=== PATIENT | female | born 1950 | race Caucasian/White ===

== ENCOUNTER 2021-08-17 14:21 | Outpatient (REF) | payer MEDICARE, MEDICAID, SELFPAY ==
--- NOTE | ~2021-08-17 | MM_ITS ---
EXAMINATION: MM DIAGNOSTIC DIGITAL BREAST TOMOSYNTHESIS, BILATERAL US DIAGNOSTIC ULTRASOUND BREAST, RIGHT CLINICAL INFORMATION: Due for yearly. Remote bilateral breast reduction surgery decades ago. Patient palpates mass lower outer right breast in area of reduction scar. Finding noted for only a few months. Patient has had intentional weight loss approximately 40 pounds since prior mammography. The lifetime risk of breast cancer based on the Tyrer-Cuzick Model is 7%. COMPARISON: Outside mammography: 04/17/2017 ([facility]). TECHNIQUE: Digital breast tomosynthesis is performed in both the craniocaudal and mediolateral oblique views along with computer-aided detection (CAD). Synthesized 2D images are generated from the tomosynthesis. Additional exaggerated right CC, standard right CC, and spot right MLO views are obtained. Ultrasound right breast is targeted to the area of clinical concern. Patient is able to point to the area of concern at time of imaging and the finding is palpable by myself and the alumni relations manager. Patient has imaged while sitting in wheelchair. Grayscale imaging and color Doppler are performed without and with harmonics. FINDINGS: There are scattered areas of fibroglandular density (ACR BI-RADS breast composition Category b). The breasts are symmetrically smaller and have increased stromal density consistent with the weight loss since prior outside imaging 2017. There is minor scarring and scattered round and dermal calcifications consistent with the remote reduction mammoplasty. Vascular calcifications are also present. There is no mass or architectural abnormality. No focal skin thickening. Ultrasound right breast performed with patient sitting in wheelchair is targeted to the clearly palpable area of concern which corresponds to the area of scar anterior mid lower outer right breast. There is no cystic or solid mass on ultrasound to correspond to the file palpable finding. No focal suspicious shadowing. There are some specular echoes corresponding to the vascular calcifications. Results are discussed with the patient and her aide at time of visit. Surgical consult is recommended for further assessment of the palpable finding. There is no mammographic or ultrasound target for tissue sampling although palpation directed sampling may be decided at surgical consultation. Patient is in agreement[facility] to assist patient with the surgical consultation. MM/MM tomosynthesis diagnostic BI IMPRESSION: 1. Bilateral decreased breast size and increased stromal density consistent with the intentional weight loss. 2. Postsurgical changes with minor scarring and benign calcifications consistent with the reduction mammoplasty. 3. No mammographic or ultrasound correlate for clearly palpable mass anterior lower outer right breast in area of reduction mammoplasty scar. Unremarkable left breast. ASSESSMENT: BI-RADS 3: Probably Benign RECOMMENDATION: Surgical consult. This patient's information was entered into a reminder system with a target due date for their next mammogram.
== END 2021-08-17 14:22 | disposition home or self-care (01) ==
LOC: HO.MAMMO 14:21
PROVIDERS: PCP Nurse Practitioner Family; Visit Provider Nurse Practitioner Family
DX: N63.15 Unspecified lump in the right breast, overlapping quadrants (principal)
CPT/HCPCS: 76642; 77062; 77066

== ENCOUNTER → 2021-09-28 13:51 | Outpatient (BNVA) | payer OTHER, SELFPAY | PROVIDERS: PCP Nurse Practitioner Family; Referring Provider Nurse Practitioner Family; Visit Provider Surgery | DX: N63.10 Unspecified lump in the right breast, unspecified quadrant (principal) | CPT/HCPCS: 99202 ==

== ENCOUNTER 2022-03-08 12:13 | Outpatient (REF) | payer OTHER, SELFPAY ==
--- NOTE | ~2022-03-08 | XR_ITS ---
EXAMINATION: XR PELVIS CLINICAL INFORMATION: Hip pain COMPARISON: CT pelvis 06/05/2018 TECHNIQUE: AP view of the pelvis. FINDINGS: There is prominent bilateral hip osteoarthritis. Right hip shows predominantly axial narrowing with subchondral sclerosis and circumferential spurring acetabular rim and base of the femoral head. Left hip shows marked narrowing superior and superior-medial with subchondral sclerosis and geodes and some mild flattening of the superior femoral head. There are osteophytes at the superior lateral acetabular rim and base lateral femoral head. There are degenerative changes lumbosacral junction. The SI joints and pubis are unremarkable. XR/XR pelvis 1-2V IMPRESSION: Severe bilateral hip osteoarthritis, greater on left.
== END 2022-03-08 12:14 | disposition home or self-care (01) ==
LOC: HO.HOSX 12:13
PROVIDERS: Visit Provider Orthopaedic Surgery
DX: M16.0 Bilateral primary osteoarthritis of hip (principal)
CPT/HCPCS: 72170; 99202

== ENCOUNTER → 2022-06-14 11:45 | Outpatient (BNVA) | payer OTHER, SELFPAY | PROVIDERS: PCP Nurse Practitioner Family; Visit Provider Orthopaedic Surgery | DX: M17.0 Bilateral primary osteoarthritis of knee (principal); M16.0 Bilateral primary osteoarthritis of hip | CPT/HCPCS: 20610; 99212; J1100 ==

== ENCOUNTER 2022-10-23 23:47 | Inpatient (IN) | payer OTHER, SELFPAY ==
--- NOTE | ~2022-10-23 | CT_ITS ---
EXAMINATION: CT ABDOMEN AND PELVIS WITH CONTRAST CLINICAL INFORMATION: Abdominal pain. Question mass. COMPARISON: None available. TECHNIQUE: Multidetector volumetric images were obtained from the superior aspect of the liver through the pubic symphysis following administration 100 mL of Omnipaque 350 intravenous contrast. Sagittal and coronal reformatted images were obtained on the technologist's workstation. Oral contrast: No This CT examination was performed using dose optimization techniques as appropriate, variously including the following: *Automated exposure control *Adjustment of mA and/or kV according to patient size (this includes techniques or standardized protocols for targeted exams where dose is matched to indication/reason for exam; i.e. extremities or head) *Use of iterative reconstruction technique DLP: 999 mGy-cm FINDINGS: LUNG BASES: The visualized lung bases are unremarkable. LIVER, GALLBLADDER, AND BILIARY TREE: The liver is normal in size, shape, and attenuation. No focal hepatic lesion. Distended gallbladder with stones. Dilated intrahepatic and extrahepatic ducts. Choledocholithiasis. Stone measures 1 cm in the duct. PANCREAS: Unremarkable. SPLEEN: Unremarkable. ADRENAL GLANDS: Unremarkable. KIDNEYS AND URETERS: The kidneys are normal in size, shape, and attenuation. No hydronephrosis, hydroureter, or calculi seen. No perinephric stranding. BLADDER: Unremarkable. GASTROINTESTINAL TRACT: The stomach is unremarkable. Normal caliber small bowel. No obstruction. Normal appendix. No colonic wall thickening or inflammation. Diverticulosis without diverticulitis, greatest at the sigmoid colon. No free air or free fluid. ABDOMINAL WALL: No significant hernia is appreciated. LYMPH NODES: Normal. VASCULAR: Unremarkable. PELVIC VISCERA: Uterus not seen. No adnexal mass. OSSEOUS STRUCTURES: No acute or suspicious osseous abnormality. Moderate degenerative changes of the spine. Severe degenerative changes of both hips with flattening of the femoral heads and joint space narrowing. CT/CT abdomen pelvis w IV con IMPRESSION: 1. Cholelithiasis with choledocholithiasis. Dilated intrahepatic and extrahepatic ducts. 2. Colonic diverticulosis without diverticulitis. 3. Severe degenerative changes of both hips. Fleischner guidelines were followed.
--- NOTE | ~2022-10-23 | FL_ITS ---
EXAMINATION: XR FLUOROSCOPY WITH IMAGES CLINICAL INFORMATION: ERCP COMPARISON: Previous CT of the abdomen and pelvis 10/24/2022 TECHNIQUE: Fluoroscopy Supervised By: Dr. Angelica Luis. Fluoroscopy Time: 246 seconds. Cumulative Dose: 134 mGy. Images: 18. FINDINGS: Initial images demonstrate dilated common bile duct and multiple filling defects in the common bile duct suggestive of stones. Later images demonstrate a wire in the common bile duct. Final image demonstrates decrease in size in the common bile duct and no visible stone. FL/FL guidance in OR IMPRESSION: Fluoroscopy guidance for ERCP. Common bile duct stones.
--- NOTE | ~2022-10-23 | XR_ITS ---
EXAMINATION: XR CHEST CLINICAL INFORMATION: Short of breath COMPARISON: 06/12/2015 TECHNIQUE: Frontal view of the chest was obtained. FINDINGS: Cardiac leads overlie the chest. The lungs are well expanded. There is no focal consolidation, edema, or effusion. No pneumothorax. The cardiomediastinal silhouette is enlarged. No acute osseous abnormality. Degenerative changes at both shoulders. XR/XR chest 1V IMPRESSION: No acute pulmonary disease. Enlarged cardiac silhouette.
[2022-10-23 23:58] VITALS: BP 102/60; BP 118/64; PULSE 58; PULSE 66; RESP 20; TEMP 36.7; O2SAT 96; BMI 44.5
[2022-10-24] VITALS (7 sets, daily range): BP systolic 94–167; BP diastolic 37–91; PULSE 50–65; RESP 13–20; TEMP 36.1–36.9; O2SAT 96–99; BMI 44.3
--- NOTE | 2022-10-24 00:10 | PC.NURSE ---
pt placed on monitoring specialist. iv placed by this rn. 20gin R arm. pt tolerated well
--- NOTE | 2022-10-24 00:12 | ECG_ITS ---
Test Reason : VOMITING Blood Pressure : / mmHG Vent. Rate : 059 BPM Atrial Rate : 000 BPM P-R Int : 000 ms QRS Dur : 110 ms QT Int : 430 ms P-R-T Axes : 000 004 079 degrees QTc Int : 425 ms Atrial fibrillation with slow ventricular response Incomplete left bundle branch block Nonspecific ST and T wave abnormality Abnormal ECG When compared with ECG of 12-JUN-2015 21:10, Atrial fibrillation has replaced Sinus rhythm Vent. rate has decreased BY 31 BPM Incomplete left bundle branch block is now Present Referred By: Samina Chowdary Electronically Signed By:Suraj Colin
--- NOTE | 2022-10-24 00:29 | ED.NAVMDI ---
HPI - Nausea/Vomiting/Diarrhea General Chief complaint: Nausea/Vomiting/Diarrhea Stated complaint: nausea and vomiting Time Seen by Provider: 10/24/22 00:05 History of Present Illness HPI Narrative: Patient is a 72-year-old history of hypertension, arthritis no history of abdominal surgery presented today with having nausea vomiting. The nausea vomiting is mostly of bile in food. Patient has black stool. She also had Pepto-Bismol 2 days ago. Positive generalized malaise weakness. No history of abdominal surgery in the past. Patient is from home. No coughing or congestion or respiratory symptoms. No diaphoresis. Related Data Home Medications Medication Instructions Recorded Confirmed apixaban 5 mg tablet (Eliquis) 5 mg PO BID 09/28/21 carvedilol 12.5 mg tablet 12.5 mg PO BID 09/28/21 cholecalciferol (vitamin D3) 1,250 1,250 mcg PO QWEEK 09/28/21 mcg (50,000 unit) capsule ferrous sulfate 325 mg (65 mg 325 mg PO BID 09/28/21 iron) tablet fluconazole 150 mg tablet 150 mg PO 09/28/21 methimazole 10 mg tablet 20 mg PO BID 09/28/21 methimazole 5 mg tablet 5 mg PO 6XW 09/28/21 nystatin 100,000 unit/gram topical topical BID 09/28/21 powder spironolactone 25 mg tablet 25 mg PO DAILY 09/28/21 torsemide 20 mg tablet 20 mg PO BID 09/28/21 tramadol 50 mg tablet 50 mg PO Q6H PRN 09/28/21 valsartan 80 mg tablet 80 mg PO DAILY 09/28/21 Allergies Allergy/AdvReac Type Severity Reaction Status Date / Time Penicillins [PENICILLINS] Allergy Unknown UNKNOWN Verified 03/08/22 12:56 Review of Systems Review of Systems: Positive abdominal pain. Positive dizziness Yes all other systems are reviewed and are negative PMFSH Past Medical History Attestation statement: The following information was validated with the patient. Medical History Arthritis Breast mass, right Hypertension Lymphedema Surgical History History of bilateral breast reduction surgery History of hysterectomy Family History Family History Mother Vaginal cancer Brother Eye cancer Social History Social History Alcohol intake: never Patient Tobacco Use Status: Never used Tobacco Smoked in Last 30 Days: No Use of substances other than those prescribed or required for medical reasons: No Advance Directives: No Advance Directives Information Provided: Yes Physical Exam Vital Signs: Vital Signs: Last Vital Signs Temp 98.0 F 10/24/22 01:50 Pulse 62 10/24/22 01:50 Resp 18 10/24/22 01:50 BP 119/58 L 10/24/22 01:50 Pulse Ox 99 10/24/22 01:50 O2 Del Method Room Air 10/24/22 01:50 BMI result Body Mass Index 44.5 Appearance: Alert. Oriented X3. No acute distress. Eyes: Pupils equal, round and reactive to light. ENT: Pharynx normal. Neck: Normal inspection. Neck supple. No lymph nodes noted. No crepitus CVS: Normal heart rate and rhythm. Pulses normal. Normal S1 and S2 Respiratory: No respiratory distress. Breath sounds normal. No Wheezing. No rales Abdomen: Soft and nontender. No rigidity. No distention. good BS x4 Skin: Skin warm and dry. Normal skin color. Normal skin turgor. Extremities: No lower extremity edema. Neurovascular intact to all extremities. No Lacerations. No Rash Neuro: Oriented X 3. No motor deficit. No sensory deficit. Moving all extermities. No slurred speech Medications Administered Discontinued Medications Generic Name Dose Route Start Last Admin Trade Name Freq PRN Reason Stop Dose Admin Sodium Chloride 1,000 mls @ 999 mls/hr 10/24/22 00:15 10/24/22 02:06 Ns IV 10/24/22 01:15 Infused .Q1H1M MARIALUISA Infusion Iohexol 100 ml 10/24/22 02:49 10/24/22 02:50 Iohexol 350 Mg/Ml 100 Ml Infus..Btl IV 10/24/22 02:50 100 ml ONCE ONE Administration Ondansetron HCl 4 mg 10/24/22 02:04 10/24/22 02:09 Ondansetron Hcl 4 Mg/2 Ml Vial IVPUSH 10/24/22 02:05 4 mg ONCE ONE Administration Medical Decision Making Medical Decision Making [facility] Narrative: Patient complaining of abdominal pain generalized malaise weakness. Had black stool as well. Although patient had used Pepto-Bismol once. Patient's stool came back heme-positive. Nausea vomiting was extreme. It is associated with some abdominal pain in the epigastric area. Patient's LFTs are elevated consistent with some type of obstruction. CT scan of the abdomen pelvis was done. It showed evidence of a choledochal lithiasis. Will poly required ERCP. Likely causing patient's elevated and a in LFTs. Patient's lipase was normal no evidence of pancreatitis. Patient's hemoglobin is 13.3 which is baseline. Currently pain is control nausea is controlled. Case discussed with the hospitalist team. Will admit for further evaluation. Patient will most likely need an ERCP. Differential Diagnosis Differential Diagnoses: The differential diagnosis associated with the presentation includes Intra-abdominal mass, common duct stone, liver problem, pneumonia, diverticulitis, obstruction, abscess Admission/Observation Consideration of admission/observation: Escalation of care including admission/observation considered Consult Healthcare Provider Management of the patient was discussed with: Hospitalist Lab Data [facility] Lab Attestation statement: I reviewed the patient's lab results. 10/24/22 00:40 10/24/22 00:40 Labs: Lab Results 10/24/22 10/24/22 10/24/22 Range/Units 00:39 00:40 00:40 WBC 7.4 (4.8-10.8) X10*3/uL RBC 4.26 (4.20-5.50) X10*6/uL Hgb 13.3 (12.0-16.0) g/dl Hct 38.8 (37.0-47.0) % MCV 91.1 (80.0-98.0) fL MCH 31.2 (27.0-33.0) pg MCHC 34.3 (31.0-35.0) g/dl RDW 13.4 (11.0-16.0) % Plt Count 160 (160-400) X10*3/uL MPV 9.5 (9.4-12.3) fL Immature Gran % (Auto) 0.8 H (0.0-0.4) % Neut % (Auto) 69.6 (45-73) % Lymph % (Auto) 16.6 L (20-40) % [place] % (Auto) 10.0 (2-11) % Eos % (Auto) 2.2 (0-4) % Baso % (Auto) 0.8 (0-2) % Lymph # (Auto) 1.2 (1.2-4.9) X10*3/uL [place] # (Auto) 0.7 (0.1-1.2) X10*3/uL Eos # (Auto) 0.2 (0.0-0.4) X10*3/uL Baso # (Auto) 0.1 (0.0-0.2) X10*3/uL Abs Immat Gran (auto) 0.06 H (0.00-0.03) X10*3/uL Absolute Neuts (auto) 5.2 (2.0-8.3) x10*3/uL Absolute Nucleated RBC 0.000 (0.0-0.012) X10*3/uL Nucleated RBC % (auto) 0.0 (0.0-0.2) /100WBC PT 14.5 H (10.0-13.1) SEC INR 1.3 H (0.9-1.1) Sodium (135-145) mmol/L Potassium (3.3-5.1) mmol/L Chloride (96-108) mmol/L Carbon Dioxide (22-29) mmol/L Anion Gap (12-20) BUN (9-16) mg/dL Creatinine (0.5-1.4) mg/dL Estim Creat Clear Calc Estimated GFR Random Glucose (60-115) mg/dL Calcium (8.4-10.2) mg/dL Total Bilirubin (0.0-1.0) mg/dL Direct Bilirubin (0.0-0.5) mg/dL AST (5-31) U/L ALT (0-31) U/L Alkaline Phosphatase (39-117) U/L Troponin I High Sens 2.8 (<3.5-17.0) ng/L Total Protein (6.5-8.0) g/dL Albumin (3.5-5.0) g/dL Lipase (8-78) U/L Urine Color Urine Appearance Urine pH (5.0-9.0) Ur Specific [place] (1.005-1.025) Urine Protein (Neg-Trace) mg/dL Urine Glucose (UA) (Negative) mg/dL Urine Ketones (Negative) mg/dL Urine Blood (Negative) Urine Nitrite (Negative) Ur Leukocyte Esterase (Negative) Urine RBC (0-2) /HPF Urine WBC (0-5) /HPF Ur Squamous Epith Cells (0-2) /HPF Urine Bacteria (None Seen) Hyaline Casts (0-2) /LPF Stool Occult Blood (NEGATIVE) Blood Type Antibody Screen 10/24/22 10/24/22 10/24/22 Range/Units 00:40 00:40 00:57 WBC (4.8-10.8) X10*3/uL RBC (4.20-5.50) X10*6/uL Hgb (12.0-16.0) g/dl Hct (37.0-47.0) % MCV (80.0-98.0) fL MCH (27.0-33.0) pg MCHC (31.0-35.0) g/dl RDW (11.0-16.0) % Plt Count (160-400) X10*3/uL MPV (9.4-12.3) fL Immature Gran % (Auto) (0.0-0.4) % Neut % (Auto) (45-73) % Lymph % (Auto) (20-40) % [place] % (Auto) (2-11) % Eos % (Auto) (0-4) % Baso % (Auto) (0-2) % Lymph # (Auto) (1.2-4.9) X10*3/uL [place] # (Auto) (0.1-1.2) X10*3/uL Eos # (Auto) (0.0-0.4) X10*3/uL Baso # (Auto) (0.0-0.2) X10*3/uL Abs Immat Gran (auto) (0.00-0.03) X10*3/uL Absolute Neuts (auto) (2.0-8.3) x10*3/uL Absolute Nucleated RBC (0.0-0.012) X10*3/uL Nucleated RBC % (auto) (0.0-0.2) /100WBC PT (10.0-13.1) SEC INR (0.9-1.1) Sodium 129 L (135-145) mmol/L Potassium 4.0 (3.3-5.1) mmol/L Chloride 98 (96-108) mmol/L Carbon Dioxide 23 (22-29) mmol/L Anion Gap 12 (12-20) BUN 19 H (9-16) mg/dL Creatinine 1.03 (0.5-1.4) mg/dL Estim Creat Clear Calc 52.7 Estimated GFR 53 Random Glucose 109 (60-115) mg/dL Calcium 9.0 (8.4-10.2) mg/dL Total Bilirubin 5.1 H (0.0-1.0) mg/dL Direct Bilirubin 3.5 H (0.0-0.5) mg/dL AST 75 H (5-31) U/L ALT 149 H (0-31) U/L Alkaline Phosphatase 156 H (39-117) U/L Troponin I High Sens (<3.5-17.0) ng/L Total Protein 6.4 L (6.5-8.0) g/dL Albumin 3.9 (3.5-5.0) g/dL Lipase 37 (8-78) U/L Urine Color Urine Appearance Urine pH (5.0-9.0) Ur Specific [place] (1.005-1.025) Urine Protein (Neg-Trace) mg/dL Urine Glucose (UA) (Negative) mg/dL Urine Ketones (Negative) mg/dL Urine Blood (Negative) Urine Nitrite (Negative) Ur Leukocyte Esterase (Negative) Urine RBC (0-2) /HPF Urine WBC (0-5) /HPF Ur Squamous Epith Cells (0-2) /HPF Urine Bacteria (None Seen) Hyaline Casts (0-2) /LPF Stool Occult Blood POSITIVE (NEGATIVE) Blood Type AB Positive Antibody Screen NEGATIVE 10/24/22 Range/Units 00:57 WBC (4.8-10.8) X10*3/uL RBC (4.20-5.50) X10*6/uL Hgb (12.0-16.0) g/dl Hct (37.0-47.0) % MCV (80.0-98.0) fL MCH (27.0-33.0) pg MCHC (31.0-35.0) g/dl RDW (11.0-16.0) % Plt Count (160-400) X10*3/uL MPV (9.4-12.3) fL Immature Gran % (Auto) (0.0-0.4) % Neut % (Auto) (45-73) % Lymph % (Auto) (20-40) % [place] % (Auto) (2-11) % Eos % (Auto) (0-4) % Baso % (Auto) (0-2) % Lymph # (Auto) (1.2-4.9) X10*3/uL [place] # (Auto) (0.1-1.2) X10*3/uL Eos # (Auto) (0.0-0.4) X10*3/uL Baso # (Auto) (0.0-0.2) X10*3/uL Abs Immat Gran (auto) (0.00-0.03) X10*3/uL Absolute Neuts (auto) (2.0-8.3) x10*3/uL Absolute Nucleated RBC (0.0-0.012) X10*3/uL Nucleated RBC % (auto) (0.0-0.2) /100WBC PT (10.0-13.1) SEC INR (0.9-1.1) Sodium (135-145) mmol/L Potassium (3.3-5.1) mmol/L Chloride (96-108) mmol/L Carbon Dioxide (22-29) mmol/L Anion Gap (12-20) BUN (9-16) mg/dL Creatinine (0.5-1.4) mg/dL Estim Creat Clear Calc Estimated GFR Random Glucose (60-115) mg/dL Calcium (8.4-10.2) mg/dL Total Bilirubin (0.0-1.0) mg/dL Direct Bilirubin (0.0-0.5) mg/dL AST (5-31) U/L ALT (0-31) U/L Alkaline Phosphatase (39-117) U/L Troponin I High Sens (<3.5-17.0) ng/L Total Protein (6.5-8.0) g/dL Albumin (3.5-5.0) g/dL Lipase (8-78) U/L Urine Color Dark Yellow Urine Appearance Clear Urine pH 6.0 (5.0-9.0) Ur Specific [place] 1.010 (1.005-1.025) Urine Protein Negative (Neg-Trace) mg/dL Urine Glucose (UA) Negative (Negative) mg/dL Urine Ketones Trace (Negative) mg/dL Urine Blood Negative (Negative) Urine Nitrite Negative (Negative) Ur Leukocyte Esterase Trace H (Negative) Urine RBC 0-2 (0-2) /HPF Urine WBC 0-5 (0-5) /HPF Ur Squamous Epith Cells 6-10 (0-2) /HPF Urine Bacteria None Seen (None Seen) Hyaline Casts 0-2 (0-2) /LPF Stool Occult Blood (NEGATIVE) Blood Type Antibody Screen Independent Interpretation I performed an independent interpretation of an: EKG Interpretation: My interpretation patient's EKG showed an atrial fibrillation pattern heart rate is approximately 60 is grossly unchanged from previous EKG. Radiology Impression Discussion of test interpretation with radiology: I have reviewed the radiologist's reading. Radiologist Impression: CT scan positive for choledocholithiasis External Record Review External record reviewed: Inpatient record Chronic Conditions Patient?s care impacted by: Diabetes and Hypertension Critical Care Time Critical Care Time Critical Care Time: Yes Total Critical Care Time: 40 Attestation: I have personally provided 40 minutes of critical care time exclusive of time spent on separately billable procedures. Time includes review of lab data, radiology results, discussion with consultants, and monitoring for potential decompensation. Interventions were performed as documented above Discharge Plan Discharge Clinical Impression: Choledocholithiasis Patient Disposition: Admitted As Inpatient Prescriptions: No Action Eliquis 5 mg tablet 5 mg PO BID tramadol 50 mg tablet 50 mg PO Q6H PRN valsartan 80 mg tablet 80 mg PO DAILY spironolactone 25 mg tablet 25 mg PO DAILY methimazole 10 mg tablet 20 mg PO BID methimazole 5 mg tablet 5 mg PO 6XW ferrous sulfate 325 mg (65 mg iron) tablet 325 mg PO BID nystatin 100,000 unit/gram powder topical BID cholecalciferol (vitamin D3) 1,250 mcg (50,000 unit) capsule 1,250 mcg PO QWEEK carvedilol 12.5 mg tablet 12.5 mg PO BID torsemide 20 mg tablet 20 mg PO BID fluconazole 150 mg tablet 150 mg PO
[2022-10-24] MEDS: 0.9 % Sodium Chloride 1,000 ML 999 ML IV (00:32)
[2022-10-24 00:46] LABS: MANUAL DIFF FLAG NO
[2022-10-24 00:47] LABS: OBS Int Ctl Valid YES; OBS1 POSITIVE (NEGATIVE)
[2022-10-24 00:48] LABS: Basophils Absolute Auto 0.1 X10*3/uL (0.0-0.2); Basophils Percent Auto 0.8 % (0-2); Eosinophils Absolute Auto 0.2 X10*3/uL (0.0-0.4); Eosinophils Percent Auto 2.2 % (0-4); Hematocrit 38.8 % (37.0-47.0); Hemoglobin 13.3 g/dl (12.0-16.0); Imm Gran Abs Auto 0.06 X10*3/uL (0.00-0.03); Imm Gran Pct Auto 0.8 % (0.0-0.4); Lymphocytes Absolute Auto 1.2 X10*3/uL (1.2-4.9); Lymphocytes Percent Auto 16.6 % (20-40); Mean Corpuscular HGB Conc 34.3 g/dl (31.0-35.0); Mean Corpuscular Hemoglobin 31.2 pg (27.0-33.0); Mean Corpuscular Volume 91.1 fL (80.0-98.0); Mean Platelet Volume 9.5 fL (9.4-12.3); Monocytes Absolute Auto 0.7 X10*3/uL (0.1-1.2); Neutrophils Absolute Auto 5.2 x10*3/uL (2.0-8.3); Neutrophils Percent Auto 69.6 % (45-73); Platelet Count 160 X10*3/uL (160-400); Red Blood Count 4.26 X10*6/uL (4.20-5.50); Red Cell Distribution Width 13.4 % (11.0-16.0); White Blood Count 7.4 X10*3/uL (4.8-10.8)
[2022-10-24 00:54] LABS: INTERNATIONAL NORM RATIO 1.3 (0.9-1.1); Prothrombin Time 14.5 SEC (10.0-13.1)
[2022-10-24 01:06] LABS: Appearance Urine Clear; Color Urine Dark Yellow; Glucose Urine UA Negative (Negative); Leukocyte Esterase Urine Trace (Negative); Nitrite Urine Negative (Negative); UMIC TRIGGER UACC YES; Urine Blood Negative (Negative); Urine Ketones Trace mg/dL (Negative); Urine Protein Negative (Neg-Trace)
[2022-10-24 01:07] LABS: Troponin-I High Sensitivity 2.8 ng/L (<3.5-17.0)
[2022-10-24 01:07] LABS: Alanine Aminotransferase 149 U/L (0-31); Albumin Level 3.9 g/dL (3.5-5.0); Alkaline Phosphatase 156 U/L (39-117); Anion Gap 12 (12-20); Aspartate Amino Transferase 75 U/L (5-31); Bilirubin Direct 3.5 mg/dL (0.0-0.5); Bilirubin Total 5.1 mg/dL (0.0-1.0); Blood Urea Nitrogen 19 mg/dL (9-16); Carbon Dioxide 23 mmol/L (22-29); Chloride 98 mmol/L (96-108); Creatinine Clr Calc Pharmacy 52.7; Estimated Glomerular Filt Rate 53; Glucose Random 109 mg/dL (60-115); Lipase 37 U/L (8-78); Sodium 129 mmol/L (135-145); Total Protein 6.4 g/dL (6.5-8.0)
[2022-10-24 01:11] LABS: Bacteria Urine None Seen (None Seen); Hyaline Casts Urine 0-2 /LPF (0-2); RBC Urine 0-2 /HPF (0-2); WBC Urine 0-5 /HPF (0-5)
[2022-10-24] MEDS: ondansetron HCL 4 MG/2 ML VIAL IVPUSH (02:09)
--- NOTE | 2022-10-24 02:10 | PC.NURSE ---
this rn and eddy current inspector changed soiled linens as pt was incontinent of urine. pt placed on periwick at this time. pt tolerated well. pt reports nausea. pt medicated according to steve with zofran. pt awaiting ct scan at this time
[2022-10-24] MEDS: iohexoL 350 MG/ML 100 ML INFUS..BTL IV (02:50)
--- NOTE | 2022-10-24 03:28 | P.HPHOSP_ITS ---
History of Present Illness Date of Service: 10/24/22 Chief Complaint: Nausea/vomiting This is a 72-year-old female with pertinent history of essential hypertension, AFib on Eliquis, hyperthyroidism who presents to the emergency department for evaluation of nausea and vomiting. Patient states her symptoms started 6 days ago. She has been having nausea and nonbloody emesis which is greenish in color. Patient denies abdominal discomfort, fever, chills. No similar history in the past. Patient states she also noticed that her stool has been blackish in color for the last 4-5 days. She began having Pepto-Bismol about 2 days ago. Patient denies chest discomfort, palpitations, shortness of breath, changes in urinary habits. Patient states she has only been eating toast due to nausea and vomiting. In the emergency department, stool occult blood test was noted to be positive and imaging was concerning for choledocholithiasis Review of Systems Constitutional: Constitutional: Reports fatigue and Reports malaise Cardiovascular: Cardiovascular: Reports no additional cardiovascular complaints Respiratory: Respiratory: Reports no additional respiratory complaints Gastrointestinal: Gastrointestinal: Reports nausea and Reports vomiting Genitourinary: Genitourinary: Reports no additional female genitourinary complaints Endocrine: Endocrine: Reports fatigue PMFSH Medical History Arthritis Breast mass, right Hypertension Lymphedema Family History Mother Vaginal cancer Brother Eye cancer Surgical History History of bilateral breast reduction surgery History of hysterectomy Social History Alcohol intake: never Patient Tobacco Use Status: Never used Tobacco Smoked in Last 30 Days: No Use of substances other than those prescribed or required for medical reasons: No Advance Directives: No Advance Directives Information Provided: Yes Meds Allergies Allergy/AdvReac Type Severity Reaction Status Date / Time Penicillins [PENICILLINS] Allergy Unknown UNKNOWN Verified 03/08/22 12:56 Home Medications Medication Instructions Recorded Confirmed Last Taken Type apixaban 5 mg tablet (Eliquis) 5 mg PO BID 09/28/21 Unknown History carvedilol 12.5 mg tablet 12.5 mg PO BID 09/28/21 Unknown History cholecalciferol (vitamin D3) 1,250 1,250 mcg PO QWEEK 09/28/21 Unknown History mcg (50,000 unit) capsule ferrous sulfate 325 mg (65 mg 325 mg PO BID 09/28/21 Unknown History iron) tablet fluconazole 150 mg tablet 150 mg PO 09/28/21 Unknown History methimazole 10 mg tablet 20 mg PO BID 09/28/21 Unknown History methimazole 5 mg tablet 5 mg PO 6XW 09/28/21 Unknown History nystatin 100,000 unit/gram topical topical BID 09/28/21 Unknown History powder spironolactone 25 mg tablet 25 mg PO DAILY 09/28/21 Unknown History torsemide 20 mg tablet 20 mg PO BID 09/28/21 Unknown History tramadol 50 mg tablet 50 mg PO Q6H PRN 09/28/21 Unknown History valsartan 80 mg tablet 80 mg PO DAILY 09/28/21 Unknown History Physical Exam Vital Signs and Narrative: Vital Signs: Last Vital Signs Temp 98.0 F 10/24/22 01:50 Pulse 62 10/24/22 01:50 Resp 18 10/24/22 01:50 BP 119/58 L 10/24/22 01:50 Pulse Ox 99 10/24/22 01:50 O2 Del Method Room Air 10/24/22 01:50 BMI result Body Mass Index 44.5 Middle-aged female lying in bed in no distress Neck supple, no JVD Regular rate and rhythm, S1-S2 heard Regular breath sounds bilaterally, no wheezing or crackles appreciated Abdomen soft nontender, no guarding, no rigidity Patient is awake, alert and oriented to self, place, time and person ; no focal motor deficit Psych: Normal mood No pedal edema Results Labs 10/24/22 00:40 10/24/22 00:40 Labs: Laboratory Results - last 24 hr 10/24/22 10/24/22 10/24/22 00:39 00:40 00:40 MCV 91.1 MCH 31.2 MCHC 34.3 RDW 13.4 Plt Count 160 MPV 9.5 Immature Gran % (Auto) 0.8 H Neut % (Auto) 69.6 Lymph % (Auto) 16.6 L Orange % (Auto) 10.0 Eos % (Auto) 2.2 Baso % (Auto) 0.8 Lymph # (Auto) 1.2 Orange # (Auto) 0.7 Eos # (Auto) 0.2 Baso # (Auto) 0.1 Abs Immat Gran (auto) 0.06 H Absolute Neuts (auto) 5.2 Absolute Nucleated RBC 0.000 Nucleated RBC % (auto) 0.0 PT 14.5 H INR 1.3 H Anion Gap Estim Creat Clear Calc Estimated GFR Random Glucose Calcium Total Bilirubin Direct Bilirubin AST ALT Alkaline Phosphatase Troponin I High Sens 2.8 Total Protein Albumin Lipase Urine Color Urine Appearance Urine pH Ur Specific [place] Urine Protein Urine Glucose (UA) Urine Ketones Urine Blood Urine Nitrite Ur Leukocyte Esterase Urine RBC Urine WBC Ur Squamous Epith Cells Urine Bacteria Hyaline Casts Stool Occult Blood Blood Type Antibody Screen 10/24/22 10/24/22 10/24/22 00:40 00:40 00:57 MCV MCH MCHC RDW Plt Count MPV Immature Gran % (Auto) Neut % (Auto) Lymph % (Auto) Orange % (Auto) Eos % (Auto) Baso % (Auto) Lymph # (Auto) Orange # (Auto) Eos # (Auto) Baso # (Auto) Abs Immat Gran (auto) Absolute Neuts (auto) Absolute Nucleated RBC Nucleated RBC % (auto) PT INR Anion Gap 12 Estim Creat Clear Calc 52.7 Estimated GFR 53 Random Glucose 109 Calcium 9.0 Total Bilirubin 5.1 H Direct Bilirubin 3.5 H AST 75 H ALT 149 H Alkaline Phosphatase 156 H Troponin I High Sens Total Protein 6.4 L Albumin 3.9 Lipase 37 Urine Color Urine Appearance Urine pH Ur Specific [place] Urine Protein Urine Glucose (UA) Urine Ketones Urine Blood Urine Nitrite Ur Leukocyte Esterase Urine RBC Urine WBC Ur Squamous Epith Cells Urine Bacteria Hyaline Casts Stool Occult Blood POSITIVE Blood Type AB Positive Antibody Screen NEGATIVE 10/24/22 00:57 MCV MCH MCHC RDW Plt Count MPV Immature Gran % (Auto) Neut % (Auto) Lymph % (Auto) Orange % (Auto) Eos % (Auto) Baso % (Auto) Lymph # (Auto) Orange # (Auto) Eos # (Auto) Baso # (Auto) Abs Immat Gran (auto) Absolute Neuts (auto) Absolute Nucleated RBC Nucleated RBC % (auto) PT INR Anion Gap Estim Creat Clear Calc Estimated GFR Random Glucose Calcium Total Bilirubin Direct Bilirubin AST ALT Alkaline Phosphatase Troponin I High Sens Total Protein Albumin Lipase Urine Color Dark Yellow Urine Appearance Clear Urine pH 6.0 Ur Specific [place] 1.010 Urine Protein Negative Urine Glucose (UA) Negative Urine Ketones Trace Urine Blood Negative Urine Nitrite Negative Ur Leukocyte Esterase Trace H Urine RBC 0-2 Urine WBC 0-5 Ur Squamous Epith Cells 6-10 Urine Bacteria None Seen Hyaline Casts 0-2 Stool Occult Blood Blood Type Antibody Screen Imaging Radiologist's Impressions: Impressions Chest X-Ray 10/24/22 01:07 IMPRESSION: No acute pulmonary disease. Enlarged cardiac silhouette. Abdomen/Pelvis CT 10/24/22 02:45 IMPRESSION: 1. Cholelithiasis with choledocholithiasis. Dilated intrahepatic and extrahepatic ducts. 2. Colonic diverticulosis without diverticulitis. 3. Severe degenerative changes of both hips. Fleischner guidelines were followed. Assessment and Plan (1) Choledocholithiasis: Status: Acute Plan This is a 72-year-old female with pertinent history of essential hypertension, AFib on Eliquis, hyperthyroidism who presents to the emergency department for evaluation of nausea and vomiting. #. Nausea/vomiting, likely due to Choledocholithiasis: Will admit patient and consult GI for possible ERCP. No fever or evidence of cholangitis. Will keep patient NPO. Will also need eventual cholecystectomy #. Conjugated jaundice and transaminitis in the setting of above #. ?GI bleed: Stool occult blood test positive in the ER. Initiating IV Protonix. Will keep patient NPO and consulting GI as above #. AFib: Rate controlled in the ER. Holding Eliquis due to possible GI bleed #. Essential hypertension: Hold antihypertensives due to possible GI bleed. Resume as appropriate #. Hyperthyroidism: On methimazole Med rec pending DVT prophylaxis: Mechanical Full code NPO Admit as inpatient and will require two night minimum hospital stay for possible procedure. Specialist consult pending Time Spent With Patient Time: Total time managing care of this patient today ____ minutes. Quality Stroke Does the patient have a stroke diagnosis?: No VTE Prior VTE?: No VTE Risk Level:: Medical - moderate - high VTE Device Contraindication: N/A - Device Ordered VTE Drug Contraindication: Treatment Not Indicated
[2022-10-24] MEDS: Pantoprazole Sodium 40 MG/10 ML VIAL 80 MG IVPUSH (04:09)
[2022-10-24 06:03] LABS: MANUAL DIFF FLAG NO
[2022-10-24 06:05] LABS: Basophils Absolute Auto 0.1 X10*3/uL (0.0-0.2); Basophils Percent Auto 0.7 % (0-2); Eosinophils Absolute Auto 0.1 X10*3/uL (0.0-0.4); Eosinophils Percent Auto 1.8 % (0-4); Hematocrit 39.9 % (37.0-47.0); Hemoglobin 13.4 g/dl (12.0-16.0); Imm Gran Abs Auto 0.06 X10*3/uL (0.00-0.03); Imm Gran Pct Auto 0.9 % (0.0-0.4); Lymphocytes Absolute Auto 1.4 X10*3/uL (1.2-4.9); Lymphocytes Percent Auto 20.5 % (20-40); Mean Corpuscular HGB Conc 33.6 g/dl (31.0-35.0); Mean Corpuscular Hemoglobin 30.7 pg (27.0-33.0); Mean Corpuscular Volume 91.3 fL (80.0-98.0); Mean Platelet Volume 9.5 fL (9.4-12.3); Monocytes Absolute Auto 0.7 X10*3/uL (0.1-1.2); Monocytes Percent Auto 9.7 % (2-11); Neutrophils Absolute Auto 4.4 x10*3/uL (2.0-8.3); Neutrophils Percent Auto 66.4 % (45-73); Platelet Count 164 X10*3/uL (160-400); Red Blood Count 4.37 X10*6/uL (4.20-5.50); Red Cell Distribution Width 13.3 % (11.0-16.0); White Blood Count 6.7 X10*3/uL (4.8-10.8)
[2022-10-24 06:20] LABS: Alanine Aminotransferase 137 U/L (0-31); Albumin Level 3.4 g/dL (3.5-5.0); Alkaline Phosphatase 138 U/L (39-117); Anion Gap 13 (12-20); Aspartate Amino Transferase 71 U/L (5-31); Bilirubin Total 4.8 mg/dL (0.0-1.0); Blood Urea Nitrogen 16 mg/dL (9-16); Calcium 8.7 mg/dL (8.4-10.2); Carbon Dioxide 20 mmol/L (22-29); Chloride 104 mmol/L (96-108); Estimated Glomerular Filt Rate > 60; Glucose Random 93 mg/dL (60-115); Sodium 133 mmol/L (135-145); Total Protein 5.8 g/dL (6.5-8.0)
[2022-10-24] MEDS: 0.9 % Sodium Chloride Flush 3 ML SYRINGE IVFLUSH ×3 (07:50→20:26)
--- NOTE | 2022-10-24 07:53 | PC.NURSE ---
Addendum entered by Alondra Hagen RN 10/24/22 07:57: lungs clear throughout. Original Note: ient a&ox3, pure wick intact/patient draining, pt denying pain/discomfort, property assessment monitor intact- afib on monitor, vitals stable. patient stated her bed is uncomfortable- [place] with techs to obtain a inpt hospital bed for patient comfort, call [facility]antes within reach, will continue to monitor.
--- NOTE | 2022-10-24 08:27 | PHA.MEDREC ---
Pharmacy Consult ? Medication Reconciliation Pharmacy has completed the medication reconciliation. Pt able to name most meds on her own, did note something about lisinopril but nothing in claim history. States she only uses [facility]. Pt does take Entresto so I believe she may be confused about the sacubitril. Confirmed she only takes 5mg methimazole despite claim history saying 7.5mg. Noted she has not been able to take a lot of her meds due to nausea/vomiting, but did note she took her night medications on 10/23/22.
--- NOTE | 2022-10-24 08:56 | PC.NURSE ---
pt placed in hospital bed for patient comfort
--- NOTE | 2022-10-24 09:15 | PC.NURSE ---
med administration this nurse contacted dr. isaac about PO medications as pt is NPO, per provider pt is able to take PO medications if not vomiting and requested the eliquist to be held.
--- NOTE | 2022-10-24 09:23 | MHC.CM.PN ---
Met with patient in regards to discharge planning. Patient lives alone, ambulates with a walker and has a home health aide through [facility]. PCP verified. Copy of HCP obtained from [facility]. Patient is vaxxed and boosted x3. IMM explained and signed. Patient feels she will be able to safely return home when medically stable. Patient will need transportation arranged when medically stable because she came in by ambulance. Continue to monitor for d/c needs.
--- NOTE | 2022-10-24 09:37 | PC.NURSE ---
called pharmacy for missing meds
[2022-10-24] MEDS: Spironolactone 25 MG TABLET PO (10:24)
[2022-10-24] MEDS: carvediloL 12.5 MG TABLET PO (10:24)
[2022-10-24] MEDS: Sacubitril/Valsartan 24/26 1 TAB TABLET PO ×2 (10:25→20:32)
[2022-10-24] MEDS: methIMAzole 5 MG TABLET PO (10:25)
--- NOTE | 2022-10-24 10:26 | PC.NURSE ---
patient a&ox3- complaining the room is cold, this nurse attempted to sympathize with the patient and gave multiple warm blankets. pt was okd by to give po medications with water- pt stating she takes them with toast and was upset that she will have a difficult time once taking them but she did take the po meds. pts call cervantes is within reach, will continue to monitor.
--- NOTE | 2022-10-24 11:34 | PC.NURSE ---
received report from LEILANI Jara. pt brought to [facility] by osteopathic medicine teacher. no complaints.
--- NOTE | 2022-10-24 12:20 | P.CNGI_ITS ---
History of Present Illness Data of Consult Service Date: 10/24/22 Requesting physician: Vickie Spain Primary Care Provider: Kaye Pinto NP HPI Reason for consult: choledocholithiasis 72-year-old female with history of HTN, AFib on Eliquis, and hyperthyroidism who I am seeing for assessment for choledocholithiasis. She has been having one week of nausea, and non bloody emesis every times she tries to eat. She also noted some mild epigastric discomfort. She has noted blackish stools but has been taking bismuth. Patient denies chest discomfort, palpitations, shortness of breath, changes in urinary habits. She denies fever, or sweats. No sick contacts. LABS: bili 4.8 AST 71 ALT 137 alk phos 138 WCC and HGb nml IMAGING: dilaited intra and extra hepatic ducts, stone seen in CBD Review of Systems Review of Systems: Constitutional : No Weight loss, No Fever, No Chills ENT/Mouth : No sore throat, No Rhinorrhea Eyes: No Swelling, No Redness Cardiovascular : No Chest Pain, No SOB, No Edema Respiratory : No Cough, No Sputum, No Wheezing Gastrointestinal : see HPI Genitourinary : NO Dysuria, No Urinary Frequency, No Hematuria, No Urgency Musculoskeletal : No joint pain, No Myalgias, No Joint Swelling Skin : No Skin Lesions, No rash Neuro : No Weakness, No Numbness, No Dizziness, No Headache Psych : No Anxiety/Panic, No Depression Heme/Lymph: No Bruising, No Lymphadenopathy Endocrine : No Polyuria, No Polydipsia All other systems reviewed and are negative. [facility] Past Medical History Medical History Arthritis Breast mass, right Hypertension Lymphedema Family History Family History Mother Vaginal cancer Brother Eye cancer Surgical History Surgical History History of bilateral breast reduction surgery History of hysterectomy Social History Social History Alcohol intake: never Patient Tobacco Use Status: Never used Tobacco Smoked in Last 30 Days: No Use of substances other than those prescribed or required for medical reasons: No Advance Directives: No Advance Directives Information Provided: Yes Nutrition Risks: No Nutritional Risk service: No Meds Allergies Allergy/AdvReac Type Severity Reaction Status Date / Time Penicillins [PENICILLINS] Allergy Unknown UNKNOWN Verified 03/08/22 12:56 Active Medications: Current Medications Acetaminophen (Acetaminophen 325 Mg Tablet) 650 mg PO Q6H PRN PRN Reason: Pain, Mild (Pain Scale 1-3) Acetaminophen (Acetaminophen Supp 650 Mg Supp.Rect) 650 mg [place] Q6H PRN PRN Reason: Pain, Mild (Pain Scale 1-3) Apixaban (Apixaban 5 Mg Tablet) 5 mg PO BID [facility] Last Admin: 10/24/22 09:36 Dose: Not Given Carvedilol (Carvedilol 12.5 Mg Tablet) 12.5 mg PO BID [facility]; Protocol Last Admin: 10/24/22 10:24 Dose: 12.5 mg Fluticasone Propionate (Fluticasone Propionate Nasal 16 Gm [place]) 1 spray NOSTRIL-B DAILY PRN PRN Reason: Allergy Symptoms Melatonin (Melatonin 3 Mg Tablet) 6 mg PO BEDTIME PRN PRN Reason: Insomnia Methimazole (Methimazole 5 Mg Tablet) 5 mg PO DAILY [facility] Last Admin: 10/24/22 10:25 Dose: 5 mg Ondansetron HCl (Ondansetron Hcl 4 Mg/2 Ml Vial) 4 mg IVPUSH Q8H PRN PRN Reason: Nausea and Vomiting Pantoprazole Sodium (Pantoprazole Sodium 40 Mg/10 Ml Vial) 40 mg IVPUSH BID@0630,1630 [facility] Pharmacy Consult (Consult Rx Perform Med Rec) 1 each MISCELLANE ONCE PRN PRN Reason: Consult order Sacubitril/Valsartan (Sacubitril/Valsartan 1 Tab Tablet) 1 tab PO BID [facility]; Protocol Last Admin: 10/24/22 10:25 Dose: 1 tab Sodium Chloride (0.9 % Sodium Chloride Flush 3 Ml Syringe) 3 ml IVFLUSH QSHIFT [facility] Last Admin: 10/24/22 07:50 Dose: 3 ml Spironolactone (Spironolactone 25 Mg Tablet) 25 mg PO DAILY [facility]; Protocol Last Admin: 10/24/22 10:24 Dose: 25 mg Home Medications Medication Instructions Recorded Confirmed Last Taken Type apixaban 5 mg tablet (Eliquis) 5 mg PO BID 09/28/21 10/24/22 10/23/22 History carvedilol 12.5 mg tablet 12.5 mg PO BID 09/28/21 10/24/22 10/23/22 History nystatin 100,000 unit/gram topical 1 appl topical DAILY PRN Itching 09/28/21 10/24/22 Unknown History powder spironolactone 25 mg tablet 25 mg PO DAILY 09/28/21 10/24/22 Unknown History fluticasone propionate 50 1 spray intranasal DAILY PRN 10/24/22 10/24/22 Unknown History mcg/actuation nasal Allergy Symptoms spray,suspension methimazole 5 mg tablet 5 mg PO DAILY 10/24/22 10/24/22 Unknown History sacubitril 24 mg-valsartan 26 mg 1 tab PO BID 10/24/22 10/24/22 10/23/22 History tablet (Entresto) Physical Exam Vital Signs: Vital Signs: Last Vital Signs Temp 97.0 F 10/24/22 11:39 Pulse 58 10/24/22 11:39 Resp 20 10/24/22 11:39 BP 100/37 L 10/24/22 11:39 Pulse Ox 98 10/24/22 11:39 O2 Del Method Room Air 10/24/22 11:39 BMI result Body Mass Index 44.5 EXAM: GENERAL: The patient is relaxed, obese, jaundiced VITAL SIGNS:see workflow HEENT: icteric sclerae, PERRLA, EOMI. Oropharynx clear. Moist mucous membranes. Conjunctivae appear well perfused. No thyroid mass. CHEST: Chest wall is nontender. HEART: Regular rate and rhythm without murmurs. LUNGS: Clear to auscultation bilaterally. ABDOMEN: Soft, positive bowel sounds, tender epigastrium, no organomegaly.no flank tenderness SKIN: No rash, no excessive bruising, petechiae, or purpura. NEUROLOGIC: Cranial nerves II-XII intact without motor/sensory deficit. Psych: nml affect Results Labs 10/24/22 05:31 10/24/22 05:31 Labs: Short CBC 10/24/22 10/24/22 Range/Units 00:40 05:31 WBC 7.4 6.7 (4.8-10.8) X10*3/uL Hgb 13.3 13.4 (12.0-16.0) g/dl Hct 38.8 39.9 (37.0-47.0) % Plt Count 160 164 (160-400) X10*3/uL BMP 10/24/22 10/24/22 00:40 05:31 Sodium 129 L 133 L Potassium 4.0 4.0 Chloride 98 104 Carbon Dioxide 23 20 L BUN 19 H 16 Creatinine 1.03 0.81 Calcium 9.0 8.7 Liver Function 10/24/22 10/24/22 Range/Units 00:40 05:31 Total Bilirubin 5.1 H 4.8 H (0.0-1.0) mg/dL Direct Bilirubin 3.5 H (0.0-0.5) mg/dL AST 75 H 71 H (5-31) U/L ALT 149 H 137 H (0-31) U/L Alkaline Phosphatase 156 H 138 H (39-117) U/L Albumin 3.9 3.4 L (3.5-5.0) g/dL Urine 10/24/22 Range/Units 00:57 Urine Color Dark Yellow Urine Appearance Clear Urine pH 6.0 (5.0-9.0) Ur Specific [place] 1.010 (1.005-1.025) Urine Protein Negative (Neg-Trace) mg/dL Urine Glucose (UA) Negative (Negative) mg/dL Imaging CT scan - abdomen: Attestation: I personally reviewed and interpreted this imaging study as follows: (dilated CBD, stone seen in duct and GB) Assessment and Plan (1) Choledocholithiasis: Status: Acute Plan 1/ Choledocholithiasis and gallstones, has obstruction but no evidence of cholangitis at this time. She is also on eliquis and last dose was yesterday night PLAN: 1./ Given patient is stable will plan for ERCP on Saturday morning, pls hold eliquis, can take PO diet as tolerated meantime and NPO from night 2/ would cont ABX for the meantime but if any signs of cholangitis, then would give Kcentra and do ERCP emergently --will also book with [facility] and [facility] in case needed Time Spent With Patient Time: Total time managing care of this patient today ____ minutes. Procedures Date of Service Date of Service: 10/24/22
--- NOTE | 2022-10-24 16:14 | PC.NURSE ---
Gave report to LEILANI Montoya on 3 at this time.
--- NOTE | 2022-10-24 16:40 | PC.NURSE ---
Patient transported up to unit at this time via bed and transporter driver.
[2022-10-24] MEDS: Pantoprazole Sodium 40 MG/10 ML VIAL IVPUSH (17:39)
[2022-10-25 03:47] VITALS: BP 122/69; PULSE 58; RESP 18; TEMP 36.6; O2SAT 97
[2022-10-25] MEDS: Pantoprazole Sodium 40 MG/10 ML VIAL IVPUSH ×2 (05:41→16:29)
[2022-10-25 07:16] VITALS: BP 132/63; PULSE 50; RESP 16; TEMP 35.5; O2SAT 99
[2022-10-25] MEDS: Spironolactone 25 MG TABLET PO (08:27)
[2022-10-25] MEDS: Sacubitril/Valsartan 24/26 1 TAB TABLET PO ×2 (08:27→21:06)
[2022-10-25] MEDS: methIMAzole 5 MG TABLET PO (08:27)
[2022-10-25] MEDS: 0.9 % Sodium Chloride Flush 3 ML SYRINGE IVFLUSH ×2 (08:28→16:29)
--- NOTE | 2022-10-25 10:42 | HO.PM.IMPN ---
Subjective Subjective Date of Service: 10/26/22 Interval History: f/u on choledocholithias, r/o cholecystitis interval history: no pain while NPO Physical Exam Vital Signs: Vital Signs: Last Vital Signs Temp 96 F L 10/25/22 07:16 Pulse 50 10/25/22 07:16 Resp 16 10/25/22 07:16 BP 132/63 10/25/22 07:16 Pulse Ox 99 10/25/22 07:16 O2 Del Method Room Air 10/25/22 07:16 BMI result Body Mass Index 44.3 Const: Other: General: AO X 3, no acute distress Resp: CTA bilateral CVS: S1,S2,RRR GI: +BS, NT, no distention Skin: No rash Neuro: motor grossly intact Psych: appropriate affect Objective Data Active Medications Acetaminophen (Acetaminophen 325 Mg Tablet) 650 mg PO Q6H PRN PRN Reason: Pain, Mild (Pain Scale 1-3) Acetaminophen (Acetaminophen Supp 650 Mg Supp.Rect) 650 mg [place] Q6H PRN PRN Reason: Pain, Mild (Pain Scale 1-3) Apixaban (Apixaban 5 Mg Tablet) 5 mg PO BID COUNT INCLUDES [facility] Last Admin: 10/24/22 15:24 Dose: Not Given Documented By: JIMENA Non-Admin Reason: Physician Held Med Carvedilol (Carvedilol 12.5 Mg Tablet) 12.5 mg PO BID COUNT INCLUDES THE [facility]; Protocol Last Admin: 10/25/22 08:28 Dose: Not Given Documented By: CHRIS Non-Admin Reason: Decreased Heart Rate Fluticasone Propionate (Fluticasone Propionate Nasal 16 Gm [place]) 1 spray NOSTRIL-B DAILY PRN PRN Reason: Allergy Symptoms Melatonin (Melatonin 3 Mg Tablet) 6 mg PO BEDTIME PRN PRN Reason: Insomnia Methimazole (Methimazole 5 Mg Tablet) 5 mg PO DAILY COUNT INCLUDES [facility] Last Admin: 10/25/22 08:27 Dose: 5 mg Documented By: CHRIS Ondansetron HCl (Ondansetron Hcl 4 Mg/2 Ml Vial) 4 mg IVPUSH Q8H PRN PRN Reason: Nausea and Vomiting Pantoprazole Sodium (Pantoprazole Sodium 40 Mg/10 Ml Vial) 40 mg IVPUSH BID@0630,1630 COUNT [facility]CLUDES THE [facility] Last Admin: 10/25/22 05:41 Dose: 40 mg Documented By: POPEYE Pharmacy Consult (Consult Rx Perform Med Rec) 1 each MISCELLANE ONCE PRN PRN Reason: Consult order Sacubitril/Valsartan (Sacubitril/Valsartan 1 Tab Tablet) 1 tab PO BID [facility]; Protocol Last Admin: 10/25/22 08:27 Dose: 1 tab Documented By: CHRIS Sodium Chloride (0.9 % Sodium Chloride Flush 3 Ml Syringe) 3 ml IVFLUSH QSHIFT [facility] Last Admin: 10/25/22 08:28 Dose: 3 ml Documented By: CHRIS Spironolactone (Spironolactone 25 Mg Tablet) 25 mg PO DAILY [facility]; Protocol Last Admin: 10/25/22 08:27 Dose: 25 mg Documented By: CHRIS Labs 10/24/22 05:31 10/24/22 05:31 Labs: Laboratory Results - last 24 hr 10/25/22 06:02 PT 12.0 INR 1.0 Assessment and Plan (1) Choledocholithiasis: Status: Acute Plan 72-year-old female with pertinent history of essential hypertension, AFib on Eliquis, hyperthyroidism who presents to the emergency department for evaluation of nausea and vomiting. #.? Nausea/vomiting, likely due to Choledocholithiasis, #.? Conjugated jaundice and transaminitis in the setting of above -Liquid diet -hold Eliquis for ERCP today -empiric ceftriaxone #.? ?GI bleed: Stool occult blood test positive in the ER, no evidence of active bleed #.? AFib:? Rate controlled, Hold eliquid as above #.? Essential hypertension: continue coreg, entresto #. Chronic systolic heart failure--Coreg, Entresto #.? h/o Hyperthyroidism: On methimazole Need for inpatient: Need ERCP for choledocholithiasis Time Spent With Patient Time: Total time managing care of this patient today ____ minutes. Quality Stroke Does the patient have a stroke diagnosis?: No VTE Prior VTE?: No VTE Risk Level:: Medical - moderate - high VTE Device Contraindication: N/A - Device Ordered VTE Drug Contraindication: Treatment Not Indicated
[2022-10-25] MEDS: cefTRIAXone sodium 1 GM in 0.9 % Sodium Chloride 50 ML IV (11:39)
--- NOTE | 2022-10-25 12:38 | P.CDIM_ITS ---
PROVIDER RESPONSE TEXT: To clarify, the appropriate diagnosis supported by the clinical indicators: Obesity Due to excess calories QUERY TEXT: PHYSICIAN'S DOCUMENTATION REQUEST Date of Query: 10/25/2022 12:05 PM EDT Patient Name: Socorro Powell Admit Date: 10/24/2022 Dear Michael Bañuelos, A review of the medical record indicates additional documentation may be needed. Please review below and update the documentation accordingly. Clinical Indicators: Nursing notes Height and Weight: BMI 44.3 5ft in height 103kg Extreme obesity Class III If possible, please provide an associated diagnosis related to the abnormal BMI, such as: Overweight Obesity Due to excess calories Severe or Morbid Obesity With alveolar hypoventilation Severe or Morbid Obesity Without alveolar hypoventilation Other Other (explain) Clinically unable to determine (explain) Thank you, Afua Diaz, CCS, CDIS Use of terms such as suspected, likely, concern for, or probable (associated with a specific diagnosi s that is being evaluated, monitored, or treated as if it exists) are acceptable and can be coded in the inpatient se tting, when documented at the time of discharge. Please use your independent medical judgment in providing your response. THIS QUERY IS PART OF THE PERMANENT MEDICAL RECORD
[2022-10-25 15:36] VITALS: BP 130/61; PULSE 63; RESP 20; TEMP 36.3; O2SAT 96
[2022-10-25 15:43] VITALS: BP 130/61; PULSE 46; RESP 20; TEMP 36.4; O2SAT 96
[2022-10-25 19:39] VITALS: BP 116/57; PULSE 55; RESP 17; TEMP 35.7; O2SAT 98
[2022-10-25 21:04] VITALS: PULSE 56
[2022-10-26] VITALS (11 sets, daily range): BP systolic 92–183; BP diastolic 57–92; PULSE 52–94; RESP 16–20; TEMP 36–36.5; O2SAT 96–99
[2022-10-26] MEDS: 0.9 % Sodium Chloride Flush 3 ML SYRINGE IVFLUSH ×3 (00:40→15:41)
[2022-10-26] MEDS: Pantoprazole Sodium 40 MG/10 ML VIAL IVPUSH ×2 (05:46→15:41)
--- NOTE | 2022-10-26 09:18 | HO.ANESPROP2 ---
[facility] Active Problems Active Problems: All Active Problems (Updated 10/24/22 @ 03:34 by Samina Chowdary MD) Choledocholithiasis (Acute) Bilateral primary osteoarthritis of knee (Acute) Bilateral hip joint arthritis (Acute) Breast mass, right (Acute) Hypertension (Acute) Arthritis (Acute) Lymphedema (Acute) Past Medical History Medical History Arthritis Breast mass, right Hypertension Lymphedema Family History Family History Mother Vaginal cancer Brother Eye cancer Family history of problems with anesthesia: No Surgical History Surgical History History of bilateral breast reduction surgery History of hysterectomy History of Problems with Anesthesia: No Social History Social History Household Members: None Housing: Apartment Do you presently have visiting nurse or other home services: Yes Alcohol intake: never Patient Tobacco Use Status: Never used Tobacco Second Hand Smoke Exposure: No service: No Meds Allergies Allergy/AdvReac Type Severity Reaction Status Date / Time Penicillins [PENICILLINS] Allergy Unknown UNKNOWN Verified 03/08/22 12:56 Active Medications: Current Medications Acetaminophen (Acetaminophen 325 Mg Tablet) 650 mg PO Q6H PRN PRN Reason: Pain, Mild (Pain Scale 1-3) Acetaminophen (Acetaminophen Supp 650 Mg Supp.Rect) 650 mg [place] Q6H PRN PRN Reason: Pain, Mild (Pain Scale 1-3) Apixaban (Apixaban 5 Mg Tablet) 5 mg PO BID [facility] Last Admin: 10/24/22 15:24 Dose: Not Given Carvedilol (Carvedilol 12.5 Mg Tablet) 12.5 mg PO BID [facility]; Protocol Last Admin: 10/25/22 21:05 Dose: Not Given Fluticasone Propionate (Fluticasone Propionate Nasal 16 Gm [place]) 1 spray NOSTRIL-B DAILY PRN PRN Reason: Allergy Symptoms Ceftriaxone Sodium 1 gm/ (Sodium Chloride) 50 mls @ 100 mls/hr IV Q24H [facility] Last Infusion: 10/25/22 12:31 Dose: Infused Melatonin (Melatonin 3 Mg Tablet) 6 mg PO BEDTIME PRN PRN Reason: Insomnia Methimazole (Methimazole 5 Mg Tablet) 5 mg PO DAILY [facility] Last Admin: 10/25/22 08:27 Dose: 5 mg Ondansetron HCl (Ondansetron Hcl 4 Mg/2 Ml Vial) 4 mg IVPUSH Q8H PRN PRN Reason: Nausea and Vomiting Pantoprazole Sodium (Pantoprazole Sodium 40 Mg/10 Ml Vial) 40 mg IVPUSH BID@0630,1630 [facility] Last Admin: 10/26/22 05:46 Dose: 40 mg Pharmacy Consult (Consult Rx Perform Med Rec) 1 each MISCELLANE ONCE PRN PRN Reason: Consult order Sacubitril/Valsartan (Sacubitril/Valsartan 1 Tab Tablet) 1 tab PO BID [facility]; Protocol Last Admin: 10/25/22 21:06 Dose: 1 tab Sodium Chloride (0.9 % Sodium Chloride Flush 3 Ml Syringe) 3 ml IVFLUSH QSHIFT [facility] Last Admin: 10/26/22 00:40 Dose: 3 ml Spironolactone (Spironolactone 25 Mg Tablet) 25 mg PO DAILY [facility]; Protocol Last Admin: 10/25/22 08:27 Dose: 25 mg Home Medications Medication Instructions Recorded Confirmed Last Taken Type apixaban 5 mg tablet (Eliquis) 5 mg PO BID 09/28/21 10/24/22 10/23/22 History carvedilol 12.5 mg tablet 12.5 mg PO BID 09/28/21 10/24/22 10/23/22 History nystatin 100,000 unit/gram topical 1 appl topical DAILY PRN Itching 09/28/21 10/24/22 Unknown History powder spironolactone 25 mg tablet 25 mg PO DAILY 09/28/21 10/24/22 Unknown History fluticasone propionate 50 1 spray intranasal DAILY PRN 10/24/22 10/24/22 Unknown History mcg/actuation nasal Allergy Symptoms spray,suspension methimazole 5 mg tablet 5 mg PO DAILY 10/24/22 10/24/22 Unknown History sacubitril 24 mg-valsartan 26 mg 1 tab PO BID 10/24/22 10/24/22 10/23/22 History tablet (Entresto) Exam Exam Date and Time: October 26, 2022917 Height,Weight and Vital Signs: Height 5 ft Weight 103 kg Last Vital Signs Temp 97.1 F 10/26/22 07:45 Pulse 65 10/26/22 07:45 Resp 16 10/26/22 07:45 BP 137/66 10/26/22 07:45 Pulse Ox 97 10/26/22 07:45 O2 Del Method Room Air 10/26/22 07:45 Pertinent Lab Results Pertinent Lab Results: Laboratory Tests 10/24/22 10/24/22 10/24/22 00:39 00:40 00:40 WBC 7.4 RBC 4.26 Hgb 13.3 Hct 38.8 MCV 91.1 MCH 31.2 MCHC 34.3 RDW 13.4 Plt Count 160 MPV 9.5 Immature Gran % (Auto) 0.8 H Neut % (Auto) 69.6 Lymph % (Auto) 16.6 L [place] % (Auto) 10.0 Eos % (Auto) 2.2 Baso % (Auto) 0.8 Lymph # (Auto) 1.2 [place] # (Auto) 0.7 Eos # (Auto) 0.2 Baso # (Auto) 0.1 Abs Immat Gran (auto) 0.06 H Absolute Neuts (auto) 5.2 Absolute Nucleated RBC 0.000 Nucleated RBC % (auto) 0.0 PT 14.5 H INR 1.3 H Sodium Potassium Chloride Carbon Dioxide Anion Gap BUN Creatinine Estim Creat Clear Calc Estimated GFR Random Glucose Calcium Total Bilirubin Direct Bilirubin AST ALT Alkaline Phosphatase Troponin I High Sens 2.8 Total Protein Albumin Lipase Urine Color Urine Appearance Urine pH Ur Specific [place] Urine Protein Urine Glucose (UA) Urine Ketones Urine Blood Urine Nitrite Ur Leukocyte Esterase Urine RBC Urine WBC Ur Squamous Epith Cells Urine Bacteria Hyaline Casts Stool Occult Blood Blood Type Antibody Screen 10/24/22 10/24/22 10/24/22 00:40 00:40 00:57 WBC RBC Hgb Hct MCV MCH MCHC RDW Plt Count MPV Immature Gran % (Auto) Neut % (Auto) Lymph % (Auto) [place] % (Auto) Eos % (Auto) Baso % (Auto) Lymph # (Auto) [place] # (Auto) Eos # (Auto) Baso # (Auto) Abs Immat Gran (auto) Absolute Neuts (auto) Absolute Nucleated RBC Nucleated RBC % (auto) PT INR Sodium 129 L Potassium 4.0 Chloride 98 Carbon Dioxide 23 Anion Gap 12 BUN 19 H Creatinine 1.03 Estim Creat Clear Calc 52.7 Estimated GFR 53 Random Glucose 109 Calcium 9.0 Total Bilirubin 5.1 H Direct Bilirubin 3.5 H AST 75 H ALT 149 H Alkaline Phosphatase 156 H Troponin I High Sens Total Protein 6.4 L Albumin 3.9 Lipase 37 Urine Color Urine Appearance Urine pH Ur Specific [place] Urine Protein Urine Glucose (UA) Urine Ketones Urine Blood Urine Nitrite Ur Leukocyte Esterase Urine RBC Urine WBC Ur Squamous Epith Cells Urine Bacteria Hyaline Casts Stool Occult Blood POSITIVE Blood Type AB Positive Antibody Screen NEGATIVE 10/24/22 10/24/22 10/24/22 00:57 05:31 05:31 WBC 6.7 RBC 4.37 Hgb 13.4 Hct 39.9 MCV 91.3 MCH 30.7 MCHC 33.6 RDW 13.3 Plt Count 164 MPV 9.5 Immature Gran % (Auto) 0.9 H Neut % (Auto) 66.4 Lymph % (Auto) 20.5 [place] % (Auto) 9.7 Eos % (Auto) 1.8 Baso % (Auto) 0.7 Lymph # (Auto) 1.4 [place] # (Auto) 0.7 Eos # (Auto) 0.1 Baso # (Auto) 0.1 Abs Immat Gran (auto) 0.06 H Absolute Neuts (auto) 4.4 Absolute Nucleated RBC 0.000 Nucleated RBC % (auto) 0.0 PT INR Sodium 133 L Potassium 4.0 Chloride 104 Carbon Dioxide 20 L Anion Gap 13 BUN 16 Creatinine 0.81 Estim Creat Clear Calc 67.0 Estimated GFR > 60 Random Glucose 93 Calcium 8.7 Total Bilirubin 4.8 H Direct Bilirubin AST 71 H ALT 137 H Alkaline Phosphatase 138 H Troponin I High Sens Total Protein 5.8 L Albumin 3.4 L Lipase Urine Color Dark Yellow Urine Appearance Clear Urine pH 6.0 Ur Specific [place] 1.010 Urine Protein Negative Urine Glucose (UA) Negative Urine Ketones Trace Urine Blood Negative Urine Nitrite Negative Ur Leukocyte Esterase Trace H Urine RBC 0-2 Urine WBC 0-5 Ur Squamous Epith Cells 6-10 Urine Bacteria None Seen Hyaline Casts 0-2 Stool Occult Blood Blood Type Antibody Screen 10/25/22 06:02 WBC RBC Hgb Hct MCV MCH MCHC RDW Plt Count MPV Immature Gran % (Auto) Neut % (Auto) Lymph % (Auto) [place] % (Auto) Eos % (Auto) Baso % (Auto) Lymph # (Auto) [place] # (Auto) Eos # (Auto) Baso # (Auto) Abs Immat Gran (auto) Absolute Neuts (auto) Absolute Nucleated RBC Nucleated RBC % (auto) PT 12.0 INR 1.0 Sodium Potassium Chloride Carbon Dioxide Anion Gap BUN Creatinine Estim Creat Clear Calc Estimated GFR Random Glucose Calcium Total Bilirubin Direct Bilirubin AST ALT Alkaline Phosphatase Troponin I High Sens Total Protein Albumin Lipase Urine Color Urine Appearance Urine pH Ur Specific [place] Urine Protein Urine Glucose (UA) Urine Ketones Urine Blood Urine Nitrite Ur Leukocyte Esterase Urine RBC Urine WBC Ur Squamous Epith Cells Urine Bacteria Hyaline Casts Stool Occult Blood Blood Type Antibody Screen Airway Mallampati Class: III TM Dist: >3cm Neck ROM: Full Heart: freg Lungs: CTA Assessment and Plan Assessment Anesthesia Assessment: Anesthesia Plan Discussed Final Anesthetic Review Family History of Problems with Anesthesia: No History of Problems with Anesthesia: No NPO: Yes ASA Class: III Final Preanesthetic Review: Meds/Allgs Chart Reviewed, Consent Obtained/Reviewed and Anes Risks/Benef Reviewed Patient Risk: Intermediate Procedure Risk: Intermediate Anesthetic Plan Anesthetic Plan: GA Disposition: Standard PACU
--- NOTE | 2022-10-26 09:31 | MHC.SHP ---
Pre-Procedural Eval Section A Date of Service: 10/26/22 The patient is an INPATIENT: Yes The History & Physical has been completed within 30 days and I have reviewed it.: Yes Section B Chief Complaint: nausea/ vomiting Allergies: Allergies Allergy/AdvReac Type Severity Reaction Status Date / Time Penicillins [PENICILLINS] Allergy Unknown UNKNOWN Verified 03/08/22 12:56 Plan Diagnosis/Plan: Unchanged I have reviewed the history and physical and performed a pertinent physical examination on my patient. No changes have occurred unless specified. ERCP-stone removal Time Spent With Patient Time: Total time managing care of this patient today ____ minutes.
--- NOTE | 2022-10-26 10:00 | HO.ANESPROP2 ---
[facility] Active Problems Active Problems: All Active Problems (Updated 10/24/22 @ 03:34 by Samina Chowdary MD) Choledocholithiasis (Acute) Bilateral primary osteoarthritis of knee (Acute) Bilateral hip joint arthritis (Acute) Breast mass, right (Acute) Hypertension (Acute) Arthritis (Acute) Lymphedema (Acute) Past Medical History Medical History Arthritis Breast mass, right Hypertension Lymphedema Family History Family History Mother Vaginal cancer Brother Eye cancer Family history of problems with anesthesia: No Surgical History Surgical History History of bilateral breast reduction surgery History of hysterectomy History of Problems with Anesthesia: No Social History Social History Household Members: None Housing: Apartment Do you presently have visiting nurse or other home services: Yes Alcohol intake: never Patient Tobacco Use Status: Never used Tobacco Second Hand Smoke Exposure: No service: No Meds Allergies Allergy/AdvReac Type Severity Reaction Status Date / Time Penicillins [PENICILLINS] Allergy Unknown UNKNOWN Verified 03/08/22 12:56 Active Medications: Current Medications Acetaminophen (Acetaminophen 325 Mg Tablet) 650 mg PO Q6H PRN PRN Reason: Pain, Mild (Pain Scale 1-3) Acetaminophen (Acetaminophen Supp 650 Mg Supp.Rect) 650 mg [place] Q6H PRN PRN Reason: Pain, Mild (Pain Scale 1-3) Apixaban (Apixaban 5 Mg Tablet) 5 mg PO BID [facility] Last Admin: 10/24/22 15:24 Dose: Not Given Carvedilol (Carvedilol 12.5 Mg Tablet) 12.5 mg PO BID [facility]; Protocol Last Admin: 10/25/22 21:05 Dose: Not Given Fluticasone Propionate (Fluticasone Propionate Nasal 16 Gm [place]) 1 spray NOSTRIL-B DAILY PRN PRN Reason: Allergy Symptoms Ceftriaxone Sodium 1 gm/ (Sodium Chloride) 50 mls @ 100 mls/hr IV Q24H [facility] Last Infusion: 10/25/22 12:31 Dose: Infused Melatonin (Melatonin 3 Mg Tablet) 6 mg PO BEDTIME PRN PRN Reason: Insomnia Methimazole (Methimazole 5 Mg Tablet) 5 mg PO DAILY [facility] Last Admin: 10/25/22 08:27 Dose: 5 mg Ondansetron HCl (Ondansetron Hcl 4 Mg/2 Ml Vial) 4 mg IVPUSH Q8H PRN PRN Reason: Nausea and Vomiting Pantoprazole Sodium (Pantoprazole Sodium 40 Mg/10 Ml Vial) 40 mg IVPUSH BID@0630,1630 [facility] Last Admin: 10/26/22 05:46 Dose: 40 mg Pharmacy Consult (Consult Rx Perform Med Rec) 1 each MISCELLANE ONCE PRN PRN Reason: Consult order Sacubitril/Valsartan (Sacubitril/Valsartan 1 Tab Tablet) 1 tab PO BID [facility]; Protocol Last Admin: 10/25/22 21:06 Dose: 1 tab Sodium Chloride (0.9 % Sodium Chloride Flush 3 Ml Syringe) 3 ml IVFLUSH QSHIFT [facility] Last Admin: 10/26/22 00:40 Dose: 3 ml Spironolactone (Spironolactone 25 Mg Tablet) 25 mg PO DAILY [facility]; Protocol Last Admin: 10/25/22 08:27 Dose: 25 mg Home Medications Medication Instructions Recorded Confirmed Last Taken Type apixaban 5 mg tablet (Eliquis) 5 mg PO BID 09/28/21 10/24/22 10/23/22 History carvedilol 12.5 mg tablet 12.5 mg PO BID 09/28/21 10/24/22 10/23/22 History nystatin 100,000 unit/gram topical 1 appl topical DAILY PRN Itching 09/28/21 10/24/22 Unknown History powder spironolactone 25 mg tablet 25 mg PO DAILY 09/28/21 10/24/22 Unknown History fluticasone propionate 50 1 spray intranasal DAILY PRN 10/24/22 10/24/22 Unknown History mcg/actuation nasal Allergy Symptoms spray,suspension methimazole 5 mg tablet 5 mg PO DAILY 10/24/22 10/24/22 Unknown History sacubitril 24 mg-valsartan 26 mg 1 tab PO BID 10/24/22 10/24/22 10/23/22 History tablet (Entresto) Exam Exam Date and Time: October 26, 2022 1000 Height,Weight and Vital Signs: Height 5 ft Weight 103 kg Last Vital Signs Temp 97.1 F 10/26/22 07:45 Pulse 65 10/26/22 07:45 Resp 16 10/26/22 07:45 BP 137/66 10/26/22 07:45 Pulse Ox 97 10/26/22 07:45 O2 Del Method Room Air 10/26/22 07:45 Pertinent Lab Results Pertinent Lab Results: Laboratory Tests 10/24/22 10/24/22 10/24/22 00:39 00:40 00:40 WBC 7.4 RBC 4.26 Hgb 13.3 Hct 38.8 MCV 91.1 MCH 31.2 MCHC 34.3 RDW 13.4 Plt Count 160 MPV 9.5 Immature Gran % (Auto) 0.8 H Neut % (Auto) 69.6 Lymph % (Auto) 16.6 L [place] % (Auto) 10.0 Eos % (Auto) 2.2 Baso % (Auto) 0.8 Lymph # (Auto) 1.2 [place] # (Auto) 0.7 Eos # (Auto) 0.2 Baso # (Auto) 0.1 Abs Immat Gran (auto) 0.06 H Absolute Neuts (auto) 5.2 Absolute Nucleated RBC 0.000 Nucleated RBC % (auto) 0.0 PT 14.5 H INR 1.3 H Sodium Potassium Chloride Carbon Dioxide Anion Gap BUN Creatinine Estim Creat Clear Calc Estimated GFR Random Glucose Calcium Total Bilirubin Direct Bilirubin AST ALT Alkaline Phosphatase Troponin I High Sens 2.8 Total Protein Albumin Lipase Urine Color Urine Appearance Urine pH Ur Specific [place] Urine Protein Urine Glucose (UA) Urine Ketones Urine Blood Urine Nitrite Ur Leukocyte Esterase Urine RBC Urine WBC Ur Squamous Epith Cells Urine Bacteria Hyaline Casts Stool Occult Blood Blood Type Antibody Screen 10/24/22 10/24/22 10/24/22 00:40 00:40 00:57 WBC RBC Hgb Hct MCV MCH MCHC RDW Plt Count MPV Immature Gran % (Auto) Neut % (Auto) Lymph % (Auto) [place] % (Auto) Eos % (Auto) Baso % (Auto) Lymph # (Auto) [place] # (Auto) Eos # (Auto) Baso # (Auto) Abs Immat Gran (auto) Absolute Neuts (auto) Absolute Nucleated RBC Nucleated RBC % (auto) PT INR Sodium 129 L Potassium 4.0 Chloride 98 Carbon Dioxide 23 Anion Gap 12 BUN 19 H Creatinine 1.03 Estim Creat Clear Calc 52.7 Estimated GFR 53 Random Glucose 109 Calcium 9.0 Total Bilirubin 5.1 H Direct Bilirubin 3.5 H AST 75 H ALT 149 H Alkaline Phosphatase 156 H Troponin I High Sens Total Protein 6.4 L Albumin 3.9 Lipase 37 Urine Color Urine Appearance Urine pH Ur Specific [place] Urine Protein Urine Glucose (UA) Urine Ketones Urine Blood Urine Nitrite Ur Leukocyte Esterase Urine RBC Urine WBC Ur Squamous Epith Cells Urine Bacteria Hyaline Casts Stool Occult Blood POSITIVE Blood Type AB Positive Antibody Screen NEGATIVE 10/24/22 10/24/22 10/24/22 00:57 05:31 05:31 WBC 6.7 RBC 4.37 Hgb 13.4 Hct 39.9 MCV 91.3 MCH 30.7 MCHC 33.6 RDW 13.3 Plt Count 164 MPV 9.5 Immature Gran % (Auto) 0.9 H Neut % (Auto) 66.4 Lymph % (Auto) 20.5 [place] % (Auto) 9.7 Eos % (Auto) 1.8 Baso % (Auto) 0.7 Lymph # (Auto) 1.4 [place] # (Auto) 0.7 Eos # (Auto) 0.1 Baso # (Auto) 0.1 Abs Immat Gran (auto) 0.06 H Absolute Neuts (auto) 4.4 Absolute Nucleated RBC 0.000 Nucleated RBC % (auto) 0.0 PT INR Sodium 133 L Potassium 4.0 Chloride 104 Carbon Dioxide 20 L Anion Gap 13 BUN 16 Creatinine 0.81 Estim Creat Clear Calc 67.0 Estimated GFR > 60 Random Glucose 93 Calcium 8.7 Total Bilirubin 4.8 H Direct Bilirubin AST 71 H ALT 137 H Alkaline Phosphatase 138 H Troponin I High Sens Total Protein 5.8 L Albumin 3.4 L Lipase Urine Color Dark Yellow Urine Appearance Clear Urine pH 6.0 Ur Specific [place] 1.010 Urine Protein Negative Urine Glucose (UA) Negative Urine Ketones Trace Urine Blood Negative Urine Nitrite Negative Ur Leukocyte Esterase Trace H Urine RBC 0-2 Urine WBC 0-5 Ur Squamous Epith Cells 6-10 Urine Bacteria None Seen Hyaline Casts 0-2 Stool Occult Blood Blood Type Antibody Screen 10/25/22 06:02 WBC RBC Hgb Hct MCV MCH MCHC RDW Plt Count MPV Immature Gran % (Auto) Neut % (Auto) Lymph % (Auto) [place] % (Auto) Eos % (Auto) Baso % (Auto) Lymph # (Auto) [place] # (Auto) Eos # (Auto) Baso # (Auto) Abs Immat Gran (auto) Absolute Neuts (auto) Absolute Nucleated RBC Nucleated RBC % (auto) PT 12.0 INR 1.0 Sodium Potassium Chloride Carbon Dioxide Anion Gap BUN Creatinine Estim Creat Clear Calc Estimated GFR Random Glucose Calcium Total Bilirubin Direct Bilirubin AST ALT Alkaline Phosphatase Troponin I High Sens Total Protein Albumin Lipase Urine Color Urine Appearance Urine pH Ur Specific [place] Urine Protein Urine Glucose (UA) Urine Ketones Urine Blood Urine Nitrite Ur Leukocyte Esterase Urine RBC Urine WBC Ur Squamous Epith Cells Urine Bacteria Hyaline Casts Stool Occult Blood Blood Type Antibody Screen Airway Mallampati Class: III TM Dist: >3cm Neck ROM: Full Heart: reg. Lungs: CTA Assessment and Plan Final Anesthetic Review Family History of Problems with Anesthesia: No History of Problems with Anesthesia: No ASA Class: III Final Preanesthetic Review: Meds/Allgs Chart Reviewed, Consent Obtained/Reviewed and Anes Risks/Benef Reviewed Patient Risk: Intermediate Procedure Risk: Intermediate Anesthetic Plan Anesthetic Plan: GA Disposition: Standard PACU
--- NOTE | 2022-10-26 12:19 | P.OP_ITS ---
Operative Note Operative Note Date of Service: 10/26/22 Narrative: Description: Endoscopic retrograde cholangiopancreatography (ERCP) PROCEDURE: Endoscopic retrograde cholangiopancreatography with sphincterotomy, balloon dilation, basket retrieval, balloon sweep, and interpretation of c holangiogram INDICATION FOR THE PROCEDURE: Patient with a history of abdominal pain and imaging revealing CBD stone MEDICATIONS: General anesthesia, rectal indomethacin 100 mg, The risks of the procedure were made aware to the patient and consisted of medication reaction, bleeding, perforation, aspiration, and post ERCP pancreatitis. DESCRIPTION OF PROCEDURE: After informed consent and appropriate sedation, the duodenoscope was inserted into the oropharynx, down the esophagus, and into the stomach. The scope was then advanced through the pylorus to the ampulla. The ampulla had a normal appearance. The tome was angled and entered immediately into the CBD. A cholangiogram revealed several filling defects without filling of the gallbladder.. A sphnicterotomy was done and then a 10 Fr balloon dilation was done of the ampulla. A 2.5 cm basket was then placed and sweeped with 4 dark green oblong stones measuring about 12-14 mm were removed. One of the stones required mechanical lithotripsy. The basket was then swapped for a retrieval balloon and an occlusion cholangiogram revealed 2 further filling defects. Further sweeping was done and 2 more stones came out. A cholangiogram did not reveal any further defects, and bile was flowing. I wished to confirm with direct visualization using spyglass but the equipment failed to capture any images. Anyhow I was satisfied with the fluorscopy images and repeated sweeps that were negative The PD was note entered. There was some minor oozing which had ceased by the end of the procedure. The stomach was then decompressed and the endoscope was withdrawn. FINDINGS: 1. choledocholithiasis RECOMMENDATIONS: 1. NPO except ice chips for next 4-6 hrs then clears as tolerated, can advance diet tomorrow if feels well 2. surgical consult 3. Restart apixiban depending on any plans for surgery, if need anticoagulation in the interim can use heparin or lovenox from tomorrow.
--- NOTE | 2022-10-26 13:09 | PM.HPGS ---
History of Present Illness History of Present Illness Date of Service: 10/26/22 Chief complaint: nausea/ vomiting Narrative: Socorro Powell is a 72 year old female Presented to the emergency department on 10/24/2022 with complaints of nausea and vomiting. His past medical history of essential hypertension, AFib on Eliquis, and hyperthyroidism. She reports the nausea and vomiting started approximately 1 week prior. She denies fever or chills. She presented to the emergency department underwent workup with CT abdomen and pelvis. This revealed distended gallbladder with gallstones and common bile duct stones . LFTs were markedly including a total bilirubin of 5.1 direct bilirubin of 3.5. She underwent ERCP earlier today with the findings of multiple gallstones within the common bile duct. The common bile duct was cleared after papillotomy. Surgical consultation is requested for management of the cholelithiasis. Review of Systems Review of Systems: Yes all other systems are reviewed and are negative PMFSH Past Medical History Medical History Arthritis Breast mass, right Hypertension Lymphedema Family History Family History Mother Vaginal cancer Brother Eye cancer Surgical History Surgical History History of bilateral breast reduction surgery History of hysterectomy Social History Social History Household Members: None Housing: Apartment Do you presently have visiting nurse or other home services: Yes Alcohol intake: never Patient Tobacco Use Status: Never used Tobacco Second Hand Smoke Exposure: No service: No Meds Allergies Allergy/AdvReac Type Severity Reaction Status Date / Time Penicillins [PENICILLINS] Allergy Unknown UNKNOWN Verified 03/08/22 12:56 Active Medications: Current Medications Acetaminophen (Acetaminophen 325 Mg Tablet) 650 mg PO Q6H PRN PRN Reason: Pain, Mild (Pain Scale 1-3) Acetaminophen (Acetaminophen Supp 650 Mg Supp.Rect) 650 mg [place] Q6H PRN PRN Reason: Pain, Mild (Pain Scale 1-3) Apixaban (Apixaban 5 Mg Tablet) 5 mg PO BID [facility] Last Admin: 10/24/22 15:24 Dose: Not Given Carvedilol (Carvedilol 12.5 Mg Tablet) 12.5 mg PO BID [facility]; Protocol Last Admin: 10/25/22 21:05 Dose: Not Given Fluticasone Propionate (Fluticasone Propionate Nasal 16 Gm [place]) 1 spray NOSTRIL-B DAILY PRN PRN Reason: Allergy Symptoms Ceftriaxone Sodium 1 gm/ (Sodium Chloride) 50 mls @ 100 mls/hr IV Q24H [facility] Last Infusion: 10/25/22 12:31 Dose: Infused Melatonin (Melatonin 3 Mg Tablet) 6 mg PO BEDTIME PRN PRN Reason: Insomnia Methimazole (Methimazole 5 Mg Tablet) 5 mg PO DAILY [facility] Last Admin: 10/25/22 08:27 Dose: 5 mg Ondansetron HCl (Ondansetron Hcl 4 Mg/2 Ml Vial) 4 mg IVPUSH Q8H PRN PRN Reason: Nausea and Vomiting Pantoprazole Sodium (Pantoprazole Sodium 40 Mg/10 Ml Vial) 40 mg IVPUSH BID@0630,1630 [facility] Last Admin: 10/26/22 05:46 Dose: 40 mg Pharmacy Consult (Consult Rx Perform Med Rec) 1 each MISCELLANE ONCE PRN PRN Reason: Consult order Sacubitril/Valsartan (Sacubitril/Valsartan 1 Tab Tablet) 1 tab PO BID [facility]; Protocol Last Admin: 10/25/22 21:06 Dose: 1 tab Sodium Chloride (0.9 % Sodium Chloride Flush 3 Ml Syringe) 3 ml IVFLUSH QSHIFT [facility] Last Admin: 10/26/22 00:40 Dose: 3 ml Spironolactone (Spironolactone 25 Mg Tablet) 25 mg PO DAILY [facility]; Protocol Last Admin: 10/25/22 08:27 Dose: 25 mg Home Medications Medication Instructions Recorded Confirmed Last Taken Type apixaban 5 mg tablet (Eliquis) 5 mg PO BID 09/28/21 10/24/22 10/23/22 History carvedilol 12.5 mg tablet 12.5 mg PO BID 09/28/21 10/24/22 10/23/22 History nystatin 100,000 unit/gram topical 1 appl topical DAILY PRN Itching 09/28/21 10/24/22 Unknown History powder spironolactone 25 mg tablet 25 mg PO DAILY 09/28/21 10/24/22 Unknown History fluticasone propionate 50 1 spray intranasal DAILY PRN 10/24/22 10/24/22 Unknown History mcg/actuation nasal Allergy Symptoms spray,suspension methimazole 5 mg tablet 5 mg PO DAILY 10/24/22 10/24/22 Unknown History sacubitril 24 mg-valsartan 26 mg 1 tab PO BID 10/24/22 10/24/22 10/23/22 History tablet (Entresto) Physical Exam Vital Signs: Vital Signs: Last Vital Signs Temp 97.0 F 10/26/22 12:55 Pulse 94 10/26/22 12:55 Resp 16 10/26/22 12:55 BP 161/83 H 10/26/22 12:55 Pulse Ox 96 10/26/22 12:55 O2 Del Method Room Air 10/26/22 12:55 BMI result Body Mass Index 44.3 Const: Other: Patient is in recovery room awakening from anesthesia Eyes: Other: scleral icterus Resp: Other: breathing comfortably, no respiratory distress GI: Palpation (GI): Soft to palpation, nontender, no guarding and not rigid Percussion: Yes normal to percussion Auscultation: normal bowel sounds Extrem: General: Yes no clubbing, cyanosis or edema Results Results Labs: Urine 10/24/22 Range/Units 00:57 Urine Color Dark Yellow Urine Appearance Clear Urine pH 6.0 (5.0-9.0) Ur Specific [place] 1.010 (1.005-1.025) Urine Protein Negative (Neg-Trace) mg/dL Urine Glucose (UA) Negative (Negative) mg/dL Assessment and Plan (1) Choledocholithiasis: Status: Acute Plan 72-year-old female patient presenting with nausea and vomiting found to have lithiasis, choledocholithiasis with elevated liver function tests. ERCP confirmed choledocholithiasis. Surgical consultation was requested for possible cholecystectomy. As I will be away next week I have discussed this is Powell's care with Dr. Red. She will be placed on the OR schedule for Saturday. Time Spent With Patient Time: Total time managing care of this patient today ____ minutes. Quality Stroke Does the patient have a stroke diagnosis?: No VTE Prior VTE?: No VTE Risk Level:: Medical - moderate - high VTE Device Contraindication: N/A - Device Ordered VTE Drug Contraindication: Treatment Not Indicated Procedures Date of Service Date of Service: 10/26/22
--- NOTE | 2022-10-26 13:21 | HO.PM.IMPN ---
Subjective Subjective Date of Service: 10/27/22 Interval History: f/u on choledocholithias, r/o cholecystitis interval history: pain is controlled Physical Exam Vital Signs: Vital Signs: Last Vital Signs Temp 97.0 F 10/26/22 12:55 Pulse 67 10/26/22 13:16 Resp 20 10/26/22 13:16 BP 136/83 10/26/22 13:16 Pulse Ox 97 10/26/22 13:16 O2 Del Method Room Air 10/26/22 13:16 BMI result Body Mass Index 44.3 Objective Data Active Medications Acetaminophen (Acetaminophen 325 Mg Tablet) 650 mg PO Q6H PRN PRN Reason: Pain, Mild (Pain Scale 1-3) Acetaminophen (Acetaminophen Supp 650 Mg Supp.Rect) 650 mg [place] Q6H PRN PRN Reason: Pain, Mild (Pain Scale 1-3) Apixaban (Apixaban 5 Mg Tablet) 5 mg PO BID [facility] Last Admin: 10/24/22 15:24 Dose: Not Given Documented By: JIMENA Non-Admin Reason: Physician Held Med Carvedilol (Carvedilol 12.5 Mg Tablet) 12.5 mg PO BID [facility]; Protocol Last Admin: 10/25/22 21:05 Dose: Not Given Documented By: ALEXUS Non-Admin Reason: Decreased Heart Rate Fluticasone Propionate (Fluticasone Propionate Nasal 16 Gm [place]) 1 spray NOSTRIL-B DAILY PRN PRN Reason: Allergy Symptoms Ceftriaxone Sodium 1 gm/ (Sodium Chloride) 50 mls @ 100 mls/hr IV Q24H [facility] Last Infusion: 10/25/22 12:31 Dose: 100 mls/hr Documented By: CHRIS Melatonin (Melatonin 3 Mg Tablet) 6 mg PO BEDTIME PRN PRN Reason: Insomnia Methimazole (Methimazole 5 Mg Tablet) 5 mg PO DAILY [facility] Last Admin: 10/25/22 08:27 Dose: 5 mg Documented By: CHRIS Ondansetron HCl (Ondansetron Hcl 4 Mg/2 Ml Vial) 4 mg IVPUSH Q8H PRN PRN Reason: Nausea and Vomiting Pantoprazole Sodium (Pantoprazole Sodium 40 Mg/10 Ml Vial) 40 mg IVPUSH BID@0630,1630 [facility] Last Admin: 10/26/22 05:46 Dose: 40 mg Documented By: SHRUTHI Pharmacy Consult (Consult Rx Perform Med Rec) 1 each MISCELLANE ONCE PRN PRN Reason: Consult order Sacubitril/Valsartan (Sacubitril/Valsartan 1 Tab Tablet) 1 tab PO BID [facility]; Protocol Last Admin: 10/25/22 21:06 Dose: 1 tab Documented By: ALEXUS Sodium Chloride (0.9 % Sodium Chloride Flush 3 Ml Syringe) 3 ml IVFLUSH QSHIFT [facility] Last Admin: 10/26/22 00:40 Dose: 3 ml Documented By: JOSEFA Spironolactone (Spironolactone 25 Mg Tablet) 25 mg PO DAILY [facility]; Protocol Last Admin: 10/25/22 08:27 Dose: 25 mg Documented By: KORINAB Labs 10/24/22 05:31 10/24/22 05:31 Assessment and Plan (1) Choledocholithiasis: Status: Acute Plan 72-year-old female with pertinent history of essential hypertension, AFib on Eliquis, hyperthyroidism who presents to the emergency department for evaluation of nausea and vomiting. #.? Nausea/vomiting, likely due to Choledocholithiasis, #.? Conjugated jaundice and transaminitis in the setting of above -Liquid diet -ERCP today 10/26 with 6 stones removal -empiric ceftriaxone -Surgery is planning CCY on saturday #.? ?GI bleed: Stool occult blood test positive in the ER, no evidence of active bleed #.? AFib:? Rate controlled, Hold eliquid for surgery Saturday #.? Essential hypertension: continue coreg, entresto #. Chronic systolic heart failure--Coreg, Entresto #.? h/o Hyperthyroidism: On methimazole Need for inpatient: Need ERCP for CCY d/t gallstones DVT Pophylaxis lovenox Time Spent With Patient Time: Total time managing care of this patient today ____ minutes. Quality Stroke Does the patient have a stroke diagnosis?: No VTE Prior VTE?: No VTE Risk Level:: Medical - moderate - high VTE Device Contraindication: N/A - Device Ordered VTE Drug Contraindication: Treatment Not Indicated
[2022-10-26] MEDS: Acetaminophen 325 MG TABLET 650 MG PO (13:30)
[2022-10-26] MEDS: Sacubitril/Valsartan 24/26 1 TAB TABLET PO (13:30)
[2022-10-26] MEDS: Spironolactone 25 MG TABLET PO (13:31)
[2022-10-26] MEDS: methIMAzole 5 MG TABLET PO (13:31)
[2022-10-26] MEDS: carvediloL 12.5 MG TABLET PO (13:31)
[2022-10-26] MEDS: cefTRIAXone sodium 1 GM in 0.9 % Sodium Chloride 50 ML IV (13:35)
--- NOTE | 2022-10-26 14:33 | P.CDIM_ITS ---
PROVIDER RESPONSE TEXT: To clarify, the appropriate diagnosis supported by the clinical indicators: Hyponatremia present on arrival, resolved etc or other etiology of labs QUERY TEXT: PHYSICIAN'S DOCUMENTATION REQUEST Date of Query: 10/26/2022 09:21 AM EDT Patient Name: Socorro Powell Admit Date: 10/24/2022 Dear Michael Bañuelos, A review of the medical record indicates additional documentation may be needed. Please review below and update the documentation accordingly. Clinical Indicators: LAB FINDINGS: sodium 129 L Nausea/vomiting/diarrhea/generalized weakness Based on the above, could you clarify the appropriate diagnosis, if significant, that supports the ab ove abnormalities and additional evaluation, monitoring, and/or treatment rendered: Hyponatremia present on arrival, resolved etc or other etiology of labs Unable to determine Other (explain) Clinically unable to determine (explain) Thank you, Afua Diaz, CCS, CDIS Use of terms such as suspected, likely, concern for, or probable (associated with a specific diagnosi s that is being evaluated, monitored, or treated as if it exists) are acceptable and can be coded in the inpatient se tting, when documented at the time of discharge. Please use your independent medical judgment in providing your response. THIS QUERY IS PART OF THE PERMANENT MEDICAL RECORD
--- NOTE | 2022-10-26 16:28 | MHC.CM.PN ---
Per MD rounds no dc today. Patient is scheduled for ERCP. DP Home resume Dave. DP resume [facility] services. [facility] will provide transport home.
[2022-10-26] MEDS: Throat Lozenge, Medicated LOZENGE 1 LOZENGE MUCOUS MEM (23:14)
[2022-10-27] MEDS: 0.9 % Sodium Chloride Flush 3 ML SYRINGE IVFLUSH ×4 (01:12→20:11)
[2022-10-27] MEDS: Acetaminophen 325 MG TABLET 650 MG PO ×2 (01:14→23:41)
[2022-10-27] MEDS: Throat Lozenge, Medicated LOZENGE 1 LOZENGE MUCOUS MEM (01:21)
[2022-10-27 03:26] VITALS: BP 98/48; PULSE 75; RESP 17; TEMP 36.4; O2SAT 97
[2022-10-27 04:18] LABS: Hematocrit 38.5 % (37.0-47.0); Hemoglobin 13.2 g/dl (12.0-16.0); Mean Corpuscular HGB Conc 34.3 g/dl (31.0-35.0); Mean Corpuscular Hemoglobin 31.4 pg (27.0-33.0); Mean Corpuscular Volume 91.7 fL (80.0-98.0); Platelet Count 140 X10*3/uL (160-400); Red Cell Distribution Width 13.4 % (11.0-16.0); White Blood Count 13.6 X10*3/uL (4.8-10.8)
[2022-10-27 04:33] LABS: Lipase 217 U/L (8-78)
[2022-10-27 04:35] LABS: Alanine Aminotransferase 148 U/L (0-31); Alkaline Phosphatase 107 U/L (39-117); Anion Gap 16 (12-20); Aspartate Amino Transferase 67 U/L (5-31); Bilirubin Total 3.3 mg/dL (0.0-1.0); Blood Urea Nitrogen 23 mg/dL (9-16); Carbon Dioxide 19 mmol/L (22-29); Chloride 104 mmol/L (96-108); Creatinine Clr Calc Pharmacy 36.6; Estimated Glomerular Filt Rate 35; Glucose Random 122 mg/dL (60-115); Potassium 4.3 mmol/L (3.3-5.1); Sodium 135 mmol/L (135-145)
[2022-10-27] MEDS: Pantoprazole Sodium 40 MG/10 ML VIAL IVPUSH ×2 (05:22→16:28)
--- NOTE | 2022-10-27 08:04 | PC.NURSE ---
Assumed care at 17:00. Patient alert and oriented. Her blood pressure has been running a little low but above the parameter: 92/60 manually. She had carvedilol 12.5 mg and sacubitril/valsartan 24/26 mg. Her pulse was 72. Discussed question of holding one or both despite technically over parameter, and held per MD. Patient reported some dry scratchy throat since her ERCP, discussed with MD, PRN cepacol lozenges with good effect. Patient refusing her sequential leg compression devices. She has eliquis for afib on hold in prep for her possible gallbladder removal Saturday, MD aware.
[2022-10-27] MEDS: methIMAzole 5 MG TABLET PO (08:24)
[2022-10-27 08:52] VITALS: BP 98/50; PULSE 75; RESP 20; TEMP 37.1; O2SAT 97
--- NOTE | 2022-10-27 09:43 | PC.NURSE ---
Manual BP on right upper arm with patient in supine position was 88/[address] Bañuelos notified and said to hold BP meds this am. Pt states that she feels fine and has no dizziness or light-headedness and that her BP normally runs in the mid 90's systolic.
--- NOTE | 2022-10-27 10:08 | P.PNIM_ITS ---
Subjective Subjective Date of Service: 10/27/22 Interval History: f/u on choledocholithias, r/o cholecystitis interval history: pain is controlled Physical Exam Vital Signs: Vital Signs: Last Vital Signs Temp 98.7 F 10/27/22 08:52 Pulse 75 10/27/22 08:52 Resp 20 10/27/22 08:52 BP 98/50 L 10/27/22 08:52 Pulse Ox 97 10/27/22 08:52 O2 Del Method Room Air 10/27/22 08:52 BMI result Body Mass Index 44.3 Const: Other: Patient is in recovery room awakening from anesthesia Objective Data Active Medications Acetaminophen (Acetaminophen 325 Mg Tablet) 650 mg PO Q6H PRN PRN Reason: Pain, Mild (Pain Scale 1-3) Last Admin: 10/27/22 01:14 Dose: 650 mg Documented By: RAMONA Acetaminophen (Acetaminophen Supp 650 Mg Supp.Rect) 650 mg [place] Q6H PRN PRN Reason: Pain, Mild (Pain Scale 1-3) Benzocaine (Throat Lozenge, Medicated Lozenge) 1 lozenge MUCOUS MEM Q2H PRN PRN Reason: Sore Throat Last Admin: 10/27/22 01:21 Dose: 1 lozenge Documented By: RAMONA Carvedilol (Carvedilol 12.5 Mg Tablet) 12.5 mg PO BID [facility]; Protocol Last Admin: 10/27/22 09:36 Dose: Not Given Documented By: ANITA Non-Admin Reason: Decreased Blood Pressure Fluticasone Propionate (Fluticasone Propionate Nasal 16 Gm [place]) 1 spray NOSTRIL-B DAILY PRN PRN Reason: Allergy Symptoms Ceftriaxone Sodium 1 gm/ (Sodium Chloride) 50 mls @ 100 mls/hr IV Q24H [facility] Last Infusion: 10/26/22 14:27 Dose: 100 mls/hr Documented By: CHRIS Melatonin (Melatonin 3 Mg Tablet) 6 mg PO BEDTIME PRN PRN Reason: Insomnia Methimazole (Methimazole 5 Mg Tablet) 5 mg PO DAILY [facility] Last Admin: 10/27/22 08:24 Dose: 5 mg Documented By: ANITA Ondansetron HCl (Ondansetron Hcl 4 Mg/2 Ml Vial) 4 mg IVPUSH Q8H PRN PRN Reason: Nausea and Vomiting Pantoprazole Sodium (Pantoprazole Sodium 40 Mg/10 Ml Vial) 40 mg IVPUSH BID@0630,0350 [facility] Last Admin: 10/27/22 05:22 Dose: 40 mg Documented By: RAMONA Pharmacy Consult (Consult Rx Perform Med Rec) 1 each MISCELLANE ONCE PRN PRN Reason: Consult order Sacubitril/Valsartan (Sacubitril/Valsartan 1 Tab Tablet) 1 tab PO BID [facility]; Protocol Last Admin: 10/27/22 09:36 Dose: Not Given Documented By: ANITA Non-Admin Reason: Decreased Blood Pressure Sodium Chloride (0.9 % Sodium Chloride Flush 3 Ml Syringe) 3 ml IVFLUSH QSHIFT [facility] Last Admin: 10/27/22 08:25 Dose: 3 ml Documented By: ANITA Spironolactone (Spironolactone 25 Mg Tablet) 25 mg PO DAILY [facility]; Protocol Last Admin: 10/27/22 09:40 Dose: Not Given Documented By: ANITA Non-Admin Reason: Decreased Blood Pressure Labs 10/27/22 04:12 10/27/22 04:12 Labs: Laboratory Results - last 24 hr 10/27/22 10/27/22 10/27/22 04:12 04:12 04:12 MCV 91.7 MCH 31.4 MCHC 34.3 RDW 13.4 Plt Count 140 L MPV 9.0 L Absolute Nucleated RBC 0.000 Nucleated RBC % (auto) 0.0 Anion Gap 16 Estim Creat Clear Calc 36.6 Estimated GFR 35 Random Glucose 122 H Calcium 8.0 L D Total Bilirubin 3.3 H AST 67 H ALT 148 H Alkaline Phosphatase 107 Total Protein 5.0 L Albumin 3.0 L Lipase 217 H Assessment and Plan (1) Choledocholithiasis: Status: Acute Plan 72-year-old female with pertinent history of essential hypertension, AFib on Eliquis, hyperthyroidism who presents to the emergency department for evaluation of nausea and vomiting. #.? Nausea/vomiting, likely due to Choledocholithiasis, #.? Conjugated jaundice and transaminitis in the setting of above -Liquid diet -ERCP today 10/26 with 6 stones removal -empiric ceftriaxone -Surgery is planning CCY on saturday but patient doesn't want it yet, would discuss with surgery #.? ?GI bleed: Stool occult blood test positive in the ER, no evidence of active bleed #.? AFib:? Rate controlled, Hold eliquid for surgery Saturday #.? Essential hypertension: continue coreg, entresto #. Chronic systolic heart failure--Coreg, Entresto #.? h/o Hyperthyroidism: On methimazole Need for inpatient: Need ERCP for CCY d/t gallstones DVT Pophylaxis lovenox starting today Time Spent With Patient Time: Total time managing care of this patient today ____ minutes. Quality Stroke Does the patient have a stroke diagnosis?: No VTE Prior VTE?: No VTE Risk Level:: Medical - moderate - high VTE Device Contraindication: N/A - Device Ordered VTE Drug Contraindication: Treatment Not Indicated
[2022-10-27] MEDS: cefTRIAXone sodium 1 GM in 0.9 % Sodium Chloride 50 ML IV (11:25)
--- NOTE | 2022-10-27 14:48 | HO.POSTANES ---
Post Anesthesia Evaluation Post Anesthesia Evaluation Vital Signs: Vital Signs Temp Pulse Resp BP Pulse Ox O2 Del Method 10/27/22 08:52 98.7 F 75 20 98/50 L 97 Room Air 10/27/22 03:26 97.5 F 75 17 98/48 L 97 Room Air Anesthesia: General Endotracheal-GETA Mental Status: Awake Pain Control: Satisfactory Nausea/Vomiting: None Hydration: Adequate Anesthesia-Related Issues: No Anes. Related Issues
[2022-10-27 15:51] VITALS: BP 97/53; PULSE 75; RESP 20; TEMP 36.6; O2SAT 97
[2022-10-27 19:53] VITALS: BP 122/56; PULSE 75; RESP 20; TEMP 36.6; O2SAT 96
[2022-10-27] MEDS: Sacubitril/Valsartan 24/26 1 TAB TABLET PO (20:10)
[2022-10-27] MEDS: Enoxaparin Sodium 40 MG/0.4 ML SYRINGE SUBCUT (20:10)
[2022-10-27 23:56] VITALS: BP 122/56; PULSE 81; RESP 18; TEMP 37.1; O2SAT 95
[2022-10-28 07:51] VITALS: BP 128/73; PULSE 68; RESP 20; TEMP 36.3; O2SAT 98
[2022-10-28] MEDS: Sacubitril/Valsartan 24/26 1 TAB TABLET PO (08:20)
[2022-10-28] MEDS: Spironolactone 25 MG TABLET PO (08:20)
[2022-10-28] MEDS: carvediloL 12.5 MG TABLET PO (08:20)
[2022-10-28] MEDS: methIMAzole 5 MG TABLET PO (08:20)
[2022-10-28] MEDS: 0.9 % Sodium Chloride Flush 3 ML SYRINGE IVFLUSH (08:25)
--- NOTE | 2022-10-28 09:52 | PM.DS ---
DS: Providers Provider Date of Service: 10/28/22 Date of admission: 10/24/22 03:27 Primary care physician: Kaye Pinto NP Consults: 10/24/22 06:25 Consult to Gastroenterology Routine Consulting Provider: Angelica Luis Reason for consultation: choledocholithiasis. stool occult positive DS: Diagnosis Discharge Diagnosis (1) Choledocholithiasis: Status: Acute DS: Summary Hospital Course Hospital Course: Chief complaint: nausea/ vomiting Narrative: Socorro Powell is a 72 year old female? Presented to the emergency department on 10/24/2022 with complaints of nausea and vomiting.? His past medical history of essential hypertension, AFib on Eliquis, and hyperthyroidism.? She reports the nausea and vomiting started approximately 1 week prior.? She denies fever or chills.? She presented to the emergency department underwent workup with CT abdomen and pelvis.? This revealed distended gallbladder with gallstones and common bile duct stones .? LFTs were markedly including a total bilirubin of 5.1 direct bilirubin of 3.5.? She underwent ERCP earlier today with the findings of multiple gallstones within the common bile duct.? The common bile duct was cleared after papillotomy.? Surgical consultation is requested for management of the cholelithiasis. hospital course: Patient presented with abdominal pain nausea vomiting and was noted to have choledocholithiasis by CT. Because she takes Eliquis ERCP was delayed for several days and ultimately underwent ERCP by . Has signed and will had been six stones removal. subsequently she was evaluated by surgery with recommendation to have cholecystectomy bed at this time the patient is saying that she is not having any symptom have no pain and will rather not have this surgery unless her symptoms recur in the future. This was discussed with her by surgeon and myself. Her diet has been advanced to low-fat diet which he is tolerating at this time she has been treated empirically with IV antibiotics although there was no clear evidence of cholecystitis she will complete an empiric antibiotics with Ceftin. her vitals as a stable no fever. Time Spent with Patient Time attestation: Total time managing care of this patient today ____ minutes. Discharge coordination time: Greater than 30 minutes Quality: Safe Use of Opioids Does Pt have an Active Cancer Diagnosis on the Problem List?: No Quality: Stroke Does the patient have a stroke diagnosis?: No Physical Exam Vital Signs: Vital Signs: Last Vital Signs Temp 97.3 F 10/28/22 07:51 Pulse 68 10/28/22 07:51 Resp 20 10/28/22 07:51 BP 128/73 10/28/22 07:51 Pulse Ox 98 10/28/22 07:51 O2 Del Method Room Air 10/28/22 07:51 BMI result Body Mass Index 44.3 Discharge Plan Discharge Anticipated Discharge Date/Time: 10/28/22 09:45 Patient Disposition: Home, Self-Care Discharge Diagnosis: choledocholithiasis. Referrals: Kaye Pinto NP [Primary Care Provider] - 1 Week Theo Rios MD [Physician] - 2 Weeks Discharge Medications: Continued methimazole 5 mg tablet 5 mg PO DAILY fluticasone propionate 50 mcg/actuation spray,suspension 1 spray intranasal DAILY PRN (Reason: Allergy Symptoms) Entresto 24-26 mg tablet 1 tab PO BID Eliquis 5 mg tablet 5 mg PO BID spironolactone 25 mg tablet 25 mg PO DAILY nystatin 100,000 unit/gram powder 1 appl topical DAILY PRN (Reason: Itching) carvedilol 12.5 mg tablet 12.5 mg PO BID Discharge Orders: Discharge Order (Routine); Ordered 10/28/22 Ordered By: Michael Bañuelos Diet: Advance to usual diet Activity on Discharge: As tolerated Stand Alone Forms: Patient Portal Discharge page Care Plan Goals: Full recovery from gallbladder disease, choledocholithiasis. Health Concerns: Choledocholithiasis. ( gallstone ) Plan of Treatment: take cefuroxime is a as recommended. Follow up with Dr. Rios to decide on surgery. Assessment: As above
[2022-10-28] MEDS: cefTRIAXone sodium 1 GM in 0.9 % Sodium Chloride 50 ML IV (10:38)
[2022-10-28] MEDS: guaiFENesin 100 MG/5 ML LIQUID PO (11:12)
[2022-10-28] MEDS: Apixaban 5 MG TABLET PO (11:16)
--- NOTE | 2022-10-28 13:04 | MHC.CM.PN ---
PATIENT IS DC HOME WITH RESUMPTION OF HER [facility] TO TRANSPORT FOR 1430 RN AND PATIENT AWARE IMM 10/28 IN CHART
--- NOTE | 2022-10-29 06:57 | MHC.SHP ---
Pre-Procedural Eval Section A Date of Service: 10/29/22 The patient is an INPATIENT: No Changes since office visit: No Cold of Flu in the past 2 weeks, No New Medical Problems, No Changes in Medication and No Patient answered all questions The History & Physical has been completed within 30 days and I have reviewed it.: Yes Section B Chief Complaint: nausea/ vomiting Allergies: Allergies Allergy/AdvReac Type Severity Reaction Status Date / Time Penicillins [PENICILLINS] Allergy Unknown UNKNOWN Verified 03/08/22 12:56 Plan I have reviewed the history and physical and performed a pertinent physical examination on my patient. No changes have occurred unless specified. Time Spent With Patient Time: Total time managing care of this patient today ____ minutes.
== END 2022-10-28 14:58 | disposition home or self-care (01) | DRG 445 ==
LOC: HO.ED 10-24 03:34 → HO.EDOVER 10-24 03:38 → HO.S3 10-24 15:40
PROVIDERS: Internal Medicine Gastroenterology; Admitting Provider Student in an Organized Health Care Education/Training Program; Emergency Provider Emergency Medicine Emergency Medical Services; PCP Nurse Practitioner Family; Visit Provider Internal Medicine
PROC: 0FCC8ZZ Extirpation of Matter from Ampulla of Vater, Via Natural or Artificial Opening Endoscopic (ICD-10-PCS; CPT 43260; principal; 2022-10-26 09:10)
DX: K80.50 Calculus of bile duct without cholangitis or cholecystitis without obstruction (principal); E87.1 Hypo-osmolality and hyponatremia; Z68.41 Body mass index [BMI] 40.0-44.9, adult; E05.90 Thyrotoxicosis, unspecified without thyrotoxic crisis or storm; E66.9 Obesity, unspecified; I48.91 Unspecified atrial fibrillation; R19.5 Other fecal abnormalities; I11.0 Hypertensive heart disease with heart failure; Z88.0 Allergy status to penicillin; Z79.01 Long term (current) use of anticoagulants; Z79.51 Long term (current) use of inhaled steroids; Z79.899 Other long term (current) drug therapy
CPT/HCPCS: 36415; 71045; 74177; 80048; 80053; 80076; 81001; 82272; 83690; 84484; 85025; 85027; 85610; 86850; 86900; 86901; 93005; 99285; C1726; J0696; J1610; J1650; J2250; J2405; J3010; Q9967

== ENCOUNTER → 2022-11-07 11:16 | Outpatient (BNVA) | payer OTHER, SELFPAY | PROVIDERS: PCP Nurse Practitioner Family; Visit Provider Surgery | DX: K80.50 Calculus of bile duct without cholangitis or cholecystitis without obstruction (principal); K80.20 Calculus of gallbladder without cholecystitis without obstruction | CPT/HCPCS: 99202 ==

== ENCOUNTER 2023-01-08 11:19 | Day surgery (SDC) | payer OTHER, SELFPAY ==
[2022-12-10 12:33] VITALS: BMI 39.1
--- NOTE | 2022-12-11 14:00 | P.CONAN_ITS ---
HPI - Anesthesia Eval Consult details Narrative: 72yo F for Cholecystectomy Laparoscopic Poss Open, 01/08/23 Cardiac optimized. Last office eval 08/2022. Stable. Med change from losartan to entresto Eliquis for afib - ok'd to hold 2 days by cardiol. [facility] Active Problems Active Problems: All Active Problems (Updated 12/10/22 @ 12:26 by Carol Waddell RN) Bilateral hip joint arthritis (Acute) Bilateral primary osteoarthritis of knee (Acute) Choledocholithiasis (Acute) Cholelithiasis (Acute) Breast mass, right (Acute) Hypertension (Acute) Arthritis (Acute) Lymphedema (Acute) Past Medical History Medical History Afib Arthritis Breast mass, right Does mobilize using walker Glaucoma Heart failure Hypertension Lymphedema JUAN (obstructive sleep apnea) Family History Family History Mother Vaginal cancer Brother Eye cancer Family history of problems with anesthesia: No Surgical History Surgical History History of bilateral breast reduction surgery History of hysterectomy Hx of endoscopic retrograde cholangiopancreatography History of Problems with Anesthesia: No Social History Social History Household Members: None Housing: Apartment Are you a primary animal care attendant to a significant other at home: No Do you presently have visiting nurse or other home services: No (aids come to the house 2 hours everyday) Alcohol intake: never Patient Tobacco Use Status: Never used Tobacco Second Hand Smoke Exposure: No Advance Directives Date on File: 10/24/22 service: No Meds Allergies Allergy/AdvReac Type Severity Reaction Status Date / Time Penicillins [PENICILLINS] Allergy Unknown UNKNOWN Verified 12/10/22 12:30 Home Medications Medication Instructions Recorded Confirmed Last Taken Type apixaban 5 mg tablet (Eliquis) 5 mg PO BID 09/28/21 01/12/23 01/11/23 History carvedilol 12.5 mg tablet 12.5 mg PO BID 09/28/21 01/12/23 01/11/23 History nystatin 100,000 unit/gram topical 1 appl topical DAILY PRN Itching 09/28/21 01/12/23 Unknown History powder spironolactone 25 mg tablet 25 mg PO DAILY 09/28/21 01/12/23 01/11/23 History fluticasone propionate 50 1 spray intranasal DAILY PRN 10/24/22 01/12/23 Unknown History mcg/actuation nasal Allergy Symptoms spray,suspension methimazole 5 mg tablet 5 mg PO DAILY 10/24/22 01/12/23 01/11/23 History sacubitril 24 mg-valsartan 26 mg 1 tab PO BID 10/24/22 01/12/23 01/11/23 History tablet (Entresto) bimatoprost 0.01 % eye drops 1 drp ophthalmic (eye) DAILY 12/10/22 01/12/23 01/11/23 History (Isabella) dorzolamide 22.3 mg-timolol 6.8 1 drp ophthalmic-Left BID 12/10/22 01/12/23 01/11/23 History mg/mL eye drops docusate sodium 100 mg capsule 100 mg PO BID 01/12/23 01/12/23 01/11/23 History Exam Exam Date and Time: December 11, 2022 1400 Height,Weight and Vital Signs: Height 5 ft Weight 90.718 kg Pertinent Lab Results Pertinent Lab Results: Laboratory Tests 10/27/22 10/27/22 04:12 04:12 WBC 13.6 H Hgb 13.2 Hct 38.5 Plt Count 140 L Sodium 135 Potassium 4.3 Chloride 104 Carbon Dioxide 19 L BUN 23 H Creatinine 1.48 H Narrative Narrative: EKG 09/2022 Vent. Rate : 059 BPM ? ? Atrial Rate : 000 BPM ?? P-R Int : 000 ms? QRS Dur : 110 ms ? ? QT Int : 430 ms ? ? ? P-R-T Axes : 000 004 079 degrees ?? QTc Int : 425 ms ? Atrial fibrillation with slow ventricular response Incomplete left bundle branch block Nonspecific ST and T wave abnormality Abnormal ECG When compared with ECG of 12-JUN-2015 21:10, Atrial fibrillation has replaced Sinus rhythm Vent. rate has decreased BY? 31 BPM Incomplete left bundle branch block is now Present ECHO 07/2022 LV size is normal. LV wall thickness is mildly increased. LV systolic function is moderately reduced. LVEF 30-35%. Apical images are foreshortened with suboptimal endocardial definition limiting assessment. There is moderate global hypokinesis of the LV. Unable to assess diastolic function d/t afib. Aortic valve is poorly visualized. No significant aortic stenosis or regurg RV is poorly visualized. Trivial pericardial effusion anteriorly. Nuc Stress 2020 No ischemic EKG changes Assessment and Plan Assessment Anesthesia Assessment: Chart Reviewed Final Anesthetic Review Family History of Problems with Anesthesia: No History of Problems with Anesthesia: No
--- NOTE | 2023-01-07 10:36 | MHC.SHP ---
Pre-Procedural Eval Section A Date of Service: 01/07/23 The patient is an INPATIENT: No Changes since office visit: No Cold of Flu in the past 2 weeks, No New Medical Problems, No Changes in Medication and No Patient answered all questions The History & Physical has been completed within 30 days and I have reviewed it.: Yes Section B Chief Complaint: Calculus of bile duct without cholangitis or seema Allergies: Allergies Allergy/AdvReac Type Severity Reaction Status Date / Time Penicillins [PENICILLINS] Allergy Unknown UNKNOWN Verified 12/10/22 12:30 Plan I have reviewed the history and physical and performed a pertinent physical examination on my patient. No changes have occurred unless specified. Time Spent With Patient Time: Total time managing care of this patient today ____ minutes.
[2023-01-08] VITALS (18 sets, daily range): BP systolic 114–152; BP diastolic 47–92; PULSE 60–104; RESP 16–21; TEMP 36.2–36.7; O2SAT 92–98
--- NOTE | 2023-01-08 12:28 | HO.ANESPROP2 ---
HPI - Anesthesia Eval Consult details Narrative: for carmine stephenson [facility] Active Problems Active Problems: All Active Problems (Updated 01/08/23 @ 12:04 by Leeanna Mac RN) Bilateral hip joint arthritis (Acute) Bilateral primary osteoarthritis of knee (Acute) Choledocholithiasis (Acute) Cholelithiasis (Acute) Breast mass, right (Acute) Hypertension (Acute) Arthritis (Acute) Lymphedema (Acute) Past Medical History Medical History Afib Arthritis Breast mass, right Does mobilize using walker Glaucoma Heart failure Hypertension Lymphedema JUAN (obstructive sleep apnea) Family History Family History Mother Vaginal cancer Brother Eye cancer Family history of problems with anesthesia: No Surgical History Surgical History History of bilateral breast reduction surgery History of hysterectomy Hx of endoscopic retrograde cholangiopancreatography History of Problems with Anesthesia: No Social History Social History Household Members: None Housing: Apartment Are you a primary care navigator to a significant other at home: No Do you presently have visiting nurse or other home services: Yes (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 If so, by whom?: No Are you DNR?: No Advance Directives: Yes Advance Directives Information Provided: No Advance Directives on File: Yes Advance Directives Date on File: 10/24/22 Recently lost weight without trying: No Nutrition Risks: No Nutritional Risk service: No Meds Allergies Allergy/AdvReac Type Severity Reaction Status Date / Time Penicillins [PENICILLINS] Allergy Unknown UNKNOWN Verified 12/10/22 12:30 Active Medications: Current Medications Lactated Ringer's (Lr) 1,000 mls @ 50 mls/hr IVCONT .Q20H [facility] Home Medications Medication Instructions Recorded Confirmed Last Taken Type apixaban 5 mg tablet (Eliquis) 5 mg PO BID 09/28/21 12/10/22 10/23/22 History carvedilol 12.5 mg tablet 12.5 mg PO BID 09/28/21 12/10/22 10/23/22 History nystatin 100,000 unit/gram topical 1 appl topical DAILY PRN Itching 09/28/21 12/10/22 Unknown History powder spironolactone 25 mg tablet 25 mg PO DAILY 09/28/21 12/10/22 Unknown History fluticasone propionate 50 1 spray intranasal DAILY PRN 10/24/22 12/10/22 Unknown History mcg/actuation nasal Allergy Symptoms spray,suspension methimazole 5 mg tablet 5 mg PO DAILY 10/24/22 12/10/22 Unknown History sacubitril 24 mg-valsartan 26 mg 1 tab PO BID 10/24/22 12/10/22 10/23/22 History tablet (Entresto) bimatoprost 0.01 % eye drops 1 drp ophthalmic (eye) DAILY 12/10/22 12/10/22 Unknown History (Isabella) dorzolamide 22.3 mg-timolol 6.8 1 drp BID 12/10/22 12/10/22 Unknown History mg/mL eye drops Exam Exam Date and Time: January 08, 2023 1228 Height,Weight and Vital Signs: Height 5 ft Weight 90.718 kg Last Vital Signs Temp 97.7 F 01/08/23 12:09 Pulse 64 01/08/23 12:09 Resp 17 01/08/23 12:09 BP 118/51 L 01/08/23 12:09 Pulse Ox 98 01/08/23 12:09 O2 Del Method Room Air 01/08/23 12:09 Airway Mallampati Class: III TM Dist: <=3cm Neck ROM: Limited Heart: rrr Lungs: cta Assessment and Plan Assessment Anesthesia Assessment: Anesthesia Plan Discussed and Chart Reviewed Final Anesthetic Review Family History of Problems with Anesthesia: No History of Problems with Anesthesia: No ASA Class: III Final Preanesthetic Review: No Changes in Pt Med Stat, Meds/Allgs Chart Reviewed, Consent Obtained/Reviewed and Anes Risks/Benef Reviewed Patient Risk: Intermediate Procedure Risk: Intermediate Anesthetic Plan Anesthetic Plan: GA Disposition: Standard PACU
[2023-01-08] MEDS: Lactated Ringers 1,000 ML 50 ML IVCONT (12:55)
--- NOTE | 2023-01-08 15:01 | W.PM.OPN ---
Operative Note Operative Note Date of Service: 01/08/23 Narrative: Preoperative diagnosis: [] History of choledocholithiasis, status post ERCP Postop diagnosis: [] Same Procedure [] laparoscopic cholecystectomy Surgeon: [] Teofilo Adult Basic Education Teacher: [] ileana Krishna Type of Anesthesia: [] General Indication for surgery: [] Common bile duct stones requiring ERCP. Gallbladder with multiple gallstones. Dense omental and gastric adhesions to the gallbladder. Markedly intrahepatic gallbladder. Very corpulent abdomen Findings: [] Patient brought to the operating room, placed on the operative table in a supine position, after an adequate level of general anesthesia was induced, the patient's abdomen was prepped and draped in usual sterile fashion. Using a supraumbilical curvilinear incision, Luis technique was used to insufflate the abdominal cavity to 15 mm of CO2. Upper midline and right subcostal ports were placed under direct laparoscopic view, and the patient was placed in reverse Trendelenburg position, tilted to the left. Findings were as noted above. Gallbladder was grasped using laparoscopic graspers, retracted superiorly and laterally. Omental and gastric adhesions were swept off the gallbladder where it's hilum was approached. Cystic artery and cystic duct were each identified, circumferentially skeletonized, and traced directly into the gallbladder and critical view obtained. Each was clipped proximally x2, distally x1, and transected. Gallbladder which was very intrahepatic was then cauterized from the gallbladder fossa using Bovie. Specimen was placed in an Endo-Catch bag, a retrieved through the umbilical port. Abdominal cavity was very copiously irrigated, secured hemostasis. All ports were removed under direct laparoscopic view. Wounds were closed in the following manner; the supra umbilical wound had its fascia reapproximated using interrupted 0 Vicryl sutures. All skin wound were closed using subcuticular 4-0 Vicryl sutures followed by Steri-Strips and sterile dressings. Wounds were infiltrated 0.5% Marcaine at completion. Sponge, needle, and instrument counts were reported to be correct. Patient tolerated the procedure well and emerged from anesthesia stable condition. EBL minimal
[2023-01-08] MEDS: oxyCODONE HCl Immed Release 5 MG TABLET PO (15:29)
[2023-01-08] MEDS: fentaNYL citrate/PF 100 MCG/2 ML VIAL 25 MCG IVPUSH ×4 (15:45→16:51)
[2023-01-08] MEDS: ondansetron HCL 4 MG/2 ML VIAL IVPUSH (18:03)
[2023-01-08] MEDS: 0.9 % Sodium Chloride Flush 3 ML SYRINGE IVFLUSH ×2 (18:04→23:38)
[2023-01-08] MEDS: Sacubitril/Valsartan 24/26 1 TAB TABLET PO (19:39)
[2023-01-08] MEDS: oxyCODONE HCl Immed Release 5 MG TABLET 10 MG PO ×2 (19:40→23:37)
[2023-01-08] MEDS: carvediloL 12.5 MG TABLET PO (19:40)
--- NOTE | 2023-01-08 20:21 | PHA.MEDREC ---
Pharmacy Consult ? Medication Reconciliation Pharmacy has completed the medication reconciliation.
[2023-01-08] MEDS: Simethicone 80 MG TAB.CHEW 160 MG PO (20:31)
[2023-01-08] MEDS: Morphine Sulfate 2 MG/ML CARTRIDGE 4 MG IVPUSH (21:54)
[2023-01-08] MEDS: Acetaminophen 325 MG TABLET 650 MG PO (23:37)
[2023-01-09 04:00] VITALS: BP 122/68; PULSE 95; RESP 18; TEMP 36.7; O2SAT 97
[2023-01-09 07:42] VITALS: BP 135/70; PULSE 90; RESP 20; TEMP 36.8; O2SAT 98
--- NOTE | 2023-01-09 08:11 | HO.POSTANES ---
Post Anesthesia Evaluation Post Anesthesia Evaluation Date of Service: 01/09/23 Vital Signs: Vital Signs Temp Pulse Resp BP Pulse Ox O2 Del Method O2 Flow Rate 01/09/23 07:42 98.3 F 90 20 135/70 98 Nasal Cannula 2 01/09/23 04:00 98.1 F 95 18 122/68 97 Nasal Cannula 2 01/08/23 23:42 97.2 F 100 16 123/64 96 Nasal Cannula 2 01/08/23 21:52 71 20 114/56 L Anesthesia: General Endotracheal-GETA Mental Status: Awake Pain Control: Satisfactory Nausea/Vomiting: None Hydration: Adequate Anesthesia-Related Issues: No Anes. Related Issues
[2023-01-09] MEDS: oxyCODONE HCl Immed Release 5 MG TABLET 10 MG PO ×2 (08:49→14:00)
[2023-01-09] MEDS: Spironolactone 25 MG TABLET PO (08:49)
[2023-01-09] MEDS: 0.9 % Sodium Chloride Flush 3 ML SYRINGE IVFLUSH (08:49)
[2023-01-09] MEDS: Acetaminophen 325 MG TABLET 650 MG PO (08:49)
[2023-01-09] MEDS: methIMAzole 5 MG TABLET PO (08:50)
[2023-01-09] MEDS: carvediloL 12.5 MG TABLET PO (08:50)
[2023-01-09] MEDS: Sacubitril/Valsartan 24/26 1 TAB TABLET PO (08:50)
[2023-01-09] MEDS: Simethicone 80 MG TAB.CHEW 160 MG PO (08:56)
--- NOTE | 2023-01-09 10:00 | PM.PNGS ---
Subjective Subjective Date of Service: 01/09/23 Interval history: Had a lot of pain at RUQ and right shoulder/back overnight. This morning c/o mostly incisional pain and refusing to use incentive spirometer. Did not sleep. Ate breakfast this morning without nausea or vomiting. Has not been OOB. Using purewick instead of commode. Physical Exam Vital Signs: Vital Signs: Last Vital Signs Temp 98.3 F 01/09/23 07:42 Pulse 90 01/09/23 07:42 Resp 20 01/09/23 07:42 BP 135/70 01/09/23 07:42 Pulse Ox 98 01/09/23 07:42 O2 Del Method Nasal Cannula 01/09/23 07:42 O2 Flow Rate 2 01/09/23 07:42 BMI result Body Mass Index 39.1 Const: General: comfortable, no acute distress and alert Orientation/consciousness: patient oriented x3 Resp: Effort & Inspection: normal respiratory effort GI: Inspection: No distended and Yes incision (dressings intact) Palpation (GI): Soft to palpation, Tenderness to palpation present (GI) (incisional), no guarding and not rigid Percussion: Yes normal to percussion Skin: General skin exam: no rashes or lesions noted Neuro: General: patient oriented x3 and moves all extremities Objective Data Active Medications Acetaminophen (Acetaminophen 325 Mg Tablet) 650 mg PO Q6H PRN PRN Reason: Pain, Mild (Pain Scale 1-3) Last Admin: 01/09/23 08:49 Dose: 650 mg Documented By: COTEMA Carvedilol (Carvedilol 12.5 Mg Tablet) 12.5 mg PO BID FOR[facility]LY [facility], [facility]1983; Protocol Last Admin: 01/09/23 08:50 Dose: 12.5 mg Documented By: COTEMA Docusate Sodium (Docusate Sodium 100 Mg Capsule) 100 mg PO DAILY PRN PRN Reason: Constipation Fluticasone Propionate (Fluticasone Propionate Nasal 16 Gm [place]) 1 spray NOSTRIL-B DAILY PRN PRN Reason: Allergy Symptoms Melatonin (Melatonin 3 Mg Tablet) 6 mg PO BEDTIME PRN PRN Reason: Insomnia Methimazole (Methimazole 5 Mg Tablet) 5 mg PO DAILY FOR[facility]LY [facility], [facility]1983 Last Admin: 01/09/23 08:50 Dose: 5 mg Documented By: COTEMA Morphine Sulfate (Morphine Sulfate 2 Mg/Ml Cartridge) 4 mg IVPUSH Q4H PRN; Protocol PRN Reason: Pain, Severe (Pain Scale 7-10) Last Admin: 01/08/23 21:54 Dose: 4 mg Documented By: DOUG Ondansetron HCl (Ondansetron Hcl 4 Mg/2 Ml Vial) 4 mg IVPUSH Q8H PRN PRN Reason: Nausea and Vomiting Last Admin: 01/08/23 18:03 Dose: 4 mg Documented By: DOUG Oxycodone HCl (Oxycodone Hcl Immed Release 5 Mg Tablet) 5 mg PO Q4H PRN PRN Reason: Pain, Moderate(Pain Scale 4-6) Last Admin: 01/08/23 15:29 Dose: 5 mg Documented By: DANGELL Oxycodone HCl (Oxycodone Hcl Immed Release 5 Mg Tablet) 10 mg PO Q4H PRN PRN Reason: Pain, Severe (Pain Scale 7-10) Last Admin: 01/09/23 08:49 Dose: 10 mg Documented By: SHERMAN Sacubitril/Valsartan (Sacubitril/Valsartan 1 Tab Tablet) 1 tab PO BID [facility]LY [facility], [facility]; Protocol Last Admin: 01/09/23 08:50 Dose: 1 tab Documented By: SHERMAN Simethicone (Simethicone 80 Mg Tab.Chew) 160 mg PO RQ6H PRN PRN Reason: gas pain Last Admin: 01/09/23 08:56 Dose: 160 mg Documented By: SHERMAN Sodium Chloride (0.9 % Sodium Chloride Flush 3 Ml Syringe) [facility] Last Admin: 01/09/23 08:49 Dose: 3 ml Documented By: SHERMAN Spironolactone (Spironolactone 25 Mg Tablet) 25 mg PO DAILY [facility]LY [facility], [facility]; Protocol Last Admin: 01/09/23 08:49 Dose: 25 mg Documented By: SHERMAN Procedures Date of Service Date of Service: 01/09/23 Progress Note: A&P Assessment and plan (1) Choledocholithiasis: Status: Acute (2) S/P laparoscopic cholecystectomy: Status: Acute Plan 72 year old female POD #1 s/p lap seema for choledocolithiasis. Having difficulty with pain and has not been OOB yet. Abd benign this morning with appropriate post op tenderness, dressings intact. Strongly encouraged to get OOB this morning and use IS. Discussed this with nursing. Stable for dc to home later today. Patient comfortable with plan. Time Spent With Patient Time: Total time managing care of this patient today ____ minutes. Quality Stroke Does the patient have a stroke diagnosis?: No VTE Prior VTE?: No VTE Risk Level:: Surgical - high VTE Device Contraindication: N/A - Device Ordered VTE Drug Contraindication: N/A - Med Ordered
[2023-01-09 11:41] VITALS: BP 140/65; PULSE 95; RESP 19; TEMP 36.9; O2SAT 94
--- NOTE | 2023-01-09 12:34 | MHC.CM.PN ---
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
--- NOTE | 2023-01-09 15:25 | MHC.CM.PN ---
pt dcd home with resumption of services thru [facility] message left for rafaela re same
--- NOTE | 2023-01-10 13:44 | PM.DS ---
DS: Providers Provider Date of Service: 01/09/23 Date of discharge: 01/09/23 Primary care physician: Kaye Pinto NP Attending physician on admission: Graham Red Attending physician on discharge: Graham Red DS: Diagnosis Discharge Diagnosis (1) Choledocholithiasis: Status: Acute (2) S/P laparoscopic cholecystectomy: Status: Acute DS: Summary Hospital Course Hospital Course: HPI AT ADMISSION: Patient was recently discharged from [facility] status post ERCP for choledocholithiasis. Patient was evaluated at that time. She wished to reconsider laparoscopic cholecystectomy so was not performed at the same admission. Interestingly, patient is on Eliquis which was held at that time and will need to be readdressed for future laparoscopic cholecystectomy. HOSPITAL COURSE: On 01/08/23, a laparoscopic cholecystectomy was performed by Dr. Red without complication. The patient was admitted to extended stay for post operative pain as she did not feel comfortable going home alone that same day. She had an uncomplicated recovery course. On POD #1, she had good pain control. She was tolerating a solid diet. Her abdomen was benign with clean and intact dressings. She was reassessed later in the day and was OOB and able to ambulate to her wheelchair. She felt comfortable going home. She was discharge to home on 01/09/23 in stable condition. She has a f/u appt scheduled in the office in 1 week. Status at Discharge Functional status at discharge: uses cane/walker Overall status at discharge: patient is progressing back to baseline Time Spent with Patient Time attestation: Total time managing care of this patient today ____ minutes. Discharge coordination time: Less than 30 minutes Quality: Safe Use of Opioids Does Pt have an Active Cancer Diagnosis on the Problem List?: No Quality: Stroke Does the patient have a stroke diagnosis?: No Physical Exam Vital Signs: Vital Signs: Last Vital Signs Temp 98.4 F 01/09/23 11:41 Pulse 95 01/09/23 11:41 Resp 19 01/09/23 11:41 BP 140/65 H 01/09/23 11:41 Pulse Ox 94 01/09/23 11:41 O2 Del Method Room Air 01/09/23 11:41 O2 Flow Rate 2 01/09/23 07:42 BMI result Body Mass Index 39.1 Const: General: comfortable, no acute distress and alert Orientation/consciousness: patient oriented x3 Resp: Effort & Inspection: normal respiratory effort GI: Inspection: No distended and Yes incision (clean, steris intact) Palpation (GI): Soft to palpation, Tenderness to palpation present (GI) (mild, incisional), no guarding and not rigid Skin: General skin exam: no rashes or lesions noted Neuro: General: patient oriented x3 DS: Data Data Completed and Pending Completed studies during hospitalization [Text1]: Procedures Extirpation of Matter from Ampulla of Vater, Via Natural or Artificial Opening Endoscopic (10/24/22) Fluoroscopy of Biliary and Pancreatic Ducts using Low Osmolar Contrast (10/24/22) Pending studies at discharge: Pending at discharge 01/08/23 14:36 Surgical [PTH] Routine Discharge Plan Discharge Patient Disposition: Home, Self-Care Referrals: Kaye Pinto NP [Primary Care Provider] - 1 Week Graham Red MD [Physician] - 1 Week Discharge Medications: New oxycodone 5 mg tablet 5 mg PO Q4H PRN (Reason: pain (scale score 7-10)) Qty: 24 0RF Rx Instructions: Partial Fill upon patient request. Take 1-2 tablets every 4-6 hours as needed for pain. docusate sodium [Colace] 100 mg capsule 100 mg PO BID Qty: 30 0RF Continued dorzolamide-timolol 22.3-6.8 mg/mL drops 1 drp BID [place] 0.01 % drops 1 drp ophthalmic (eye) DAILY methimazole 5 mg tablet 5 mg PO DAILY fluticasone propionate 50 mcg/actuation spray,suspension 1 spray intranasal DAILY PRN (Reason: Allergy Symptoms) Entresto 24-26 mg tablet 1 tab PO BID spironolactone 25 mg tablet 25 mg PO DAILY nystatin 100,000 unit/gram powder 1 appl topical DAILY PRN (Reason: Itching) carvedilol 12.5 mg tablet 12.5 mg PO BID Held Eliquis 5 mg tablet 5 mg PO BID Hold Instructions: Resume on 01/10/23. Discharge Orders: Discharge Order (Routine); Ordered 01/09/23 Ordered By: Jade Krishna Diet: Advance to usual diet Activity on Discharge: No heavy lifting Activity Restrictions/Additional Instructions: Apply an ice pack for short intervals (20 minutes on, followed by at least 20 minutes off) for the first 2 days. Do not apply heat. Do not use creams, lotions, or topical antibiotics. These can cause infection or allergic reaction. Ok to shower. You have steri strips covering your incision- these will fall off ~1 week. Follow up in office with Dr. Red in 1 week. ([phone]) No heavy lifting (>10lbs) or strenuous activity! Resume your eliquis 01/10/23. Call Your Doctor If: -Your temperature exceeds 101.5? F -You experience excessive pain or swelling -You have an unexpected reaction to medication -You have excessive bleeding -You experience continued vomiting/nausea -Your incision begins to separate -Your incision shows signs of infection such as increased redness, swelling, excessive pain, drainage (light blood or clear fluid is normal) or heat Discharge Date/Time: 01/09/23 15:59
== END 2023-01-09 15:59 | disposition home or self-care (01) ==
LOC: HO.SSS 13:48 → HO.S3 01-09 10:14
PROVIDERS: PCP Nurse Practitioner Family; Visit Provider Surgery
PROC: 0FT44ZZ Resection of Gallbladder, Percutaneous Endoscopic Approach (ICD-10-PCS; CPT 47562; principal; 2023-01-08 12:50)
DX: K80.46 Calculus of bile duct with acute and chronic cholecystitis without obstruction (principal); G89.18 Other acute postprocedural pain; R10.11 Right upper quadrant pain; M25.511 Pain in right shoulder; I10 Essential (primary) hypertension; Z88.0 Allergy status to penicillin
CPT/HCPCS: 47562; 88304; J0131; J2270; J2405; J3010

== ENCOUNTER → 2023-01-08 11:19 | Outpatient (BNV) | payer OTHER, SELFPAY | PROVIDERS: PCP Nurse Practitioner Family; Visit Provider Surgery | DX: K80.50 Calculus of bile duct without cholangitis or cholecystitis without obstruction (principal) | CPT/HCPCS: 47562; 99024; 99238 ==

== ENCOUNTER 2023-01-11 18:08 | Inpatient (IN) | payer OTHER, SELFPAY ==
--- NOTE | ~2023-01-11 | CT_ITS ---
EXAMINATION: CT ABDOMEN AND PELVIS WITHOUT CONTRAST CLINICAL INFORMATION: bowel obstruction. COMPARISON: 10/24/2022. TECHNIQUE: Multidetector volumetric imaging was performed from the superior aspect of the liver through the pubic symphysis without contrast per request. Sagittal and coronal reformatted images were obtained on the technologist workstation. This CT examination was performed using dose optimization techniques as appropriate, variously including the following: *Automated exposure control *Adjustment of mA and/or kV according to patient size (this includes techniques or standardized protocols for targeted exams where dose is matched to indication/reason for exam; i.e. extremities or head) *Use of iterative reconstruction technique DLP: 1106 mGy-cm. FINDINGS: LUNG BASES: Bibasilar consolidation/atelectasis. LIVER, GALLBLADDER, BILIARY TREE: The non-contrast liver is normal in size, shape, and attenuation. No focal hepatic lesion or biliary ductal dilatation is present. Gallbladder is now surgically absent with postoperative changes in the gallbladder fossa. PANCREAS: Unremarkable. SPLEEN: Unremarkable. ADRENAL GLANDS: Unremarkable. KIDNEYS AND URETERS: The kidneys are normal in size, shape, and attenuation. No hydronephrosis, hydroureter, or calculi seen. No perinephric stranding. BLADDER: Unremarkable. GASTROINTESTINAL TRACT: Colon is redundant with scattered colonic diverticulosis. I do not appreciate any colonic wall thickening or pericolonic inflammatory changes. Visualized small bowel unremarkable ABDOMINAL WALL: No significant hernia is appreciated. Stable appearing lipoma along the lateral left abdominal wall again noted. LYMPHOVASCULAR STRUCTURES: No bulky lymphadenopathy. The aorta is unremarkable.. PELVIC VISCERA: Surgically absent OSSEUS STRUCTURES: Multilevel degenerative changes in the spine. CT/CT abdomen pelvis wo IV con IMPRESSION: Chronic appearing and postoperative changes as described. I do not appreciate any acute intra-abdominal process.
--- NOTE | ~2023-01-11 | XR_ITS ---
EXAMINATION: XR CHEST CLINICAL INFORMATION: NG tube placement. COMPARISON: Chest radiograph 10/24/2022. TECHNIQUE: Frontal view of the chest was obtained. FINDINGS: Enlarged cardiomediastinal silhouette, unchanged. Enteric tube courses into the abdomen and terminates projecting over the region of the distal stomach. No focal airspace opacity, pleural effusion or pneumothorax. Degenerative changes in both shoulders. No acute osseous findings. Right upper quadrant surgical clips. XR/XR chest 1V IMPRESSION: 1. Enteric tube terminates over the region of the distal stomach. 2. No acute cardiopulmonary findings.
--- NOTE | ~2023-01-11 | XR_ITS ---
EXAMINATION: XR CHEST CLINICAL INFORMATION: Rule out pneumonia COMPARISON: 01/12/2023 TECHNIQUE: 2 views of the chest were obtained. FINDINGS: Lung volumes are symmetric. No focal consolidation is seen. No evidence of pneumothorax. Small pleural effusions noted on the lateral view with suspected adjacent atelectasis. No overt pulmonary edema. Cardiac silhouette remains enlarged. No acute osseous findings are seen. XR/XR chest 2V IMPRESSION: No focal consolidation. Small pleural effusions with suspected adjacent atelectasis. Cardiac silhouette remains enlarged.
--- NOTE | ~2023-01-11 | XR_ITS ---
EXAMINATION: XR ABDOMEN KUB CLINICAL INDICATION: Constipation. COMPARISON: CT abdomen/pelvis 10/24/2022. TECHNIQUE: AP view of the abdomen. FINDINGS: Nonspecific dilatation of the colon with a somewhat ahaustral appearance. Moderate amount of stool content in the right hemicolon. The small bowel is nondilated. 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 XR/XR KUB IMPRESSION: Colonic dilatation with a somewhat ahaustral appearance, nonspecific differential considerations include distal rectal obstruction, colonic pseudoobstruction and inflammatory bowel disease such as ulcerative colitis. Recommend further evaluation with CT abdomen/pelvis as clinically indicated.
--- NOTE | ~2023-01-11 | XR_ITS ---
EXAMINATION: XR ABDOMEN COMPLETE CLINICAL INDICATION: Abdominal pain. Ileus versus small bowel obstruction. COMPARISON: CT abdomen pelvis 01/11/2023. TECHNIQUE: 4 views of chest and abdomen. FINDINGS: Chest: The lungs are well-expanded and clear. The heart size enlarged. Perivascular is normal. No gross bony abnormality seen. ABDOMEN: There are multiple dilated air-fluid filled:. The small bowel loops appear grossly unremarkable. No free air seen. There is severe degenerative arthritic changes bilateral hip joints. XR/XR acute abdomen series IMPRESSION: Dilated colon with and air-fluid levels likely colonic ileus. Unremarkable chest exam.
[2023-01-11 18:36] VITALS: BP 138/88; PULSE 71; O2SAT 100
[2023-01-11 18:41] VITALS: BMI 46.4
[2023-01-11 19:28] VITALS: BP 95/53; PULSE 86; RESP 17; TEMP 37; O2SAT 98
[2023-01-11 20:00] VITALS: BP 104/62; PULSE 91; RESP 18; TEMP 37; O2SAT 97
[2023-01-11 20:58] LABS: MANUAL DIFF FLAG NO
[2023-01-11 20:59] LABS: Basophils Percent Auto 0.3 % (0-2); Eosinophils Absolute Auto 0.1 X10*3/uL (0.0-0.4); Eosinophils Percent Auto 0.6 % (0-4); Hematocrit 41.9 % (37.0-47.0); Imm Gran Abs Auto 0.06 X10*3/uL (0.00-0.03); Imm Gran Pct Auto 0.5 % (0.0-0.4); Lymphocytes Absolute Auto 0.9 X10*3/uL (1.2-4.9); Lymphocytes Percent Auto 7.5 % (20-40); Mean Corpuscular HGB Conc 33.4 g/dl (31.0-35.0); Mean Corpuscular Hemoglobin 31.1 pg (27.0-33.0); Mean Corpuscular Volume 93.1 fL (80.0-98.0); Mean Platelet Volume 9.5 fL (9.4-12.3); Monocytes Absolute Auto 0.9 X10*3/uL (0.1-1.2); Neutrophils Absolute Auto 10.6 x10*3/uL (2.0-8.3); Neutrophils Percent Auto 84.1 % (45-73); Platelet Count 149 X10*3/uL (160-400); Red Cell Distribution Width 13.2 % (11.0-16.0); White Blood Count 12.6 X10*3/uL (4.8-10.8)
[2023-01-11 21:00] LABS: Appearance Urine Cloudy; Color Urine Yellow; Glucose Urine UA Negative (Negative); Leukocyte Esterase Urine Negative (Negative); Nitrite Urine Negative (Negative); PH 5.5 (5.0-9.0); UMIC TRIGGER UACC YES; Urine Blood Negative (Negative); Urine Ketones Negative (Negative); Urine Protein 100 (2+) mg/dL (Neg-Trace)
[2023-01-11 21:07] LABS: Bacteria Urine None Seen (None Seen); Hyaline Casts Urine >20 /LPF (0-2); RBC Urine 0-2 /HPF (0-2); WBC Urine 0-5 /HPF (0-5)
--- NOTE | 2023-01-11 21:10 | ED.GENADULT ---
HPI - General Adult General Chief complaint: General Medical Stated complaint: abd pain and back pain, per ems Time Seen by Provider: 01/11/23 21:08 Source: patient Mode of arrival: EMS Limitations: no limitations History of Present Illness HPI narrative: Patient had her gallbladder out this week, left the hospital on Saturday she has had increasing pain in her abdomen and back with vomiting. Onset (ago): day(s) Related Data Home Medications Medication Instructions Recorded Confirmed apixaban 5 mg tablet (Eliquis) 5 mg PO BID 09/28/21 01/08/23 carvedilol 12.5 mg tablet 12.5 mg PO BID 09/28/21 01/08/23 nystatin 100,000 unit/gram topical 1 appl topical DAILY PRN Itching 09/28/21 01/08/23 powder spironolactone 25 mg tablet 25 mg PO DAILY 09/28/21 01/08/23 fluticasone propionate 50 1 spray intranasal DAILY PRN 10/24/22 01/08/23 mcg/actuation nasal Allergy Symptoms spray,suspension methimazole 5 mg tablet 5 mg PO DAILY 10/24/22 01/08/23 sacubitril 24 mg-valsartan 26 mg 1 tab PO BID 10/24/22 01/08/23 tablet (Entresto) bimatoprost 0.01 % eye drops 1 drp ophthalmic (eye) DAILY 12/10/22 01/08/23 (Lumigan) dorzolamide 22.3 mg-timolol 6.8 1 drp BID 12/10/22 01/08/23 mg/mL eye drops Previous Rx's Medication Instructions Recorded oxycodone 5 mg tablet 5 mg PO Q4H PRN pain (scale score 01/09/23 7-10) #24 tabs Allergies Allergy/AdvReac Type Severity Reaction Status Date / Time Penicillins [PENICILLINS] Allergy Unknown UNKNOWN Verified 12/10/22 12:30 Review of Systems Review of Systems: Yes all other systems are reviewed and are negative Gastrointestinal: Comments: abdominal distention and vomiting PMFSH Past Medical History Medical History Afib Arthritis Breast mass, right Does mobilize using walker Glaucoma Heart failure Hypertension Lymphedema JUAN (obstructive sleep apnea) Surgical History History of bilateral breast reduction surgery History of hysterectomy Hx of endoscopic retrograde cholangiopancreatography Family History Family History Mother Vaginal cancer Brother Eye cancer Social History Social History Household Members: None Housing: Apartment Are you a primary emergency care tech to a significant other at home: No Do you presently have visiting nurse or other home services: Yes Alcohol intake: never Patient Tobacco Use Status: Never used Tobacco Smoked in Last 30 Days: No Second Hand Smoke Exposure: No Use of substances other than those prescribed or required for medical reasons: No Advance Directives: Yes Advance Directives on File: Yes Advance Directives Date on File: 10/24/22 service: No Physical Exam ED Vital Signs: Vital Signs - 24 hr 01/11/23 19:28 01/11/23 20:00 01/11/23 22:00 Temperature 98.6 F 98.6 F 98.4 F Pulse Rate 86 91 88 Respiratory Rate 17 18 17 Blood Pressure 95/53 L 104/62 101/62 Pulse Oximetry 98 97 96 Oxygen Delivery Method Room Air Room Air Room Air 01/11/23 23:41 Temperature 97.5 F Pulse Rate 91 Respiratory Rate 24 H Blood Pressure 129/68 Pulse Oximetry 94 Oxygen Delivery Method Room Air BMI result Body Mass Index 46.4 Const Other: wretching and vomiting Nutritional Appearance: obese Orientation/consciousness: oriented to person and patient oriented x3 Limitations: no limitations HENMT Head: Yes normal to inspection Ears: external ears normal General nose exam: Normal external nose present Mouth: Normal oral and palatal mucosa present and oropharynx normal Throat: Yes posterior oropharynx normal Eyes General: appearance normal, both eyes and all related structures Neck Neck: Yes normal visual inspection Chest Chest palpation & inspection: normal inspection of the chest Resp Auscultation: clear to auscultation bilaterally Cardio Jugular venous distension: no JVD Rate: regular rate Rhythm: regular rhythm Heart sounds: S1 normal heart sound present and S2 normal heart sound present GI Other: obese firm and distended Palpation (GI): Firmness to palpation present (GI) General: Yes no CVA tenderness Back/Spine/Pelvis Back: no CVA tenderness Skin General skin exam: no rashes or lesions noted Neuro General: oriented to person and patient oriented x3 Cranial nerves: Yes CN's II-XII intact bilaterally Motor exam (neuro): 5/5 motor strength present throughout Extrem General: Yes normal to inspection Psych Appearance: grossly normal Course Reevaluation(s) Reevaluation #1: Patient with abdominal distention and vomiting. CT shows ileus will admit Time: 23:35 Medications Administered Generic Name Dose Route Start Last Admin Trade Name Freq PRN Reason Stop Dose Admin Sodium Chloride 1,000 mls @ 100 mls/hr 01/11/23 21:15 01/11/23 21:29 Ns IVCONT 100 mls/hr .Q10H MARIALUISA Administration Morphine Sulfate 2 mg 01/12/23 01:37 01/12/23 03:15 Morphine Sulfate 2 Mg/Ml Cartridge IVPUSH 2 mg RQ4H PRN Administration Pain, Severe (Pain Scale 7-10) Protocol Discontinued Medications Generic Name Dose Route Start Last Admin Trade Name Freq PRN Reason Stop Dose Admin Diphenhydramine HCl 25 mg 01/11/23 23:42 01/11/23 23:46 Diphenhydramine Hcl 50 Mg/Ml Vial IVPUSH 01/11/23 23:43 25 mg ONCE ONE Administration Morphine Sulfate 4 mg 01/11/23 21:17 01/11/23 21:29 Morphine Sulfate 4 Mg/Ml Cartridge IVPUSH 01/11/23 21:18 4 mg ONCE ONE Administration Protocol Ondansetron HCl 4 mg 01/11/23 21:15 01/11/23 21:29 Ondansetron Hcl 4 Mg/2 Ml Vial IVPUSH 01/11/23 21:16 4 mg ONCE ONE Administration Pantoprazole Sodium 40 mg 01/11/23 23:42 01/12/23 01:01 Pantoprazole Sodium 40 Mg/10 Ml Vial IVPUSH 01/11/23 23:43 40 mg ONCE ONE Administration Medical Decision Making Differential Diagnosis Differential Diagnoses: The differential diagnosis associated with the presentation includes (SBO, ileus, post op infection, post op perforation, constipation were all considered) Admission/Observation Consideration of admission/observation: Escalation of care including admission/observation considered (Patient with abdominal distention and vomiting post op was considered for admission upon arrival) Consult Healthcare Provider Management of the patient was discussed with: Hospitalist and Computer Specialist (DR. Hanley [facility]) Lab Data MDM Lab Attestation statement: I reviewed the patient's lab results. (elevated WBC with normal HCT, renal insufficiency slightly worse than baseline) 01/11/23 20:51 01/11/23 20:51 Labs: Lab Results 01/11/23 01/11/23 01/11/23 Range/Units 20:51 20:51 20:51 WBC 12.6 H (4.8-10.8) X10*3/uL RBC 4.50 (4.20-5.50) X10*6/uL Hgb 14.0 (12.0-16.0) g/dl Hct 41.9 (37.0-47.0) % MCV 93.1 (80.0-98.0) fL MCH 31.1 (27.0-33.0) pg MCHC 33.4 (31.0-35.0) g/dl RDW 13.2 (11.0-16.0) % Plt Count 149 L (160-400) X10*3/uL MPV 9.5 (9.4-12.3) fL Immature Gran % (Auto) 0.5 H (0.0-0.4) % Neut % (Auto) 84.1 H (45-73) % Lymph % (Auto) 7.5 L (20-40) % [place] % (Auto) 7.0 (2-11) % Eos % (Auto) 0.6 (0-4) % Baso % (Auto) 0.3 (0-2) % Lymph # (Auto) 0.9 L (1.2-4.9) X10*3/uL [place] # (Auto) 0.9 (0.1-1.2) X10*3/uL Eos # (Auto) 0.1 (0.0-0.4) X10*3/uL Baso # (Auto) 0.0 (0.0-0.2) X10*3/uL Abs Immat Gran (auto) 0.06 H (0.00-0.03) X10*3/uL Absolute Neuts (auto) 10.6 H (2.0-8.3) x10*3/uL Absolute Nucleated RBC 0.000 (0.0-0.012) X10*3/uL Nucleated RBC % (auto) 0.0 (0.0-0.2) /100WBC Sodium 129 L (135-145) mmol/L Potassium 4.6 (3.3-5.1) mmol/L Chloride 98 (96-108) mmol/L Carbon Dioxide 22 (22-29) mmol/L Anion Gap 14 (12-20) BUN 58 H (9-16) mg/dL Creatinine 1.85 H (0.5-1.4) mg/dL Estim Creat Clear Calc 30.1 Estimated GFR 27 Random Glucose 115 (60-115) mg/dL Calcium 9.4 D (8.4-10.2) mg/dL Magnesium 2.1 (1.6-2.6) mg/dL Total Bilirubin 0.9 (0.0-1.0) mg/dL Direct Bilirubin 0.4 (0.0-0.5) mg/dL AST 14 (5-31) U/L ALT 32 H (0-31) U/L Alkaline Phosphatase 39 (39-117) U/L Total Protein 7.1 (6.5-8.0) g/dL Albumin 3.6 (3.5-5.0) g/dL Lipase 8 (8-78) U/L Urine Color Yellow Urine Appearance Cloudy Urine pH 5.5 (5.0-9.0) Ur Specific [place] 1.020 (1.005-1.025) Urine Protein 100 (2+) H (Neg-Trace) mg/dL Urine Glucose (UA) Negative (Negative) mg/dL Urine Ketones Negative (Negative) mg/dL Urine Blood Negative (Negative) Urine Nitrite Negative (Negative) Ur Leukocyte Esterase Negative (Negative) Urine RBC 0-2 (0-2) /HPF Urine WBC 0-5 (0-5) /HPF Ur Squamous Epith Cells 3-5 (0-2) /HPF Urine Bacteria None Seen (None Seen) Hyaline Casts >20 (0-2) /LPF Independent Interpretation I performed an independent interpretation of an: Plain X-Ray (KUB: dilated colon) and CT Scan (dilated colon) Radiology Impression Discussion of test interpretation with radiology: I have reviewed the radiologist's reading. (CT shows an ileus no obstruction, I agree) External Record Review External record reviewed: Inpatient record (surgical records from 4 days ago) Chronic Conditions Patient?s care impacted by: Other (obesity) Discharge Plan Discharge Clinical Impression: Ileus Patient Disposition: Admitted As Inpatient
[2023-01-11 21:13] LABS: Alanine Aminotransferase 32 U/L (0-31); Albumin Level 3.6 g/dL (3.5-5.0); Alkaline Phosphatase 39 U/L (39-117); Anion Gap 14 (12-20); Aspartate Amino Transferase 14 U/L (5-31); Bilirubin Direct 0.4 mg/dL (0.0-0.5); Bilirubin Total 0.9 mg/dL (0.0-1.0); Blood Urea Nitrogen 58 mg/dL (9-16); Calcium 9.4 mg/dL (8.4-10.2); Carbon Dioxide 22 mmol/L (22-29); Chloride 98 mmol/L (96-108); Creatinine Clr Calc Pharmacy 30.1; Estimated Glomerular Filt Rate 27; Glucose Random 115 mg/dL (60-115); Lipase 8 U/L (8-78); Magnesium 2.1 mg/dL (1.6-2.6); Potassium 4.6 mmol/L (3.3-5.1); Sodium 129 mmol/L (135-145); Total Protein 7.1 g/dL (6.5-8.0)
[2023-01-11] MEDS: 0.9 % Sodium Chloride 1,000 ML 100 ML IVCONT (21:29)
[2023-01-11] MEDS: Morphine Sulfate 4 MG/ML CARTRIDGE IVPUSH (21:29)
[2023-01-11] MEDS: ondansetron HCL 4 MG/2 ML VIAL IVPUSH (21:29)
[2023-01-11 22:00] VITALS: BP 101/62; PULSE 88; RESP 17; TEMP 36.9; O2SAT 96
[2023-01-11 23:41] VITALS: BP 129/68; PULSE 91; RESP 24; TEMP 36.4; O2SAT 94
[2023-01-11] MEDS: diphenhydrAMINE HCL 50 MG/ML VIAL 25 MG IVPUSH (23:46)
--- NOTE | 2023-01-11 23:46 | PC.NURSE ---
Pt relating burning in throat and redness noted to throat area. Pt medicated per MAR with benadryl.
--- NOTE | 2023-01-12 | MHC.EDTECH ---
@ [id number] pt rang her call Rosa M cervantes went in. Pt stated the medicine is making me throw up, causing a burning in my throat. I couldn't find my nurse at the moment so I went and got Chelsy. She came with me, she checked on the pt as I did a set of vitals, then found the Nurse.
[2023-01-12] MEDS: Pantoprazole Sodium 40 MG/10 ML VIAL IVPUSH (01:01)
[2023-01-12] MEDS: Morphine Sulfate 2 MG/ML CARTRIDGE IVPUSH ×2 (03:15→09:23)
[2023-01-12 06:18] VITALS: BP 116/67; PULSE 75; RESP 14; TEMP 36.9; O2SAT 98
--- NOTE | 2023-01-12 07:12 | PC.NURSE ---
Alert and oriented. NG tube remains in place. 200mls output of brown bile in canister. Patient reports 8/10 throat pain fropm NG tube. Reports vomitted once during the night but has been fine since. NSR on monitor. VSS
--- NOTE | 2023-01-12 09:00 | PHA.MEDREC ---
Pharmacy Consult ? Medication Reconciliation Pharmacy has completed the medication reconciliation. Per patient, no med changes outside of discharge changes on 01/10/23.
[2023-01-12] MEDS: ondansetron HCL 4 MG/2 ML VIAL IVPUSH (09:21)
[2023-01-12] MEDS: Docusate Sodium 100 MG CAPSULE PO ×2 (09:30→21:31)
--- NOTE | 2023-01-12 09:31 | PC.NURSE ---
Upon assuming care of patient NS running, D5 w/NS due but not yet given. Provider aware with order obtained to start D5 upon completion of NS. Medicated with prn zofran and morphine with good effect. NG tube remain in rafa e.
[2023-01-12] MEDS: Dextrose 5 % and 0.9 % NaCl 1,000 ML 125 ML IVCONT ×2 (09:50→10:59)
--- NOTE | 2023-01-12 10:12 | PC.NURSE ---
Per provider verbal- do not give 7:15a 1000mls of NS. D5 with .9NS running at this time per order.
--- NOTE | 2023-01-12 11:00 | PC.NURSE ---
Patient reports feeling better and pain has improved. NG tube with total of 300mls of dark brown output. D5 runing per order. On bedpan at this time.
--- NOTE | 2023-01-12 12:33 | PC.NURSE ---
Alert and oriented. Repositioned in bed, NG tube remains in place with intermittent suction. States only pain is from tube in nose.
--- NOTE | 2023-01-12 12:57 | PC.NURSE ---
Patient requesting removal of NG tube. Educated patient on importance of NG, patient reporting pain from NG tube.Resting comfortably, on the phone attempting to call surgeon that removed her gall bladder.
--- NOTE | 2023-01-12 13:44 | PC.NURSE ---
NG tube removed per MD order. total drainage of 425 mls dark brown bile. Patient reports immediate relief of nose pain.
--- NOTE | 2023-01-12 13:46 | PC.NURSE ---
Positive bowel sounds x 4. Patient aware she is on a clean liquid diet
--- NOTE | 2023-01-12 15:57 | PM.HPGS ---
History of Present Illness History of Present Illness Date of Service: 01/12/23 Chief complaint: abd pain nausea Narrative: Socorro Powell is a 72 year old female who underwent laparoscopic cholecystectomy 3 days ago and was discharged to home today maybe some ileus according to the ER physician who discussed the case with the reading radiologist. He placed an NG tube in the patient and called for admission overnight observation with IV hydration etc.. By this morning the patient is doing much better she is complaining of the NG tube causing irritation and causing bleeding from the back of her throat she has been passing gas and feels improved. She would like to have something to eat but she does not want return to home and wants to go to rehab facility. She said she discussed this with her insurance company who says that she is eligible for an Review of Systems Review of Systems: Yes all other systems are reviewed and are negative PMFSH Past Medical History Medical History Afib Arthritis Breast mass, right Does mobilize using walker Glaucoma Heart failure Hypertension Lymphedema JUAN (obstructive sleep apnea) Family History Family History Mother Vaginal cancer Brother Eye cancer Surgical History Surgical History History of bilateral breast reduction surgery History of hysterectomy Hx of endoscopic retrograde cholangiopancreatography Social History Social History Household Members: None Housing: Apartment Are you a primary post acute care registered nurse to a significant other at home: No Do you presently have visiting nurse or other home services: Yes Alcohol intake: never Patient Tobacco Use Status: Never used Tobacco Smoked in Last 30 Days: No Second Hand Smoke Exposure: No Use of substances other than those prescribed or required for medical reasons: No Advance Directives: Yes Advance Directives on File: Yes Advance Directives Date on File: 10/24/22 service: No Meds Allergies Allergy/AdvReac Type Severity Reaction Status Date / Time Penicillins [PENICILLINS] Allergy Unknown UNKNOWN Verified 12/10/22 12:30 Active Medications: Current Medications Docusate Sodium (Docusate Sodium 100 Mg Capsule) 100 mg PO BID MARIALUISA Last Admin: 01/12/23 09:30 Dose: 100 mg Sodium Chloride (Ns) 1,000 mls @ 100 mls/hr IVCONT .Q10H [facility] Last Admin: 01/12/23 10:11 Dose: Not Given Dextrose/Sodium Chloride (D5ns) 1,000 mls @ 125 mls/hr IVCONT .Q8H [facility] Last Admin: 01/12/23 10:59 Dose: 125 mls/hr Lorazepam (Lorazepam 2 Mg/Ml Vial) 1 mg IVPUSH ONCE PRN PRN Reason: sleep Morphine Sulfate (Morphine Sulfate 2 Mg/Ml Cartridge) 2 mg IVPUSH RQ4H PRN; Protocol PRN Reason: Pain, Severe (Pain Scale 7-10) Last Admin: 01/12/23 09:23 Dose: 2 mg Ondansetron HCl (Ondansetron Hcl 4 Mg/2 Ml Vial) 4 mg IVPUSH Q8H PRN PRN Reason: Nausea and Vomiting Last Admin: 01/12/23 09:21 Dose: 4 mg Sodium Chloride (0.9 % Sodium Chloride Flush 3 Ml Syringe) 3 ml IVFLUSH QSHIFT [facility] Last Admin: 01/12/23 09:14 Dose: Not Given Home Medications Medication Instructions Recorded Confirmed Last Taken Type apixaban 5 mg tablet (Eliquis) 5 mg PO BID 09/28/21 01/12/23 01/11/23 History carvedilol 12.5 mg tablet 12.5 mg PO BID 09/28/21 01/12/23 01/11/23 History nystatin 100,000 unit/gram topical 1 appl topical DAILY PRN Itching 09/28/21 01/12/23 Unknown History powder spironolactone 25 mg tablet 25 mg PO DAILY 09/28/21 01/12/23 01/11/23 History fluticasone propionate 50 1 spray intranasal DAILY PRN 10/24/22 01/12/23 Unknown History mcg/actuation nasal Allergy Symptoms spray,suspension methimazole 5 mg tablet 5 mg PO DAILY 10/24/22 01/12/23 01/11/23 History sacubitril 24 mg-valsartan 26 mg 1 tab PO BID 10/24/22 01/12/23 01/11/23 History tablet (Entresto) bimatoprost 0.01 % eye drops 1 drp ophthalmic (eye) DAILY 12/10/22 01/12/23 01/11/23 History (Lumigan) dorzolamide 22.3 mg-timolol 6.8 1 drp ophthalmic-Left BID 12/10/22 01/12/23 01/11/23 History mg/mL eye drops docusate sodium 100 mg capsule 100 mg PO BID 01/12/23 01/12/23 01/11/23 History Physical Exam Vital Signs: Vital Signs: Last Vital Signs Temp 98.4 F 01/12/23 06:18 Pulse 75 01/12/23 06:18 Resp 14 01/12/23 06:18 BP 116/67 01/12/23 06:18 Pulse Ox 98 01/12/23 06:18 O2 Del Method Room Air 01/12/23 06:18 BMI result Body Mass Index 46.4 Const: General: cooperative, healthy appearing, comfortable and no acute distress Orientation/consciousness: patient oriented x3 Resp: Effort & Inspection: normal respiratory effort Auscultation: clear to auscultation bilaterally Cardio: Rate: regular rate Rhythm: regular rhythm GI: Other: abdomen is soft nondistended nontender active bowel sounds present. Previous laparoscopic cholecystectomy incisions look fine Skin: Other: nonicteric Neuro: General: patient oriented x3 Cranial nerves: Yes CN's II-XII intact bilaterally Results Results Labs: Short CBC 01/11/23 Range/Units 20:51 WBC 12.6 H (4.8-10.8) X10*3/uL Hgb 14.0 (12.0-16.0) g/dl Hct 41.9 (37.0-47.0) % Plt Count 149 L (160-400) X10*3/uL [facility] 01/11/23 20:51 Sodium 129 L Potassium 4.6 Chloride 98 Carbon Dioxide 22 BUN 58 H Creatinine 1.85 H Calcium 9.4 D Liver Function 01/11/23 Range/Units 20:51 Total Bilirubin 0.9 (0.0-1.0) mg/dL Direct Bilirubin 0.4 (0.0-0.5) mg/dL AST 14 (5-31) U/L ALT 32 H (0-31) U/L Alkaline Phosphatase 39 (39-117) U/L Albumin 3.6 (3.5-5.0) g/dL Urine 01/11/23 Range/Units 20:51 Urine Color Yellow Urine Appearance Cloudy Urine pH 5.5 (5.0-9.0) Ur Specific [place] 1.020 (1.005-1.025) Urine Protein 100 (2+) H (Neg-Trace) mg/dL Urine Glucose (UA) Negative (Negative) mg/dL Assessment and Plan (1) Ileus: Status: Acute Plan 72-year-old female status post laparoscopic cholecystectomy a few days ago did fine and was discharged home but was having issues with nausea vomiting yesterday and as a result came back to the emergency room where she was admitted. Imaging was inconclusive for maybe an ileus and the ER physician place an NG tube in her and kept her NPO. By this morning she was feeling much improved NG tube is removed and she was advanced on clear liquid diet. She would like to go to rehab so we will try to get this placed for her by tomorrow. She understands and agrees. In the meantime advance diet as tolerated p.o. pain meds ambulate. She understands and agrees Time Spent With Patient Time: Total time managing care of this patient today ____ minutes. Quality Stroke Does the patient have a stroke diagnosis?: No VTE Prior VTE?: No VTE Risk Level:: Surgical - moderate VTE Device Contraindication: N/A - Device Ordered VTE Drug Contraindication: N/A - Med Ordered Procedures Date of Service Date of Service: 01/12/23
[2023-01-12] MEDS: 0.9 % Sodium Chloride Flush 3 ML SYRINGE IVFLUSH (17:42)
[2023-01-12] MEDS: 0.9 % Sodium Chloride 1,000 ML 100 ML IVCONT (17:43)
--- NOTE | 2023-01-12 19:00 | PC.NURSE ---
Per admitting provider- stop IV fluids as patient is eating and drinking well. NS stopped
--- NOTE | 2023-01-12 22:04 | PC.NURSE ---
Pt c/o cough with blood tinged sputum. Discussed possibly being related to NG tube. Pt was given incentive spirometer and educated how to use with good teach back. Pt able to reach 1500 on IS. Lung sounds diminished, sats n96% on room air. [place] text message sent to Dr. Everett and requested cxr 2 view. agreed, telephone order placed
[2023-01-12 23:46] VITALS: BP 106/63; PULSE 90; RESP 19; TEMP 36.9; O2SAT 97
--- NOTE | 2023-01-13 00:17 | PC.NURSE ---
patient received in bed with eyes open patient vitals are stable at this time patient not in any pain at this time patient will continue monitored for safety
--- NOTE | 2023-01-13 00:26 | MHC.EDTECH ---
pt came over from ED room 18 pt was placed in hospital bed purewick placed to keep pt clean and dry pt was repositioned to comfort pt requested water and remote for tv. call cervantes within reach of pt.
--- NOTE | 2023-01-13 00:39 | PC.NURSE ---
patient in bed with eyes closed showing no distress at this time patient will continue to be monitored for safety
[2023-01-13] MEDS: 0.9 % Sodium Chloride Flush 3 ML SYRINGE IVFLUSH ×2 (01:06→08:17)
[2023-01-13] MEDS: 0.9 % Sodium Chloride 1,000 ML 100 ML IVCONT (01:11)
[2023-01-13] MEDS: Dextrose 5 % and 0.9 % NaCl 1,000 ML 125 ML IVCONT (01:15)
--- NOTE | 2023-01-13 02:12 | MHC.EDTECH ---
Completed hourly rounds,patient is sleeping, resp rate within normal limits.
--- NOTE | 2023-01-13 05:38 | PC.NURSE ---
patient in bed with eyes closed patient showing no distress at this time patient will continue to be monitored for safety
[2023-01-13 06:15] VITALS: BP 114/67; PULSE 85; RESP 18; TEMP 36.5; O2SAT 98
--- NOTE | 2023-01-13 06:16 | MHC.EDTECH ---
Hourly rounds completed,vitals taken,suction canister was changed and patient had 650cc of urine output from pure wick. Patient was clean and dry and repositioned to comfort. call cervantes within reach
--- NOTE | 2023-01-13 07:07 | PC.NURSE ---
Resumed care of patient, they are currently resting in bed, all personal items within reach, call cervantes within reach, will continue to maintain safety at this time
--- NOTE | 2023-01-13 09:07 | PC.NURSE ---
Clarified with provider on multiple fluid orders, per provider all IVF can be D/C, orders reflected so, provider also notified of no BM for multiple days, awaiting further orders at this time
--- NOTE | 2023-01-13 09:36 | PC.NURSE ---
Pt able to transfer to bedside commode with walker, staff assist with bathing this morning, barrier cream applied to areas in groin and breast.
[2023-01-13] MEDS: polyethylene glycoL 3350 17 GM POWD.PACK PO (10:36)
--- NOTE | 2023-01-13 13:54 | MHC.CM.PN ---
IMM 01/13: Lives alone. 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 Does not have in-home nursing or VNA. Is agreeable to D/C w/new VNA [facility] and [facility] (will need for post-acute monitoring and medication reconciliation D/T recent changes in her medications). She owns a recliner that helps her stand after seating, a BSC, a rollator and an electric WC. [facility] provides transport for her where she needs to go. D/C plan is home w/[facility] [employer]INE[employer] and new VNA referral for in-home nursing and PT at time of D/C readiness. MD in agreement, Pt in agreement. Pt did inquire RE SNF, but ultimately decided in-home care is more appropriate at this time, MD also in agreement. Pt will require transport to home at time of D/C. CM to follow.
[2023-01-13 14:00] LABS: MANUAL DIFF FLAG NO
--- NOTE | 2023-01-13 14:01 | PC.NURSE ---
Provider notified of worsening pain, nausea and continued lack of BM despite efforts. Lab orders/ Xray orders placed at this time, provider to see pt
[2023-01-13 14:04] LABS: Basophils Percent Auto 0.3 % (0-2); Eosinophils Percent Auto 0.4 % (0-4); Hemoglobin 12.9 g/dl (12.0-16.0); Imm Gran Abs Auto 0.09 X10*3/uL (0.00-0.03); Lymphocytes Absolute Auto 0.8 X10*3/uL (1.2-4.9); Mean Corpuscular HGB Conc 33.1 g/dl (31.0-35.0); Mean Corpuscular Hemoglobin 30.8 pg (27.0-33.0); Mean Corpuscular Volume 93.1 fL (80.0-98.0); Mean Platelet Volume 9.1 fL (9.4-12.3); Monocytes Percent Auto 10.3 % (2-11); Neutrophils Absolute Auto 7.4 x10*3/uL (2.0-8.3); Platelet Count 137 X10*3/uL (160-400); Red Blood Count 4.19 X10*6/uL (4.20-5.50); Red Cell Distribution Width 13.2 % (11.0-16.0); White Blood Count 9.4 X10*3/uL (4.8-10.8)
[2023-01-13 14:24] LABS: Alanine Aminotransferase 20 U/L (0-31); Albumin Level 2.8 g/dL (3.5-5.0); Alkaline Phosphatase 32 U/L (39-117); Anion Gap 13 (12-20); Aspartate Amino Transferase 13 U/L (5-31); Bilirubin Total 0.6 mg/dL (0.0-1.0); Blood Urea Nitrogen 24 mg/dL (9-16); Carbon Dioxide 22 mmol/L (22-29); Chloride 104 mmol/L (96-108); Creatinine Clr Calc Pharmacy 64.7; Estimated Glomerular Filt Rate > 60; Glucose Random 125 mg/dL (60-115); Sodium 135 mmol/L (135-145); Total Protein 5.8 g/dL (6.5-8.0)
[2023-01-13 14:25] VITALS: BP 106/64; PULSE 90; RESP 22; O2SAT 95
--- NOTE | 2023-01-13 14:33 | P.PNGS_ITS ---
Subjective Subjective Date of Service: 01/13/23 Interval history: Patient was doing better yesterday tolerating liquids passing gas feeling better. NG tube had been removed. This morning not feeling as well feeling nauseated did pass gas still has not had a bowel movement has taking Colace and MiraLax. Mag citrate was ordered but this is not available as it is back ordered. She has walked around little bit. Physical Exam Vital Signs: Vital Signs: Last Vital Signs Temp 97.7 F 01/13/23 06:15 Pulse 90 01/13/23 14:25 Resp 22 H 01/13/23 14:25 BP 106/64 01/13/23 14:25 Pulse Ox 95 01/13/23 14:25 O2 Del Method Room Air 01/13/23 14:25 BMI result Body Mass Index 46.4 Const: General: cooperative, healthy appearing, comfortable and no acute distress Resp: Effort & Inspection: normal respiratory effort Auscultation: clear to auscultation bilaterally Cardio: Rate: regular rate GI: Other: Abdomen is obese large tender in the epigastric area incisions all look okay hard to tell whether distended secondary to large abdomen. Hypoactive bowel sounds are heard today. Skin: Other: Nonicteric Psych: Appearance: grossly normal Mental Status: mental status grossly normal Speech and movement: Normal speech and movement present Objective Data Active Medications Acetaminophen (Acetaminophen 325 Mg Tablet) 650 mg PO Q4H PRN PRN Reason: Pain, Moderate(Pain Scale 4-6) Docusate Sodium (Docusate Sodium 100 Mg Capsule) 100 mg PO BID [facility] Last Admin: 01/13/23 07:58 Dose: Not Given Documented By: TANK Non-Admin Reason: Patient Refused Dextrose/Sodium Chloride (D5ns) 1,000 mls @ 84 mls/hr IVCONT .[id number] [facility] Lorazepam (Lorazepam 2 Mg/Ml Vial) 1 mg IVPUSH ONCE PRN PRN Reason: sleep Morphine Sulfate (Morphine Sulfate 2 Mg/Ml Cartridge) 2 mg IVPUSH RQ4H PRN; Protocol PRN Reason: Pain, Severe (Pain Scale 7-10) Last Admin: 01/12/23 09:23 Dose: 2 mg Documented By: ESE Ondansetron HCl (Ondansetron Hcl 4 Mg/2 Ml Vial) 4 mg IVPUSH Q8H PRN PRN Reason: Nausea and Vomiting Last Admin: 01/12/23 09:21 Dose: 4 mg Documented By: ESE Polyethylene Glycol (Polyethylene Glycol 3350 17 Gm Powd.Pack) 17 gm PO DAILY [facility] Last Admin: 01/13/23 10:36 Dose: 17 gm Documented By: TANK Sodium Biphosphate/Sodium Phosphate (Sodium Phosphate,[place]-Dibasic 133 Ml Enema) 133 ml [place] ONCE PRN PRN Reason: Constipation Sodium Chloride (0.9 % Sodium Chloride Flush 3 Ml Syringe) 3 ml IVFLUSH QSHIFT [facility] Last Admin: 01/13/23 08:17 Dose: 3 ml Documented By: TANK Labs 01/13/23 13:55 01/13/23 13:55 Labs: Laboratory Results - last 24 hr 01/13/23 01/13/23 13:55 13:55 MCV 93.1 MCH 30.8 MCHC 33.1 RDW 13.2 Plt Count 137 L MPV 9.1 L Immature Gran % (Auto) 1.0 H Neut % (Auto) 79.0 H Lymph % (Auto) 9.0 L [place] % (Auto) 10.3 Eos % (Auto) 0.4 Baso % (Auto) 0.3 Lymph # (Auto) 0.8 L [place] # (Auto) 1.0 Eos # (Auto) 0.0 Baso # (Auto) 0.0 Abs Immat Gran (auto) 0.09 H Absolute Neuts (auto) 7.4 Absolute Nucleated RBC 0.000 Nucleated RBC % (auto) 0.0 Anion Gap 13 Estim Creat Clear Calc 64.7 Estimated GFR > 60 Random Glucose 125 H Calcium 9.0 Total Bilirubin 0.6 AST 13 ALT 20 Alkaline Phosphatase 32 L Total Protein 5.8 L Albumin 2.8 L Procedures Date of Service Date of Service: 01/13/23 Progress Note: A&P Assessment and plan (1) S/P laparoscopic cholecystectomy: Status: Acute Assessment and Plan: patient is 72-year-old female who about 5 days ago had laparoscopic cholecystectomy. She had had a common bile duct stone removed by ERCP several weeks prior. Postoperatively from her lap choly she did well went home but now came back early yesterday with abdominal pain nausea vomiting and not having a bowel movement. CT scan showed normal small bowel however ER physician thought that she had an ileus and put in NG tube in on her over night into Saturday morning. When I saw her on Saturday she was doing better passing gas her abdomen was benign and so we took out the NG tube and advanced her diet to liquid diet. She was doing better and wanted to go to rehab for placement and as result was still here yesterday evening. Her diet was advanced to regular food and at low fat specialty and unfortunately today began feeling more nauseated having epigastric pain. She still passing gas but still has not had a bowel movement. Colace and MiraLax has been use. We do not have magnesium citrate available due to back order. At this point I think generally things are still relatively benign and maybe she does have morphine ileus pattern. Plan to carry out abdominal series x-rays and evaluate her back on IV fluids to hydrate her ambulate check blood work bring her back to just clear liquid diet and see how this goes. She understands and agrees with the above plan. Her home meds are being restarted. Time Spent With Patient Time: Total time managing care of this patient today ____ minutes. Quality Stroke Does the patient have a stroke diagnosis?: No VTE Prior VTE?: No VTE Risk Level:: Surgical - moderate VTE Device Contraindication: N/A - Device Ordered VTE Drug Contraindication: N/A - Med Ordered
--- NOTE | 2023-01-13 15:10 | PC.NURSE ---
Pt just returned from Xray, pt reporting extreme pain with all of the moment back and forth, offered pt enema, but pt would like a couple of minutes to settle down in bed. Will reassess in a little while
[2023-01-13] MEDS: Dextrose 5 % and 0.9 % NaCl 1,000 ML 84 ML IVCONT ×2 (15:43→23:12)
--- NOTE | 2023-01-13 16:54 | PC.NURSE ---
Report given to Mayra RN in agreement to hold off on Enema until patient gets to floor, pt in agreement with plan
[2023-01-13 17:33] VITALS: BP 111/60; PULSE 80; RESP 17; TEMP 36.2; O2SAT 96
[2023-01-13] MEDS: Sodium Phosphate,Mono-Dibasic 133 ML ENEMA PR (18:51)
[2023-01-13 19:49] VITALS: BP 121/77; PULSE 77; RESP 18; TEMP 36.6; O2SAT 97
[2023-01-13] MEDS: Sacubitril/Valsartan 24/26 1 TAB TABLET PO (19:53)
[2023-01-13] MEDS: Apixaban 5 MG TABLET PO (19:53)
[2023-01-13] MEDS: carvediloL 12.5 MG TABLET PO (19:54)
[2023-01-13] MEDS: ondansetron HCL 4 MG/2 ML VIAL IVPUSH (22:36)
[2023-01-13] MEDS: Morphine Sulfate 2 MG/ML CARTRIDGE IVPUSH (22:36)
[2023-01-14 04:06] VITALS: BP 114/58; PULSE 86; RESP 20; TEMP 36.5; O2SAT 95
[2023-01-14 08:00] VITALS: BP 121/67; PULSE 87; RESP 18; TEMP 36.4; O2SAT 95
--- NOTE | 2023-01-14 08:21 | P.PNGS_ITS ---
Subjective Subjective Date of Service: 01/14/23 Interval history: Had two large bowel movements this morning and a third small one. Passed a lot of flatus. Feels much better. Tolerating liquids and would like to eat. Denies significant abd pain. Would like to go to a rehab upon discharge. Physical Exam Vital Signs: Vital Signs: Last Vital Signs Temp 97.6 F 01/14/23 08:00 Pulse 87 01/14/23 08:00 Resp 18 01/14/23 08:00 BP 121/67 01/14/23 08:00 Pulse Ox 95 01/14/23 08:00 O2 Del Method Room Air 01/14/23 08:00 BMI result Body Mass Index 46.4 Const: General: comfortable, no acute distress and alert Resp: Effort & Inspection: normal respiratory effort GI: Inspection: No distended and Yes incision (clean) Palpation (GI): Soft to palpation, Tenderness to palpation present (GI) (very mild incisional pain), no guarding and not rigid Percussion: Yes normal to percussion Skin: General skin exam: no rashes or lesions noted and no jaundice Objective Data Active Medications Acetaminophen (Acetaminophen 325 Mg Tablet) 650 mg PO Q4H PRN PRN Reason: Pain, Moderate(Pain Scale 4-6) Apixaban (Apixaban 5 Mg Tablet) 5 mg PO BID [facility] Last Admin: 01/13/23 19:53 Dose: 5 mg Documented By: NAKIA Carvedilol (Carvedilol 12.5 Mg Tablet) 12.5 mg PO BID [facility]; Protocol Last Admin: 01/13/23 19:54 Dose: 12.5 mg Documented By: NAKIA Docusate Sodium (Docusate Sodium 100 Mg Capsule) 100 mg PO BID [facility] Last Admin: 01/13/23 19:54 Dose: Not Given Documented By: NAKIA Non-Admin Reason: Patient Refused Docusate Sodium (Docusate Sodium 100 Mg Capsule) 100 mg PO BID [facility] Last Admin: 01/13/23 19:54 Dose: Not Given Documented By: NAKIA Non-Admin Reason: Patient Refused Dorzolamide/Timolol (Dorzolamide/Timolo 2.23%/0.68% 10 Ml Drbtl) 1 drop EYE- LEFT BID [facility] Last Admin: 01/13/23 19:57 Dose: Not Given Documented By: NAKIA Non-Admin Reason: Med Not Available Fluticasone Propionate (Fluticasone Propionate Nasal 16 Gm [place]) 1 spray NOSTRIL-B DAILY PRN PRN Reason: Allergy Symptoms Dextrose/Sodium Chloride (D5ns) 1,000 mls @ 84 mls/hr IVCONT .[id number] [facility] Last Admin: 01/13/23 23:12 Dose: 84 mls/hr Documented By: NAKIA Latanoprost (Latanoprost 0.005 % Ophth Lelo 2.5 Ml Drops) 1 drop EYE-BOTH DAILY [facility] Lorazepam (Lorazepam 2 Mg/Ml Vial) 1 mg IVPUSH ONCE PRN PRN Reason: sleep Methimazole (Methimazole 5 Mg Tablet) 5 mg PO DAILY [facility] Morphine Sulfate (Morphine Sulfate 2 Mg/Ml Cartridge) 2 mg IVPUSH RQ4H PRN; Protocol PRN Reason: Pain, Severe (Pain Scale 7-10) Last Admin: 01/13/23 22:36 Dose: 2 mg Documented By: NAKIA Nystatin (Nystatin Powder 15 Gm Bottle) 1 appl TOPICAL DAILY PRN; Protocol PRN Reason: Itching Ondansetron HCl (Ondansetron Hcl 4 Mg/2 Ml Vial) 4 mg IVPUSH Q8H PRN PRN Reason: Nausea and Vomiting Last Admin: 01/13/23 22:36 Dose: 4 mg Documented By: NAKIA Oxycodone HCl (Oxycodone Hcl Immed Release 5 Mg Tablet) 5 mg PO Q4H PRN PRN Reason: Pain, Moderate(Pain Scale 4-6) Polyethylene Glycol (Polyethylene Glycol 3350 17 Gm Powd.Pack) 17 gm PO DAILY [facility] Last Admin: 01/13/23 10:36 Dose: 17 gm Documented By: TANK Sacubitril/Valsartan (Sacubitril/Valsartan 1 Tab Tablet) 1 tab PO BID [facility]; Protocol Last Admin: 01/13/23 19:53 Dose: 1 tab Documented By: NAKIA Sodium Biphosphate/Sodium Phosphate (Sodium Phosphate,[place]-Dibasic 133 Ml Enema) 133 ml [place] ONCE PRN PRN Reason: Constipation Last Admin: 01/13/23 18:51 Dose: 133 ml Documented By: VICKI Sodium Chloride (0.9 % Sodium Chloride Flush 3 Ml Syringe) 3 ml IVFLUSH QSHIFT [facility] Last Admin: 01/13/23 19:57 Dose: Not Given Documented By: NAKIA Non-Admin Reason: IV Running Spironolactone (Spironolactone 25 Mg Tablet) 25 mg PO DAILY [facility]; Protocol Labs 01/13/23 13:55 01/13/23 13:55 Labs: Laboratory Results - last 24 hr 01/13/23 01/13/23 13:55 13:55 MCV 93.1 MCH 30.8 MCHC 33.1 RDW 13.2 Plt Count 137 L MPV 9.1 L Immature Gran % (Auto) 1.0 H Neut % (Auto) 79.0 H Lymph % (Auto) 9.0 L [place] % (Auto) 10.3 Eos % (Auto) 0.4 Baso % (Auto) 0.3 Lymph # (Auto) 0.8 L [place] # (Auto) 1.0 Eos # (Auto) 0.0 Baso # (Auto) 0.0 Abs Immat Gran (auto) 0.09 H Absolute Neuts (auto) 7.4 Absolute Nucleated RBC 0.000 Nucleated RBC % (auto) 0.0 Anion Gap 13 Estim Creat Clear Calc 64.7 Estimated GFR > 60 Random Glucose 125 H Calcium 9.0 Total Bilirubin 0.6 AST 13 ALT 20 Alkaline Phosphatase 32 L Total Protein 5.8 L Albumin 2.8 L Procedures Date of Service Date of Service: 01/14/23 Progress Note: A&P Assessment and plan (1) S/P laparoscopic cholecystectomy: Status: Acute (2) Ileus: Status: Acute Plan 72 year old female admitted with possible ileus following cholecystectomy last week. Was doing improved over the weekend but developed increasing nausea yesterday. She is improved this morning and has had multiple large BMs and passed flatus. Will advance to solid diet. Dc IVF. PT consult for dispo planning. If tolerating diet, stable for discharge. Time Spent With Patient Time: Total time managing care of this patient today ____ minutes. Quality Stroke Does the patient have a stroke diagnosis?: No VTE Prior VTE?: No VTE Risk Level:: Surgical - moderate VTE Device Contraindication: N/A - Device Ordered VTE Drug Contraindication: N/A - Med Ordered
[2023-01-14] MEDS: methIMAzole 5 MG TABLET PO (08:58)
[2023-01-14] MEDS: Spironolactone 25 MG TABLET PO (08:58)
[2023-01-14] MEDS: Sacubitril/Valsartan 24/26 1 TAB TABLET PO ×2 (08:59→22:03)
[2023-01-14] MEDS: Apixaban 5 MG TABLET PO ×2 (08:59→22:03)
[2023-01-14] MEDS: carvediloL 12.5 MG TABLET PO ×2 (08:59→22:01)
[2023-01-14] MEDS: Dorzolamide/Timolo 2.23%/0.68% 10 ML DRBTL 1 DROP EYE-LEFT ×2 (09:07→22:04)
[2023-01-14] MEDS: Latanoprost 0.005 % Ophth Sol 2.5 ML DROPS 1 DROP EYE-BOTH (09:07)
--- NOTE | 2023-01-14 10:27 | MHC.CLN ---
NUTRITION CONSULT FOR SKIN INTEGRITY. PATIENT WITH REDNESS TO BUTTOCKS. DIET ADVANCED THIS MORNING FROM CLEAR LIQUIDS TO REGULAR. NO ADDITIONAL NUTRITION INTERVENTIONS AT THIS TIME.
[2023-01-14 14:39] VITALS: BP 121/67; PULSE 87; O2SAT 95
--- NOTE | 2023-01-14 15:31 | MHC.CM.PN ---
EMR REVIEWED AND PER MD ROUNDS, PT NOT MEDICALLY CLEARED FOR DC. (S/P LAP GERARDO AND SUBSEQUENT ILEUS) PATIENT IS REQUESTING STR. P.T. HAS RECOMMENDED WELL. REFERRALS SENT, AWAITING RESPONSES. CM WILL CONTINUE TO FOLLOW FOR DC PLAN/NEEDS
[2023-01-14 15:39] VITALS: BP 118/59; PULSE 80; RESP 20; TEMP 36.3; O2SAT 97
[2023-01-14] MEDS: 0.9 % Sodium Chloride Flush 3 ML SYRINGE IVFLUSH ×2 (16:06→22:06)
[2023-01-14 19:58] VITALS: BP 114/63; PULSE 81; RESP 18; TEMP 36.3; O2SAT 95
[2023-01-14] MEDS: Acetaminophen 325 MG TABLET 650 MG PO (22:04)
[2023-01-15 04:00] VITALS: BP 115/60; PULSE 81; RESP 16; TEMP 36; O2SAT 95
[2023-01-15 07:20] VITALS: BP 117/68; PULSE 88; RESP 20; TEMP 36.7; O2SAT 96
--- NOTE | 2023-01-15 09:02 | P.PNGS_ITS ---
Subjective Subjective Date of Service: 01/15/23 Interval history: Feeling much better this morning. Tolerating diet without nausea or vomiting. Passing a lot of flatus. Wants to go home with PT. Physical Exam Vital Signs: Vital Signs: Last Vital Signs Temp 98.1 F 01/15/23 07:20 Pulse 88 01/15/23 07:20 Resp 20 01/15/23 07:20 BP 117/68 01/15/23 07:20 Pulse Ox 96 01/15/23 07:20 O2 Del Method Room Air 01/15/23 07:20 BMI result Body Mass Index 46.4 Const: General: comfortable, no acute distress and alert Orientation/co nsciousness: patient oriented x3 Resp: Effort & Inspection: normal respiratory effort GI: Inspection: No distended and Yes incision (steris intact, incision clean) Palpation (GI): Soft to palpation, nontender, no guarding and not rigid Skin: General skin exam: no rashes or lesions noted Neuro: General: patient oriented x3 Objective Data Active Medications Acetaminophen (Acetaminophen 325 Mg Tablet) 650 mg PO Q4H PRN PRN Reason: Pain, Moderate(Pain Scale 4-6) Last Admin: 01/14/23 22:04 Dose: 650 mg Documented By: MACHELLE Apixaban (Apixaban 5 Mg Tablet) 5 mg PO BID [facility] Last Admin: 01/14/23 22:03 Dose: 5 mg Documented By: MACHELLE Carvedilol (Carvedilol 12.5 Mg Tablet) 12.5 mg PO BID [facility]; Protocol Last Admin: 01/14/23 22:01 Dose: 12.5 mg Documented By: MACHELLE Docusate Sodium (Docusate Sodium 100 Mg Capsule) 100 mg PO BID [facility] Last Admin: 01/14/23 22:06 Dose: Not Given Documented By: MACHELLE Non-Admin Reason: Patient Refused Docusate Sodium (Docusate Sodium 100 Mg Capsule) 100 mg PO BID [facility] Last Admin: 01/14/23 22:03 Dose: Not Given Documented By: MACHELLE Non-Admin Reason: Patient Refused Dorzolamide/Timolol (Dorzolamide/Timolo 2.23%/0.68% 10 Ml Drbtl) 1 drop EYE- LEFT BID [facility] Last Admin: 01/14/23 22:04 Dose: 1 drop Documented By: MACHELLE Fluticasone Propionate (Fluticasone Propionate Nasal 16 Gm [place]) 1 spray NOSTRIL-B DAILY PRN PRN Reason: Allergy Symptoms Latanoprost (Latanoprost 0.005 % Ophth Lelo 2.5 Ml Drops) 1 drop EYE-BOTH DAILY [facility] Last Admin: 01/14/23 09:07 Dose: 1 drop Documented By: VICKI Lorazepam (Lorazepam 2 Mg/Ml Vial) 1 mg IVPUSH ONCE PRN PRN Reason: sleep Methimazole (Methimazole 5 Mg Tablet) 5 mg PO DAILY [facility] Last Admin: 01/14/23 08:58 Dose: 5 mg Documented By: VICKI Morphine Sulfate (Morphine Sulfate 2 Mg/Ml Cartridge) 2 mg IVPUSH RQ4H PRN; Protocol PRN Reason: Pain, Severe (Pain Scale 7-10) Last Admin: 01/13/23 22:36 Dose: 2 mg Documented By: NAKIA Nystatin (Nystatin Powder 15 Gm Bottle) 1 appl TOPICAL DAILY PRN; Protocol PRN Reason: Itching Ondansetron HCl (Ondansetron Hcl 4 Mg/2 Ml Vial) 4 mg IVPUSH Q8H PRN PRN Reason: Nausea and Vomiting Last Admin: 01/13/23 22:36 Dose: 4 mg Documented By: NAKIA Oxycodone HCl (Oxycodone Hcl Immed Release 5 Mg Tablet) 5 mg PO Q4H PRN PRN Reason: Pain, Moderate(Pain Scale 4-6) Polyethylene Glycol (Polyethylene Glycol 3350 17 Gm Powd.Pack) 17 gm PO DAILY [facility] Last Admin: 01/14/23 09:07 Dose: Not Given Documented By: VICKI Non-Admin Reason: Patient Refused Sacubitril/Valsartan (Sacubitril/Valsartan 1 Tab Tablet) 1 tab PO BID [facility]; Protocol Last Admin: 01/14/23 22:03 Dose: 1 tab Documented By: MACHELLE Sodium Biphosphate/Sodium Phosphate (Sodium Phosphate,[place]-Dibasic 133 Ml Enema) 133 ml [place] ONCE PRN PRN Reason: Constipation Last Admin: 01/13/23 18:51 Dose: 133 ml Documented By: HO.JERUSIA Sodium Chloride (0.9 % Sodium Chloride Flush 3 Ml Syringe) 3 ml IVFLUSH QSHIFT [facility] Last Admin: 01/14/23 22:06 Dose: 3 ml Documented By: MACHELLE Spironolactone (Spironolactone 25 Mg Tablet) 25 mg PO DAILY [facility]; Protocol Last Admin: 01/14/23 08:58 Dose: 25 mg Documented By: VICKI Labs 01/13/23 13:55 01/13/23 13:55 Procedures Date of Service Date of Service: 01/15/23 Progress Note: A&P Assessment and plan (1) S/P laparoscopic cholecystectomy: Status: Acute (2) Ileus: Status: Acute Plan 72 year old female admitted with possible ileus following cholecystectomy last week. Resolved now with good GI function and tolerating diet. Abd remains benign. Stable for discharge today if arrangements are able to be made. Patient comfortable with plan. Time Spent With Patient Time: Total time managing care of this patient today ____ minutes. Quality Stroke Does the patient have a stroke diagnosis?: No VTE Prior VTE?: No VTE Risk Level:: Surgical - moderate VTE Device Contraindication: N/A - Device Ordered VTE Drug Contraindication: N/A - Med Ordered
[2023-01-15] MEDS: Apixaban 5 MG TABLET PO (09:06)
[2023-01-15] MEDS: carvediloL 12.5 MG TABLET PO (09:06)
[2023-01-15] MEDS: Spironolactone 25 MG TABLET PO (09:06)
[2023-01-15] MEDS: Sacubitril/Valsartan 24/26 1 TAB TABLET PO (09:06)
[2023-01-15] MEDS: methIMAzole 5 MG TABLET PO (09:06)
[2023-01-15] MEDS: Docusate Sodium 100 MG CAPSULE PO (09:06)
[2023-01-15] MEDS: Fluticasone Propionate Nasal 16 GM SPRAY 1 SPRAY NOSTRIL-B (09:06)
[2023-01-15] MEDS: Latanoprost 0.005 % Ophth Sol 2.5 ML DROPS 1 DROP EYE-BOTH (09:07)
[2023-01-15] MEDS: Dorzolamide/Timolo 2.23%/0.68% 10 ML DRBTL 1 DROP EYE-LEFT (09:08)
[2023-01-15] MEDS: 0.9 % Sodium Chloride Flush 3 ML SYRINGE IVFLUSH (09:08)
--- NOTE | 2023-01-15 11:12 | W.MHC.F2F ---
Service Date Service Date: 01/15/23 Encounter Date of encounter: 01/15/23 Reasons for Services Signs and symptoms assessed: abdominal pain, PO intake, GI function Reason for physical therapy: therapeutic exercises and gait/transfer training Homebound: Leaving the home is medically contraindicated at this time without the asist of a device and/or another person due th the listed conditions above and below. Reason homebound: weakness related to hospital stay and unable to drive Homebound supporting statement: Ms. Powell was admitted for an ileus following a laparoscopic cholecystectomy. She is deconditioned will need home PT for gait and transfer training, mobility and therapeutic exercises. Certification: Based on the above findings, I certify that this patient is confined to the home and needs intermittent retirement care, physical therapy and/or speech therapy, or continues to need occupational therapy. The patient is under my care, and I have initiated the establishment of the plan of care. The patient will be followed by a physician who will periodically review the plan of care. Time Spent With Patient Time: Total time managing care of this patient today ____ minutes.
--- NOTE | 2023-01-15 11:14 | PM.DS ---
DS: Providers Provider Date of Service: 01/15/23 Date of admission: 01/12/23 01:32 Primary care physician: Kaye Pinto NP Attending physician on admission: Zoya Everett Attending physician on discharge: Graham Red DS: Diagnosis Discharge Diagnosis (1) S/P laparoscopic cholecystectomy: Status: Acute (2) Ileus: Status: Acute DS: Summary Hospital Course Hospital Course: HPI AT ADMISSION: Socorro Powell is a 72 year old female? who underwent laparoscopic cholecystectomy 3 days ago and was discharged to home. She came back to the ED for complaints of nausea and vomiting. Imaging showed maybe some ileus according to the ER physician who discussed the case with the reading radiologist.? He placed an NG tube in the patient and called for admission overnight observation with IV hydration etc.? By this morning the patient is doing much better she is complaining of the NG tube causing irritation and causing bleeding from the back of her throat she has been passing gas and feels improved. HOSPITAL COURSE: She was admitted to the surgical service for possible ileus. The following morning she was felt much improved and the NG tube was removed. She was advanced to a clear liquid diet.?Activity was increased. She developed nausea again and her diet was deescalated. She began to move her bowels and pass flatus and felt improved. Her diet was then advanced to solids. PT was consulted for dispo planning. The following day, she was tolerating a solid diet without nausea or vomiting. She had good GI function. Her abdomen was benign and soft, NTND. She felt ready for discharge to home with home PT. She was discharged on 01/15/23 in stable condition. Status at Discharge Functional status at discharge: independent ambulation Overall status at discharge: patient is not back to baseline Time Spent with Patient Time attestation: Total time managing care of this patient today ____ minutes. Discharge coordination time: Less than 30 minutes Quality: Safe Use of Opioids Does Pt have an Active Cancer Diagnosis on the Problem List?: No Quality: Stroke Does the patient have a stroke diagnosis?: No Physical Exam Vital Signs: Vital Signs: Last Vital Signs Temp 98.1 F 01/15/23 07:20 Pulse 88 01/15/23 07:20 Resp 20 01/15/23 07:20 BP 117/68 01/15/23 07:20 Pulse Ox 96 01/15/23 07:20 O2 Del Method Room Air 01/15/23 07:20 BMI result Body Mass Index 46.4 Const: General: comfortable, no acute distress and alert Orientation/consciousness: patient oriented x3 Resp: Effort & Inspection: normal respiratory effort GI: Inspection: No distended and Yes incision (clean steris intact) Palpation (GI): Soft to palpation, nontender, no guarding and not rigid Skin: General skin exam: no rashes or lesions noted Neuro: General: patient oriented x3 and moves all extremities DS: Data Data Completed and Pending Completed studies during hospitalization [Text1]: Procedures Extirpation of Matter from Ampulla of Vater, Via Natural or Artificial Opening Endoscopic (10/24/22) Fluoroscopy of Biliary and Pancreatic Ducts using Low Osmolar Contrast (10/24/22) Discharge Plan Discharge Anticipated Discharge Date/Time: 01/15/23 15:40 Patient Disposition: Home Health Service Discharge Diagnosis: ileus Referrals: Graham Red MD [Physician] - 1 Week Physician,Stanley Santana [Physician] - 1 Week Discharge Medications: New loperamide [Anti-Diarrheal (loperamide)] 2 mg capsule 2 mg PO Q6H PRN (Reason: loose stool) Qty: 14 0RF Continued dorzolamide-timolol 22.3-6.8 mg/mL drops 1 drp ophthalmic-Left BID Rx Instructions: left eye Lumigan 0.01 % drops 1 drp ophthalmic (eye) DAILY Rx Instructions: both eyes oxycodone 5 mg tablet 5 mg PO Q4H PRN (Reason: pain (scale score 7-10)) Qty: 24 0RF Rx Instructions: Partial Fill upon patient request. Take 1-2 tablets every 4-6 hours as needed for pain. methimazole 5 mg tablet 5 mg PO DAILY fluticasone propionate 50 mcg/actuation spray,suspension 1 spray intranasal DAILY PRN (Reason: Allergy Symptoms) Entresto 24-26 mg tablet 1 tab PO BID Eliquis 5 mg tablet 5 mg PO BID spironolactone 25 mg tablet 25 mg PO DAILY nystatin 100,000 unit/gram powder 1 appl topical DAILY PRN (Reason: Itching) carvedilol 12.5 mg tablet 12.5 mg PO BID Held docusate sodium 100 mg Capsule 100 mg PO BID Hold Instructions: Resume on 01/29/23. Discharge Orders: Discharge Order (Routine); Ordered 01/15/23 Ordered By: Jade Krishna Diet: Advance to usual diet Activity on Discharge: No heavy lifting Stand Alone Forms: Patient Portal Discharge page Activity Restrictions/Additional Instructions: Follow up in office in a week. ([phone]) Call Your Doctor If: ? ? -Your temperature exceeds 101.5? F? ? ? -You experience excessive pain or swelling ? ? -You have an unexpected reaction to medication ? ? -You experience continued vomiting/nausea No heavy lifting Care Plan Goals: Return to baseline health and resume normal activities following recovery period. Health Concerns: ileus likely secondary to narcotics, resolved afib on eliquis s/p lap seema Plan of Treatment: Home with PT for strengthening f/u in office in 1 week Assessment: Improved Discharge Date/Time: 01/15/23 13:39
[2023-01-15] MEDS: Loperamide HCl 2 MG CAPSULE PO (12:50)
== END 2023-01-15 13:39 | disposition home health service (06) | DRG 394 ==
LOC: HO.ED 23:40 → HO.EDOVER 01-12 01:39 → HO.S3 01-13 16:27
PROVIDERS: Physician Assistant; Admitting Provider Surgery; Emergency Provider Emergency Medicine; PCP Nurse Practitioner Family; Visit Provider Surgery
DX: K91.89 Other postprocedural complications and disorders of digestive system (principal); K56.7 Ileus, unspecified; G47.33 Obstructive sleep apnea (adult) (pediatric); Z79.01 Long term (current) use of anticoagulants; Z79.51 Long term (current) use of inhaled steroids; Z79.899 Other long term (current) drug therapy
CPT/HCPCS: 36415; 71045; 71046; 74018; 74022; 74176; 80048; 80053; 80076; 81001; 81003; 83690; 83735; 85025; 97162; 99285; J1200; J2270; J2405

== ENCOUNTER → 2023-01-12 01:32 | Outpatient (BNV) | payer OTHER, SELFPAY | PROVIDERS: Admitting Provider Surgery; Emergency Provider Emergency Medicine; Visit Provider Surgery | DX: Z90.49 Acquired absence of other specified parts of digestive tract (principal); K56.7 Ileus, unspecified | CPT/HCPCS: 99222; 99232; 99238; G0180 ==

== ENCOUNTER 2023-01-30 14:58 | Outpatient (REF) | payer OTHER, SELFPAY ==
[2023-01-30 15:57] LABS: Anion Gap 17 (12-20); Blood Urea Nitrogen 30 mg/dL (9-16); Calcium 9.4 mg/dL (8.4-10.2); Carbon Dioxide 19 mmol/L (22-29); Chloride 109 mmol/L (96-108); Estimated Glomerular Filt Rate > 60; Glucose Random 92 mg/dL (60-115); Potassium 4.5 mmol/L (3.3-5.1); Sodium 140 mmol/L (135-145)
[2023-01-30 16:14] LABS: T4 Thyroxine 10.2 ug/dL (4.5-12.0); Thyroid Stimulating Hormone 0.38 uIU/mL (0.32-4.0)
== END 2023-01-30 14:59 | disposition home or self-care (01) ==
LOC: HO.HVNA 14:58
PROVIDERS: Visit Provider Nurse Practitioner Family
DX: E05.00 Thyrotoxicosis with diffuse goiter without thyrotoxic crisis or storm (principal)
CPT/HCPCS: 36415; 80048; 84436; 84443

== ENCOUNTER 2023-02-05 12:28 | Outpatient (AMB) | payer OTHER, SELFPAY ==
--- NOTE | 2023-02-05 12:33 | A.OFFVIS_ITS ---
Intake Vital Signs 02/05/23 12:53 Height 5 ft Weight 217 lb BMI 42.4 BP 122/75 Blood Pressure Location Lt brachial Position Sitting Pulse 65 Intake Visit Reasons: S/P lap seema Intake Note: This patient presents for a post-op assessment status post laparoscopic cholecystectomy. 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 Original diagnosis gallstone pancreatitis. She underwent laparoscopic cholecystectomy. Patient had 2 incidences postoperatively. One was for constipation, onc was for CHF. The meantime, she is currently back to her baseline. She is tolerating her diet. Having regular bowel habits. She has no incisional issues or complaints. [facility] Medical History Afib Arthritis Breast mass, right Does mobilize using walker Glaucoma Heart failure Hypertension Lymphedema JUAN (obstructive sleep apnea) Surgical History History of bilateral breast reduction surgery History of hysterectomy Hx of endoscopic retrograde cholangiopancreatography Family History Mother Vaginal cancer Brother Eye cancer Social History Household Members: None Housing: Apartment Are you a primary daycare director to a significant other at home: No Do you presently have visiting nurse or other home services: No (aids come to the house 2 hours everyday) Alcohol intake: never Patient Tobacco Use Status: Never used Tobacco Second Hand Smoke Exposure: No Advance Directives Date on File: 10/24/22 service: No Physical Exam Vital Signs: Last Vital Signs Pulse 65 02/05/23 12:53 BP 122/75 02/05/23 12:53 BMI result Body Mass Index 42.4 Eyes Other: Anicteric GI Other: Abdomen soft, benign, corpulent. All wounds clean dry and intact Assessment & Plan Assessment & Plan (1) S/P laparoscopic cholecystectomy: Code(s): Z90.49 - Acquired absence of other specified parts of digestive tract (2) Bilateral primary osteoarthritis of knee: Code(s): M17.0 - Bilateral primary osteoarthritis of knee Plan Patient has been given local instructions, and will follow-up p.r.n. Coding Level of Care Code Global (78394) Diagnoses S/P laparoscopic cholecystectomy Z90.49 Bilateral primary osteoarthritis of knee M17.0
[2023-02-05 12:53] VITALS: BP 122/75; PULSE 65; BMI 42.4
== END 2023-02-05 12:55 | disposition home or self-care (01) ==
PROVIDERS: Visit Provider Surgery
DX: Z90.49 Acquired absence of other specified parts of digestive tract (principal); M17.0 Bilateral primary osteoarthritis of knee
CPT/HCPCS: 99024

== ENCOUNTER → 2023-02-05 12:28 | Outpatient (BNVA) | payer OTHER, SELFPAY | PROVIDERS: Visit Provider Surgery ==

== ENCOUNTER 2023-06-15 20:15 | Emergency (ER) | payer OTHER, SELFPAY ==
--- NOTE | ~2023-06-15 | CT_ITS ---
EXAMINATION: CT HEAD WITHOUT CONTRAST CT CERVICAL SPINE WITHOUT CONTRAST CLINICAL INFORMATION: Fall. Patient on blood thinners. COMPARISON: None available. TECHNIQUE: Contiguous axial imaging was performed from the skull base to vertex without intravenous administration of contrast. Contiguous axial imaging was performed from the upper chest through the skull base without intravenous administration of contrast. Coronal and sagittal reformats were obtained at the acquisition workstation. This CT examination was performed using dose optimization techniques as appropriate, variously including the following: *Automated exposure control. *Adjustment of mA and/or kV according to patient size (this includes techniques or standardized protocols for targeted exams where dose is matched to indication/reason for exam; i.e. extremities or head). *Use of iterative reconstruction technique. DLP: 1118 mGy-cm FINDINGS: Head: There is no evidence of acute intracranial hemorrhage or edematous territorial infarction. Ybarra-white matter differentiation is preserved. Scattered and partially confluent hypoattenuation in the periventricular and deep white matter are consistent with mild to moderate microangiopathy. Persistent cavum septum pellucidum et vergae. Proportional prominence of the ventricles and sulcal spaces without evidence of obstructive hydrocephalus. No abnormal mass effect or midline shift. No extra-axial fluid collections. Prominent right lateral subgaleal hematoma, measuring up to 2 cm in depth. No associated acute osseous abnormalities. Mild mucosal thickening of the paranasal sinuses. The mastoid air cells and middle ear cavities are clear. Moderate degenerative arthropathy of the temporomandibular joints. Left-sided lens extraction. Cervical Spine: The atlantooccipital and atlantoaxial articulations remain well aligned. Straightening of the normal cervical lordosis. Otherwise, there is anatomic alignment of the vertebral bodies and posterior elements. No evidence of acute fracture or subluxation. Ankylosis of the C2-C3 facets. The vertebral body heights are maintained. Advanced degenerative disc disease at C5-C6 and C6-C7. Moderate degenerative disc disease at all additional levels. Facet and uncovertebral joint arthropathy leads to osseous encroachment on the neural foramina from C3-C7. Moderate anterior osteophytosis from C4-C7. There is no prevertebral soft tissue swelling. The thyroid gland and remaining cervical soft tissues are within normal limits. The lung apices demonstrate no abnormalities. Moderate degenerative arthropathy of the right shoulder. CT/CT cervical spine wo IV con IMPRESSION: 1. No evidence of acute intracranial hemorrhage or edematous territorial infarction. Mild to moderate underlying microangiopathy and generalized cerebral volume loss. 2. No evidence of acute fracture or traumatic subluxation of the cervical spine. Moderate multilevel degenerative spondyloarthropathy of the cervical spine. 3. Prominent right lateral scalp hematoma. No associated osseous abnormalities.
[2023-06-15 20:27] VITALS: BP 140/96; BP 149/98; PULSE 76; PULSE 78; RESP 18; TEMP 36.6; O2SAT 100; O2SAT 96; BMI 46.2
--- NOTE | 2023-06-15 20:46 | ECG_ITS ---
Test Reason : FALL Blood Pressure : / mmHG Vent. Rate : 075 BPM Atrial Rate : 000 BPM P-R Int : 000 ms QRS Dur : 100 ms QT Int : 388 ms P-R-T Axes : 000 021 081 degrees QTc Int : 433 ms Atrial fibrillation with a competing junctional pacemaker Nonspecific T wave abnormality Abnormal ECG When compared with ECG of 24-OCT-2022 00:12, No significant change was found Referred By: Generic ED Physician Electronically Signed By:Suraj Colin
--- NOTE | 2023-06-15 21:11 | MHC.EDTECH ---
This tech assisted Jagjit martinez, patient was changed into hospital attire,placed on the cardiac cath lab radiology technologist,EKG was taken per order. This tech placed a Pure Wick,per request of patient, patient is unable to get OOB. Brittaney DUKE aware
[2023-06-15 21:29] LABS: MANUAL DIFF FLAG NO
[2023-06-15 21:32] LABS: Basophils Absolute Auto 0.1 X10*3/uL (0.0-0.2); Basophils Percent Auto 0.9 % (0-2); Eosinophils Absolute Auto 0.2 X10*3/uL (0.0-0.4); Eosinophils Percent Auto 1.5 % (0-4); Hematocrit 51.3 % (37.0-47.0); Hemoglobin 16.7 g/dl (12.0-16.0); Imm Gran Abs Auto 0.03 X10*3/uL (0.00-0.03); Imm Gran Pct Auto 0.3 % (0.0-0.4); Lymphocytes Absolute Auto 1.3 X10*3/uL (1.2-4.9); Lymphocytes Percent Auto 13.1 % (20-40); Mean Corpuscular HGB Conc 32.6 g/dl (31.0-35.0); Mean Corpuscular Hemoglobin 30.7 pg (27.0-33.0); Mean Corpuscular Volume 94.3 fL (80.0-98.0); Mean Platelet Volume 9.3 fL (9.4-12.3); Monocytes Absolute Auto 0.6 X10*3/uL (0.1-1.2); Monocytes Percent Auto 5.9 % (2-11); Neutrophils Absolute Auto 7.7 x10*3/uL (2.0-8.3); Neutrophils Percent Auto 78.3 % (45-73); Platelet Count 153 X10*3/uL (160-400); Red Blood Count 5.44 X10*6/uL (4.20-5.50); Red Cell Distribution Width 13.8 % (11.0-16.0); White Blood Count 9.9 X10*3/uL (4.8-10.8)
[2023-06-15 21:50] LABS: Alanine Aminotransferase 16 U/L (0-31); Albumin Level 4.4 g/dL (3.5-5.0); Alkaline Phosphatase 34 U/L (39-117); Anion Gap 16 (12-20); Aspartate Amino Transferase 24 U/L (5-31); Bilirubin Total 0.7 mg/dL (0.0-1.0); Blood Urea Nitrogen 25 mg/dL (9-16); Calcium 9.7 mg/dL (8.4-10.2); Carbon Dioxide 25 mmol/L (22-29); Chloride 103 mmol/L (96-108); Creatinine Clr Calc Pharmacy 45.6; Estimated Glomerular Filt Rate 44; Glucose Random 105 mg/dL (60-115); Potassium 4.5 mmol/L (3.3-5.1); Sodium 139 mmol/L (135-145); Total Protein 8.3 g/dL (6.5-8.0)
[2023-06-15 23:35] VITALS: BP 148/77; PULSE 77; RESP 17; TEMP 36.7; O2SAT 94
--- NOTE | 2023-06-15 23:44 | ED_ITS ---
HPI - Fall General Chief Complaint: Fall Stated Complaint: FALL Time Seen by Provider: 06/15/23 23:36 Source: patient Mode of arrival: EMS Limitations: no limitations History of Present Illness HPI Narrative: Patient comes to the emergency room via home after sustaining a fall. Patient states she was sitting on her Rollator walker, 1 of the wheels in the front broke and patient fell forward and face planted. Patient has a large ecchymosis to the right side of the forehead. Patient states she did not lose consciousness, patient has a mild headache. Patient takes Eliquis for atrial fibrillation. Patient denies any neck pain. Patient in denies nausea vomiting or changes in vision. Patient refused to wear C-collar when applied by EMS. Related Data Home Medications Medication Instructions Recorded Confirmed apixaban 5 mg tablet (Eliquis) 5 mg PO BID 09/28/21 01/12/23 carvedilol 12.5 mg tablet 12.5 mg PO BID 09/28/21 01/12/23 nystatin 100,000 unit/gram topical 1 appl topical DAILY PRN Itching 09/28/21 01/12/23 powder spironolactone 25 mg tablet 25 mg PO DAILY 09/28/21 01/12/23 fluticasone propionate 50 1 spray intranasal DAILY PRN 10/24/22 01/12/23 mcg/actuation nasal Allergy Symptoms spray,suspension methimazole 5 mg tablet 5 mg PO DAILY 10/24/22 01/12/23 sacubitril 24 mg-valsartan 26 mg 1 tab PO BID 10/24/22 01/12/23 tablet (Entresto) bimatoprost 0.01 % eye drops 1 drp ophthalmic (eye) DAILY 12/10/22 01/12/23 (Lumigan) dorzolamide 22.3 mg-timolol 6.8 1 drp ophthalmic-Left BID 12/10/22 01/12/23 mg/mL eye drops docusate sodium 100 mg capsule 100 mg PO BID 01/12/23 01/12/23 Previous Rx's Medication Instructions Recorded oxycodone 5 mg tablet 5 mg PO Q4H PRN pain (scale score 01/09/23 7-10) #24 tabs loperamide 2 mg capsule 2 mg PO Q6H PRN loose stool #14 07/18/23 (Anti-Diarrheal (loperamide)) caps Allergies Allergy/AdvReac Type Severity Reaction Status Date / Time Penicillins [PENICILLINS] Allergy Unknown UNKNOWN Verified 02/05/23 12:44 Review of Systems 2 Review of Systems: Constitutional : No Weight loss, No Fever, No Chills, No Night Sweats, No Fatigue, No Malaise ENT/Mouth : No Hearing loss, No Ear Pain, No Nasal Congestion, No Sinus Pain, No Hoarseness, No sore throat, No Rhinorrhea, No Swallowing Difficulty Eyes: No Eye Pain, No Swelling, No Redness, No Foreign Body, No Discharge, No Vision Changes Cardiovascular : No Chest Pain, No SOB, No Dyspnea on Exertion, No Orthopnea, No Edema, No Palpitations Respiratory : No Cough, No Sputum, No Wheezing, No Smoke Exposure, No Dyspnea Gastrointestinal : No Nausea, No Vomiting, No Diarrhea, No Constipation, No abdominal Pain, No Hematochezia, No Melena Genitourinary : no irregular bleeding, No Dysuria, No Urinary Frequency, No Hematuria, No Urinary Incontinence, No Urgency, No Flank Pain, No Urinary Flow Changes, No Hesitancy Musculoskeletal : No joint pain, No Myalgias, No Joint Swelling Skin : Complaining of large ecchymosis in the forehead on the right Neuro : No Weakness, No Numbness, No Paresthesias, No Loss of Consciousness, No Dizziness, complaining of Headache after a fall Psych : No Anxiety/Panic, No Depression, No SI/HI/AH/VH, No Social Issues, Heme/Lymph: No Bruising, No Bleeding,No Lymphadenopathy Endocrine : No Polyuria, No Polydipsia, No Temperature Intolerance PMFSH Past Medical History Medical History (Updated 06/16/23 @ 01:43 by Mirta Reyna MD) 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 JUAN (obstructive sleep apnea) Heart failure Afib Glaucoma Does mobilize using walker Breast mass, right Hypertension Arthritis Lymphedema Surgical History (Updated 02/05/23 @ 12:56 by Graham Red MD) Hx of endoscopic retrograde cholangiopancreatography History of bilateral breast reduction surgery History of hysterectomy Family History Family History Mother Vaginal cancer Brother Eye cancer Social History Social History Household Members: None Housing: Apartment Are you a primary child care assistant to a significant other at home: No Do you presently have visiting nurse or other home services: No (aids come to the house 2 hours everyday) Alcohol intake: former Patient Tobacco Use Status: Never used Tobacco Smoked in Last 30 Days: No Second Hand Smoke Exposure: No Use of substances other than those prescribed or required for medical reasons: No Advance Directives: Yes Advance Directives on File: Yes Advance Directives Date on File: 10/24/22 service: No Physical Exam 2 Vital Signs: Vital Signs: Last Vital Signs Temp 98.1 F 06/15/23 23:35 Pulse 77 06/15/23 23:35 Resp 17 06/15/23 23:35 BP 148/77 H 06/15/23 23:35 Pulse Ox 94 06/15/23 23:35 O2 Del Method Room Air 06/15/23 23:35 BMI result Body Mass Index 46.2 Const: Other: Appearance: Alert. Oriented X3. No acute distress. Eyes: Pupils equal, round and reactive to light. ENT: Pharynx normal. Neck: Normal inspection. Neck supple. No lymph nodes noted. No crepitus, no C- spine tenderness, normal range of motion with flexion extension CVS: Normal heart rate and rhythm. Pulses normal. Normal S1 and S2 Respiratory: No respiratory distress. Breath sounds normal. No Wheezing. No rales Abdomen: Soft and nontender. No rigidity. No distention. Skin: Skin warm and dry. Normal skin color. Normal skin turgor. Ecchymosis on the right side of the forehead, small abrasions to the lateral aspect of the right hand, no lacerations, no active bleeding Extremities: No lower extremity edema. No Lacerations. No Rash Neuro: Oriented X 3. No motor deficit. No sensory deficit. Moving all extremities. No slurred speech. CN 2 through 12 grossly intact Psych: calm, cooperative, normal affect Course Course Course Narrative: -patient was given p.o. Tylenol -patient's labs and CT scans pending Medications Administered Discontinued Medications Generic Name Dose Route Start Last Admin Trade Name Freq PRN Reason Stop Dose Admin Acetaminophen 975 mg 06/15/23 23:42 06/16/23 00:29 Acetaminophen 325 Mg Tablet PO 06/15/23 23:43 975 mg ONCE ONE Administration Medical Decision Making Medical Decision Making [facility] Narrative: -my interpretation of labs:no significant abnormality in hematology or chemistry Interpretation of head CT: No intracranial bleed. -patient states that she lives by herself but feels comfortable returning home. Patient has an a coming in the morning to check on her. Otherwise, headache resolved, patient feeling better Differential Diagnosis Differential Diagnoses: The differential diagnosis associated with the presentation includes (Contusion, concussion, laceration, intracranial bleed, cervical strain, cervical fracture) Admission/Observation Consideration of admission/observation: Escalation of care including admission/observation considered (Admission/observation for Case Management was considered. Patient feels comfortable going home) Lab Data [facility] Lab Attestation statement: I reviewed the patient's lab results. 06/15/23 21:21 06/15/23 21:21 Labs: Lab Results 06/15/23 Range/Units 21:21 WBC 9.9 (4.8-10.8) X10*3/uL RBC 5.44 D (4.20-5.50) X10*6/uL Hgb 16.7 H D (12.0-16.0) g/dl Hct 51.3 H D (37.0-47.0) % MCV 94.3 (80.0-98.0) fL MCH 30.7 (27.0-33.0) pg MCHC 32.6 (31.0-35.0) g/dl RDW 13.8 (11.0-16.0) % Plt Count 153 L (160-400) X10*3/uL MPV 9.3 L (9.4-12.3) fL Immature Gran % (Auto) 0.3 (0.0-0.4) % Neut % (Auto) 78.3 H (45-73) % Lymph % (Auto) 13.1 L (20-40) % [place] % (Auto) 5.9 (2-11) % Eos % (Auto) 1.5 (0-4) % Baso % (Auto) 0.9 (0-2) % Lymph # (Auto) 1.3 (1.2-4.9) X10*3/uL [place] # (Auto) 0.6 (0.1-1.2) X10*3/uL Eos # (Auto) 0.2 (0.0-0.4) X10*3/uL Baso # (Auto) 0.1 (0.0-0.2) X10*3/uL Abs Immat Gran (auto) 0.03 (0.00-0.03) X10*3/uL Absolute Neuts (auto) 7.7 (2.0-8.3) x10*3/uL Absolute Nucleated RBC 0.000 (0.0-0.012) X10*3/uL Nucleated RBC % (auto) 0.0 (0.0-0.2) /100WBC Hold Blue Top SEE NOTE Sodium 139 (135-145) mmol/L Potassium 4.5 (3.3-5.1) mmol/L Chloride 103 (96-108) mmol/L Carbon Dioxide 25 (22-29) mmol/L Anion Gap 16 (12-20) BUN 25 H (9-16) mg/dL Creatinine 1.20 (0.5-1.4) mg/dL Estim Creat Clear Calc 45.6 Estimated GFR 44 Random Glucose 105 (60-115) mg/dL Calcium 9.7 (8.4-10.2) mg/dL Total Bilirubin 0.7 (0.0-1.0) mg/dL AST 24 (5-31) U/L ALT 16 (0-31) U/L Alkaline Phosphatase 34 L (39-117) U/L Total Protein 8.3 H (6.5-8.0) g/dL Albumin 4.4 (3.5-5.0) g/dL Independent Interpretation I performed an independent interpretation of an: CT Scan Radiology Impression Discussion of test interpretation with radiology: I have reviewed the radiologist's reading. Radiologist Impression: 1. No evidence of acute intracranial hemorrhage or edematous territorial infarction. Mild to moderate underlying microangiopathy and generalized cerebral volume loss. 2. No evidence of acute fracture or traumatic subluxation of the cervical spine. Moderate multilevel degenerative spondyloarthropathy of the cervical spine. 3. Prominent right lateral scalp hematoma. No associated osseous abnormalities. Critical Care Time Critical Care Time Critical Care Time: Yes Total Critical Care Time: 45 Attestation: I have personally provided critical care time. Time includes review of lab data, radiology results, discussion with consultants, and monitoring for potential decompensation. Intervention performed as documented. Discharge Plan Discharge Clinical Impression: Fall, Contusion Patient Disposition: Home, Self-Care Instructions: Contusion in Adults (ED) Additional Instructions: Please follow-up with your primary care physician tomorrow. If you have any worsening or new symptoms, please return to the emergency room or call 911 Prescriptions: No Action dorzolamide-timolol 22.3-6.8 mg/mL drops 1 drp ophthalmic-Left BID Rx Instructions: left eye Lumigan 0.01 % drops 1 drp ophthalmic (eye) DAILY Rx Instructions: both eyes oxycodone 5 mg tablet 5 mg PO Q4H PRN (Reason: pain (scale score 7-10)) Qty: 24 0RF Rx Instructions: Partial Fill upon patient request. Take 1-2 tablets every 4-6 hours as needed for pain. docusate sodium 100 mg Capsule 100 mg PO BID Hold Instructions: Resume on 01/29/23. loperamide [Anti-Diarrheal (loperamide)] 2 mg capsule 2 mg PO Q6H PRN (Reason: loose stool) Qty: 14 0RF methimazole 5 mg tablet 5 mg PO DAILY fluticasone propionate 50 mcg/actuation spray,suspension 1 spray intranasal DAILY PRN (Reason: Allergy Symptoms) Entresto 24-26 mg tablet 1 tab PO BID Eliquis 5 mg tablet 5 mg PO BID spironolactone 25 mg tablet 25 mg PO DAILY nystatin 100,000 unit/gram powder 1 appl topical DAILY PRN (Reason: Itching) carvedilol 12.5 mg tablet 12.5 mg PO BID
[2023-06-16] MEDS: Acetaminophen 325 MG TABLET 975 MG PO (00:29)
[2023-06-16 02:51] VITALS: BP 122/59; PULSE 66; RESP 16; TEMP 36.7; O2SAT 98
== END 2023-06-16 03:10 | disposition home or self-care (01) ==
PROVIDERS: Emergency Provider Emergency Medicine; PCP Nurse Practitioner Family
DX: S00.83XA Contusion of other part of head, initial encounter (principal); S60.511A Abrasion of right hand, initial encounter; W17.89XA Other fall from one level to another, initial encounter; Y93.9 Activity, unspecified; Y92.9 Unspecified place or not applicable; Y99.9 Unspecified external cause status; Z79.01 Long term (current) use of anticoagulants; Z79.899 Other long term (current) drug therapy
CPT/HCPCS: 36415; 70450; 72125; 80053; 85025; 93005; 99284; 99285

== ENCOUNTER → 2023-06-15 20:46 | Outpatient (BNV) | payer OTHER, SELFPAY | PROVIDERS: Emergency Provider Emergency Medicine; PCP Nurse Practitioner Family; Visit Provider Internal Medicine Cardiovascular Disease | DX: I48.91 Unspecified atrial fibrillation (principal); R94.31 Abnormal electrocardiogram [ECG] [EKG] | CPT/HCPCS: 93010 ==

== ENCOUNTER 2024-05-25 14:14 | Outpatient (AMB) | payer OTHER, SELFPAY ==
--- NOTE | 2024-05-25 12:36 | A.OFFVIS_ITS ---
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 had last UTI in january or mar also on diurectics, spironolactone, torosemide 01/11/23--CTAP-- 01/11/23 kidneys/bladder WNL PFSH Medical History Hx of alf use of blood thinners JUAN (obstructive sleep apnea) Heart failure Afib Glaucoma Does mobilize using walker Breast mass, right Hypertension Arthritis Lymphedema Surgical History Hx of endoscopic retrograde cholangiopancreatography History of bilateral breast reduction surgery History of hysterectomy Family History Mother Vaginal cancer Brother Eye cancer Social History Household Members: None Housing: Apartment Are you a primary intensive care anaesthetist to a significant other at home: No Do you presently have visiting nurse or other home services: No (aids come to the house 2 hours everyday) Alcohol intake: former Patient Tobacco Use Status: Never used Tobacco Second Hand Smoke Exposure: No Advance Directives Date on File: 10/24/22 service: No Review of Systems Const All systems reviewed & are unremarkable except as noted in HPI and below Reports no additional complaints Eyes Reports no additional complaints ENT Reports no additional complaints Card Reports no additional complaints Resp Reports no additional complaints GI Reports no additional complaints Reports as per HPI Musc Reports no additional complaints Skin/Breast Reports system reviewed and no additional complaints, except as documented Neuro Reports no additional complaints Psych Reports no additional complaints Endo Reports no additional complaints Nick/Lymph Reports no additional complaints Aller/Immun Reports no additional complaints Physical Exam Const General: cooperative, healthy appearing and no acute distress Nutritional Appearance: overweight Orientation/consciousness: patient oriented x3 HEENT Head: Yes normal to inspection, Yes normocephalic and Yes atraumatic Eyes Conjunctivae: conjunctivae normal Neck Neck: Yes normal visual inspection and Yes trachea midline Chest Chest palpation & inspection: normal inspection of the chest Resp Effort & Inspection: normal respiratory effort Cardio Rate: regular rate GI Inspection: Yes normal to inspection Neuro General: patient oriented x3 Extrem Other: bilateral lymphedema Psych Appearance: grossly normal Results AMB Urinalysis, Automated UA Leukoctes 500 Jordana/uL Last Edit by WINSTON Mckinney on 05/25/24 14:28 UA Nitrite Positive Last Edit by Renato Whatley CCM on 05/25/24 14:28 UA Urobilinogen 0.2 mg/dL Last Edit by WINSTON Mckinney on 05/25/24 14:2 8 UA Protein 15 mg/dL Last Edit by Renato Whatley CCM on 05/25/24 14:28 UA pH 6.0 Last Edit by WINSTON Mckinney on 05/25/24 14:28 UA Blood 10 Jacky/uL Last Edit by WINSTON Mckinney on 05/25/24 14:28 UA Specific [place] 1.020 Last Edit by WINSTON Mckinney on 05/25/24 14: 28 UA Ketone Negative Last Edit by WINSTON Mckinney on 05/25/24 14:28 UA Bilirubin 0 mg/dL Last Edit by Renato Whatley CCM on 05/25/24 14:28 UA Glucose 0 mg/dL Last Edit by Renato Whatley CCM on 05/25/24 14:28 Results Reviewed Results Reviewed: Laboratory Last Values Urine pH (Auto) 6.0 05/25/24 14:28 [address] [place] (Auto) 1.020 05/25/24 14:28 Urine Protein (Auto) 15 mg/dL 05/25/24 14:28 Glucose (UA)(Auto) 0 mg/dL 05/25/24 14:28 Urine Ketones (Auto) Negative 05/25/24 14:28 Urine Blood (Auto) 10 Jacky/uL 05/25/24 14:28 Urine Nitrite (Auto) Positive 05/25/24 14:28 Urine Bilirubin (Auto) 0 mg/dL 05/25/24 14:28 Urine Urobilinogen (Auto) 0.2 mg/dL 05/25/24 14:28 Leukocyte Esterase (Auto) 500 Jordana/uL 05/25/24 14:28 Date of Service: 01/11/23 CT ABDOMEN AND PELVIS WITHOUT CONTRAST CLINICAL INFORMATION: bowel obstruction. COMPARISON: 10/24/2022. TECHNIQUE: Multidetector volumetric imaging was performed from the superior aspect of the liver through the pubic symphysis without contrast per request. Sagittal and coronal reformatted images were obtained on the technologist workstation. This CT examination was performed using dose optimization techniques as appropriate, variously including the following: *Automated exposure control *Adjustment of mA and/or kV according to patient size (this includes techniques or standardized protocols for targeted exams where dose is matched to indication/reason for exam; i.e. extremities or head) *Use of iterative reconstruction technique DLP: 1106 mGy-cm. FINDINGS: LUNG BASES: Bibasilar consolidation/atelectasis. LIVER, GALLBLADDER, BILIARY TREE: The non-contrast liver is normal in size, shape, and attenuation. No focal hepatic lesion or biliary ductal dilatation is present. Gallbladder is now surgically absent with postoperative changes in the gallbladder fossa. PANCREAS: Unremarkable. SPLEEN: Unremarkable. ADRENAL GLANDS: Unremarkable. KIDNEYS AND URETERS: The kidneys are normal in size, shape, and attenuation. No hydronephrosis, hydroureter, or calculi seen. No perinephric stranding. BLADDER: Unremarkable. GASTROINTESTINAL TRACT: Colon is redundant with scattered colonic diverticulosis. I do not appreciate any colonic wall thickening or pericolonic inflammatory changes. Visualized small bowel unremarkable ABDOMINAL WALL: No significant hernia is appreciated. Stable appearing lipoma along the lateral left abdominal wall again noted. LYMPHOVASCULAR STRUCTURES: No bulky lymphadenopathy. The aorta is unremarkable.. PELVIC VISCERA: Surgically absent OSSEUS STRUCTURES: Multilevel degenerative changes in the spine. IMPRESSION: Chronic appearing and postoperative changes as described. I do not appreciate any acute intra-abdominal process. Assessment & Plan Assessment & Plan (1) Recurrent UTI: Code(s): N39.0 - Urinary tract infection, site not specified Category: Medical (2) Nocturia: Code(s): R35.1 - Nocturia Category: Medical Plan macrobid 100 mg bid for 10 days renal US fu cysto, pelvic exam at that time Orders: Orders US renal BI 05/25/24 N39.0 - Urinary tract infection, site not specified, R35.1 - Nocturia AMB Urinalysis Automated 05/25/24 Z13.9 - Encounter for screening, unspecified Urine Culture 05/25/24 N39.0 - Urinary tract infection, site not specified Medications: New nitrofurantoin monohyd/m-cryst 100 mg (Macrobid) must administer with a meal/food 100 mg PO BID 20 caps 0RF uti Coding Level of Care Code New Pt Level 4 (05306) Diagnoses Recurrent UTI N39.0 Nocturia R35.1
== END 2024-05-25 15:18 | disposition home or self-care (01) ==
LOC: HO.HUSH 14:14
PROVIDERS: PCP Nurse Practitioner Family; Visit Provider Urology
DX: N39.0 Urinary tract infection, site not specified (principal); R35.1 Nocturia
CPT/HCPCS: 99204

== ENCOUNTER 2024-05-25 14:14 | Outpatient (REF) | payer OTHER, SELFPAY | END 2024-05-25 14:15 | disposition home or self-care (01) | LOC: HO.LAB 14:14 | PROVIDERS: PCP Nurse Practitioner Family; Visit Provider Urology | DX: N39.0 Urinary tract infection, site not specified (principal); R35.1 Nocturia | CPT/HCPCS: 81003; 87086; 99202 ==

== ENCOUNTER 2024-09-23 12:42 | Outpatient (REF) | payer OTHER, SELFPAY ==
--- NOTE | ~2024-09-23 | US_ITS ---
EXAMINATION: US KIDNEY BILATERAL HISTORY: N39.0 - Urinary tract infection, site not specified TECHNIQUE: Real-time grayscale ultrasound imaging of the kidneys was performed and images were reviewed. COMPARISON: Comparison is made with a CT of the abdomen with contrast dated 10/24/2022. FINDINGS: The examination is limited due to bowel gas and limited patient mobility. Right kidney: The right kidney measures 9.3 x 3.9 x 4.6 cm. Renal parenchymal echotexture and thickness are normal. There are no masses. There is no hydronephrosis or renal calculi. Left Kidney: The left kidney measures 8.4 x 4.1 x 3.4 cm. The upper pole is not visualized. No masses or calculi are seen involving the lower pole. There is no hydronephrosis. US/US renal BI IMPRESSION: The upper pole of the left kidney is not visualized. Otherwise unremarkable renal ultrasound. Electronically signed by: Anuj Sommer MD 09/23/2024 02:19 PM EDT
--- OUTSIDE RECORDS SUMMARY | 2024-09-23 15:02 | XMS_ITS ---
Author Organization [facility] Care Team Providers Care Director Of Operations Support Name Role Phone Ludwin James Unavailable Unavailable Enedina Richards Unavailable Unavailable Allergies and adverse reactions Code CodeSystem Substance Reaction Severity StartDate Concern Status 567745281 SNOMED CT Penicillins Itching of skin (code- 050699905, SNOMED CT) Moderate 04/30/2020 active Care Team Name Role Address Phone Organization Dates Ludwin James PCP [address], [address], [facility] (Office): : [facility] 04/30/2020 - 06/04/2020 Enedina Richards Attending Physician [address], [address], [place] (Office): [facility] 04/30/2020 - 06/04/2020 Immunizations Immunization Status Vaccine Details Vaccine Code CodeSystem Rene e Notes Influenza completed Influenza, split virus, trivalent, injectable, contains preservative 141 CVX created date: 05/05/2020 administere d date: 03/04/2020 TB 2 Step Mantoux Skin Test completed tuberculin skin test; unspecified formulation lotNumber: [id number] expiry: 08/28/2021 Mfg: starks offi pasteur Given 0.1 ml Left Forearm intradermally Step 1 of Multi-step 98 CVX created date: 05/05/2020 consent date: 05/05/2020 administere d date: 05/05/2020 PCV13 (Pneumococcal Conjugate)Vaccine completed pneumococcal conjugate vaccine, 13 valent 133 CVX created date: 05/05/2020 administere d date: 05/07/2017 Mental Status Section Date Assessment Total Score Description 06/04/2020 CAM 0 No delirium ind icated 05/06/2020 BIMS 15 cognitively int act CAM 0 No delirium ind icated [id number] Problems Problem # Description Date of onset Resolved Date Code CodeSystem Concern Status 1 ABNORMAL RESULT OF OTHER CARDIOVASCULAR FUNCTION STUDY [address] active 2 ACUTE ON CHRONIC COMBINED SYSTOLIC (CONGESTIVE) AND DIASTOLIC (CONGESTIVE) HEART FAILURE [address] active 3 AGE-RELATED OSTEOPOROSIS WITHOUT CURRENT PATHOLOGICAL FRACTURE [address] active 4 DIARRHEA, UNSPECIFIED [address] active 5 DYSPHAGIA, OROPHARYNGEAL PHASE [address] active 6 ESSENTIAL (PRIMARY) HYPERTENSION [address] active 7 [address]ALEM[address] active 8 LYMPHEDEMA, NOT ELSEWHERE CLASSIFIED [address] active 9 MORBID (SEVERE) OBESITY DUE TO EXCESS CALORIES [address] active 10 OBSTRUCTIVE SLEEP APNEA (ADULT) (PEDIATRIC) [address] active 11 OTHER ABNORMALITIES OF GAIT AND MOBILITY [address] active 12 OTHER MALAISE [address] active 13 PAIN IN UNSPECIFIED JOINT [address] active 14 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 CRISIS OR STORM [address] active 15 THYROTOXICOSIS, UNSPECIFIED WITHOUT THYROTOXIC CRISIS OR STORM [address] active 16 UNSPECIFIED ATRIAL FIBRILLATION [address] active 17 UNSPECIFIED GLAUCOMA [address] active 18 UNSPECIFIED OSTEOARTHRITIS, UNSPECIFIED SITE [address] active 19 UNSTEADINESS ON FEET [address] active 20 VITAMIN D DEFICIENCY, UNSPECIFIED [address] active 21 WEAKNESS [address] active Reason for Referral No Reasons for Referral Entered Social History Social History Observation Description Start Date End Date Code Code System Current Smoking Status Tobacco smoking consumption unknown 862951129 SNOMED CT Sex Assigned At Female 1950 15938-5 [facility] Vital Signs Code Code System Vitals Name Values and Units Timing Information 26153-7 [facility] O2 % BldC Oximetry Value=94.0 Units= % 06/04/2020 9279-1 [facility] Respiratory Rate Value=18.0 Units=/m in 06/04/2020 8310-5 [facility] Body Temperature Value=97.2 Units=?? F 06/04/2020 8462-4 [facility] Blood Pressure-Diastolic Value=79 Un its=mmHg 06/04/2020 8480-6 [facility] Blood Pressure-Systolic Qcxfu=930 Un its=mmHg 06/04/2020 8867-4 [facility] Heart rate Value=89.0 Units=/min 10/2019 89075-3 [facility] Pain Level Value=0.0 06/04/2020 64623-8 [facility] Weight Ajfbe=877.0 Units=Lbs 09/2019 8302-2 [facility] Height Value=62.0 Units=Inches 05/01/2020
--- OUTSIDE RECORDS SUMMARY | 2024-09-23 15:02 | XMS_ITS | Data Portability ---
Author Organization [place] [facility], [place] in - Replaced by [facility] Address [address] [place] [phone] Care Team Providers Care Line Haul Driver Name Role Phone KE KIM Primary Care Provider HIM CCA OTHER Assessment No assessment recorded. Plan of Treatment Reminders Order Date Submit Date Provider Last Modified By Organization Details Last Modified Time Details Appointments None recorded. Lab culture, urine 2022 023 KASEY [facility] (Centralized Electronic Ordering - All Locations), Patient Can Go To The Location Of Their Choice, 10:47:58 rapid SARS CoV 2 Ag, QL IA, respiratory specimen [email or web address], [address] [place] [address], [id number], 3 12:35:16 rapid flu (A+B) [email or web address] [place] [address], [address] [place] [address], [id number], 3 12:35:16 Referral None recorded. Procedures None recorded. Surgeries None recorded. Imaging None recorded. Medication Orders None recorded. Patient TargetsNo targets recorded. Patient InstructionsNo instructions recorded. Reason for Referral None Reported. Results Created Date Observation Date Name Description Value Unit Range Abnormal Flag Note LastModifiedBy Organization Detail LastModifiedTime 10/22/1910/21/2022 URINE CULTU RE specimen description URINE Not Available [facility] (Centralized Electronic Ordering - All Locations) Patient Can Go To The Location Of Their Choice, [id number] 10/22/2022 10:47:58 10/22/1910/21/2022 URINE CULTU RE special requests NONE Not Available [facility] (Centralized Electronic Ordering - All Locations) Patient Can Go To The Location Of Their Choice, [id number] 10/22/2022 10:47:58 10/22/1910/22/2022 URINE CULTU RE culture Mixed bacter ial magdi, indica tive of urogen ital contam inatio n. Not Available [facility] (Centralized Electronic Ordering - All Locations) Patient Can Go To The Location Of Their Choice, [id number] 10/22/2022 10:47:58 10/22/1910/22/2022 URINE CULTU RE report status FINAL 2022 Not Available [facility] (Centralized Electronic Ordering - All Locations) Patient Can Go To The Location Of Their Choice, [id number] 10/22/2022 10:47:58 10/22/1910/21/2022 rapid SARS CoV 2 Ag, QL IA, respi rator y speci men rapid SARS CoV 2 Ag, QL IA, respiratory specimen negati ve Not Available Main - [facility] ed [address] [place] [address], [id number], 10/21/2022 12:34:02 Result Notes None recorded. Medical Equipment None Reported. Allergies Allergen ID Allergen Name Allergen Category Reaction Reaction Severity Criticality Documentation Date Start Date Code Code System Note Provider Name and Address Organization Details Recorded Time 8952 Product containin g penicilli n (product) medicatio n Not available Not available Not available 04/28/2024 44887 8001 SNOMED Not Available [facility] - production 03:47:57 Medications Name Sig Start Date Stop Date Status Note LastModified by Organization Details LastModified Time losartan 50 mg tablet TAKE 1 TABLET BY MOUTH EVERY DAY active Not Available Not Available No t Available carvedilol 12.5 mg tablet TAKE 1 TABLET BY MOUTH TWICE A DAY active Not Available Not Available No t Available tramadol 50 mg tablet TAKE 1 TABLET EVERY 6 TO 8 HOURS NEEDED FOR MODERATE TO SEVERE PAIN. active Not Available Not Available No t Available spironolactone 25 mg tablet TAKE 1 TABLET BY MOUTH EVERY DAY active Not Available Not Available No t Available ferrous sulfate 325 mg (65 mg iron) tablet TAKE 1 TABLET BY MOUTH TWICE A DAY active Not Available Not Available No t Available methimazole 5 mg tablet TAKE 1 AND 1/2 TABLETS BY MOUTH DAILY active Not Available Not Available No t Available fluticasone propionate 50 mcg/actuation nasal spray,suspensi on SPRAY 1 SPRAY INTO EACH NOSTRIL EVERY DAY FOR 30 DAYS active Not Available Not Available No t Available Mucus Relief ER 600 mg tablet, extended release TAKE 1 TABLET BY MOUTH EVERY 12 HOURS NEEDED FOR 10 DAYSOTC active Not Available Not Available No t Available Eliquis 5 mg tablet TAKE 1 TABLET BY MOUTH TWICE A DAY active Not Available Not Available No t Available Entresto 24 mg-26 mg tablet TAKE 1 TABLET BY MOUTH TWICE A DAY FOR 30 DAYS active Not Available Not Available No t Available Vitals Date Recorded Body temperature Respiratory rate Heart rate Oxygen saturation Oxygen saturation in Arterial blood by Pulse oximetry Systolic blood pressure Diastolic blood pressure Provider Name and Address Organization Details Last Updated DateTime 3 98 [degF] 20 /min 68 /min 97 % 97 % 128 mm[Hg] 72 mm[Hg] Not Available [facility] 3 14:53:01 Date Recorded Oxygen saturation Oxygen saturation in Arterial blood by Pulse oximetry Respiratory rate Heart rate Body weight Body temperature Systolic blood pressure Diastolic blood pressure Provider Name and Address Organization Details Last Updated DateTime 4 98 % 98 % 16 /min 74 /min 520140 g 97.6 [degF] 118 mm[Hg] 76 mm[Hg] Not Available [facility] 4 17:08:30 Date Recorded Heart rate Oxygen saturation Oxygen saturation in Arterial blood by Pulse oximetry Body temperature Respiratory rate Systolic blood pressure Diastolic blood pressure Provider Name and Address Organization Details Last Updated DateTime 3 67 /min 98 % 98 % 97.1 [degF] 18 /min 100 mm[Hg] 64 mm[Hg] Not Available [employer] 3 12:32:42 Social History None recorded. Functional Status None recorded. Mental Status None recorded. Family History Nothing Reported. Medical History No medical history recorded. Gynecological HistoryNo gynecological history recorded. Obstetrics History GPAL:G 0 P 0 0 0 0 Past Encounters Encounter ID Performer Location Encounter Start Date Encounter Closed Date Diagnosis/Indication Diagnosis SNOMED-CT Code Diagnosis ICD10 Code Diagnosis Note [id number] Brent Gutierrez MD Main - [facility] [address] [place] [address] 10/21/2022 12:32:37 10/23/2022 10:17:52 Dysuria 58592016 R30.0 U/a negative. Will not treat empiricall y. Sent culture Upper resp iratory infection 14017368 J06.9 Continue supportive care [id number] Laya Anna MD Main - [facility] [address] [place] [phone] 06/27/2023 14:36:11 06/27/2023 15:35:48 Fall W19.XXXA Evaluation in the field was performed by my golf starter and ranger colleague, as noted above, I provided real-time direction and supervisio n for this visit. 73yo F evaluated after fall while on blood thinners 6 days ago, seen in [place] ED and CT head and Xrays unremarkab le and cleared to return home. Pt has ecchymosis /hematoma on forehead and wants guidance on how to improve it, not spreading but no resolving as quickly as she hoped. On golf starter and ranger eval VS all wnl. Small hematoma with purple discolorat ion. Reviewed ice, APAP, and time for resolution . We discussed the diagnostic uncertaint y of home visits and the risk associated with this. In this case, the patient and I felt this to be an acceptable and reasonable amount of risk given the benefit of avoiding an ED visit. We discussed the need to seek care urgently/e mergently in the setting of any new or worsening serious symptoms, shortness of breath, cough, chest pain, fever. [id number] GUIDO MONTANO MD Main - [facility] [address] [place] [phone] 02/12/2024 17:08:10 02/12/2024 23:59:22 Bilateral dermatofibroma of lower limbs [id number] 7149161 D23.71 Evaluation in the field was performed by my golf starter and ranger colleague, as noted above, I provided real-time direction and supervisio n for this visit. The evaluation revealed a 73-year-ol d female with a history of heart failure and chronic lower extremity edema on Torsemide 20 mg daily, as well as known lymphedema . Pt with complaints of hard, knob-like growths that appeared yesterday and are worsening. The patient denies pain or itching in the legs. The nodules are hard and not fluid-fill ed. She denies fever, chills, chest pain , shortness of breath , orthopnea, worsening of the leg swelling, or oozing/wee ping from the legs. She also denies fever or chills and has no prior similar findings. VSSLungs Clear, RRR, LE with baseline swelling for the patient . Small <1 cm hard nodules on the skin , no fluid filled. No weeping. Impression :Larry lee for dermatofib vanessa Plan:-The plan was for IV Lasix to help with the lower extremity edema, but the golf starter and ranger was unable to draw blood or establish IV access.-Th e patient has a follow-up appointmen t with her PCP in 1 week. --She will benefit a dermatolog y referral for further evaluation .-Red flags were discussed with the patient. Primary care, consider__ _ Dispositio n: We discussed the diagnostic uncertaint y of home visits and the risk associated with this. In this case, the patient and I felt this to be an acceptable and reasonable amount of risk given the benefit of avoiding an ED visit. We discussed the need to seek care urgently/e mergently in the setting of any new or worsening serious symptoms, particular ly fever, chills, shortness of breath, CP, worsening of the lower extremity swelling, pain on the legs, burning, weeping or any other concerns. Health Concerns Section Related Observation LastModified by Organization Detai ls LastModified Time None Recorded Concern Status LastModified by Organization Details LastModified Time None Recorded Advance Directives Directive None Recorded Payers Encounter Date Sequence Insurance Name Policy Number Policy Romano Covered Member ID Romano Member ID Guarantor Name 10/21/2022 1 [facility] - DOS PRIOR TO 2022 - DUAL ELIGIBLE (MEDICARE REPLACEMENT/ADV ANTAGE - HMO) Socorro Powell [id number] Socorro Powell 06/27/2023 1 [id number] [email or web address] - DOS ON OR AFTER 2022 - DUAL ELIGIBLE - SHELTER OPTIONS AND ONE CARE (MEDICARE REPLACEMENT/ADV ANTAGE - HMO) Socorro Powell [id number] Socorro Powell 02/12/2024 1 [facility] [email or web address] - DOS ON OR AFTER 2022 - DUAL ELIGIBLE - SHELTER OPTIONS AND ONE CARE (MEDICARE REPLACEMENT/ADV ANTAGE - HMO) Socorro Powell [id number] Socorro Powell Notes Date Note Type Note Provider Name and Address Organization Details Recorded Time 10/21/2022 text/html [facility] Nursing Assessment: Patient Reports: Cough Chief Complaints: UTI/Pyelonephritis, URI PMH: Heart Disease Allergies: Penicillin Comments: Member calling with request for eval URI x 1 week + cough deny fevers Neg home test Also concern for UTI Urine dark in color past few days. deny dysuria Verify member name/- ................... ................... ................... ................... ................... ................... ................... ........ New Grad Rn Note From Mitchell Arita: ~ Narrative Pt found edmond to baseline sitting in chair. Pt presented normal skin color, temp and condition with patent airway normal respirations. Pt speaking in full sentences. Pt reports one week of dry cough green looge stool, nausea, vomiting, stuffy nose and abdominal discomfort. Pt tested negative for covid and flu. Urine sample collected for Pt took pepto-bismol and encouraged to use OTC medication for cough. Pt encouraged to follow up with PCP. New Grad Rn Allergies: Penicillin ................... ................... ................... ................... ................... ................... ................... ........ Disposition: Fulfilled Brent Gutierrez MD [address] [facility],[address], [place], [phone], [place] [employer] 10/21/2022 14:56:11 06/27/2023 text/html [facility] Nurse Triage Notes (Rosalinda Day): Reason For Request: Pt reporting last saturday, leilani cracked in half and mbr fell to the floor in which she had hit her head, which resulted in a lump of head....called 911 and went to [facility] which a catscan happened to make sure no internal brain bleeding>mbr reporting lump on head and is aware it could take its course to heal but somewhat concerned. Chief Complaints: Wound Care, Falls PMH: Heart Disease Allergies: Penicillin Comments: Member has lump on head that she would like to be evaluated to make sure it is healing appropriately . Member is on eliquis. CT showed no bleed whole body completed Member denies pain / RHODES / dizziness / or vision changes ................... ................... ................... ................... ................... ................... ................... ........ New Grad Rn Note From Nish James: SC12 dispatched to location for PT with swelling/bruising. U/A to location PT 73 .o. female found sitting in chair. PT presents awake EDMOND? 4 with pink/warm/dry skin speaking full sentences. PT states she had a fall last saturday (6 days ago) causing her to hit head and go to the ER. PT denies LOC from the fall. PT states she is on blood thinners (Eliquis). PT states the ER did full CT scan and X-ray stating no bleeding or broken bones and discharged PT home. PT states due to the fall she has swelling to right side of forehead, a bruised/black right eye, and bruising to right side of neck. PT states the bruising and swelling have all gone down slowly. PT presents with no CVA symptoms and denies headache. PT states she did ice the locations the first couple of days but stopped. PT states she self administered tylenol as needed as well. PT wants to make sure everything looks ok and is wondering if there is anything else she can do to help improve swelling/bruising. [facility] contacts [facility] with verbal report on PT present illness. [facility] suggests increased ice packs and tylenol as needed and understand due to blood thinners the healing is going to take time. PT instructed if swelling/bruising become worse to call 911. All red flags discussed and NC12 clears scene. *All times are approximate* New Grad Rn Allergies: Penicillin ................... ................... ................... ................... ................... ................... ................... ........ Disposition: Fulfilled Laya Anna MD [address] [place] [address],[address], [place], [phone], [employer] 06/27/2023 15:35:46 02/12/2024 text/html [facility] Nurse Triage Notes (Halle Chavarria): Reason For Request: legs swelling/poss cellulitis Chief Complaints: Edema, Cellulitis PMH: Heart Disease, Other Allergies: Penicillin Comments: Medical Insurance Claims Specialist verified the member's name//address and phone number. Patient has history of Lymphedema. Patient reports increased swelling to LEs over the last couple of day. Noticed bumps to LEs and tenderness. Reports increased redness. Denies shortness of breath. No drainage. No fever. Appt with PCP next Sat. Called PCP regarding issue today but has not heard back. Education provided on the response time and the member was advised to monitor reported s/s and seek emergency treatment if needed. ................... ................... ................... ................... ................... ................... ................... ........ New Grad Rn Note From Kiran Diaz: Pt co edema and hard knob like growths that appeared yesterday and are worsening. Pt sts no pain or itching. Knobs are hard not fluid fillled. No oozing or wheeping. Pt denies fever , NVD, dizziness , cp or sob. Denies bleeding. Baseline vitals assessed, lungs clear. Afebrile [facility] contacted and advised to follow up with pcp for almond roaster appt. Pt has appt weds. Pt education on signs indicating the ER. Pt advised to continue with appt weds. Consent under review. Photos uploaded of extremities. New Grad Rn Allergies: Penicillin ................... ................... ................... ................... ................... ................... ................... ........ Disposition: Suraj MONTANO MD [address] [facility],[address], [place], [phone], [employer] 02/12/2024 20:57:59 OBGyn Episode No OBEpisode recorded.
--- OUTSIDE RECORDS SUMMARY | 2024-09-23 15:02 | XMS_ITS | Continuity of Care Document ---
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 Name Role Phone Kaye Pinto NP Primary Care Physician [place] [facility] [place] 09/02/24 - 09/09/[address] [address]- Encounter Diagnosis Colon cancer screening(Discharge Diagnosis) - 09/02/24 Urinary frequency(Discharge Diagnosis) - 09/02/24 Severe obesity(Discharge Diagnosis) - 09/02/24 CHF (congestive heart failure)(Discharge Diagnosis) - 09/02/24 Afib(Discharge Diagnosis) - 09/02/24 Attending Physician: Kaye Pinto NP Encounter Type: Office Visit Allergies, Adverse Reactions, Alerts Substance Criticality Severity Reaction Reaction Severity Status penicillins Active Immunizations Given and Recorded Vaccine Date Status Refusal Reason influenza virus vaccine, inactivated 03/26/24 Louie rded influenza virus vaccine, inactivated 04/04/23 Louie rded influenza virus vaccine, inactivated 03/22/22 Louie rded influenza virus vaccine, inactivated 04/07/21 Give n influenza virus vaccine, inactivated 04/23/20 Give n influenza virus vaccine, inactivated 1 04/24/18 Gi clarke influenza virus vaccine, inactivated 04/11/17 Give n influenza virus vaccine, inactivated 05/03/16 Give n influenza virus vaccine, inactivated 2 05/04/15 Re corded influenza virus vaccine, inactivated 05/02/15 Louie rded influenza virus vaccine, inactivated 04/25/14 Louie rded influenza virus vaccine, inactivated 04/15/13 Louie rded influenza virus vaccine, inactivated 04/25/12 Louie rded influenza virus vaccine, inactivated 07/29/08 Louie rded SARS-CoV-2(COVID-19)mRNA-LNP vac([id number]) 03/26/24 Recorded SARS-CoV-2(COVID-19)mRNA-LNP vac([id number]) 06/14/23 Recorded [id number] 12y+ bivalent booster vax 05/09/22 Recorded SARS-CoV-2 (COVID-19) mRNA-1273 vaccine 11/16/21 R ecorded SARS-CoV-2 (COVID-19) mRNA BNT-162b2 vac 05/16/21 Recorded SARS-CoV-2 (COVID-19) Ad26 vaccine 09/28/20 Record ed tetanus-diphtheria toxoids (Td) 09/11/18 Recorded tetanus-diphtheria toxoids (Td) 09/04/12 Recorded pneumococcal 13-valent vaccine 05/03/16 Given pneumococcal 23-valent vaccine 3 05/02/15 Given Zoster Vaccine Live 4 10/27/14 Given tetanus/diphtheria/pertussis, acel(Tdap) 5 07/29/08 Given 1Result Comment: [04/24/2018] [facility] [id number] [facility] [id number] [address] 2Location History: [facility] 3Admin Note: [facility] 4Admin Note: [facility] 5Admin Note: [facility] Medications acetaminophen 500 mg oral tablet 1 tablet = 500 mg, By Mouth, Every 4 hours, PRN as needed for pain, # 100 tablet, 0 Refills, Maintenance, 04/06/21 5:28:00 PM EDT, Tablet, Partial fill upon patient request if the prescription is for a schedule II opioid drug. Start Date: 04/06/21 Status: Ordered Quantity: 100.0 Unit: tablet Repeat number: 1 BRIEFFS XL BRIEFFS XL, See Instructions, # 90 each, Refills 11, Tot. Refills 11, Maintenance, DX MIXED URINARYINCONTINENCE N 39.46 USE 3 PER DAY HEIGHT 4 FT 11 IN WEIGHT 203 LBS, 03/09/24 10:27:00 AM EDT, Supply Start Date: 03/09/24 Status: Ordered Quantity: 90.0 Unit: each Repeat number: 12 carvedilol 12.5 mg oral tablet See Instructions, TAKE 1 TABLET BY MOUTH TWICE A DAY, # 180 tablet, Refills 3, Maintenance, 252:00:00 PM EST, Instructions Replace Required Details, Route to Pharmacy Electronically, [id number], 153, cm, 05/12/24 10:11:00 EST, Height, 108.86, kg, 05/14/23 11:36:00 EST, Dry Weight Start Date: 07/22/24 Status: Ordered Quantity: 180.0 Unit: tablet Repeat number: 1 Commode liners Commode liners, See Instructions, # 4 pack/packet, Refills 11, Tot. Refills 11, Maintenance, DX MIXED URINARY INCONTINENCE N 39.46 USE 3 PER DAY HEIGHT 4 FT 11 IN WEIGHT 203 LBS, 03/09/24 10:25:00 AM EDT, Supply Start Date: 03/09/24 Status: Ordered Quantity: 4.0 Unit: pack/packet Repeat number: 12 CoQ10 300 mg oral capsule 1 capsule = 300 mg, By Mouth, Daily, 0 Refills, Maintenance, 08/08/22 10:16:00 AM EST, Partial fill upon patient request if the prescription is for a schedule II opioid drug. Start Date: 08/08/22 Status: Ordered Repeat number: 1 DISPOSABLE BLUE CHUCKS DISPOSABLE BLUE CHUCKS, See Instructions, # 60 each, Refills 11, Tot. Refills 11, Maintenance, DX MIXED URINARY INCONTINENCE N 39.46 USE 2 PER DAY HEIGHT 4 FT 11 IN WEIGHT 203 LBS, 08/09/23 2:59:00 PM EST, Supply Start Date: 08/09/23 Status: Ordered Quantity: 60.0 Unit: each Repeat number: 12 Eliquis 5 mg oral tablet 1 tablet, By Mouth, 2 times a day, # 180 tablet, 1 Refills, Maintenance, 01/27/24 8:02:00 AM EDT, [id number], 153, cm, 05/14/23 11:36:00 EST, Height, 108.86, kg, 05/14/23 11:36:00 EST, Dry Weight Start Date: 01/27/24 Status: Ordered Quantity: 180.0 Unit: tablet Repeat number: 1 Entresto 24 mg-26 mg oral tablet 1 tablet, By Mouth, 2 times a day, # 180 tablet, 3 Refills, Maintenance, 12/16/23 5:03:00 PM EDT, Tablet, [facility]/pharmacy #[id number], Partial fill upon patient request if the prescription is for a schedule IIopioid drug., 1 tablet By Mouth 2 times a day,x90 days, 153, cm, 05/14/23 11:36:00 EST, Height, 108.86, kg, 05/14/23 11:36:00 EST, Dry Weight Start Date: 12/16/23 Stop Date: 12/10/24 Status: Ordered Quantity: 180.0 Unit: tablet Repeat number: 4 Fish Oil By Mouth, 0 Refills, Maintenance, 08/08/22 10:16:00 AM EST, Partial fill upon patient request if the prescription is for a schedule II opioid drug. Start Date: 08/08/22 Status: Ordered Repeat number: 1 fluticasone 50 mcg/inh nasal spray See Instructions, SPRAY 1 SPRAY INTO EACH NOSTRIL EVERY DAY, # 3 each, 0 Refills, Maintenance, 06/08/24 3:44:00 PM EST, [facility]/pharmacy #[id number], SPRAY 1 SPRAY INTO EACH NOSTRIL EVERY DAY, 153, cm, 05/12/2410:11:00 EST, Height, 108.86, kg, 05/14/23 11:36:00 EST, Dry Weight Start Date: 06/08/24 Status: Ordered Quantity: 3.0 Unit: each Repeat number: 1 Gloves large Gloves large, See Instructions, # 2 pack/packet, Refills 11, Tot. Refills 11, Maintenance, DX MIXEDURINARY INCONTINENCE N 39.46 USE 3 PER DAY HEIGHT 4 FT 11 IN WEIGHT 203 LBS, 08/09/23 3:10:00 PM EST,Supply Start Date: 08/09/23 Status: Ordered Quantity: 2.0 Unit: pack/packet Repeat number: 12 Lumigan 0.01% ophthalmic solution 1 drops, Eyes, Both, Daily in PM, # 5 mL, 0 Refills, Maintenance, 01/23/23 8:59:00 PM EDT, Solution,Partial fill upon patient request if the prescription is for a schedule II opioid drug. Start Date: 01/23/23 Status: Ordered Quantity: 5.0 Unit: mL Repeat number: 1 Macrobid macrocrystals-monohydrate 100 mg oral capsule 1 capsule = 100 mg, By Mouth, 2 times a day, for 7 days, # 14 capsule, 0 Refills, Acute 09/14/24 7:01:00 AM EDT, 09/07/24 7:01:00 AM EDT, Capsule, [facility]/pharmacy #[id number], Partial fill upon patient request if the prescription is for a schedule II opioid drug., 153, cm, 09/02/24 13:19:00 EST, Height, 108.86, kg, 05/14/23 11:36:00 EST, Dry Weight Start Date: 09/07/24 Stop Date: 09/14/24 Status: Ordered Quantity: 14.0 Unit: capsule Repeat number: 1 methimazole 5 mg oral tablet 5 mg, 1, tablet, By Mouth, Daily, # 90 tablet, Refills 3, Tot. Refills 3, Maintenance, 09/03/24 7:07:00 AM EST, Route to Pharmacy Electronically, [facility]/pharmacy #[id number], 153, cm, 09/02/24 13:19:00 EST, Height, 108.86, kg, 05/14/23 11:36:00 EST, Dry Weight Start Date: 09/03/24 Status: Ordered Quantity: 90.0 Unit: tablet Repeat number: 4 Multivitamin Tablet By Mouth, Daily, 0 Refills, Maintenance, 09/28/15 9:15:09 AM EDT Start Date: 09/28/15 Status: Ordered Repeat number: 1 nystatin topical 927873 u/gm powder See Instructions, APPLY TO AFFECTED AREA TWICE A DAY, # 60 Gm, 0 Refills, Physician Stop 11/17/24 9:21:00 AM EDT, 11/18/23 9:21:00 AM EDT, [facility]/pharmacy #[id number], 60, APPLY TO AFFECTED AREA TWICE A DAY, 153, cm, 05/14/23 11:36:00 EST, Height, 108.86, kg, 05/14/23 11:36:00 EST, Dry Weight Start Date: 11/18/23 Stop Date: 11/17/24 Status: Ordered Quantity: 60.0 Unit: g Repeat number: 1 spironolactone 25 mg oral tablet See Instructions, TAKE 1 TABLET BY MOUTH EVERY DAY, # 90 tablet, Refills 1, Maintenance, 06/03/24 7:14:00 AM EST, Instructions Replace Required Details, Route to Pharmacy Electronically, [id number], 153, cm, 05/12/24 10:11:00 EST, Height, 108.86, kg, 05/14/23 11:36:00 EST, Dry Weight Start Date: 06/03/24 Status: Ordered Quantity: 90.0 Unit: tablet Repeat number: 1 Timolol Maleate (Eqv-Timoptic) 0.5% ophthalmic solution 1 drops, Eye, Left, 2 times a day Start Date: 04/06/21 Status: Ordered Repeat number: 1 torsemide 20 mg oral tablet 1 tablet = 20 mg, By Mouth, Daily, # 90 tablet, 1 Refills, Maintenance, 02/19/24 4:28:00 PM EDT, Tablet, [facility]/pharmacy #[id number], Partial fill upon patient request if the prescription is for a schedule II opioid drug., 153, cm, 02/19/24 15:35:00 EDT, Height, 108.86, kg, 05/14/23 11:36:00 EST, Dry Weight Start Date: 02/19/24 Stop Date: 08/17/24 Status: Ordered Quantity: 90.0 Unit: tablet Repeat number: 2 Ultra Fresh P.M. ophthalmic ointment 1 application, Eyes, Both, Daily at bedtime, PRN for dry eyes, # 3.5 Gm, 0 Refills, Maintenance, 08/07/22 4:27:00 PM EST, Ointment, [facility]/pharmacy #[id number], Partial fill upon patient request if the prescription is for a schedule II opioid drug., 1 application Eyes, Both Daily at bedtime,x30 days,PRN:for dry eyes, 152, cm, 08/07/22 14:46:00 EST, Height, 113.4, kg, 04/06/21 1:13:00 EDT, Dry Weight Start Date: 08/07/22 Stop Date: 09/06/22 Status: Ordered Quantity: 3.5 Unit: g Repeat number: 1 Vitamin C 500 mg oral tablet 1 tablet, By Mouth, 2 times a day, # 180 tablet, 2 Refills, [facility], 152, cm, 05/19/21 12:57:00 EST, Height, 113.4, kg, 04/06/21 1:13:00 EDT, Dry Weight Start Date: 08/29/21 Status: Ordered Quantity: 180.0 Unit: tablet Repeat number: 1 monalisa sheldon, See Instructions, # 30 pack/packet, Refills 11, Tot. Refills 11, Maintenance, DX MIXED URINARY INCONTINENCE N 39.46 USE 3 PER DAY HEIGHT 4 FT 11 IN WEIGHT 203 LBS, 08/09/23 3:08:00 PM EST, Supply Start Date: 08/09/23 Status: Ordered Quantity: 30.0 Unit: pack/packet Repeat number: 12 Problem List Condition Confirmation Course Effective Dates Status H ealth Status Informant Allergy Confirmed Active Afib Confirmed Active Breast lump in female, at 7 o'clock Confirmed Active CHF (congestive heart failure) Confirmed Active Glaucoma Confirmed Active HTN (hypertension) Confirmed Active Hyperthyroidism Confirmed Active Lymphedema of lower extremity, chronic 1 Confirmed Active Morbid obesity with BMI of 50.0-59.9, adult Confirmed Active Noncompliance with medication regimen Confirmed Active Non compliance w medication regimen Confirmed Active JUAN on CPAP Confirmed Active OA (osteoarthritis) Confirmed Active Osteoporosis Confirmed Active Severe obesity Confirmed Active Vitamin D deficiency disease Confirmed Active 1with papilomas Diagnosis Diagnosis Type Effective Dates Health Status Cl inical Service Informant Colon cancer screening Discharge Diagnosis 09/02/24 Urinary frequency Discharge Diagnosis 09/02/24 Severe obesity Discharge Diagnosis 09/02/24 CHF (congestive heart failure) Discharge Diagnosis 09/02/24 Afib Discharge Diagnosis 09/02/24 Vital Signs Most recent to oldest [Reference Range]: 1 Height 153 cm (09/02/24 1:19 PM) Weight 108 kg (09/02/24 1:19 PM) Oxygen Saturation [94-100 %] 98 % (09/02/24 1:19 PM) Pulse Rate [55-90 bpm] 77 bpm (09/02/24 1:19 PM) Body Mass Index [18.5-24.99 kg/m2] 46.14 kg/m2 *>HHI* (09/02/24 1:19 PM) Blood Pressure [90-138/55-84 mm Hg] 113/ 67mm Hg (09/02/24 1:19 PM) Temperature [96.8-100.4 DegF] 98.7 DegF (09/02/24 1:19 PM) Mode of Delivery (Oxygen) Room air (09/02/24 1:19 PM) Blood pressure sites Arm, left (09/02/24 1:19 PM) Temperature Route Oral (09/02/24 1:19 PM) Weight Obtained Via Patient/family state d (09/02/24 1:19 PM) Social History Social History Type Response Smoking Status Never (less than 100 in lifetime) entered on: 05/14/23 Sex Sex Representation Female (finding) Note * Venessa Callaway: PERFORM Event Display: Patient Education/Instruction Authored Date: [id number] Ambulatory Adult Visit Summary [facility] [address] [place] [address] Name: NEIDA SMITH : 1950?? Visit: 09/02/2024 13:19?? Ambulatory Visit Instructions ?? Your Care Team Primary Care Provider Kaye Pinto NP? This Visit Provider Kaye Pinto NP Your Diagnosis Colon cancer screening Colon cancer screening Urinary frequency Lymphedema of lower extremity, chronic Severe obesity CHF (congestive heart failure) Afib Acute on chronic HFrEF (heart failure with reduced ejection fraction) Vitals Signs Temperature: 98.7 DegF Height: 153 cm Pulse Rate: 77 bpm Weight: 108 kg Systolic Blood Pressure: 113 mm Hg Body Mass Index:??46.14 kg/m2??Critical Diastolic Blood Pressure: 67 mm Hg Body surface area: 2.14 Oxygen Saturation: 98 % ?? What to do next Future Orders Complete Urinalysis (UA) - Routine, Once, 05/13/24 16:56:00 EST, Within 3 Days, [facility], Urine?? Urine Culture - Routine, Once, Please run STAT, 05/13/24 16:56:00 EST, Within 3 Days, [facility], Urine Clean Catch?? TSH Rfx on Abnormal to Free T4 - Routine, Once, 08/25/24 3:00:00 EST every 4 week(s) for 26 week(s), Single or Recurring Future Order, [facility], Blood?? B Type Natriuretic Peptide (NT-proBNP) (NT ProBNP) - Routine, Once, 08/28/24 9:38:00 EST, Future Order, [facility], Blood?? Lipid Panel - Routine, Once, 08/28/24 9:38:00 EST, Future Order, [facility], Blood?? Basic Metabolic Panel - Routine, Once, 08/28/24 9:38:00 EST, Future Order, [facility], Blood?? Fecal Occult Blood Immunochemical - Routine, Once, 09/02/24 13:54:00 EST, Order for Today, [facility],Stool?? Medications The list below reflects the information in our records and provided by you today along with any changes made during this visit. Please continue your medications until treatment is completed or stopped by your provider. If this is different from the information you have or there are other questions,please contact the prescribing provider. What How Much When Instructions Unchanged Acetaminophen (acetaminophen 500 mg oral tablet) 1 tab(s) Oral Every 4 hours as needed for as needed for pain Unchanged apixaban (Eliquis 5 mg oral tablet) 1 tab(s) Oral Twice a day Unchanged Ascorbic Acid (Vitamin C 500 mg oral tablet) 1 tab(s) Oral Twice a day Unchanged Bimatoprost Ophthalmic (Lumigan 0.01% ophthalmic solution) 1 Drops Both eyes Daily in PM Unchanged Carvedilol (carvedilol 12.5 mg oral tablet) See instructions TAKE 1 TABLET BY MOUTH TWICE A DAY ?? Unchanged Durable Medical Equipment (BRIEFFS XL) See instructions DX MIXED URINARY INCONTINENCE ??N 39.46 USE 3 PER DAY HEIGHT 4 FT 11 IN WEIGHT 203 LBS ?? Unchanged Durable Medical Equipment (Commode liners) See instructions DX MIXED URINARY INCONTINENCE ??N 39.46 USE 3 PER DAY HEIGHT 4 FT 11 IN WEIGHT 203 LBS ?? Unchanged Durable Medical Equipment (DISPOSABLE BLUE CHUCKS) See instructions DX MIXED URINARY INCONTINENCE ??N 39.46 USE 2 PER DAY HEIGHT 4 FT 11 IN WEIGHT 203 LBS ?? Unchanged Durable Medical Equipment (Gloves large) See instructions DX MIXED URINARY INCONTINENCE ??N 39.46 USE 3 PER DAY HEIGHT 4 FT 11 IN WEIGHT 203 LBS ?? Unchanged Durable Medical Equipment (whipes) See instructions DX MIXED URINARY INCONTINENCE ??N 39.46 USE 3 PER DAY HEIGHT 4 FT 11 IN WEIGHT 203 LBS ?? Unchanged Fluticasone Nasal (fluticasone 50 mcg/ inh nasal spray) See instructions SPRAY 1 SPRAY INTO EACH NOSTRIL EVERY DAY ?? Unchanged Methimazole (methimazole 5 mg oral tablet) See instructions 1 tablet By Mouth 5 days weekly ?? Unchanged Multivitamin (Multivitamin Tablet) Oral Daily Unchanged Nystatin Topical (nystatin topical 899809 u/ gm powder) See instructions APPLY TO AFFECTED AREA TWICE A DAY ?? Unchanged Ocular Lubricant (Ultra Fresh P.M. ophthalmic ointment) 1 ge Both eyes Daily at Bedtime as needed for for dry eyes Duration: 30 Days Unchanged [place]-3 Polyunsaturated Fatty Acids (Fish Oil) Oral Unchanged sacubitril-valsartan (Entresto 24 mg-26 mg oral tablet) 1 tab(s) Oral Twice a day Duration: 90 Days Unchanged Spironolactone (spironolactone 25 mg oral tablet) See instructions TAKE 1 TABLET BY MOUTH EVERY DAY ?? Unchanged Timolol Ophthalmic (Timolol Maleate (Eqv-Timoptic) 0.5% ophthalmic solution) 1 Drops Left eye Twice a day Unchanged torsemide (torsemide 20 mg oral tablet) 1 tab(s) Oral Daily Duration: 90 Days Unchanged Ubiquinone (CoQ10 300 mg oral capsule) 1 capsule Oral Daily Test Performed Below is a partial list of the tests performed during your Visit. You may have had other tests and procedures not included in this list. Please discuss all test results with your provider. Fecal Occult Blood Immunochemical?-- Results Pending -- Medications and Immunizations Administered Medications Given During Visit No medications given during this visit.?? Allergies (NKA means No Known Allergies) penicillins Common Emergency Awareness Tips IS IT A STROKE? Act FAST and Check for these signs: FACE Does the face look uneven? ARM Does one arm drift down? SPEECH Does their speech sound strange? TIME Call at any sign of stroke ?? Heart Attack Signs Chest discomfort: Most heart attacks involve discomfort in the center of the chest and lasts more than a few minutes, or goes away and comes back. It can feel like uncomfortable pressure, squeezing, fullness or pain. Discomfort in upper body: Symptoms can include pain or discomfort in one or both arms, back, neck, jaw or stomach. Shortness of breath: With or without discomfort. Other signs: Breaking out in a cold sweat, nausea, or lightheaded. Remember, MINUTES DO MATTER. If you experience any of these heart attack warning signs, call to get immediate medical attention! ?? Smoking can increase your chances of developing chronic health problems and can cause harmful effects to other family members in your house. If you smoke, you are strongly encouraged to quit. Please call [facility] at [phone] or [phone] ([phone]) or log in to [email or web address] for referrals to smoking cessation programs. ?? The National Suicide Prevention Hotline is available 21/01 if you or someone you know needs to find a reason to keep living. By calling 6-911-619-SnapMD (4195) you'll be connected to a skilled, trained counselor at a crisis center in your area. [facility] Portal You can view and manage your care through the patient portal or by using a health care ge of your choosing. [employer] is a website that allows you to securely view your medical information including your hospital discharge summary, office visit summaries, medications and follow-up visits. You can also request appointments, renew medications, and request access to your medical information using a health care ge of your choosing, or just ask a question. You can enroll at [email or web address] or register during your next office visit. [facility], in keeping with [facility] guidance, no longer requires face masks for staff, patientsor visitors in most situations. Similiar to time spent indoors at other locations, there is the chance that you were exposed to repiratory viruses during your time with us (such as flu or COVID-19). If you develop symptoms concerning for a viral respiratory infection, please seek testing (and treatment if indicated) from your medical provider or home test kit. ?? Disclaimer: The information provided is of a general nature and is intended to be used in conjunction with the recommendations and advice of your health care practitioner. Every effort has been made to ensure that the information provided is accurate and complete at the time it is provided to you however, as your needs change, or, as new information becomes available, different or additional instructions may be required. ?? If you have questions, please consult with your primary care provider or pharmacist, as appropriate. This information is not intended to serve as substitution for assessment and evaluation by a qualified health care provider. If you do not have a primary care provider, you may find a [facility] provider by calling [employer] at [phone]. Patient Care team information Care Team Personnel Name: Hayde Lei RN Position: [facility] RN Member Role: Primary Care Nurse Name: Anne Osborne RN Position: [facility] RN Member Role: Primary Care Nurse Name: Taya Muniz RN Position: [facility] RN Member Role: Primary Care Nurse Name: Mindi Hahn RN Position: [facility] RN Member Role: Primary Care Nurse Name: Kaye Pinto NP Position: [facility] PCO Associate Professional Member Role: PCP Address: [address] [place] [address] Telecom: Name: Liat King RN Position: [facility] RN Member Role: Primary Care Nurse Name: Estefanía Funez RN Position: [facility] RN Member Role: Primary Care Nurse Care Team Related Persons Name: KASEY TAVERAS Name: WALT YAN Name: KASEY HANNA Insurance Providers Guarantor name: NEIDA SMITH Health Plan Information #: 1 Payer: NA Member Number: [id number] Policy Number: NA Group Number: Health Plan Information #: 2 Payer: NA Member Number: [id number] Policy Number: Group Number: [id number]
== END 2024-09-23 12:43 | disposition home or self-care (01) ==
LOC: HO.US 12:42
PROVIDERS: Visit Provider Urology
DX: N39.0 Urinary tract infection, site not specified (principal); R35.1 Nocturia
CPT/HCPCS: 76775

== ENCOUNTER → 2024-09-23 12:44 | Outpatient (BNV) | payer OTHER, SELFPAY | PROVIDERS: Visit Provider Radiology Diagnostic Radiology | DX: N39.0 Urinary tract infection, site not specified (principal) | CPT/HCPCS: 76775 ==

== ENCOUNTER 2024-12-05 13:23 | Emergency (ER) | payer OTHER, SELFPAY ==
--- NOTE | 2024-12-05 | ECG_ITS ---
Test Reason : WEAKNESS Blood Pressure : */* mmHG Vent. Rate : 59 BPM Atrial Rate : * BPM P-R Int : * ms QRS Dur : 106 ms QT Int : 420 ms P-R-T Axes : * 35 68 degrees QTcB Int : 415 ms Atrial fibrillation with slow ventricular response Low voltage QRS Incomplete left bundle branch block Abnormal ECG When compared with ECG of 15-Jun-2023 21:04, No significant change was found Referred By: Isac Henley Electronically Signed By: BOYD KRISHNAN
--- NOTE | ~2024-12-05 | XR_ITS ---
CLINICAL HISTORY: weakness Chest Radiographs, 2 views Comparison: None Findings: Cardiomegaly. Normal mediastinal contours. No pneumothorax. No opacity. No pleural effusion. Normal upper abdomen. No acute fracture. Impression: No acute findings. This document has been electronically signed by: Amparo Mccarthy MD on 12/05/2024 14:29:15
--- NOTE | ~2024-12-05 | CT_ITS ---
CLINICAL HISTORY: dizzy CT head without contrast Comparison: 06/15/23 Findings: No acute hemorrhage. No extra-axial fluid collection. Cavum septum pellucidum et vergae, a normal variant. No hydrocephalus, mass-effect or herniation. Ybarra-white differentiation is maintained. White matter is within normal limits for age. No acute orbital pathology. No acute soft tissue abnormality. No fracture. The visualized paranasal sinuses are predominantly clear. The mastoid air cells are clear. Impression: No acute findings. This document has been electronically signed by: Amparo Mccarthy MD on 12/05/2024 14:56:31
[2024-12-05 13:32] VITALS: BP 120/66; PULSE 65; RESP 14; TEMP 36.8; O2SAT 97; BMI 47.8
--- NOTE | 2024-12-05 13:39 | PC.NURSE ---
Patient reports that she took all of her scheduled morning medications, including Eliquis.
--- NOTE | 2024-12-05 13:48 | ED_ITS ---
HPI - General Adult General Chief complaint: General Medical Stated complaint: BLURRED VISION Time Seen by Provider: 12/05/24 13:30 Source: patient and EMS Mode of arrival: EMS Limitations: no limitations History of Present Illness ED Provider: HPI narrative: 74-year-old woman with history of AFib, on blood thinners, presented with an episode of blurred vision, tingling of the left arm, she was waiting to eat her was quick on and started to improve by the time she presented to the ER, evaluated the patient upon arrival via EMS she did not meet stroke activation criteria. Speaking full sentences, good historian. No chest pain, shortness of breath, abdominal pain, she has mostly nonambulatory, uses a wheelchair and a walker history of lymphoma edema. Related Data Home Medications ?Medication ?Instructions ?Recorded ?Confirmed apixaban 5 mg tablet (Eliquis) 5 mg PO BID 09/28/21 01/12/23 carvedilol 12.5 mg tablet 12.5 mg PO BID 09/28/21 01/12/23 nystatin 100,000 unit/gram topical 1 appl topical DAILY PRN Itching 09/28/21 01/12/23 powder spironolactone 25 mg tablet 25 mg PO DAILY 09/28/21 01/12/23 fluticasone propionate 50 1 spray intranasal DAILY PRN 10/24/22 01/12/23 mcg/actuation nasal Allergy Symptoms spray,suspension methimazole 5 mg tablet 5 mg PO DAILY 10/24/22 01/12/23 sacubitril 24 mg-valsartan 26 mg 1 tab PO BID 10/24/22 01/12/23 tablet (Entresto) bimatoprost 0.01 % eye drops 1 drp ophthalmic (eye) DAILY 12/10/22 01/12/23 (Lumigan) dorzolamide 22.3 mg-timolol 6.8 1 drp ophthalmic-Left BID 12/10/22 01/12/23 mg/mL eye drops docusate sodium 100 mg capsule 100 mg PO BID 01/12/23 01/12/23 torsemide 20 mg tablet 20 mg PO DAILY 05/25/24 Previous Rx's ?Medication ?Instructions ?Recorded oxycodone 5 mg tablet 5 mg PO Q4H PRN pain (scale score 01/09/23 7-10) #24 tabs loperamide 2 mg capsule 2 mg PO Q6H PRN loose stool #14 01/15/23 (Anti-Diarrheal (loperamide)) caps nitrofurantoin 100 mg PO BID uti #20 caps 05/25/24 monohydrate/macrocrystals 100 mg capsule (Macrobid) Allergies Allergy/AdvReac Type Severity Reaction Status Date / Time Penicillins [PENICILLINS] Allergy Unknown UNKNOWN Verified 12/05/24 13:36 Review of Systems 2 Constitutional: Constitutional: Reports as per HPI [facility] Past Medical History Medical History Hx of usp use of blood thinners JUAN (obstructive sleep apnea) Heart failure Afib Glaucoma Does mobilize using walker Breast mass, right Hypertension Arthritis Lymphedema Surgical History Hx of endoscopic retrograde cholangiopancreatography History of bilateral breast reduction surgery History of hysterectomy Family History Family History Mother Vaginal cancer Brother Eye cancer Social History Social History Household Members: None Housing: Apartment Are you a primary memory care program director to a significant other at home: No Do you presently have visiting nurse or other home services: No (aids come to the house 2 hours everyday) Alcohol intake: former Patient Tobacco Use Status: Never used Tobacco Second Hand Smoke Exposure: No Advance Directives: No Advance Directives Information Provided: No Advance Directives Date on File: 10/24/22 service: No Physical Exam ED Vital Signs: Vital Signs - 24 hr 12/05/24 13:32 Temperature 98.2 F Pulse Rate 65 Respiratory Rate 14 Blood Pressure 120/66 Pulse Oximetry 97 Oxygen Delivery Method Room Air BMI result Body Mass Index 47.8 NIH Stroke Scale Internal: Initial- Upon Arrival Level of Consciousness: Alert Level of Consciousness Questions: Answers both questions correctly Level of Consciousness Commands: Performs both tasks correctly Best Gaze: Normal Visual: No visual loss Facial Palsy: Normal Motor Arm (Right): No drift Motor Arm (Left): No drift Motor Leg (Right): No drift Motor Leg (Left): No drift Limb Ataxia: Absent Sensory: Normal Best Language: No aphasia Dysarthia: Normal Extinction and Inattention: No abnormality Score: 0 Medical Decision Making Medical Decision Making [facility] Narrative: 14:13 patient evaluated for dizziness, tingling in her left arm, did not meet a stroke criteria for activation, do not feel that she require a CTA, we will obtain not contrast CT to evaluate for any masses, bleed, otherwise she is well- appearing, neurologically intact, we will give fluids, make sure her symptoms are not related to cardiac symptoms that is my highest her consideration, no hypoxia tachycardia and she is on blood thinners I do not suspect PE otherwise disposition to be determined. Differential Diagnosis Differential Diagnoses: The differential diagnosis associated with the presentation includes Cerebellar stroke, dehydration, seizures, cerebral stroke, trauma, ACS, UTI, electrolyte derangements Admission/Observation Consideration of admission/observation: Escalation of care including admission/observation considered Lab Data [facility] Lab Attestation statement: I reviewed the patient's lab results. 12/05/24 14:41 12/05/24 14:41 Labs: Lab Results 12/05/24 Range/Units 14:41 WBC 9.1 (4.8-10.8) X10*3/uL RBC 4.75 (4.20-5.50) X10*6/uL Hgb 14.0 (12.0-16.0) g/dl Hct 43.1 (37.0-47.0) % MCV 90.7 (80.0-98.0) fL MCH 29.5 (27.0-33.0) pg MCHC 32.5 (31.0-35.0) g/dl RDW 14.9 (11.0-16.0) % Plt Count 141 L (160-400) X10*3/uL MPV 9.3 L (9.4-12.3) fL Immature Gran % (Auto) 0.2 (0.0-0.4) % Neut % (Auto) 74.5 H (45-73) % Lymph % (Auto) 16.5 L (20-40) % [place] % (Auto) 7.0 (2-11) % Eos % (Auto) 1.0 (0-4) % Baso % (Auto) 0.8 (0-2) % Lymph # (Auto) 1.5 (1.2-4.9) X10*3/uL [place] # (Auto) 0.6 (0.1-1.2) X10*3/uL Eos # (Auto) 0.1 (0.0-0.4) X10*3/uL Baso # (Auto) 0.1 (0.0-0.2) X10*3/uL Abs Immat Gran (auto) 0.02 (0.00-0.03) X10*3/uL Absolute Neuts (auto) 6.8 (2.0-8.3) x10*3/uL Absolute Nucleated RBC 0.000 (0.0-0.012) X10*3/uL Nucleated RBC % (auto) 0.0 (0.0-0.2) /100WBC PT 15.3 H (10.9-12.4) SEC INR 1.3 H (0.9-1.1) APTT 34.9 (26.0-36.8) SEC Sodium 136 (135-145) mmol/L Potassium 4.8 (3.3-5.1) mmol/L Chloride 100 (96-108) mmol/L Carbon Dioxide 28 (22-29) mmol/L Anion Gap 13 (12-20) BUN 21 H (9-16) mg/dL Creatinine 1.11 (0.5-1.4) mg/dL Estim Creat Clear Calc 49.6 Estimated GFR 48 Random Glucose 90 (60-115) mg/dL Calcium 9.4 (8.4-10.2) mg/dL Magnesium 2.1 (1.6-2.6) mg/dL Total Bilirubin 0.7 (0.0-1.0) mg/dL AST 20 (5-31) U/L ALT 11 (0-31) U/L Troponin I High Sens < 2.7 (<3.5-17.0) ng/L Total Protein 6.7 (6.5-8.0) g/dL Albumin 4.0 (3.5-5.0) g/dL Triglycerides 55 (<150) mg/dL Cholesterol 146 (<200) mg/dL LDL Cholesterol, Calc 66 (<100) mg/dL HDL Cholesterol 69 (>40) mg/dL Lipase 36 (8-78) U/L TSH 0.83 (0.32-4.0) uIU/mL Independent Interpretation I performed an independent interpretation of an: EKG (59 beats per minute AFib, rate control) Radiology Impression Discussion of test interpretation with radiology: I have reviewed the radiologist's reading. Radiologist Impression: [address] [address] [address] Scan Report Signed Patient: Socorro Powell MR#: [id number] : 1950 Acct:[id number] Age/Sex: 74 / F ADM Date: 12/05/24 Loc: HO.ED Attending Dr: Ordering Physician: Isac Henley DO Date of Service: 12/05/24 Procedure(s): CT head/brain wo IV con Accession Number(s): [id number] cc: Kaye Pinto [employer]GER; Isac Henley DO~ Report Number: [id number]: Total DLP = 593.00 mGy-cm CLINICAL HISTORY: dizzy CT head without contrast Comparison: 06/15/23 Findings: No acute hemorrhage. No extra-axial fluid collection. Cavum septum pellucidum et vergae, a normal variant. No hydrocephalus, mass-effect or herniation. Ybarra-white differentiation is maintained. White matter is within normal limits for age. No acute orbital pathology. No acute soft tissue abnormality. No fracture. The visualized paranasal sinuses are predominantly clear. The mastoid air cells are clear. Impression: No acute findings Discharge Plan Discharge Clinical Impression: Dizziness, Blurred vision Instructions: Blurred Vision (ED) Additional Instructions: You were evaluated with blurry vision, tingling in the left arm, you did have a CAT scan, blood work, urinalysis, your physical examination, vital signs, and workup has been reassuring, there may have been some evidence for dehydration, maybe or home and you do need an your sugar dropped. Continue regular care there were no medication adjustments at this time. Follow up with the PCP any other issues or concerns come back to the ER. Prescriptions: No Action dorzolamide-timolol 22.3-6.8 mg/mL drops 1 drp ophthalmic-Left BID Rx Instructions: left eye Lumigan 0.01 % drops 1 drp ophthalmic (eye) DAILY Rx Instructions: both eyes oxycodone 5 mg tablet 5 mg PO Q4H PRN (Reason: pain (scale score 7-10)) Qty: 24 0RF Rx Instructions: Partial Fill upon patient request. Take 1-2 tablets every 4-6 hours as needed for pain. docusate sodium 100 mg Capsule 100 mg PO BID loperamide [Anti-Diarrheal (loperamide)] 2 mg capsule 2 mg PO Q6H PRN (Reason: loose stool) Qty: 14 0RF methimazole 5 mg tablet 5 mg PO DAILY fluticasone propionate 50 mcg/actuation spray,suspension 1 spray intranasal DAILY PRN (Reason: Allergy Symptoms) Entresto 24-26 mg tablet 1 tab PO BID Eliquis 5 mg tablet 5 mg PO BID spironolactone 25 mg tablet 25 mg PO DAILY nystatin 100,000 unit/gram powder 1 appl topical DAILY PRN (Reason: Itching) carvedilol 12.5 mg tablet 12.5 mg PO BID nitrofurantoin monohyd/m-cryst [Macrobid] 100 mg capsule 100 mg PO BID Qty: 20 0RF Rx Instructions: must administer with a meal/food torsemide 20 mg tablet 20 mg PO DAILY Print Language: Nigerien
[2024-12-05 14:48] LABS: MANUAL DIFF FLAG NO
[2024-12-05 14:49] LABS: Basophils Absolute Auto 0.1 X10*3/uL (0.0-0.2); Basophils Percent Auto 0.8 % (0-2); Eosinophils Absolute Auto 0.1 X10*3/uL (0.0-0.4); Hematocrit 43.1 % (37.0-47.0); Imm Gran Abs Auto 0.02 X10*3/uL (0.00-0.03); Imm Gran Pct Auto 0.2 % (0.0-0.4); Lymphocytes Absolute Auto 1.5 X10*3/uL (1.2-4.9); Lymphocytes Percent Auto 16.5 % (20-40); Mean Corpuscular HGB Conc 32.5 g/dl (31.0-35.0); Mean Corpuscular Hemoglobin 29.5 pg (27.0-33.0); Mean Corpuscular Volume 90.7 fL (80.0-98.0); Mean Platelet Volume 9.3 fL (9.4-12.3); Monocytes Absolute Auto 0.6 X10*3/uL (0.1-1.2); Neutrophils Absolute Auto 6.8 x10*3/uL (2.0-8.3); Neutrophils Percent Auto 74.5 % (45-73); Platelet Count 141 X10*3/uL (160-400); Red Blood Count 4.75 X10*6/uL (4.20-5.50); Red Cell Distribution Width 14.9 % (11.0-16.0); White Blood Count 9.1 X10*3/uL (4.8-10.8)
[2024-12-05 15:04] LABS: INTERNATIONAL NORM RATIO 1.3 (0.9-1.1); Prothrombin Time 15.3 SEC (10.9-12.4)
[2024-12-05 15:07] LABS: Partial Thromboplastin Time 34.9 SEC (26.0-36.8)
[2024-12-05 15:14] LABS: Alanine Aminotransferase 11 U/L (0-31); Anion Gap 13 (12-20); Aspartate Amino Transferase 20 U/L (5-31); Bilirubin Total 0.7 mg/dL (0.0-1.0); Blood Urea Nitrogen 21 mg/dL (9-16); Calcium 9.4 mg/dL (8.4-10.2); Carbon Dioxide 28 mmol/L (22-29); Chloride 100 mmol/L (96-108); Cholesterol 146 mg/dL (<200); Creatinine Clr Calc Pharmacy 49.6; Estimated Glomerular Filt Rate 48; Glucose Random 90 mg/dL (60-115); HDL Cholesterol 69 mg/dL (>40); LDL Cholesterol Calculated 66 mg/dL (<100); Lipase 36 U/L (8-78); Magnesium 2.1 mg/dL (1.6-2.6); Potassium 4.8 mmol/L (3.3-5.1); Sodium 136 mmol/L (135-145); Total Protein 6.7 g/dL (6.5-8.0); Triglycerides 55 mg/dL (<150)
[2024-12-05 15:17] LABS: Troponin-I High Sensitivity < 2.7 ng/L (<3.5-17.0)
[2024-12-05 15:29] LABS: TSH reflex Free T4 0.83 uIU/mL (0.32-4.0)
[2024-12-05] MEDS: 0.9 % Sodium Chloride 1,000 ML 999 ML IV (16:15)
[2024-12-05 16:27] VITALS: BP 107/65; PULSE 64; RESP 14; TEMP 36.8; O2SAT 96
[2024-12-05 16:31] LABS: Appearance Urine Clear; Color Urine Dark Yellow; Glucose Urine UA Negative (Negative); Leukocyte Esterase Urine Small (1+) (Negative); Nitrite Urine Negative (Negative); Specific Gravity - Urine 1.015 (1.005-1.025); UMIC TRIGGER UACC YES; Urine Blood Negative (Negative); Urine Ketones Trace mg/dL (Negative); Urine Protein Negative (Neg-Trace)
[2024-12-05 16:35] LABS: Bacteria Urine Trace (None Seen); RBC Urine 0-2 /HPF (0-2); UACC Culture Trigger YES
[2024-12-05 18:37] VITALS: BP 136/84; PULSE 70; RESP 18; TEMP 36.7; O2SAT 97
[2024-12-05 18:43] LABS: Alkaline Phosphatase 29 U/L (39-117)
[2024-12-05 19:22] VITALS: BP 136/84; PULSE 70; RESP 18; TEMP 36.7; O2SAT 97
== END 2024-12-05 19:28 | disposition home or self-care (01) ==
PROVIDERS: Emergency Provider Emergency Medicine; PCP Nurse Practitioner Family
DX: R53.1 Weakness (principal); H53.8 Other visual disturbances; R42 Dizziness and giddiness; R20.2 Paresthesia of skin; N39.0 Urinary tract infection, site not specified
CPT/HCPCS: 36415; 70450; 71046; 80053; 80061; 81001; 83690; 83735; 84443; 84484; 85025; 85610; 85730; 87086; 87088; 87186; 93005; 96360; 99284

== ENCOUNTER → 2024-12-05 13:49 | Outpatient (BNV) | payer OTHER, SELFPAY | PROVIDERS: Emergency Provider Emergency Medicine; PCP Nurse Practitioner Family; Visit Provider Radiology Diagnostic Radiology | DX: R42 Dizziness and giddiness (principal); R53.1 Weakness | CPT/HCPCS: 70450; 71046 ==

== ENCOUNTER → 2024-12-05 13:56 | Outpatient (BNV) | payer OTHER, SELFPAY | PROVIDERS: Emergency Provider Emergency Medicine; PCP Nurse Practitioner Family; Visit Provider Internal Medicine | DX: I48.91 Unspecified atrial fibrillation (principal); I44.7 Left bundle-branch block, unspecified | CPT/HCPCS: 93010 ==

== ENCOUNTER 2025-02-09 11:39 | Emergency (ER) | payer OTHER, SELFPAY ==
--- NOTE | ~2025-02-09 | XR_ITS ---
EXAMINATION: XR CHEST 1 VIEW HISTORY: edema COMPARISON: Comparison is made with the prior examination dated 12/05/2024. FINDINGS: A single AP portable view of the chest performed at 12:38 PM is submitted. The lungs are expanded and clear. There is no pleural effusion, pneumothorax, or pulmonary vascular congestion. The heart remains enlarged. There is degenerative disc disease of the spine and osteoarthritis of both shoulders. XR/XR chest 1V IMPRESSION: Cardiomegaly. No acute cardiopulmonary abnormality. Electronically signed by: Anuj Sommer MD 02/09/2025 12:58 PM EDT
--- NOTE | ~2025-02-09 | CT_ITS ---
EXAMINATION: CT ABDOMEN AND PELVIS WITHOUT CONTRAST CLINICAL INFORMATION: Right flank pain COMPARISON: January 11, 2023. TECHNIQUE: Multidetector volumetric imaging was performed from the superior aspect of the liver through the pubic symphysis. Sagittal and coronal reformatted images were obtained on the technologist's workstation. This CT examination was performed using dose optimization techniques as appropriate, variously including the following: *Automated exposure control *Adjustment of mA and/or kV according to patient size (this includes techniques or standardized protocols for targeted exams where dose is matched to indication/reason for exam; i.e. extremities or head) *Use of iterative reconstruction technique DLP: 1266 mGy centimeter. FINDINGS: Limited evaluation of the intra-abdominal organs and vascular structures due to lack of IV contrast. LUNG BASES: 4 mm noncalcified pulmonary nodule, left lung base. 2 mm noncalcified nodule in the anterior left lung base Linear attenuation abnormalities in the lung bases. LIVER, GALLBLADDER, AND BILIARY TREE: Liver measures 15 cm. 3 mm hypodensity left hepatic lobe too small to be fully characterized. Status post cholecystectomy. No intrahepatic or extrahepatic biliary ductal dilatation. PANCREAS: No peripancreatic fluid collection. No main pancreatic ductal dilatation. SPLEEN: 7 cm. Punctate calcification. ADRENAL GLANDS: No nodular lesions. KIDNEYS AND URETERS: No gross hydronephrosis or nephrolithiasis. Hypodensities in the posterior upper pole right kidney. No gross dilatation of the uterus. BLADDER: Fluid-filled. GASTROINTESTINAL TRACT: Gas filled mildly prominent small bowel loops. Small bowel loops herniated through a umbilical and supraumbilical abdominal wall defect containing herniated omental fat. No pneumatosis intestinalis. There is a low-density appearance of the intestinal wall of the right hemicolon. Numerous diverticula in the sigmoid colon. Appendix is normal and contain within the peritoneal cavity. No ascites. No pneumoperitoneum. Small hiatal hernia 1.4 cm fat density in the duodenal bulb/proximal portion of the duodenum.. ABDOMINAL WALL: Diastases abdominal rectus muscles and abdominal wall defect within the umbilical's and periumbilical region containing omental fat and a group of small bowel loops without distention. There is a 9 cm fat density within the posterior properitoneal fat of the left lower abdomen and pelvis wall just above the iliac crest. There is a fat-containing left femoral hernia. LYMPH NODES: No specific prominent, mesenteric and retroperitoneum. VASCULAR: No aneurysm, abdominal aorta. Calcified plaques abdominal aorta wall and the origin of the mesenteric arteries. PELVIC VISCERA: Absent uterus. OSSEOUS STRUCTURES: Moderate to severe degenerative changes in the right coxofemoral joint and moderate degenerative changes in the left coxofemoral joint. Multilevel thoracolumbar spondylosis and a shaped curvature of the thoracolumbar spine. Incomplete ankylosis/arthrodesis at L2-3. Focal calcification in the dorsal aspect of the central spinal canal at L3-[address]/CT abdomen pelvis wo IV con IMPRESSION: No gross hydronephrosis or nephrolithiasis. New, large eventration, periumbilical/supraumbilical, containing a grouped nondilated small bowel loops. Diverticular disease, sigmoid colon. Additional findings. Fleischner guidelines were followed. Electronically signed by: Paul Cheney MD 02/09/2025 01:39 PM EDT
[2025-02-09 11:52] VITALS: BP 110/66; BP 120/49; PULSE 70; PULSE 73; RESP 18; TEMP 36.6; O2SAT 95; O2SAT 99; BMI 52.7
--- NOTE | 2025-02-09 12:15 | ECG_ITS ---
Test Reason : SWELLING Blood Pressure : */* mmHG Vent. Rate : 59 BPM Atrial Rate : * BPM P-R Int : * ms QRS Dur : 90 ms QT Int : 414 ms P-R-T Axes : * 34 72 degrees QTcB Int : 409 ms Atrial fibrillation with slow ventricular response with premature ventricular or aberrantly conducted complexes Low voltage QRS Cannot rule out Anteroseptal infarct , age undetermined Abnormal ECG When compared with ECG of 05-Dec-2024 13:56, Minimal criteria for Anteroseptal infarct are now Present Referred By: Jayashree Prince Electronically Signed By: Suraj Colin
--- NOTE | 2025-02-09 12:51 | ED.FEMALEGU ---
HPI - Female Genitourinary General Chief complaint: Urogenital-Female Stated complaint: KIDNEY PAIN,URINE RETENTION,CURRENT UTI X4D PER EM Time Seen by Provider: 02/09/25 11:49 Source: patient, EMS and old records reviewed Mode of arrival: EMS Limitations: no limitations History of Present Illness ED Provider: ROGERIO VENCES Narrative: 74 yo female with PMH of mak S E. Coli, HTN, lymphedema, afib on eliquis, hyperthyroidism who notes she has 2 complaints: 1. She has been on macobid for UTI x 4 days still has 3 days left of abx but this AM developed R sided severe flank pain that has improved. No hx of kidney stones, no fevers or vomiting, pain has subsided. No urinary improvement with macrobid. 2. She feels her legs are swelling and she has clear sputum and thinks she is retaining fluids. She reports she can feel it in her chest too - she has been compliant with all of her medications. Onset (ago): day(s) (1) Location of symptoms: flank Severity: moderate Quality of pain: sharp Consistency: now resolved Vaginal discharge: none Vaginal bleeding: none Urinary symptoms: Dysuria, Urgency and Frequency Exacerbating factors: urination Relieving factors: none Associated symptoms: other (leg edema, swelling) Treatment prior to arrival: other (macrobid) Related Data Home Medications ?Medication ?Instructions ?Recorded ?Confirmed apixaban 5 mg tablet (Eliquis) 5 mg PO BID 09/28/21 01/12/23 carvedilol 12.5 mg tablet 12.5 mg PO BID 09/28/21 01/12/23 nystatin 100,000 unit/gram topical 1 appl topical DAILY PRN Itching 09/28/21 01/12/23 powder spironolactone 25 mg tablet 25 mg PO DAILY 09/28/21 01/12/23 fluticasone propionate 50 1 spray intranasal DAILY PRN 10/24/22 01/12/23 mcg/actuation nasal Allergy Symptoms spray,suspension methimazole 5 mg tablet 5 mg PO DAILY 10/24/22 01/12/23 sacubitril 24 mg-valsartan 26 mg 1 tab PO BID 10/24/22 01/12/23 tablet (Entresto) bimatoprost 0.01 % eye drops 1 drp ophthalmic (eye) DAILY 12/10/22 01/12/23 (Lumigan) dorzolamide 22.3 mg-timolol 6.8 1 drp ophthalmic-Left BID 12/10/22 01/12/23 mg/mL eye drops docusate sodium 100 mg capsule 100 mg PO BID 01/12/23 01/12/23 Held on 01/15/23. Instructions: Resume on 01/29/23. torsemide 20 mg tablet 20 mg PO DAILY 05/25/24 Previous Rx's ?Medication ?Instructions ?Recorded oxycodone 5 mg tablet 5 mg PO Q4H PRN pain (scale score 01/09/23 7-10) #24 tabs loperamide 2 mg capsule 2 mg PO Q6H PRN loose stool #14 01/15/23 (Anti-Diarrheal (loperamide)) caps nitrofurantoin 100 mg PO BID uti #20 caps 05/25/24 monohydrate/macrocrystals 100 mg capsule (Macrobid) cefuroxime axetil 250 mg tablet 250 mg PO BID #14 tabs 12/09/24 nitrofurantoin macrocrystal 100 mg 100 mg PO Q12H 5 days #10 caps 12/11/24 capsule Allergies Allergy/AdvReac Type Severity Reaction Status Date / Time Penicillins (PENICILLINS) Allergy Unknown UNKNOWN Verified 02/09/25 11:55 Review of Systems Review of Systems: Constitutional : No Fever, No Chills ENT/Mouth : No sore throat Eyes: No Eye Pain, No Swelling, No Redness Cardiovascular : No Chest Pain, No SOB, pos edema Respiratory : No Cough, No Sputum, No Wheezing Gastrointestinal : no Nausea, noVomiting, No Diarrhea, positive abdominal pain Genitourinary : positive Dysuria, positive urinary frequency, no Hematuria, positive Flank Pain, Musculoskeletal : No joint pain, No Myalgias Skin : No Skin Lesions, No rash Neuro : No Weakness, No Numbness, No Headache Psych : No Anxiety/Panic, No Depression Heme/Lymph: No Bruising, No Lymphadenopathy Endocrine : No Polyuria, No Polydipsia All other systems reviewed and are negative [facility] Past Medical History Attestation statement: The following information was validated with the patient. 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 JUAN (obstructive sleep apnea) Heart failure Afib Glaucoma Does mobilize using walker Breast mass, right Hypertension Arthritis Lymphedema Surgical History Hx of endoscopic retrograde cholangiopancreatography History of bilateral breast reduction surgery History of hysterectomy Family History Family History Mother Vaginal cancer Brother Eye cancer Social History Social History Household Members: None Housing: Apartment Are you a primary healthcare analyst to a significant other at home: No Do you presently have visiting nurse or other home services: No (aids come to the house 2 hours everyday) Alcohol intake: former Patient Tobacco Use Status: Never used Tobacco Smoked in Last 30 Days: No Second Hand Smoke Exposure: No Use of substances other than those prescribed or required for medical reasons: No Advance Directives: Yes Advance Directives on File: Yes Advance Directives Date on File: 10/24/22 Do you have a plan to hurt others: No Plan service: No Physical Exam Vital Signs: Vital Signs: Last Vital Signs Temp 97.8 F 02/09/25 11:52 Pulse 62 02/09/25 14:12 Resp 16 02/09/25 14:12 BP 108/61 02/09/25 14:12 Pulse Ox 97 02/09/25 14:12 O2 Del Method Room Air 02/09/25 14:12 BMI result Body Mass Index 52.7 Appearance: Alert. Oriented X3. No acute distress. Eyes: Pupils equal, round and reactive to light. ENT: Pharynx normal. Neck: Normal inspection. Neck supple. CVS: Normal heart rate and rhythm. Pulses normal. Respiratory: No respiratory distress. Breath sounds bases diminished Abdomen: Soft and nontender. Skin: Skin warm and dry. Normal skin color. Normal skin turgor. Extremities: pitting 1-2+ symmetric lower extremity edema. No calf ttp Neuro: Oriented X 3. No motor deficit. No sensory deficit. CN2-12 intact Medications Administered Discontinued Medications Generic Name Dose Route Start Last Admin Trade Name Freq PRN Reason Stop Dose Admin Ceftriaxone Sodium 1 gm 02/09/25 12:25 02/09/25 12:52 Ceftriaxone Sodium 1 Gm Vial IVPUSH 02/09/25 12:26 1 gm ONCE ONE Administration Furosemide 20 mg 02/09/25 12:27 02/09/25 12:52 Furosemide 20 Mg/2 Ml Vial IVPUSH 02/09/25 12:28 20 mg ONCE ONE Administration Protocol Medical Decision Making Medical Decision Making [facility] Narrative: 74 yo female with PMH of mak S E. Coli, HTN, lymphedema, afib on eliquis, hyperthyroidism here with c/o volume overload - I have ordered LFTs, BNP, TSH, EKG and CXR. For her urinary symptoms and R flank pain - CT scan for renal colic, Cr and UA will dose with ceftriaxone. Possible lyphedema, CHF, UTI, renal colic Differential Diagnosis Differential Diagnoses: The differential diagnosis associated with the presentation includes UTI, renal colic, lymphedema, CHF Admission/Observation Consideration of admission/observation: Escalation of care including admission/observation considered labs and CT scan/cXR normal no signs of CHF on exam she has only elevated BNP 133, no hypoxia/tachycardia no work of breathing declined rehab Lab Data [facility] Lab Attestation statement: I reviewed the patient's lab results. 02/09/25 12:59 02/09/25 12:59 Labs: Lab Results 02/09/25 02/09/25 02/09/25 Range/Units 12:45 12:59 13:24 WBC 8.4 (4.8-10.8) X10*3/uL RBC 4.51 (4.20-5.50) X10*6/uL Hgb 13.7 (12.0-16.0) g/dl Hct 41.3 (37.0-47.0) % MCV 91.6 (80.0-98.0) fL MCH 30.4 (27.0-33.0) pg MCHC 33.2 (31.0-35.0) g/dl RDW 15.0 (11.0-16.0) % Plt Count 139 L (160-400) X10*3/uL MPV 9.4 (9.4-12.3) fL Immature Gran % (Auto) 0.5 H (0.0-0.4) % Neut % (Auto) 70.8 (45-73) % Lymph % (Auto) 18.1 L (20-40) % [place] % (Auto) 8.6 (2-11) % Eos % (Auto) 1.3 (0-4) % Baso % (Auto) 0.7 (0-2) % Lymph # (Auto) 1.5 (1.2-4.9) X10*3/uL [place] # (Auto) 0.7 (0.1-1.2) X10*3/uL Eos # (Auto) 0.1 (0.0-0.4) X10*3/uL Baso # (Auto) 0.1 (0.0-0.2) X10*3/uL Abs Immat Gran (auto) 0.04 H (0.00-0.03) X10*3/uL Absolute Neuts (auto) 6.0 (2.0-8.3) x10*3/uL Absolute Nucleated RBC 0.000 (0.0-0.012) X10*3/uL Nucleated RBC % (auto) 0.0 (0.0-0.2) /100WBC Sodium 140 (135-145) mmol/L Potassium 4.4 (3.3-5.1) mmol/L Chloride 104 (96-108) mmol/L Carbon Dioxide 26 (22-29) mmol/L Anion Gap 14 (12-20) BUN 28 H (9-16) mg/dL Creatinine 0.96 (0.5-1.4) mg/dL Estim Creat Clear Calc 60.9 Estimated GFR 57 Random Glucose 88 (60-115) mg/dL Lactic Acid 0.9 (0.5-2.0) mmol/L Calcium 9.0 (8.4-10.2) mg/dL Magnesium 2.1 (1.6-2.6) mg/dL Total Bilirubin 0.6 (0.0-1.0) mg/dL Direct Bilirubin 0.2 (0.0-0.5) mg/dL AST 21 (5-31) U/L ALT 12 (0-31) U/L Alkaline Phosphatase 30 L (39-117) U/L Troponin I High Sens < 2.7 (<3.5-17.0) ng/L B-Natriuretic Peptide 133 H (<100) pg/mL Total Protein 6.8 (6.5-8.0) g/dL Albumin 4.0 (3.5-5.0) g/dL TSH 1.61 (0.32-4.0) uIU/mL Urine Color Yellow Urine Appearance Clear Urine pH 6.5 (5.0-9.0) Ur Specific [place] <= 1.005 (1.005-1.025) Urine Protein Negative (Neg-Trace) mg/dL Urine Glucose (UA) Negative (Negative) mg/dL Urine Ketones Negative (Negative) mg/dL Urine Blood Negative (Negative) Urine Nitrite Negative (Negative) Ur Leukocyte Esterase Negative (Negative) Independent Interpretation I performed an independent interpretation of an: EKG, Plain X-Ray (no CHF) and CT Scan Interpretation: Rate: 59 Rhythm: afib [place]: normal Normal QRS complex. ST T wave : no ARMIN, flat t waves aVL qTC: 409 prior studies: no acute ischemia The study has been interpreted contemporaneously by me. . Radiology Impression Discussion of test interpretation with radiology: I have reviewed the radiologist's reading. Independent Historian Clinical information obtained from an independent historian. History obtained from or confirmed by: EMS External Record Review External record reviewed: Inpatient record, Outpatient record and Prior outpatient labs Discharge Plan Discharge Clinical Impression: Right flank pain, Lymphedema Patient Disposition: Home, Self-Care Instructions: Flank Pain (ED), Lymphedema (ED) Additional Instructions: your labs are reassuring your potassium was 4.4 continue your macrobid your CT scan did show a hernia but no obstruction for the next two days take torsemide 20mg daily - start tomorrow. return for any worsening symptoms or concerns. Prescriptions: No Action dorzolamide-timolol 22.3-6.8 mg/mL drops 1 drp ophthalmic-Left BID Rx Instructions: left eye Lumigan 0.01 % drops 1 drp ophthalmic (eye) DAILY Rx Instructions: both eyes oxycodone 5 mg tablet 5 mg PO Q4H PRN (Reason: pain (scale score 7-10)) Qty: 24 0RF Rx Instructions: Partial Fill upon patient request. Take 1-2 tablets every 4-6 hours as needed for pain. docusate sodium 100 mg Capsule 100 mg PO BID loperamide [Anti-Diarrheal (loperamide)] 2 mg capsule 2 mg PO Q6H PRN (Reason: loose stool) Qty: 14 0RF cefuroxime axetil 250 mg tablet 250 mg PO BID Qty: 14 0RF nitrofurantoin macrocrystal 100 mg capsule 100 mg PO Q12H 5 Days Qty: 10 0RF Rx Instructions: must administer with a meal/food, stop the other antibiotic you were prescribed methimazole 5 mg tablet 5 mg PO DAILY fluticasone propionate 50 mcg/actuation spray,suspension 1 spray intranasal DAILY PRN (Reason: Allergy Symptoms) Entresto 24-26 mg tablet 1 tab PO BID Eliquis 5 mg tablet 5 mg PO BID spironolactone 25 mg tablet 25 mg PO DAILY nystatin 100,000 unit/gram powder 1 appl topical DAILY PRN (Reason: Itching) carvedilol 12.5 mg tablet 12.5 mg PO BID nitrofurantoin monohyd/m-cryst [Macrobid] 100 mg capsule 100 mg PO BID Qty: 20 0RF Rx Instructions: must administer with a meal/food torsemide 20 mg tablet 20 mg PO DAILY Print Language: Yoruba
[2025-02-09 12:52] VITALS: BP 122/65
[2025-02-09] MEDS: Furosemide 20 MG/2 ML VIAL IVPUSH (12:52)
--- OUTSIDE RECORDS SUMMARY | 2025-02-09 12:56 | XMS_ITS | Clinical Summary ---
Author Organization [facility] Address [address] [place] [id number] Phone Care Team Providers Care Bleach Plant Operator Name Role Phone Jessica Enamoradoga DO Primary Car e Provider Family History Medical History Relation Comments CV disease Father 2 Hypertension Father 2 Cancer Mother 2 Relation Status Comments Father 1 Father 2 Mother 1 Mother 2 Social History Tobacco Use Types Packs/Day Years Used Date Smoking Tobacco: Never Assessed Comments Unknown Sex and Gender Information Value Date Recorded Sex Assigned at Not on file Legal Sex Female 10:04 PM EDT Gender Identity Not on file Sexual Orientation Not on file Last Filed Vital Signs Vital Sign Reading Time Taken Comments Blood Pressure 138/70 04/27/2015 11:04 AM EDT Pulse 98 04/27/2015 11:04 AM EDT Temperature 36.8 C (98.2 F) 04/27/2015 11:04 AM EDT Respiratory Rate - - Oxygen Saturation - - Inhaled Oxygen Concentration - - Weight 124.7 kg (275 lb) 05/22/2017 2:17 PM EST Height 152.4 cm (5') 05/22/2017 2:17 PM EST Body Mass Index 53.71 05/22/2017 2:17 PM EST Plan of Treatment Not on file Medical Devices Not on file Insurance MEDICARE PART A & B [employer] MEDEX SUPPLEMENT MEDICARE PART A & B [employer] MED[employer] SUPPLEMENT MEDICARE PART A & B Member Subscriber Plan / Payer (Ef fective 2014-Present) Name:Socorro Smith Member ID:[id number] Relation to Subscriber:Self Name:Socorro Smith Subscriber ID:[id number] Payer ID:[id number] Group ID:Not on file Type:Medicare Address: [place] [address] [place] [phone] [employer] MEDEX SUPPLEMENT MEDICARE PART A & B [employer] MEDEX SUPPLEMENT MEDICARE PART A & B [employer] MEDEX SUPPLEMENT MEDICARE PART A & B [employer] MEDEX SUPPLEMENT MEDICARE PART A & B [employer] SUPPLEMENT MEDICARE PART A & B [employer] MEDEX SUPPLEMENT MEDICARE PART A & B [employer] MEDEX SUPPLEMENT Care Teams Bleach Plant Operator Relationship Specialty Start Date End Date Jessica Enamorado DO [address] [place] [address] PCP - General 07/04/17 Additional Source Comments The information contained in this document represents components of the legal health record. It is not the complete legal health record.[facility]
[2025-02-09 13:07] LABS: MANUAL DIFF FLAG NO
[2025-02-09 13:13] LABS: Hematocrit 41.3 % (37.0-47.0); Hemoglobin 13.7 g/dl (12.0-16.0); Imm Gran Abs Auto 0.04 X10*3/uL (0.00-0.03); Imm Gran Pct Auto 0.5 % (0.0-0.4); Lymphocytes Absolute Auto 1.5 X10*3/uL (1.2-4.9); Mean Corpuscular HGB Conc 33.2 g/dl (31.0-35.0); Mean Corpuscular Hemoglobin 30.4 pg (27.0-33.0); Mean Corpuscular Volume 91.6 fL (80.0-98.0); NRBC Abs Auto 0.000 X10*3/uL (0.0-0.012); NRBC Pct Auto 0.0 /100WBC (0.0-0.2); Platelet Count 139 X10*3/uL (160-400); Red Blood Count 4.51 X10*6/uL (4.20-5.50); White Blood Count 8.4 X10*3/uL (4.8-10.8)
[2025-02-09 13:29] LABS: Alanine Aminotransferase 12 U/L (0-31); Albumin Level 4.0 g/dL (3.5-5.0); Alkaline Phosphatase 30 U/L (39-117); Anion Gap 14 (12-20); Aspartate Amino Transferase 21 U/L (5-31); Blood Urea Nitrogen 28 mg/dL (9-16); Calcium 9.0 mg/dL (8.4-10.2); Carbon Dioxide 26 mmol/L (22-29); Chloride 104 mmol/L (96-108); Creatinine Clr Calc Pharmacy 60.9; Estimated Glomerular Filt Rate 57; Magnesium 2.1 mg/dL (1.6-2.6); Potassium 4.4 mmol/L (3.3-5.1); Sodium 140 mmol/L (135-145); Total Protein 6.8 g/dL (6.5-8.0)
[2025-02-09 13:31] LABS: Appearance Urine Clear; Glucose Urine UA Negative (Negative); PH 6.5 (5.0-9.0); Specific Gravity - Urine <= 1.005 (1.005-1.025)
[2025-02-09 13:36] LABS: Troponin-I High Sensitivity < 2.7 ng/L (<3.5-17.0)
[2025-02-09 14:10] LABS: B Type Natriuretic Peptide 133 pg/mL (<100)
[2025-02-09 14:12] VITALS: BP 108/61; PULSE 62; RESP 16; O2SAT 97
--- NOTE | 2025-02-09 16:23 | MHC.EDTECH ---
[facility] authorization #[id number]
[2025-02-09 17:42] VITALS: BP 116/65; PULSE 57; RESP 16; TEMP 36.4; O2SAT 97
[2025-02-09 18:30] VITALS: BP 116/65; PULSE 57; RESP 16; TEMP 36.4; O2SAT 97
== END 2025-02-09 18:30 | disposition home or self-care (01) ==
PROVIDERS: Emergency Provider Emergency Medicine; PCP Nurse Practitioner Family
DX: R10.9 Unspecified abdominal pain (principal); I89.0 Lymphedema, not elsewhere classified; R30.0 Dysuria; I10 Essential (primary) hypertension; I48.91 Unspecified atrial fibrillation; Z90.49 Acquired absence of other specified parts of digestive tract; Z79.899 Other long term (current) drug therapy; Z79.01 Long term (current) use of anticoagulants
CPT/HCPCS: 36415; 71045; 74176; 80048; 80076; 81003; 83605; 83735; 83880; 84443; 84484; 85025; 87040; 93005; 96374; 96375; 99284; 99285; J0696; J1938

== ENCOUNTER → 2025-02-09 12:15 | Outpatient (BNV) | payer OTHER, SELFPAY | PROVIDERS: Emergency Provider Emergency Medicine; PCP Nurse Practitioner Family; Visit Provider Internal Medicine Cardiovascular Disease | DX: I48.91 Unspecified atrial fibrillation (principal) | CPT/HCPCS: 93010 ==

== ENCOUNTER → 2025-02-09 12:15 | Outpatient (BNV) | payer OTHER, SELFPAY | PROVIDERS: Emergency Provider Emergency Medicine; PCP Nurse Practitioner Family; Visit Provider Radiology Diagnostic Radiology | DX: K57.32 Diverticulitis of large intestine without perforation or abscess without bleeding (principal); I51.7 Cardiomegaly | CPT/HCPCS: 71045; 74176 ==

== ENCOUNTER 2025-04-09 12:42 | Outpatient (REF) | payer OTHER, SELFPAY | END 2025-04-09 12:43 | disposition home or self-care (01) | LOC: HO.MAMMO 12:42 | PROVIDERS: PCP Nurse Practitioner Family; Visit Provider Nurse Practitioner Family | DX: Z12.31 Encounter for screening mammogram for malignant neoplasm of breast (principal) | CPT/HCPCS: 77063; 77067 ==

== ENCOUNTER → 2025-04-09 13:15 | Outpatient (BNV) | payer OTHER, SELFPAY | PROVIDERS: PCP Nurse Practitioner Family; Visit Provider Radiology Body Imaging | DX: Z12.31 Encounter for screening mammogram for malignant neoplasm of breast (principal) | CPT/HCPCS: 77063; 77067 ==

== ENCOUNTER 2025-04-26 17:28 | Emergency (ER) | payer OTHER, SELFPAY ==
[2025-04-26] VITALS (7 sets, daily range): BP systolic 113–129; BP diastolic 56–81; PULSE 64–68; RESP 16–20; TEMP 36.6–37; O2SAT 96–100; BMI 51.2
[2025-04-26 19:21] LABS: MANUAL DIFF FLAG NO
[2025-04-26 19:22] LABS: Hematocrit 49.7 % (37.0-47.0); Hemoglobin 15.9 g/dl (12.0-16.0); Imm Gran Abs Auto 0.02 X10*3/uL (0.00-0.03); Imm Gran Pct Auto 0.2 % (0.0-0.4); Lymphocytes Absolute Auto 2.2 X10*3/uL (1.2-4.9); Mean Corpuscular HGB Conc 32.0 g/dl (31.0-35.0); Mean Corpuscular Hemoglobin 30.2 pg (27.0-33.0); Mean Corpuscular Volume 94.5 fL (80.0-98.0); NRBC Abs Auto 0.000 X10*3/uL (0.0-0.012); NRBC Pct Auto 0.0 /100WBC (0.0-0.2); Platelet Count 162 X10*3/uL (160-400); Red Blood Count 5.26 X10*6/uL (4.20-5.50); White Blood Count 8.1 X10*3/uL (4.8-10.8)
--- OUTSIDE RECORDS SUMMARY | 2025-04-26 19:29 | XMS_ITS | Data Portability ---
Author Organization [place] [facility] Address [address] [place] [address] Care Team Providers Care Agency Director Name Role Phone KE KIM Primary Care Provider [phone] HIM [facility] OTHER Assessment No assessment recorded. Plan of Treatment Reminders Order Date Submit Date Provider Last Modified By Organization Details Last Modified Time Details Appointments None recorded. Lab culture, urine 2022 023 KASEY [facility] (Centralized Electronic Ordering - All Locations), Patient Can Go To The Location Of Their Choice, 10:47:58 rapid SARS CoV 2 Ag, QL [place], respiratory specimen [email or web address] [place] [address], [address] [place] [address], [id number] 3 12:35:16 rapid flu (A+B) [email or web address] [facility], [address] [place] [address], [id number] 3 12:35:16 Referral None recorded. Procedures None [...] Go To The Location Of Their Choice, 10/22/2022 10:47:58 10/22/1910/21/2022 URINE CULTU RE special requests NONE Not Available [facility] (Centralized Electronic Ordering - All Locations) Patient Can Go To The Location Of Their Choice, 10/22/2022 10:47:58 10/22/1910/22/2022 URINE CULTU RE culture Mixed bacter ial magdi, indica tive of urogen ital contam inatio n. Not Available [facility] (Centralized Electronic Ordering - All Locations) Patient Can Go To The Location Of Their Choice, [id number] 10/22/2022 10:47:58 10/22/1910/22/2022 URINE CULTU RE report status FINAL 2022 Not Available [facility] (Centralized Electronic Ordering - All Locations) Patient Can Go To The Location Of Their Choice, [id number] 10/22/2022 10:47:58 10/22/1910/21/2022 rapid SARS CoV 2 Ag, QL IA, respi rator y speci men rapid SARS CoV 2 Ag, QL [place], respiratory specimen negati ve Not Available [facility] [address] [place] [address], [phone] 10/21/2022 12:34:02 Result Notes None recorded. Medical Equipment None Reported. Allergies Allergen ID Allergen Name Allergen Category Reaction Reaction Severity Criticality Documentation Date Start Date Code Code System Note Provider Name and Address Organization Details Recorded Time 8952 Product containin g penicilli n (product) medicatio n Not available Not available Not available 04/28/2024 11217 8001 SNOMED Not Available [facility] - production [...] Available No t Available Vitals Date Recorded Heart rate Oxygen saturation Oxygen saturation in Arterial blood by Pulse oximetry Body temperature Respiratory rate Systolic And Diastolic Provider Name and Address Organization Details Last Updated DateTime 3 67 /min 98 % 98 % 97.1 [degF] 18 /min 100/64 mm[Hg] Not Available [facility] 3 12:32:42 Date Recorded Oxygen saturation Oxygen saturation in Arterial blood by Pulse oximetry Respiratory rate Heart rate Body weight Body temperature Systolic And Diastolic Provider Name and Address Organization Details Last Updated DateTime 4 98 % 98 % 16 /min 74 /min 412973 g 97.6 [degF] 118/76 mm[Hg] Not Available [facility] 4 17:08:30 Date Recorded Body temperature Respiratory rate Heart rate Oxygen saturation Oxygen saturation in Arterial blood by Pulse oximetry Systolic And Diastolic Provider Name and Address Organization Details Last Updated DateTime 3 98 [degF] 20 /min 68 /min 97 % 97 % 128/72 mm[Hg] Not Available [facility] 3 14:53:01 Social History None recorded. Functional Status None recorded. Mental Status None recorded. Family History Nothing Reported. Medical History No medical history recorded. Gynecological HistoryNo gynecological history recorded. Obstetrics History GPAL:G 0 P 0 0 0 0 Past Encounters Encounter ID Performer Location Encounter Start Date Encounter Closed Date Diagnosis/Indication Diagnosis SNOMED-CT Code Diagnosis ICD10 Code Diagnosis IMO Codes Diagnosis Note [id number] Brent Gutierrez MD [facility] [address] [place] [address] 10/21/2022 12:32:37 10/23/2022 10:17:52 Dysuria 78909375 R30.0 U/a negative. Will not treat empiricall y. Sent culture Upper resp iratory infection 98592859 J06.9 Continue supportive care [id number] Laya Anna MD Main - [facility] [address] [place] [phone] 06/27/2023 14:36:11 10/30/2024 13:17:25 Fall W19.XXXA Evaluation in the field was performed by my extras casting director colleague, as noted above, I provided real-time direction and supervisio n for this visit. 73yo F evaluated after fall while on blood thinners 6 days ago, seen in [place] ED and CT head and Xrays unremarkab le and cleared to return home. Pt has ecchymosis /hematoma on forehead and wants guidance on how to improve it, not spreading but no resolving as quickly as she hoped. On extras casting director eval VS all wnl. Small hematoma with [...] shortness of breath, cough, chest pain, fever. [id number] GUIDO MONTANO MD Main - [facility] [address] [place] [phone] 02/12/2024 17:08:10 02/12/2024 23:59:22 Bilateral dermatofibroma of lower limbs [id number] 3501306 D23.71 Evaluation in the field was performed by my extras casting director colleague, as noted above, I provided real-time [...] no fluid filled. No weeping. Impression :Larry rosa for dermatofib vanessa Plan:-The plan was for IV Lasix to help with the lower extremity edema, but the extras casting director was unable to draw blood or establish [...] Recorded Advance Directives Directive None Recorded Payers Insurance Date Sequence Insurance Name Policy Number Policy Romano Covered Member ID Romano Member ID Guarantor Name 10/30/2024 1 [facility] - DOS PRIOR TO 2022 - DUAL ELIGIBLE (MEDICARE REPLACEMENT/ADV ANTAGE - HMO) Socorro Powell [id number] Socorro Powell 10/30/2024 1 [facility] - DOS ON OR AFTER 2022 - DUAL ELIGIBLE - [employer] AND ONE CARE (MEDICARE REPLACEMENT/ADV ANTAGE - HMO) Socorro Powell [id number] Socorro Powell Notes Date Note Type Note Provider Name and Address Organization Details Recorded Time 10/21/2022 text/html ROS as noted in the [facility] Nursing Assessment: Patient Reports: Cough Chief Complaints: UTI/Pyelonephritis, URI PMH: Heart Disease Allergies: Penicillin Comments: Member calling with request for eval URI x 1 week + cough deny fevers Neg home test Also concern for UTI Urine dark in color past few days. deny dysuria Verify member name/- ................... ................... ................... ................... ................... ................... ................... ........ Film Examiner Note From Mitchell Arita: ~ Narrative Pt [...] Pt encouraged to follow up with PCP. Film Examiner Allergies: Penicillin ................... ................... ................... ................... ................... ................... ................... ........ Disposition: Fulfilled Brent Gutierrez MD [address] [facility],[address], [place], [address], [facility] 10/21/2022 14:56:11 06/27/2023 text/html CRC Nurse Triage Notes (Rosalinda Day): Reason For Request: Pt reporting last saturday, leilani cracked in half and mbr fell to the floor in which she had hit her head, which resulted in a lump of head....called 911 and went to [facility] which a catscan happened to make sure [...] ................... ................... ................... ................... ................... ................... ........ Film Examiner Note From Nish James: SC12 dispatched to location for PT with swelling/bruising. U/A to location PT 73 .o. female found sitting in chair. PT presents awake EDMOND 4 with pink/warm/dry skin speaking full sentences. [...] she can do to help improve swelling/bruising. SC12 contacts [facility] with verbal report on PT present illness. [facility] suggests increased ice packs and tylenol as needed and understand due to blood thinners the healing is going to take time. PT instructed if swelling/bruising become worse to call 911. All red flags discussed and SC12 clears scene. *All times are approximate* Film Examiner Allergies: Penicillin ................... ................... ................... ................... ................... ................... ................... ........ Disposition: Fulfilled Laya Anna MD [address] [place] [address],[address], [place], [address] [employer] 06/27/2023 15:35:46 02/12/2024 text/html ROS as noted in the [facility] CRC Nurse Triage Notes (Halle Chavarria): Reason For Request: legs swelling/poss cellulitis Chief Complaints: Edema, Cellulitis PMH: Heart Disease, Other Allergies: Penicillin Comments: Statistical Technician verified the member's name//address and phone number. [...] ................... ................... ................... ................... ................... ................... ........ Film Examiner Note From Kiran Diaz: Pt co edema and hard knob like growths that appeared yesterday and are worsening. Pt sts no pain or itching. Knobs are hard not fluid fillled. No oozing or wheeping. Pt denies fever , NVD, dizziness , cp or sob. Denies bleeding. Baseline vitals assessed, lungs clear. Afebrile C contacted and advised to follow up with pcp for specifications checker appt. Pt has appt weds. Pt education on signs indicating the ER. Pt advised to continue with appt weds. Consent under review. Photos uploaded of extremities. Film Examiner Allergies: Penicillin ................... ................... ................... ................... ................... ................... ................... ........ Disposition: Fulfilled GUIDO MONTANO MD [address] [facility],[address], [place], [address], [employer] 02/12/2024 20:57:59 OBGyn Episode No OBEpisode recorded.
--- OUTSIDE RECORDS SUMMARY | 2025-04-26 19:29 | XMS_ITS | Clinical Summary ---
Author Organization [address] [facility] Address [address] [place] [address] Phone Care Team Providers Care Powerhouse Mechanic Name Role Phone Kaye Pinto Primary Care Provider [phone] Surgical History Surgery Date Site/Laterality Comments OTHER SURGICAL HISTORY PROCEDURE: HISTORICAL HYSTERECTOMY, FULL (W/O CERVIX); COMMENT: and BSO OTHER SURGICAL HISTORY PROCEDURE: ---- OTHER ----; COMMENT: Breast reduction BREAST SURGERY PROCEDURE: MI UNLISTED PROCEDURE BREAST; COMMENT: breast reduction 25 yrs ago Medical History Medical History Date Comments Hypertension DX:Hypertension CHF (congestive heart failur e) (CMS/HCC V24, CMS/HCC V28) DX:CHF (congestive heart snow lure) ([facility]); COMMENT: [facility] card [facility]atham Family History Medical History Relation Name Comments Heart attack Father Hypertension Father Other cancer Mother Cervical cancer Breast cancer Other mat aunt Relation Name Status Comments Father Mother Other mat aunt Alive Social History Tobacco Use Types Packs/Day Years Used Date Smoking Tobacco: Never Smokeless Tobacco: Never Alcohol Use Standard Drinks/Week Comments Yes 0 (1 standard drink = 0.6 oz pur e alcohol) Comments Unknown Sex and Gender Information Value Date Recorded Sex Assigned at Female 03/30/2025 9:16 AM EDT Legal Sex Female 4:45 AM EST Gender Identity Female 03/30/2025 9:16 AM EDT Sexual Orientation Straight 03/30/2025 9: 16 AM EDT Obstetrics History Plan of Treatment Upcoming Encounters Date Type Department Care Team ([facility] st Contact Info) Description 06/29/2025 10:00 AM EST Treatment [facility] Occupational Therapy [address] [address] Meaghan Nair, OTR/L Health Maintenance Due Date Last Done Comments Zoster Vaccines (2 of 3) 12/22/2014 10/27/2014 Pneumococcal Vaccine: 50+ Years (2 of 2 - PCV) 05/02/2016 05/02/2015 DTaP,Tdap,and Td Vaccines (2 - Td or Tdap) 07/29/2018 07/29/2008 RSV Immunization Adult Patients (1 - 1-dose 75+ series) 2024 Depression Screening 07/01/2024 COVID-19 Vaccine ( - 2023- season) 2025 Influenza Vaccine (#1) 2025 5, 04/25/2014, 04/15/2013, Additional history exists Cholesterol Screening (Lipid Panel) 03/22/2025 Falls Risk Assessment 03/22/2025 Hepatitis C Screening 03/22/2025 Hypertension/CHF/CAD Annual BMP Blood Test 03/22/2025 Medicare Annual Wellness Visit 03/22/2025 Osteoporosis Screening (Bone Density Screening) 03/22/2025 Social Influencers of Health Screening 03/22/2025 HIB Vaccines Aged Out No longer eligi ble based on patient's age to complete this topic HPV Vaccines Aged Out No longer eligi ble based on patient's age to complete this topic Hepatitis A Vaccines Aged Out No long er eligible based on patient's age to complete this topic Hepatitis B Vaccines Aged Out No long er eligible based on patient's age to complete this topic IPV Vaccines Aged Out No longer eligi ble based on patient's age to complete this topic MMR Vaccines Aged Out No longer eligi ble based on patient's age to complete this topic Meningococcal ACWY Vaccine Aged Out N o longer eligible based on patient's age to complete this topic Meningococcal B Vaccine Aged Out No l onger eligible based on patient's age to complete this topic RSV Immunization Patients Under 20 months Aged Out No longer eligible based on patient's age to complete this topic Varicella Vaccines Aged Out No longer eligible based on patient's age to complete this topic [place] [address] [place] [address] MEDICARE Member Subscriber Plan / Payer (Ef fective 2021-Present) Name:Socorro Powell Relation to Subscriber:Self Name:Socorro Powell Payer ID:[id number] Group ID:[id number] Type:Not on file Address: [place] [address] [address] [phone] Care Teams Powerhouse Mechanic Relationship Specialty Start Date End Date Kaye Pinto [address] [place] [address] PCP - General 03/22/25
--- OUTSIDE RECORDS SUMMARY | 2025-04-26 19:30 | XMS_ITS ---
Author Organization [facility] Care Team Providers Care Supervisor Electronic Coils Name Role Phone Ludwin James Unavailable Unavailable Enedina Richards Unavailable Unavailable Allergies and adverse reactions Code CodeSystem Substance Reaction Severity StartDate Concern Status 940299589 SNOMED CT Penicillins Itching of skin (code- [id number], SNOMED CT) Moderate 04/30/2020 active Care Team Name Role Address Phone Organization Dates Ludwin James PCP [address] [facility] [address], [place], [address], [place] (Office): : [facility] 04/30/2020 - 06/04/2020 Enedina Richards [address], [place], [address], [place] (Office): [facility] 04/30/2020 - 06/04/2020 Immunizations Immunization Status Vaccine Details Vaccine Code CodeSystem Rene e Notes Influenza completed Influenza, split virus, trivalent, injectable, contains preservative 141 CVX created date: 05/05/2020 administere d date: 03/04/2020 TB 2 Step Mantoux Skin Test completed tuberculin skin test; unspecified formulation lotNumber: [id number] expiry: 08/28/2021 Mfg: starks off[employer] pasteur Given [...] 0 No delirium ind icated [id number] Insurance Providers Problems Problem # Description Date of onset Resolved Date Code CodeSystem Concern Status 1 ABNORMAL RESULT OF OTHER CARDIOVASCULAR FUNCTION STUDY [address] active 2 ACUTE ON CHRONIC COMBINED SYSTOLIC (CONGESTIVE) AND DIASTOLIC (CONGESTIVE) HEART FAILURE [address] active 3 AGE-RELATED OSTEOPOROSIS WITHOUT CURRENT PATHOLOGICAL FRACTURE [address] active 4 DIARRHEA, UNSPECIFIED [address] active 5 DYSPHAGIA, OROPHARYNGEAL PHASE [address] active 6 ESSENTIAL (PRIMARY) HYPERTENSION [address] active 7 [address]KALEMIA [address] active 8 LYMPHEDEMA, NOT ELSEWHERE CLASSIFIED [address] active 9 MORBID (SEVERE) OBESITY DUE TO EXCESS CALORIES [address] active 10 OBSTRUCTIVE SLEEP APNEA (ADULT) (PEDIATRIC) [address] active 11 OTHER ABNORMALITIES OF GAIT AND MOBILITY [address] active 12 OTHER MALAISE [address] active 13 PAIN IN UNSPECIFIED JOINT [address] active 14 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 CRISIS OR STORM [address] active 15 THYROTOXICOSIS, UNSPECIFIED WITHOUT THYROTOXIC CRISIS OR STORM [address] active 16 UNSPECIFIED ATRIAL FIBRILLATION [address] active 17 UNSPECIFIED GLAUCOMA [address] active 18 UNSPECIFIED OSTEOARTHRITIS, UNSPECIFIED SITE [address] active 19 UNSTEADINESS ON FEET [address] active 20 VITAMIN D DEFICIENCY, UNSPECIFIED [address] active 21 WEAKNESS [address] active Reason for Referral No Reasons for Referral Entered Social History Social History Observation Description Start Date End Date Code Code System Current Smoking Status Tobacco smoking consumption unknown 189649107 SNOMED CT Sex Assigned At Female 1950 89663-0 [facility] Gender Identity Sexual Orientation Vital Signs Code Code System Vitals Name Values and Units Timing Information 74320-5 [facility] O2 % BldC Oximetry Value=94.0 Units= % 06/04/2020 9279-1 [facility] Respiratory Rate Value=18.0 Units=/m in 06/04/2020 8310-5 [facility] Body Temperature Value=97.2 Units= F 06/04/2020 8462-4 [facility] Blood Pressure-Diastolic Value=79 Un its=mmHg 06/04/2020 8480-6 [facility] Blood Pressure-Systolic Ocgax=560 Un its=mmHg 06/04/2020 8867-4 [facility] Heart rate Value=89.0 Units=/min 10/2019 05099-6 [facility] Pain Level Value=0.0 06/04/2020 52241-3 [facility] Weight Bvauk=915.0 Units=Lbs 09/2019 8302-2 [facility] Height Value=62.0 Units=Inches 05/01/2020
--- OUTSIDE RECORDS SUMMARY | 2025-04-26 19:30 | XMS_ITS | Data Portability ---
Author Organization [place] - [facility] Address [address] [place] [id number] Care Team Providers Care Quality Lead Name Role Phone KE KIM Primary Care Provider TU BRYAN Primary Care Provider Assessment Encounter Date Assessment Date Assessment LastModified by Organization Details LastModified Time 05/05/2021 05/05/2021 71-year-old fema le with past medical history that includes but is not limited to CHF, AFib on warfarin, hypertension, arthritis, sleep apnea, chronic hip pain, anemia who calls today for vaginal burning. Afebrile, non-toxic, chronically ill appearing 71 year old female being seen today at home. Alert, sitting up in recliner on exam, appears in NAD. LS CTAB, respirations even and unlabored. No w/c/r. HR regular. Copious amounts of desitin noted to perineal region. Once cleansed with wet rag, diffuse blanchable erythema without defined borders noted to perineal region, labia majora and minora, upper inner thighs. Non-focal neuro exam. VS - 98.3; 60; 132/86; 20; 96% on RA My differential diagnoses include but are not limited to vaginal candidiasis, irritant contact dermatitis, cellulitis, vulvovaginitis, urinary tract infection Workup/Results: UA - neg for nitrates, leuks, blood Plan/Discussion: The above differentials were considered, exam and HPI most consistent with irritant contact dermatitis. On arrival patient is mildly anxious about visit, nervous about a male being present. In NAD, hemodynamically stable without fevers, tachycardia, hypotension. Exam consistent with contact dermatitis. Start remedy calazime cream, may also use nystatin powder as I am not for certain this does not have a fungal component, although most likely due to patient urinating in brief at night and not changing. Wash peroneal area with warm water and mild soap daily. Keep area dry. Apply nystatin powder and remedy cream. No vaginal discharge, low concern for yeast infection. Reported burning a little worse with urination and patient requesting urine test which was negative for urinary tract infection. I do not feel that a urine culture is needed at this time as patient without fevers, urinary frequency or urgency. Burning likely due to dermatitis. Follow up with primary care or call dispatch back if worsening redness, urinary symptoms or vaginal discharge occur. Red flags and ER precautions discussed, all questions answered, patient and agreement with plan. Proper Personal Protective Equipment (PPE), including gloves, eye protection and masks were donned and doffed appropriately and all equipment cleaned using approved technique with germicidal disposable wipes prior to and after care of this patient according to [facility]'s infection prevention protocols. Time On Scene with Patient: 00:45:42 [email or web address] Not available 05/05/2021 17:27:15 05/14/2021 05/14/2021 Overview/History : 71 yo morbidly obese female with PMH significant for CHF, AFib on warfarin, HTN, OA, JUAN, chronic BLE lymphedema, hyperthyroidism, chronic hip pain, anemia and previsous candidal skin infections who c/o ongoing vaginal burning, itching and burning urination. Patient was treated with nystatin powder 1 week ago but denies any improvement of symptoms. Exam: Afebrile, nontoxic appearing, VS hemodynamically stable, No inreased work of breathing, Lungs clear, Heart sounds normal, Abdomen non-distended, soft. No CVA tenderness. DDx considered, but not limited to: vulvovaginitis, UTI, atrophic vaginitis, armand intertrigo, STIs Unlikely STI as patient has no current discharge, not sexually active Possible atrophic vaginitis due to menopausal age and dryness of mucosa Possiblly vulvovaginitis not responding to nystatin powder, will check for other organisms with vaginitis swab Unlikely UTI without frequency/urgency but will check urine for possible UTI. Likely armand intertrigo of gluteal fold due presence of burning, itching and erythema, history of urinary incontinence and similar symptoms with previous armand skin infections. Work up/Results: Vaginitis swab pending, POC urine dipstick negative, but check for UTI with UA with reflex culture sent. Plan/Discussion: Armand intertrigo - Will change from Nystatin powder to Nystatin cream twice per day for 14 days. . - Applied remaining amount of patient's previous Nystatin cream Rx to gluteal fold. - Advised patient to keep area clean and dry and to avoid sitting in wet briefs. Dysuria - Discussed negative urine dipstick with patient and pending UA and culture. Informed patient she will be contacted if any infection present. - Advised patient to monitor for any new or changing symptoms such as abdominal/back pain, frequency or urgency. Vaginitis Likely atrophic -discussed impact of menopausal changes Discussed pending vaginitis swab to check for other organisms Encouraged patient to eat live culture yogurt or probiotics. Encouraged maintaining dry briefs when possible. In order to obtain further information and compare any laboratory results/values, I have accessed patient records on the [employer]. This information was pertinent in my medical decision making today. [email or web address] Not available 05/14/2021 19:56:48 06/07/2021 06/07/2021 Time On Scene with Patient: 01:21:46 DDX: UTI, bacterial vaginitis, yeast infection, atrophic vaginitis. Pt is anxious but in good spirits after discussion of situation. Skin to the intertrigal area looks well and no red flags to suggest acute cellulitis. There is no vaginal discharge seen. Vagina is dry but without rashes noted. UA assess on scene and unremarkable. Pt was concerned that she had a yeast infection that was not treated. At this time will initiate treatment for atrophic vaginitis and yeast infection. Pt has FU with her PCP virtually next week. SHe was asked to seek re-evaluation should her symptoms not improve over the next week or two. Pt was back in her recliner at completion of visit. RESERVATIONS MANAGER arriving to help her with her daily routine care. Not available 06/07/2021 12:40:21 06/29/2021 06/29/2021 Overview/History : 71 yo morbidly obese female who c/o ongoing vaginal itching. She wears disposable briefs and has limited mobility including need for assistance with toileting and pericare. She has been seen by this provider in May and then earlier this month by another provider for similar symptoms. Exam: Nontoxic appearing, morbidly obese female. Afebrile, VSS. HEENT unremarkable. Resp unlabord. Lungs CTA. Abdomen unremarkable. Vaginal area with mild dryness, +mild erythema noted to vulva and perineum. No discharge or bleeding. DDx considered, but not limited to: BV, Candidiasis, UTI, Pyelonephritis, STI, atrophic vaginitis Likely recurrence of armand vulvovaginitis with itching and visible erythema. Unlikely UTI or pyelonephritis with no dysuria or frequency and no fever/chills. unlikely STI with no reported exposure. Possible atrophic vaginitis but pt reports no improvement after use of topical estrogen. Work up/Results: POC UA negative. Swab sent for vaginitis panel to check for other possible organisms such as BV. Plan/Discussion: Vulvovaginitis 1. Adivsed patient to take second dose of Diflucan 150 mg from previous Rx. 2. Will refill Nystatin cream 2 x/day for 14 days to affected areas. She states she is not able to apply medication to her perineal area because she cannot reach the area and is reliant on caregivers for this. Patient was encouraged to contact her reimbursement director to request increase of home care visits to 2 times per day to apply this medication. She agrees she is able to call to arrange this. 3. Advised patient to keep area clean and dry with frequent changes of disposable brief. 4. Advised patient to leave area open to air when possible such as at bedtime. 5. Advised to follow up with PCP if no improvement 2-3 days . In order to obtain further information and compare any laboratory results/values, I have accessed old patient records. This information was pertinent in my medical decision making today. Time On Scene with Patient: 00:45:25 [email or web address] Not available 06/29/2021 11:33:32 01/21/2023 01/21/2023 Time On Scene with Patient: 00:51:40 - Escalated to the hospital/emergency department by a non-urgent, non-emergent 911 transport (only option for transport) Brief Overview: 72 y/o female c/o right leg edema and calf pain x 1 week. she is s/p cholecystectomy on 01/08/23 and reports she has had nothing but complications since the procedure. she went back to the ER 01/11 as she was unable to have Bm since the procedure. pt called her food technician for rx lasix for swelling but states they were hesitant without any recent labs. Vital Signs: BP 142/68, repeat 142/68, HR 75, RR 18, T 98.7, O2 97% RA Exam: 72 y/o female obese, well appearing, alert NAD sitting in her recliner. lungs: CTAB no wheezes rales or rhonchi. heart: RRR no murmur rubs or gallops. no pitting edema in the lower extremities. left calf is 16.5 in and right calf is 17.5 in. edema of the RLE noted, + calf tenderness and popliteal tenderness. no erythema, warmth. + homans. strength is normal and equal bilaterally. DDx considered, with rationale: DVT: considered due R calf pain and edema on exam and recent surgery on 01/08/23. CHF exacerbation: considered due to her hx, but edema in unilateral and she has right calf tenderness. lungs are clear on exam, no pitting edema and no reported weight gain. Cellulitis: considered but no erythema, warmth or wounds noted on exam, she is afebrile. Results/ work up: n/a Proper Personal Protective Equipment (PPE), including gloves, eye protection and masks were donned and doffed appropriately and all equipment cleaned using approved technique with germicidal disposable wipes prior to and after care of this patient according to [facility]'s infection prevention protocols. [email or web address] Not available 01/21/2023 18:28:17 Plan of Treatment Reminders Order Date Submit Date Provider Last Modified By Organization Details Last Modified Time Details Appointments None recorded. Lab unlisted lab - vaginitis panel (bv, CV/TV) 2020 021 [email or web address] [facility] (Centralized Electronic Ordering - All Locations), Patient Can Go To The Location Of Their Choice, [id number] 2 12:15:56 urinalysis , dipstick 2020 021 [email or web address] [facility], [address] [place] [address], [address], 1 10:37:05 unlisted lab - urinalysis w/reflex culture 2020 ningalls [facility] (Centralized Electronic Ordering - All Locations), Patient Can Go To The Location Of Their Choice, [id number] 18:12:36 urinalysis , dipstick 2020 021 [email or web address] [facility], [address] [place], [address], 09:25:46 unlisted lab - vaginitis panel (bv, CV/TV) 2020 021 [email or web address] [facility] (Centralized Electronic Ordering - All Locations), Patient Can Go To The Location Of Their Choice, [id number] 12:22:36 urinalysis , dipstick 2020 021 [email or web address] [facility], [address] [place], [address], 15:46:06 culture, urine 2020 KASEY [facility] (Centralized Electronic Ordering - All Locations), Patient Can Go To The Location Of Their Choice, [id number] 06:24:32 urinalysis , dipstick 2020 021 [email or web address] [facility], [address] [place] [address], [address], 16:50:23 Referral None recorded. Procedures None recorded. Surgeries None recorded. Imaging None recorded. Medication Orders nystatin 100,000 unit/gram topical cream 2020 021 [email or web address] [id number], [address] [place], [address], 3 14:47:50 estradiol 0.01% (0.1 mg/gram) vaginal cream 2020 021 [email or web address] [id number], [address] [place], [address], 3 14:46:28 Diflucan 150 mg tablet 2020 021 [email or web address] [id number], [address] [place], [address], 5 11:47:09 nystatin 100,000 unit/gram topical cream 2020 021 [email or web address] [id number], [address] [place], [address], 3 14:47:50 Patient TargetsNo targets recorded. Patient Instructions Encounter Date Encounter Id Patient Instructions Last Modified By Organization Details Last Modified Time 05/05/2021 [id number] YOU WERE SEEN TODAY FOR VAGINAL BURNING - IT IS UNCLEAR IF THIS IS A FUNGAL INFECTION OR AN IRRITANT CONTACT DERMITITIS - KEEP THE AREA DRY YOU CAN - WASH AREA WITH WARM WATER AND MILD SOAP - DRY VERY WELL - USE REMEDY CREAM AND NYSTATIN POWDER - YOU CAN TAKE TYLENOL BEFORE BED. - YOUR URINE DID NOT SHOW AN INFECTION TODAY. Please seek care or call your primary provider if the rash: 1. Worsens 2. Lasts longer than one week 3. Shows signs of local infection (redness, oozing, or swelling) 4. Occurs together with fever, chills, swollen glands, or other symptoms of infection 5. Looks dark purple or spotted 6. Occurs together with symptoms that suggest autoimmune disorder (recurring fever, malaise, fatigue, unexplained weight loss, or joint swelling) If you have additional concerns or develop a change in your condition between 8am-10pm, please call [facility] at [phone] to help navigate your care. [email or web address] Not available 05/05/2021 16:50:22 05/14/2021 [id number] Advised patient to follow up with PCP if no improvement in 2-3 days or with any changes or concerns. [email or web address] Not available 05/14/2021 19:57:49 06/07/2021 [id number] [facility] came to your home to evaluate you for vaginal burning. You have had this for the past month. We checked the area and it looks very dry. The skin though is intact and looks very good. We checked your urine and it was unremarkable. We are going to treat you for atrophic vaginitis and a yeast infection. We sent a prescription to the pharmacy for diflucan and estrogen cream Apply the cream into the vagina once a day. If you have worsening symptoms, please get re-evaluated. It was great to see you today! Thank you for letting [facility] assist you in your medical needs today. We cannot always find the exact cause of your symptoms during your initial visit. This is a summary of your care and your instructions: Please make sure you fill your prescriptions as soon as you are able, and take them as instructed. Please present to your Primary Care Physician if your symptoms are not resolving over the next 2-3 days. If you are noticing a change in your symptoms between the hours of 8am and 9pm, and cannot follow up with your PCP please contact [facility] for re-evaluation. Please present to the nearest EMERGENCY ROOM if you are experiencing any of the following: - worsening pain - fever above 101.0F despite using Tylenol (acetaminophen) - shortness of breath - chest pain or pressure - any symptom or concern that requires immediate evaluation Not available 06/07/2021 09:28:22 06/29/2021 [id number] You were seen today for vaginal itching. You may have a recurrence of yeast infection. Your urine test does not suggest infection but the urine is being cultured to confirm. We also collected a vaginal swab to check for organisms, including yeast, that may be causing your symptoms. While we await those results, we recommend you take the second dose of the fluconazole 150 mg that was previously prescribed to you. We have also refilled the Nystatin cream which should be applied to your outer vaginal area and perineum 2 times per day for 14 days. It is important to keep the area as clean and dry as possible. Please be sure to change the disposable briefs to remain dry. Thank you for your visit with [facility] today. We cannot always find the exact cause of your symptoms during your initial visit. Please follow up with your primary care provider or specialist within 2-3 days to be rechecked or seek medical attention if your symptoms do not go away or get worse. If you develop any new or worsening symptoms and need after hours care, please go to nearest ER and/or call 911. If you have additional concerns or develop a change in your condition between 8am-10pm, please call [facility] at [phone] to help navigate your care. [email or web address] Not available 06/29/2021 10:47:12 01/21/2023 [id number] Thank you for yo ur visit with [facility] today. We cannot always find the exact cause of your symptoms during your initial visit. Please follow up with your primary care provider or specialist within 2-3 days to be rechecked or seek medical attention if your symptoms do not go away or get worse. If you develop any new or worsening symptoms and need after hours care, please go to nearest ER and/or call 911. If you have additional concerns or develop a change in your condition between 8am-10pm, please call [facility] at [phone] to help navigate your care. [email or web address] Not available 01/21/2023 18:34:14 Reason for Referral None Reported. Results Created Date Observation Date Name Description Value Unit Range Abnormal Flag Note LastModifiedBy Organization Detail LastModifiedTime 05/05/20 21 05/05/2021 urina lysis , dipst ick Appearance clear Not Available [facility] [address] [place], [address], 05/05/2021 16:43:17 05/05/20 21 05/05/2021 urina lysis , dipst ick Color yellow Not Available [facility] [address] [place], [address], 05/05/2021 16:43:17 05/05/20 21 05/05/2021 urina lysis , dipst ick Glucose (ref: neg) Neg Not Available [facility] [address] [facility] [place], [address], 05/05/2021 16:43:17 05/05/20 21 05/05/2021 urina lysis , dipst ick Bilirubin (ref: neg) Neg Not Available [facility] [address] [facility] [place], [address], 05/05/2021 16:43:17 05/05/20 21 05/05/2021 urina lysis , dipst ick Ketones (ref: neg) Neg Not Available [facility] [address] [place], [address], 05/05/2021 16:43:17 05/05/20 21 05/05/2021 urina lysis , dipst ick Specific [place] (ref: 1.003 - 1.035) 1.025 Not Available [facility] [address] [place], [address], 05/05/2021 16:43:17 05/05/20 21 05/05/2021 urina lysis , dipst ick Blood (ref: neg) Neg Not Available [address] [place], [address], 05/05/2021 16:43:17 05/05/20 21 05/05/2021 urina lysis , dipst ick pH (ref: 5-7) 5.0 Not Available [address] [place], [address], 05/05/2021 16:43:17 05/05/20 21 05/05/2021 urina lysis , dipst ick Protein (ref: neg) Neg Not Available [address] [place], [address], 05/05/2021 16:43:17 05/05/20 21 05/05/2021 urina lysis , dipst ick Urobilinogen (ref: 0.2) 0 Not Available [address] [place], [address], 05/05/2021 16:43:17 05/05/20 21 05/05/2021 urina lysis , dipst ick Nitrites (ref: neg) negati ve Not Available [address] [place], [address], 05/05/2021 16:43:17 05/05/20 21 05/05/2021 urina lysis , dipst ick Leukocytes (ref: neg) Neg Not Available [facility] [address] [place], [address], 05/05/2021 16:43:17 05/14/2005/15/2021 URINE CULTU RE specimen description URINE CLEAN CATCH/ MIDSTR EAM Not Available [facility] (Centralized Electronic Ordering - All Locations) Patient Can Go To The Location Of Their Choice, [id number] 05/16/2021 06:24:32 05/14/2005/15/2021 URINE CULTU RE special requests NONE Not Available [facility] (Centralized Electronic Ordering - All Locations) Patient Can Go To The Location Of Their Choice, [id number] 05/16/2021 06:24:32 05/14/2005/16/2021 URINE CULTU RE culture Mixed bacter ial magdi, indica tive of urogen ital contam inatio n. Not Available [facility] (Centralized Electronic Ordering - All Locations) Patient Can Go To The Location Of Their Choice, [id number] 05/16/2021 06:24:32 05/14/2005/16/2021 URINE CULTU RE report status FINAL 2020 Not Available [facility] (Centralized Electronic Ordering - All Locations) Patient Can Go To The Location Of Their Choice, [id number] 05/16/2021 06:24:32 05/14/2005/14/2021 urina lysis , dipst ick Appearance clear Not Available [facility] [address], [place], [address], 05/14/2021 15:42:14 05/14/20 21 05/14/2021 urina lysis , dipst ick Color yellow Not Available [facility] - [facility] [address] [place], [address], 05/14/2021 15:42:14 05/14/20 21 05/14/2021 urina lysis , dipst ick Glucose (ref: neg) Neg Not Available [facility] [address] [place], [address], 05/14/2021 15:42:14 05/14/20 21 05/14/2021 urina lysis , dipst ick Bilirubin (ref: neg) Neg Not Available [facility] [address] [place], [address], 05/14/2021 15:42:14 05/14/20 21 05/14/2021 urina lysis , dipst ick Ketones (ref: neg) Neg Not Available [facility] [address] [place], [address], 05/14/2021 15:42:14 05/14/20 21 05/14/2021 urina lysis , dipst ick Specific [place] (ref: 1.003 - 1.035) 1.020 Not Available [facility] [address] [place], [address], 05/14/2021 15:42:14 05/14/2005/14/2021 urina lysis , dipst ick Blood (ref: neg) Neg Not Available [facility] [address] [place], [address], 05/14/2021 15:42:14 05/14/20 21 05/14/2021 urina lysis , dipst ick pH (ref: 5-7) 5.0 Not Available [facility] [address] [place], [address], 05/14/2021 15:42:14 05/14/20 21 05/14/2021 urina lysis , dipst ick Protein (ref: neg) Neg Not Available [facility] [address] [place], [address], 05/14/2021 15:42:14 05/14/20 21 05/14/2021 urina lysis , dipst ick Urobilinogen (ref: 0.2) 0.2 Not Available [facility] [address] [place], [address], 05/14/2021 15:42:14 05/14/20 21 05/14/2021 urina lysis , dipst ick Nitrites (ref: neg) negati ve Not Available [facility] [address] [place], [address], 05/14/2021 15:42:14 05/14/20 21 05/14/2021 urina lysis , dipst ick Leukocytes (ref: neg) Neg Not Available [facility] [address] [place], [address], 05/14/2021 15:42:14 05/14/20 21 05/14/2021 urina lysis , dipst ick Location [facility], [address] [place] [address], [phone] Not Available [facility] [address] [place], [address], 05/14/2021 15:42:14 06/07/2006/07/2021 urina lysis , dipst ick Appearance clear Not Available [facility] [address] [place], [address], 06/07/2021 09:23:59 06/07/2006/07/2021 urina lysis , dipst ick Color yellow Not Available [facility] [address] [place], [address], 06/07/2021 09:23:59 06/07/20 21 06/07/2021 urina lysis , dipst ick Glucose (ref: neg) Neg Not Available [facility] [address] [place], [address], 06/07/2021 09:23:59 06/07/20 21 06/07/2021 urina lysis , dipst ick Bilirubin (ref: neg) Neg Not Available [facility] [address] [place], [address], 06/07/2021 09:23:59 06/07/20 21 06/07/2021 urina lysis , dipst ick Ketones (ref: neg) Neg Not Available [facility] [address] [place], [address], 06/07/2021 09:23:59 06/07/20 21 06/07/2021 urina lysis , dipst ick Specific [place] (ref: 1.003 - 1.035) 1.025 Not Available [facility] [address] [place], [address], 06/07/2021 09:23:59 06/07/20 21 06/07/2021 urina lysis , dipst ick Blood (ref: neg) Neg Not Available [facility] [address] [place], [address], 06/07/2021 09:23:59 06/07/20 21 06/07/2021 urina lysis , dipst ick pH (ref: 5-7) 6.0 Not Available [facility] [address] [place], [address], 06/07/2021 09:23:59 06/07/20 21 06/07/2021 urina lysis , dipst ick Protein (ref: neg) Not Available [facility] [address] [place], [address], 06/07/2021 09:23:59 06/07/20 21 06/07/2021 urina lysis , dipst ick Urobilinogen (ref: 0.2) 0 Not Available [facility] [address] [place], [address], 06/07/2021 09:23:59 06/07/20 21 06/07/2021 urina lysis , dipst ick Nitrites (ref: neg) negati ve Not Available [facility] [address] [place], [address], 06/07/2021 09:23:59 06/07/20 21 06/07/2021 urina lysis , dipst ick Leukocytes (ref: neg) Not Available [facility] [facility] [address] [place], [address], 06/07/2021 09:23:59 06/07/20 21 06/07/2021 urina lysis , dipst ick Location [facility], [address] [place] [address], [id number] Not Available [facility] [address] [place], [address], 06/07/2021 09:23:59 06/29/20 21 07/10/2021 URINE CULTU RE specimen description CLEAN CATCH (URINE ) Not Available [facility] (Centralized Electronic Ordering - All Locations) Patient Can Go To The Location Of Their Choice, [id number] 07/10/2021 10:42:27 06/29/20 21 07/10/2021 URINE CULTU RE special requests NONE Not Available [facility] (Centralized Electronic Ordering - All Locations) Patient Can Go To The Location Of Their Choice, [id number] 07/10/2021 10:42:27 06/29/20 21 07/10/2021 URINE CULTU RE culture Mixed bacter ial magdi, indica tive of urogen ital contam inatio n. Not Available [facility] (Centralized Electronic Ordering - All Locations) Patient Can Go To The Location Of Their Choice, [id number] 07/10/2021 10:42:27 06/29/20 21 07/10/2021 URINE CULTU RE report status FINAL 2021 Not Available [facility] (Centralized Electronic Ordering - All Locations) Patient Can Go To The Location Of Their Choice, [id number] 07/10/2021 10:42:27 06/29/20 21 06/29/2021 urina lysis , dipst ick Glucose (ref: neg) Neg Not Available [facility] [address] [place], [address], 06/29/2021 10:34:07 06/29/20 21 06/29/2021 urina lysis , dipst ick Bilirubin (ref: neg) Neg Not Available [facility] [address] [place], [address], 06/29/2021 10:34:07 06/29/20 21 06/29/2021 urina lysis , dipst ick Ketones (ref: neg) Neg Not Available [facility] [address] [place], [address], 06/29/2021 10:34:07 06/29/20 21 06/29/2021 urina lysis , dipst ick Specific [place] (ref: 1.003 - 1.035) 1.010 Not Available [facility] [address] [place], [address], 06/29/2021 10:34:07 06/29/20 21 06/29/2021 urina lysis , dipst ick Blood (ref: neg) Neg Not Available [facility] [address] [place], [address], 06/29/2021 10:34:07 06/29/20 21 06/29/2021 urina lysis , dipst ick pH (ref: 5-7) 5.0 Not Available [facility] [address] [place], [address], 06/29/2021 10:34:07 06/29/20 21 06/29/2021 urina lysis , dipst ick Protein (ref: neg) Not Available [facility] [address] [place], [address], 06/29/2021 10:34:07 06/29/20 21 06/29/2021 urina lysis , dipst ick Urobili 0.2 Not Available [facility] [address] [place] [place], [address], 06/29/2021 10:34:07 06/29/20 21 06/29/2021 urina lysis , dipst ick Nitrites (ref: neg) negati ve Not Available [facility] [address] [place], [address], 06/29/2021 10:34:07 06/29/20 21 06/29/2021 urina lysis , dipst ick Leukocytes (ref: neg) Neg Not Available [facility] [address] [place], [address], 06/29/2021 10:34:07 06/29/20 21 06/29/2021 urina lysis , dipst ick Location [facility], [address] [place] [address], [phone] Not Available [facility] [address] [place], [address], 06/29/2021 10:34:07 Result Notes None recorded. Procedures Surgical History Date Name Laterality Status Provider Name and Address Organization Details Recorded Time Total hysterectomy completed CHRISSIE COLMENARES NP [address] [place], [address], [place] [facility] 05/05/2021 17:07:49 Breast reduction completed CHRISSIE COLMENARES NP [address] [place], [address], [place] [facility] 05/05/2021 17:07:56 Cholecystectomy completed IVONE Davis [address] [place], [address], [place] [facility] 01/21/2023 14:50:16 Imaging Results None recorded. Procedure Notes None recorded. Medical Equipment None Reported. Allergies Allergen ID Allergen Name Allergen Category Reaction Reaction Severity Criticality Documentation Date Start Date Code Code System Note Provider Name and Address Organization Details Recorded Time 791269 Product containin g penicilli n (product) medicatio n Not available Not available Not available 05/05/2021 93629 8001 SNOMED CHRISSIE COLMENARES NP [address] [place], [address], [place] [facility] 16:[facility]32 Medications Name Sig Start Date Stop Date Status Note LastModified by Organization Details LastModified Time losartan 50 mg tablet TAKE 1 TABLET BY MOUTH EVERY DAY 01/21 completed Not Available Not Available Not Available Nasal Altair (oxymetazol ine) 0.05 % 01/21 completed Not Available Not Available Not Available carvedilol 6.25 mg tablet 01/21 completed Not Available Not Available Not Available carvedilol 12.5 mg tablet TAKE 1 TABLET BY MOUTH TWICE A DAY active Not Available Not Available No t Available torsemide 20 mg tablet 01/21 completed Not Available Not Available Not Available Vitamin C 500 mg tablet active Not Available Not Available Not Available loperamide 2 mg capsule 01/21 completed Not Available Not Available Not Available fluconazole 150 mg tablet Take 1 tablet by oral route for 1 day. 01/21 completed Not Available Not Available Not Available hydrocodone 5 mg-acetamin ophen 325 mg tablet 01/21 completed Not Available Not Available Not Available valsartan 80 mg tablet TAKE 1 TABLET BY MOUTH EVERY DAY 01/21 completed Not Available Not Available Not Available tramadol 50 mg tablet TAKE 1 TABLET EVERY 6 TO 8 HOURS NEEDED FOR MODERATE TO SEVERE PAIN. 01/21 completed Not Available Not Available Not Available spironolact one 25 mg tablet TAKE 1 TABLET BY MOUTH EVERY DAY active Not Available Not Available No t Available ferrous sulfate 325 mg (65 mg iron) tablet TAKE 1 TABLET BY MOUTH TWICE A DAY 01/21 completed Not Available Not Available Not Available nystatin 100,000 unit/gram topical cream APPLY TO AFFECTED AREA TWICE A DAY FOR 14 DAYS 01/21 completed Not Available Not Available Not Available warfarin 5 mg tablet 06/07 completed Not Available Not Available Not Available losartan 25 mg tablet 01/21 completed Not Available Not Available Not Available methimazole 5 mg tablet TAKE 1 AND 1/2 TABLETS BY MOUTH DAILY active Not Available Not Available No t Available docusate sodium 100 mg capsule 01/21 completed Not Available Not Available Not Available dorzolamide 22.3 mg-timolol 6.8 mg/mL eye drops INSTILL 1 DROP INTO LEFT EYE TWICE A DAY active Not Available Not Available No t Available nystatin 100,000 unit/gram topical powder APPLY TO AFFECTED AREA TWICE A DAY 01/21 completed Not Available Not Available Not Available cefuroxime axetil 500 mg tablet TAKE 1 TABLET ORALLY 2 TIMES A DAY FOR 3 DAYS 01/21 completed Not Available Not Available Not Available estradiol 0.01% (0.1 mg/gram) vaginal cream Insert 1 applicato rful every day by vaginal route as directed for 14 days. 01/21 completed Not Available Not Available Not Available methimazole 10 mg tablet TAKE 2 TABLETS BY MOUTH TWICE A DAY active Not Available Not Available No t Available fluticasone propionate 50 mcg/actuati on nasal spray,suspe nsion SPRAY 1 SPRAY INTO EACH NOSTRIL EVERY DAY FOR 30 DAYS active Not Available Not Available No t Available oxycodone 5 mg tablet 01/21 completed Not Available Not Available Not Available ciclopirox 0.77 % topical cream 01/21 completed Not Available Not Available Not Available Klor-Con M20 mEq tablet,exte nded release 01/21 completed Not Available Not Available Not Available carvedilol 01/21 completed Not Available Not Available Not Available cholecalcif carlito (vitamin D3) 1,250 mcg (50,000 unit) capsule TAKE 1 CAPSULE BY MOUTH EVERY 7 DAYS active Not Available Not Available No t Available Desitin Rapid Relief 13 % topical cream 01/21 completed Not Available Not Available Not Available Mucus Relief ER 600 mg tablet, extended release TAKE 1 TABLET BY MOUTH EVERY 12 HOURS NEEDED FOR 10 DAYSOTC 01/21 completed Not Available Not Available Not Available Lumigan 0.01 % eye drops INSTILL 1 DROP INTO BOTH EYES EVERY DAY active Not Available Not Available No t Available Eliquis 5 mg tablet TAKE 1 TABLET BY MOUTH TWICE A DAY active Not Available Not Available No t Available potassium chloride ER 20 mEq tablet,exte nded release 01/21 completed Not Available Not Available Not Available Entresto 24 mg-26 mg tablet TAKE 1 TABLET BY MOUTH TWICE A DAY FOR 30 DAYS active Not Available Not Available No t Available Flowflex COVID-19 Antigen Home Test kit TAKE DIRECTED 01/21 completed Not Available Not Available Not Available Vitals Date Recorded Respiratory rate Body temperature Oxygen saturation Oxygen saturation in Arterial blood by Pulse oximetry Heart rate Systolic And Diastolic Provider Name and Address Organization Details Last Updated DateTime 3 18 /min 98.7 [degF] 97 % 97 % 75 /min 142/68 mm[Hg] Not Available [facility] 14:47:50 Date Recorded Oxygen saturation Oxygen saturation in Arterial blood by Pulse oximetry Respiratory rate Body temperature Heart rate Systolic And Diastolic Provider Name and Address Organization Details Last Updated DateTime 1 96 % 96 % 20 /min 98.3 [degF] 60 /min 132/86 mm[Hg] Not Available [facility] 1 16:42:08 Date Recorded Heart rate Oxygen saturation Oxygen saturation in Arterial blood by Pulse oximetry Respiratory rate Body temperature Systolic And Diastolic Provider Name and Address Organization Details Last Updated DateTime 1 89 /min 98 % 98 % 20 /min 98.4 [degF] 124/76 mm[Hg] Not Available [facility] 1 15:45:46 Date Recorded Respiratory rate Oxygen saturation Oxygen saturation in Arterial blood by Pulse oximetry Heart rate Body temperature Systolic And Diastolic Provider Name and Address Organization Details Last Updated DateTime 1 22 /min 98 % 98 % 76 /min 97.9 [degF] 112/72 mm[Hg] Not Available [facility] 1 08:57:34 Date Recorded Oxygen saturation Oxygen saturation in Arterial blood by Pulse oximetry Body temperature Heart rate Respiratory rate Systolic And Diastolic Provider Name and Address Organization Details Last Updated DateTime 1 97 % 97 % 99.1 [degF] 99 /min 22 /min 138/76 mm[Hg] Not Available [facility] 1 10:24:24 Social History Question Answer Notes LastModified by Organizat ion Details LastModified Time Tobacco Smoking Status Never Smoker IVONE Davis [address], [place], [address], [place] [facility] 01/21/2023 14:49:11 Do You Have An Advance Directive? No [email or web address] Information not available 01/21/2023 Fall Risk: Do You Feel Unsteady When Standing Or Walking? Yes [email or web address] Information not available 01/21/2023 Excessive Alcohol Or Drug Use No [email or web address] Information not available 01/21/2023 Does This Patient Have A PCP? Yes [email or web address] Information not available 01/21/2023 Has The Patient Seen Their PCP In The Past 6 Months? No [email or web address] Information not available 01/21/2023 Is This Patient In Hospice? No [email or web address] Information not available 01/21/2023 Social Support: Do You Feel Safe? Yes [email or web address] Information not available 01/21/2023 Sex: Unknown Functional Status Question Answer Note LastModified by Organizat ion Details LastModified Time Do you use any illicit or recreational drugs? No [email or web address] Information not available 01/21/2023 What is your level of alcohol consumption? None [email or web address] Information not available 01/21/2023 Mental Status None recorded. Family History Relationship Description Onset Age of this Age Resolved Age Notes LastModified by Organization Details LastModified Time Father Coronary arterioscler osis [email or web address] Not available 01/21 14:48:58 Medical History Condition Response CHF Y Hypertension Y A-fib Y Gynecological HistoryNo gynecological history recorded. Obstetrics History GPAL:G 0 P 0 0 0 0 Past Encounters Encounter ID Performer Location Encounter Start Date Encounter Closed Date Diagnosis/Indication Diagnosis SNOMED-CT Code Diagnosis ICD10 Code Diagnosis IMO Codes Diagnosis Note [id number] CHRISSIE COLMENARES NP [facility] [address] [place] [address] 05/05/2021 16:24:07 05/11/2021 12:43:54 Irritant contact dermatitis 904659042 L24.9 Vaginitis 88662694 N76.0 [id number] PARI RAYMOND NP [facility] [address] [place] [address] 05/14/2021 15:07:51 05/19/2021 12:33:27 Vaginitis 69281342 N76.0 Pending results Dysuria 78096022 R30.9 Pending results Candidal intertrigo 2661 74475 B37.2 [id number] NEIDA LARA NP [facility] [address] [place] [address] 06/07/2021 08:44:55 06/10/2021 23:42:43 Atrophic vaginitis 88801559 N95.2 Candidiasis of vagina 72 002817 B37.3 [id number] PARI RAYMOND NP [facility] [address] [place] [address] 06/29/2021 10:18:22 07/03/2021 20:40:58 Vulvovaginitis 23293562 N76.0 [id number] IVONE Davis [facility] [address] [facility] [place] [address] 01/21/2023 14:42:48 01/22/2023 17:05:12 Congestive heart failure 82420637 I50.9 Status of condition: Chronic. Testing/Re sults: lungs are clear on exam. no pitting edema BLE. Discussion :advised further evaluation in the ER due to unilateral leg edema and calf tenderness . concern for DVT due to symptoms and recent surgery. pt understood and agreed with plan. she did not want us to call EMS as she states she needs to get her bag ready and she will call ems for transport to [facility]. Plan, Medication Management & Follow-up recommenda tions:Expe ct called to [facility] for the pt. Pain in ri ght lower limb 254503765 M79.604 Status of condition: Acute. Testing/Re sults: n/a Discussion : advised further evaluation in the ER due to unilateral leg edema and calf tenderness . concern for DVT due to symptoms and recent surgery. pt understood and agreed with plan. she did not want us to call EMS as she states she needs to get her bag ready and she will call ems for transport to [facility]. Plan, Medication Management & Follow-up recommenda tions:Expe ct called to [facility]. Health Concerns Section Related Observation LastModified by Organization Detai ls LastModified Time None Recorded Concern Status LastModified by Organization Details LastModified Time None Recorded Advance Directives Directive N: Payers Insurance Date Sequence Insurance Name Policy Number Policy Romano Covered Member ID Romano Member ID Guarantor Name 01/22/2023 1 [place] [employer] Neida Powell [id number] Neida Powell 01/22/2023 2 [facility] - DOS ON OR AFTER 2022 - ONE CARE (MEDICARE REPLACEMENT/AD VANTAGE - HMO) Neida Powell [id number] Neida Powell 01/22/2023 1 [place] [employer] Neida Powell [id number] Neida Powell 01/23/2023 1 [facility] - DOS ON OR AFTER 2022 - MEDICARE [place]AGE [place] (MEDICARE REPLAC[place]/AD VANTAGE - PPO) Neida Powell [id number] Neida Powell 01/22/2023 2 [place] [facility] Neida Powell [id number] Neida Powlel 01/21/2023 2 [place] [employer] Neida Powell [id number] Neida Powell 01/21/2023 3 [place] [facility] Neida Powell [id number] Neida Powell 05/10/2021 1 *SELF PAY* Neida Powell [id number] Neida Powell 06/30/2021 2 UNSPECIFIED REMIT PAYOR Neida Powell 01/21/2023 1 [place] [id number] Neida Powell [id number] Neida Powell Notes Date Note Type Note Provider Name and Address Organization Details Recorded Time 05/05/2021 text/html 71-year-old female with past medical history that includes but is not limited to CHF, AFib on warfarin, hypertension, arthritis, sleep apnea, chronic hip pain, anemia who calls today for vaginal burning. Patient reports vaginal burning for 4 days. Symptoms are constant although worse when urinating. 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 Patient denies fevers, abdominal pain, nausea, urinary frequency, urinary urgency. PCP also ordered nystatin powder, but she has not started yet. Patient does report she does not always get up to use the bathroom in the middle of the night and will urinate in brief. CHRISSIE COLMENARES NP [address] [place], [address], [place] [facility] 05/05/2021 17:28:22 05/14/2021 text/html 71-year-old female [facility] but new to this provider with PMH CHF, AFib on warfarin, HTN, OA, JUAN, chronic BLE lymphedema, hyperthyroidism, chronic hip pain, anemia who c/o ongoing vaginal burning and burning to area with urination. Patient was seen by on 05/05/21 for same complaint with no improvement after using Nystatin powder to the vaginal and inner thigh areas. Patient denies any fever or chills but states that the skin over her sacral and perineal areas feel warm. She denies any vaginal discharge, but reports some vaginal itching. She denies any abdominal, supra pubic or flank pain. Patient reports history of yeast infections in the folds over her lower abdomen previously that were treated effectively with nystatin cream. She denies any rash there now. PARI RAYMOND, AZEEM [address], [place], [address], [place] [facility] 05/14/2021 19:58:07 06/07/2021 text/html 71 year-old female with history of arthritis, obesity, atrial fib on eliquis, left severe hip pain, who calls to her home for evaluation of burning on urination. This has been going on for the past couple of months. She was told she has a candidal infection but she couldn't take the diflucan because of her coumadin. She was changed from coumadin to eliquis. Pt has continued to have pain and burning there. She is worried for urinary tract infection as well. She denies any fevers, chills, nausea or vomiting.She has been using nystatin cream and powder for her candidal intertrigo.She is initially upset as she was awakened by staff upon arrival.No shortness of breath, no nausea, vomiting, abdominal pain. NEIDA LARA NP [address], [place], [address], [place] [facility] 06/07/2021 12:41:10 06/29/2021 text/html 71 yo morbidly obese female with PMH of CHF, AFib on warfarin, HTN, OA, JUAN, chronic BLE lymphedema, hyperthyroidism, chronic hip pain, anemia and recurrent candidal infections who c/o ongoing vaginal itching. Patient was seen earlier this month by another provider and treated with Diflucan and Estradiol cream. After previous visit on 06/07, the patient reports taking 1 dose of Diflucan 150 mg and reports she has not been using the estradiol cream because it doesn't work for her. She ran out of nystatin cream and has been using a Remedy Antifungal cream. Today, she reports that the area around her vagina and perineal area feels warm. She denies any pain or burning with urination. 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 She needs assistance with pericare and toileting. She denies any blood in urine or stool. No abdominal pain. PARI RAYMOND NP [address], [place], [address], [place] [facility] 06/29/2021 11:33:42 01/21/2023 text/html General HPI Temp late - DHReported by Patient 72 y/o female known to new to provider with hx of A fib, CHF, HTN, arthritis, JUAN, hyperthyroidism, chronic hip pain, anemia. pt had cholecystectomy on 01/08/23 and was sent home the following day. she reports she then had constipation and no BM by 01/11 so she went to [facility] ER. she states they finally gave her an enema and she was able to have bm. she states for the past week she has developed right leg edema and pain in her calf and popliteal region. she denies any injury or fall. denies cp, sob, fever, leg redness, warmth. she states her leg and foot has swollen up like a balloon, she called her food technician to see if they would prescribe lasix but they were hesitant without any blood work. nothing makes the pain better or worse. IVONE Davis [address], [place], [address], [place] [facility] 01/21/2023 18:34:43 OBGyn Episode No OBEpisode recorded.
--- OUTSIDE RECORDS SUMMARY | 2025-04-26 19:30 | XMS_ITS | Data Portability ---
Author Organization [facility], Main Office Address [address] [place] [address] Care Team Providers Care Housekeeping Room Attendant Name Role Phone BRIAN CARRASQUILLO 3RD FLOOR OTHER Assessment No assessment recorded. Plan of Treatment Reminders Order Date Submit Date Provider Last Modified By Organization Details Last Modified Time Details Appointments None record ed. Lab None record ed. Referral None record ed. Procedures None record ed. Surgeries None record ed. Imaging None record ed. Medication Orders None record ed. Patient TargetsNo targets recorded. Patient InstructionsNo instructions recorded. Reason for Referral None Reported. Problems Name Problem SNOMED Code Status Onset Date Resolution Date Notes Provider Name and Address Organization Details Recorded Time Congestive heart failure 32068937 Active 2019 GERMAINE MEDRANO NP [address], [address], [place], [address], [facility] [place] 0 08:50:51 Lymphedema 248185559 Active 2019 GERMAINE MEDRANO NP [address], [address], [place], [address], [facility] [employer] [facility] 0 08:51:02 Essential hypertensio n 03946858 Active 2019 GERMAINE MEDRANO NP [address], [address], [place], [address], [facility] [place] 0 08:51:09 Obesity 594977655 Active 2019 GERMAINE MEDRANO NP [address], [address], [place], [address], [facility] [place] 0 08:51:19 Obstructive sleep apnea syndrome 05675354 Active 2019 GERMAINE MEDRANO NP [address], [address], [place], [address], [place] [employer] 0 08:51:25 Atrial fibrillatio n 78364147 Active 2019 GERMAINE MEDRANO NP [address], [address], [place], [address], [facility] 0 08:57:33 At increased risk for falls 909577668 Active 2019 GERMAINE MEDRANO NP [address], [address], [place], [address], [facility] 0 09:18:08 Osteoarthri tis 361901467 Active 2019 GERMAINE MEDRANO NP [address], [address], [place], [address], [employer] 0 09:23:32 Thyrotoxico sis due to Graves' disease 695214894 Active 2019 Enedina Richards MD [address], [place], [address], [facility] 0 17:48:34 Gastroesoph ageal reflux disease without esophagitis 521369721 Active 2019 STANLEY High [address], [address], [place], [address], [employer] 0 11:13:27 Pain of left eye 2223386226840 04 Active 2019 STANLEY High [address], [address], [place], [address], [facility] 0 11:15:10 Exposure to SARS-CoV-2 Active 2019 GERMAINE MEDRANO NP [address], [address], [place], [address], [employer] 0 11:50:25 Acute hypokalemia 70344854 Active 2019 STANLEY High [address], [address], [place], [address], [facility] 0 14:49:44 Nasal congestion 28309255 Active 2019 GERMAINE MEDRANO NP [address], [address], [place], [address], [employer] 0 09:52:18 Problem Notes None recorded. Medical Equipment None Reported. Allergies Allergen ID Allergen Name Allergen Category Reaction Reaction Severity Criticality Documentation Date Start Date Code Code System Note Provider Name and Address Organization Details Recorded Time Product containin g penicilli n (product) medicatio n Not available Not available Not available 05/02/2020 67200 8001 SNOMED GERMAINE MEDRANO NP [address] [place] [address], [place], [address], [employer] 0 08:50:41 Vitals Date Recorded Body weight Heart rate Respiratory rate Body temperature Oxygen saturation Oxygen saturation in Arterial blood by Pulse oximetry Systolic And Diastolic Provider Name and Address Organization Details Last Updated DateTime 4 754247. 33 g 66 /min 20 /min 97.8 [degF] 96 % 96 % 113/62 mm[Hg] Vianey GuerreroSTANLEY mock [address], [place], [address], [employer] 4 10:08:45 Date Recorded Body height Heart rate Respiratory rate Body temperature Oxygen saturation Oxygen saturation in Arterial blood by Pulse oximetry Systolic And Diastolic Provider Name and Address Organization Details Last Updated DateTime 0 157.48 cm 84 /min 18 /min 97.3 [degF] 94 % 94 % 110/65 mm[Hg] GERMAINE MEDRANO NP [address] [facility] [facility], [facility] [address], [place], [address], [employer] 0 09:52:26 Date Recorded Body height Heart rate Respiratory rate Body temperature Oxygen saturation Oxygen saturation in Arterial blood by Pulse oximetry Systolic And Diastolic Provider Name and Address Organization Details Last Updated DateTime 0 157.48 cm 84 /min 16 /min 97.9 [degF] 96 % 96 % 140/80 mm[Hg] GERMAINE MEDRANO NP [address] [facility], [facility] [address], [place], [address], [employer] 0 10:12:31 Date Recorded Body height Body mass index (BMI) Body weight Heart rate Respiratory rate Body temperature Oxygen saturation Oxygen saturation in Arterial blood by Pulse oximetry Systolic And Diastolic Provider Name and Address Organization Details Last Updated DateTime 0 157.48 cm 36 kg/m2 82276.7 g 86 /min 18 /min 97.3 [degF] 94 % 94 % 124/68 mm[Hg] GERMAINE MEDRANO NP [address], [address], [place], [address], [facility] 0 10:25:41 Date Recorded Body height Heart rate Respiratory rate Body temperature Oxygen saturation Oxygen saturation in Arterial blood by Pulse oximetry Systolic And Diastolic Provider Name and Address Organization Details Last Updated DateTime 0 157.48 cm 72 /min 16 /min 97.3 [degF] 98 % 98 % 118/74 mm[Hg] GERMAINE MEDRANO NP [address], [address], [place], [address], [facility] 0 09:51:58 Date Recorded Body height Heart rate Respiratory rate Body temperature Oxygen saturation Oxygen saturation in Arterial blood by Pulse oximetry Systolic And Diastolic Provider Name and Address Organization Details Last Updated DateTime 0 157.48 cm 78 /min 18 /min 97.2 [degF] 95 % 95 % 123/80 mm[Hg] GERMAINE MEDRANO NP [address] [facility], [facility] [address], [place], [address], [employer] 0 11:59:36 Social History Question Answer Notes LastModified by Organizat ion Details LastModified Time Tobacco Smoking Status Never Smoker GERMAINE MEDRANO NP [address], [place], [address], [employer] 05/02/2020 09:00:12 Do You Have An Advance Directive? Yes Full Code, Ok For Dialysis, No Art. Nutrition. Information not available 05/03/2020 How Much Tobacco Do You Chew? None Information not available 05/03/2020 Do You Have A Medical Power Of Director Of Occupational Health? No Reportedly Has One, But Not In Chart. Information not available 05/03/2020 What Was The Date Of Your Most Recent Tobacco Screening? 05/03/2020 Information not available 05/03/2020 Sex: Unknown Functional Status Question Answer Note LastModified by Organizat ion Details LastModified Time What is your level of alcohol consumption? None no drug use [email or web address] Information not available 05/02/2020 Do you or have you ever used smokeless tobacco? Never used smokeless tobacco Information not available 05/03/2020 Do you or have you ever used e-cigarettes or vape? Never used electronic cigarettes Information not available 05/03/2020 Mental Status None recorded. Family History Nothing Reported Notes:father-mi, mother-ca o vary Mother had some kind of thyroid surgery and sister is hypothyroid. Medical History No medical history recorded. Gynecological HistoryNo gynecological history recorded. Obstetrics History GPAL:G 0 P 0 0 0 0 Past Encounters Encounter ID Performer Location Encounter Start Date Encounter Closed Date Diagnosis/Indication Diagnosis SNOMED-CT Code Diagnosis ICD10 Code Diagnosis IMO Codes Diagnosis Note [id number] AZEEM BRAMBILA [address] [place] [address] 05/02/2020 08:48:40 05/06/2020 14:41:57 Atrial fibrillation 13599110 I48.91 eliquis 5 mg bid torsemide 20 mb bid asa 81 mg Congestive heart failure 64396255 I50.9 torsemide 20 mg bid coreg 6.25 mg bid Essential hypertension 44897117 I10 monitor bp Hypothyroidism 52658554 E03.9 methimazol e 10 mg q12hr Lymphedema 709853888 I89 .0 monitor for worsening edema Obesity 661946872 E66.9 dietary consult Obstructiv e sleep apnea syndrome 47193003 G47.33 cpap At [facility] ed risk for falls 421589588 Z91.81 PT OT eval and treat Osteoarthritis 403344208 M19.90 tramadol 50 mg q4 hr prn [id number] MD BRIAN Jeffries [address] [place] [address] 05/03/2020 16:56:55 05/06/2020 14:46:13 Atrial fibrillation 97898578 I48.0 New onset likely due to hyperthyro idism. Rate in good control on carvedilol as above. Continue eliquis 5 mg BID for AC and ASA 81 mg qd. Monitor HR and bleeding risk. F/U with cardio as planned. Congestive heart failure 54892030 I50.33 Now back to baseline. Wts stable. Continue torsemide 20 mg BID and carvedilol 6.25 mg BID. Very deconditio mikel from recent illness. Needs PT/OT for strengthen ing, balance, gait training, safety and function. Monitor resp. status, fluid status, wts and labs. Essential hypertension 59363183 I10 With borderline SBP at times, but very low DBPs. No changes to med regimen at this time. Continue meds as above. Monitor BP and labs. Consider restarting lisinopril if BP creeps up and renal function remains good. Lymphedema 015181890 I89 .0 At baseline, continue torsemide. Monitor Obesity 821931178 Z68.37 E66.01 Continue healthy eating and diuresis. E Commerce Director consult. Obstructiv e sleep apnea syndrome 10768668 G47.33 Continue cpap At [facility] risk for falls 928449247 Z91.81 Currently deconditio mikel as above. Fall precaution s. Osteoarthritis 407283319 M15.0 Knees and right hip are the worst. Uses lidocaine gel to knees and tramadol 50 mg q 6 hrs scheduled at home. Will change to that regimen. Monitor pain, PT/OT as above. Thyrotoxic osis due to Graves' disease 814303110 E05.00 With mildly elevated FT4 inpt, with suppressed TSH, + antibodies and nuclear scan c/w Grave's disease. Now on methimazol e 10 mg q 12 hrs until seen by endocrine to decide about definitive tx. This is likely the cause for new onset Afib. Monitor for sxs. [id number] STANLEY High [address] [place] [address] [place] [address] 05/07/2020 11:05:04 05/10/2020 13:52:06 Gastroesophageal reflux disease without esophagitis 199010790 K21.9 will trial omeprazole 20 mg qd x 5 days and have AZEEM wolff on 05/11 for effectiven ess monitor Congestive heart failure 83401941 I50.9 will decrease torsemide to 20 mg qd monitor fluid status, weights adjust med prn Pain of left eye 0505337 001 54390 H57.12 continue to monitor sheyla for rash and if occurs would start antiviral for concern for HZV [id number] AZEEM BRAMBILA [address] [place] [address] [place] [address] 05/09/2020 09:54:34 05/11/2020 14:17:42 Congestive heart failure 82413012 I50.9 torsemide 20 mg bid coreg 6.25 mg bid Exposure t o SARS-CoV-2 090144988 Z20.828 05/03 nasal swab negative Gastroesop hageal reflux disease without esophagitis 914467884 K21.9 denies any symptoms [id number] STANLEY High [facility] [place] [address] [place] [address] [place] [address] 05/12/2020 14:48:27 05/17/2020 09:37:56 Congestive heart failure 14275827 I50.9 continue torsemide 20 mg qd monitor fluid status, weights adjust med prn Acute hypokalemia 405359 03 E87.6 start KCL 40 meq qd x 4 days check bmp on 05/13 and 05/16 [id number] GERMAINE MEDRANO NP [address] [address] 05/16/2020 09:11:43 05/18/2020 15:52:08 Congestive heart failure 12020453 I50.9 torsemide 20 mg bid coreg 6.25 mg bid monitor respirator y status Exposure t o SARS-CoV-2 801254866 Z20.828 05/03 05/10 nasal swab negative Lymphedema 843073584 I89 .0 monitor for worsening edema [id number] [facility] [address] [place] [address] 05/23/2020 09:35:38 05/25/2020 16:28:34 Exposure to SARS-CoV-2 647427300 Z20.828 05/03, 05/10, 05/16nasal swab negative At [facility] ed risk for falls 344773711 Z91.81 PT OT eval and treat Congestive heart failure 96349813 I50.9 torsemide 20 mg bid coreg 6.25 mg bid monitor respirator y status [id number] GERMAINE MEDRANO NP BRIAN CARRASQUILLO [address] [place] [address] 05/30/2020 09:30:32 06/02/2020 12:53:32 Acute hypokalemia 44585113 E87.6 monitor labs KCL prn At [facility] ed risk for falls 799365601 Z91.81 PT OT eval and treat Atrial fibrillation 4943 6004 I48.91 eliquis 5 mg bid torsemide 20 mb qd asa 81 mg Congestive heart failure 94722097 I50.9 torsemide 20 mg daily coreg 6.25 mg bid monitor respirator y status Essential hypertension 58296945 I10 monitor bp Gastroesop hageal reflux disease without esophagitis 843626642 K21.9 denies any symptoms Lymphedema 199740186 I89 .0 monitor for worsening edema Obesity 395143164 E66.9 dietary consult Obstructiv e sleep apnea syndrome 63871122 G47.33 cpap Osteoarthritis 111643238 M19.90 tramadol 50 mg q4 hr prn Thyrotoxic osis due to Graves' disease 157490163 E05.00 methimazol e 10 mg q 12 hrs until seen by endocrine to decide about definitive tx. This is likely the cause for new onset Afib. Monitor for sxs. [id number] AZEEM BRAMBILA [place] [address] [place] [address] 06/01/2020 09:50:19 06/07/2020 09:36:36 Nasal congestion 48898601 R09.81 continue flonase claritin 10 mg daily [id number] GERMAINE MEDRANO NP [address] [address] 06/03/2020 11:58:52 06/07/2020 09:53:51 Congestive heart failure 30392404 I50.9 torsemide 20 mg daily-send ing script for 7 tabs coreg 6.25 mg bid monitor respirator y status Thyrotoxic osis due to Graves' disease 539393230 E05.00 methimazol e 10 mg q 12 hrs until seen by endocrine to decide about definitive tx-sending script for 14 tabs Monitor for sxs. Health Concerns Section Related Observation LastModified by Organization Zoya ls LastModified Time None Recorded Concern Status LastModified by Organization Details LastModified Time None Recorded Advance Directives Directive Y: Full code, ok for dialysi s, no art. nutrition. Payers Insurance Date Sequence Insurance Name Policy Number Policy Romano Covered Member ID Romano Member ID Guarantor Name 06/07/2020 2 [place] [id number] Socorro Powell [id number] Socorro Andre 05/06/2020 *SELF PAY* Omar way Andre 06/01/2020 1 MEDIC[place] B[place] [facility] Socorro Powell [id number] Socorro Powell Notes Date Note Type Note Provider Name and Address Organization Details Recorded Time 05/16/2020 text/html ROS as noted in the HPI seen today for acute rounding visit, CAOx3 she is sitting up in bed eating breakfast, she is complaining of right hip and bilateral knee pain and wants her pain med, she becomes very anxious when in pain, Dr Garcia in to see pt and will be injecting her knees , biofreeze ordered for the hip, lungs clear, +edema unchanged, she is eating and drinking well, participating with PT GERMAINE MEDRANO NP [address], [address], [place], [address], [employer] 05/16/2020 09:56:25 05/23/2020 text/html ROS as noted in the HPI seen today for acute rounding visit, CAOx3 lymphedema lower legs unchanged, lungs clear, skin clean and intact, she is complaining of shoulder pain and bengay (or equivalent) will be ordered, Dr Garcia injected pt knees and she says they are less painful, she is eating and drinking well GERMAINE MEDRANO NP [address], [address], [place], [address], [employer] 05/23/2020 10:15:42 05/30/2020 text/html seen today for 30 day routine rounding visit-70 yof presented to the ED with sob and cp radiating to left arm. she denied any palpitations cough or fever. she was treated for chf with IV lasix, TTE showed mid inferior wall and aterior lateral wall motion abnomalities, diastolic dysfunction. she was switched from lasix to torsemide. CAOx3 she is asking that her torsemide be daily, this was done, her edema has decreased, lungs clear, no sob noted or reported, she is oob occasionally GERMAINE MEDRANO NP [address], [address], [place], [address], [facility] 05/30/2020 10:31:19 06/01/2020 text/html ROS as noted in the HPI seen today for acute rounding visit, CAoX3 she is complaining of nasal congestion not resolved with flonase, will order some claritin for this, lungs clear, no distress noted or reported GERMAINE MEDRANO NP [address], [address], [place], [address], [facility] [place] 06/01/2020 09:54:28 06/03/2020 text/html ROS as noted in the HPI seen today for acute rounding visit, resident has decided to go home AMA on saturday, her edema has improved but PT indicates she is not safe to go home, discussed situation with Dr James and scripts for Torsemide and Methimazole will be provided for 1 week for her medical safety until she can get refills from her PCP GERMAINE MEDRANO NP [address], [address], [place], [address], [facility] [place] 06/03/2020 12:06:04 OBGyn Episode No OBEpisode recorded.
[2025-04-26 19:35] LABS: Alanine Aminotransferase 17 U/L (0-31); Albumin Level 4.8 g/dL (3.5-5.0); Alkaline Phosphatase 35 U/L (39-117); Anion Gap 12 (12-20); Aspartate Amino Transferase 21 U/L (5-31); Blood Urea Nitrogen 23 mg/dL (9-16); Calcium 9.5 mg/dL (8.4-10.2); Carbon Dioxide 28 mmol/L (22-29); Chloride 105 mmol/L (96-108); Creatinine Clr Calc Pharmacy 56.0; Estimated Glomerular Filt Rate 53; Potassium 4.3 mmol/L (3.3-5.1); Sodium 141 mmol/L (135-145); Total Protein 8.3 g/dL (6.5-8.0)
[2025-04-26 20:06] LABS: Erythrocyte Sedimentation Rate 26 MM/HR (0-20)
[2025-04-26] MEDS: Furosemide 40 MG/4 ML VIAL IVPUSH (21:43)
--- NOTE | 2025-04-26 23:34 | ED.GENADULT ---
HPI - General Adult General Chief complaint: Extremity Injury, Lower Stated complaint: cellulitis, Redness in legs Time Seen by Provider: 04/26/25 21:20 Source: patient, RN notes reviewed and old records reviewed Mode of arrival: EMS Limitations: no limitations History of Present Illness ED Provider: Shirley HPI narrative: 75-year-old female past medical history significant for hypertension, lymphedema, obesity, AFib on Eliquis, hyperthyroidism presents for evaluation of leg swelling. She reports that she has had cellulitis in the past and this feels similar. She reports cutting her leg by accident a few days ago on the left side. She does have lymphedema and feels as though her legs have been more swollen than usual pain Denies any chest pain or shortness of breath pain Denies any fevers or chills Denies any falls or injuries Related Data Home Medications ?Medication ?Instructions ?Recorded ?Confirmed apixaban 5 mg tablet (Eliquis) 5 mg PO BID 09/28/21 01/12/23 carvedilol 12.5 mg tablet 12.5 mg PO BID 09/28/21 01/12/23 nystatin 100,000 unit/gram topical 1 appl topical DAILY PRN Itching 09/28/21 01/12/23 powder spironolactone 25 mg tablet 25 mg PO DAILY 09/28/21 01/12/23 fluticasone propionate 50 1 spray intranasal DAILY PRN 10/24/22 01/12/23 mcg/actuation nasal Allergy Symptoms spray,suspension methimazole 5 mg tablet 5 mg PO DAILY 10/24/22 01/12/23 sacubitril 24 mg-valsartan 26 mg 1 tab PO BID 10/24/22 01/12/23 tablet (Entresto) bimatoprost 0.01 % eye drops 1 drp ophthalmic (eye) DAILY 12/10/22 01/12/23 (Lumigan) dorzolamide 22.3 mg-timolol 6.8 1 drp ophthalmic-Left BID 12/10/22 01/12/23 mg/mL eye drops docusate sodium 100 mg capsule 100 mg PO BID 01/12/23 01/12/23 Held on 01/15/23. Instructions: Resume on 01/29/23. torsemide 20 mg tablet 20 mg PO DAILY 05/25/24 Previous Rx's ?Medication ?Instructions ?Recorded oxycodone 5 mg tablet 5 mg PO Q4H PRN pain (scale score 01/09/23 7-10) #24 tabs loperamide 2 mg capsule 2 mg PO Q6H PRN loose stool #14 01/15/23 (Anti-Diarrheal (loperamide)) caps nitrofurantoin 100 mg PO BID uti #20 caps 05/25/24 monohydrate/macrocrystals 100 mg capsule (Macrobid) cefuroxime axetil 250 mg tablet 250 mg PO BID #14 tabs 12/09/24 nitrofurantoin macrocrystal 100 mg 100 mg PO Q12H 5 days #10 caps 12/11/24 capsule Allergies Allergy/AdvReac Type Severity Reaction Status Date / Time Penicillins (PENICILLINS) Allergy Unknown UNKNOWN Verified 04/26/25 17:51 Review of Systems Constitutional: Constitutional: Denies body ache(s), Denies chills, Denies fever(s) and Denies headache(s) Eyes: Eyes: Denies blurry vision ENT: Denies dizziness, Denies dry mouth and Denies headache(s) Cardiovascular: Cardiovascular: Denies chest pain and Denies dyspnea on exertion Respiratory: Respiratory: Denies cough and Denies dyspnea on exertion Gastrointestinal: Gastrointestinal: Denies abdominal pain, Denies nausea and Denies vomiting Musculoskeletal: Musculoskeletal: Denies back pain Integumentary/Breasts: Skin/Breast: Reports erythema, Reports rash and Reports wounds Neurologic: Denies dizziness and Denies headache(s) Psychiatric: Psychiatric: Denies anxiety [facility] Past Medical History Medical History Hx of custodial use of blood thinners JUAN (obstructive sleep apnea) Heart failure Afib Glaucoma Does mobilize using walker Breast mass, right Hypertension Arthritis Lymphedema Surgical History Hx of endoscopic retrograde cholangiopancreatography History of bilateral breast reduction surgery History of hysterectomy Family History Family History Mother Vaginal cancer Brother Eye cancer Social History Social History Household Members: None Housing: Apartment Are you a primary home care aide to a significant other at home: No Do you presently have visiting nurse or other home services: No (aids come to the house 2 hours everyday) Alcohol intake: former Patient Tobacco Use Status: Never used Tobacco Second Hand Smoke Exposure: No Advance Directives: Yes Advance Directives on File: Yes Advance Directives Date on File: 10/24/22 service: No Physical Exam ED Vital Signs: Vital Signs - 24 hr 04/26/25 17:47 04/26/25 18:09 04/26/25 20:00 Temperature 98.6 F 97.8 F 98.3 F Pulse Rate 64 68 68 Respiratory Rate 20 16 16 Blood Pressure 113/67 113/67 126/63 Pulse Oximetry 97 96 100 Oxygen Delivery Method Room Air Room Air Room Air 04/26/25 21:41 04/26/25 21:43 04/26/25 21:59 Temperature 98.0 F 97.9 F Pulse Rate 65 64 Respiratory Rate 17 16 Blood Pressure 129/56 L 129/56 L 128/66 Pulse Oximetry 98 96 Oxygen Delivery Method Room Air Room Air BMI result Body Mass Index 51.2 Const General: healthy appearing, comfortable, no acute distress, alert and awake Nutritional Appearance: well nourished Orientation/consciousness: patient oriented x3 HENMT Head: Yes normocephalic and Yes atraumatic Eyes Eyelids: Yes eyelids normal Conjunctivae: conjunctivae normal Sclerae: sclerae normal Corneas: corneas normal Pupils: Equal, round and reactive pupils present EOM: EOMs intact bilaterally Neck Neck: Yes full ROM Resp Effort & Inspection: normal respiratory effort, able to speak in complete sentences and not labored Cardio Rate: regular rate Rhythm: regular rhythm GI Inspection: No distended Palpation (GI): Soft to palpation, not firm, nontender, no guarding and not rigid Skin Other: Bilateral leg edema with faint erythema to both legs. Some increased warmth. Negative Tinsley's sign, no palpable cords General skin exam: elasticity normal Neuro General: patient oriented x3 Cranial nerves: Yes Equal, round and reactive pupils present and Yes Bilaterally intact EOM present Cognition (Neuro): normal cognition Extrem Other: Moving all extremities well without any obvious deformities Medications Administered Discontinued Medications Generic Name Dose Route Start Last Admin Trade Name Freq PRN Reason Stop Dose Admin Cephalexin HCl 500 mg 04/26/25 21:34 04/26/25 21:43 Cephalexin 500 Mg Capsule PO 04/26/25 21:35 500 mg ONCE ONE Administration Furosemide 40 mg 04/26/25 21:34 04/26/25 21:43 Furosemide 40 Mg/4 Ml Vial IVPUSH 04/26/25 21:35 40 mg STAT STA Administration Protocol Medical Decision Making Medical Decision Making [facility] Narrative: 75-year-old female with a past medical history as above presents for evaluation of bilateral leg swelling. She reports a history of cellulitis in his feels similar. Both of her legs are edematous, 3+ pitting edema. She has a history of lymphedema as well. She has a small abrasion to the left jones. It is unlikely that she truly has acute cellulitis of bilateral extremities with the exact same time, but she does have some slight increased warmth. Her primary doctor did prescribe her cephalexin with the patient was too anxious to take it due to her penicillin allergy. She has taken cefuroxime in the past for UTI without any complications. The patient has no shortness of breath, chest pain. She is not hypoxic or tachypneic. I have a low suspicion for acute CHF. The patient is anticoagulated make an acute DVT less likely. We will treat her lymphedema with a dose of Lasix 40 mg IV. She does take spironolactone and previously take torsemide but it appears this was discontinued. I will have her follow up with her primary doctor regarding her dire explain forward. The patient is given a dose of cephalexin and was monitored for several hours without any adverse reactions, she was encouraged that she could take this at home for possible cellulitis Differential Diagnosis Differential Diagnoses: The differential diagnosis associated with the presentation includes Edema Cellulitis Leg swelling CHF Referral Lab Data [facility] Lab Attestation statement: I reviewed the patient's lab results. No leukocytosis or anemia. Normal platelet count. No electrolyte abnormalities warranting dimension. 04/26/25 19:16 04/26/25 19:16 Labs: Lab Results 04/26/25 Range/Units 19:16 WBC 8.1 (4.8-10.8) X10*3/uL RBC 5.26 (4.20-5.50) X10*6/uL Hgb 15.9 (12.0-16.0) g/dl Hct 49.7 H D (37.0-47.0) % MCV 94.5 (80.0-98.0) fL MCH 30.2 (27.0-33.0) pg MCHC 32.0 (31.0-35.0) g/dl RDW 14.7 (11.0-16.0) % Plt Count 162 (160-400) X10*3/uL MPV 9.3 L (9.4-12.3) fL Immature Gran % (Auto) 0.2 (0.0-0.4) % Neut % (Auto) 65.2 (45-73) % Lymph % (Auto) 26.7 (20-40) % [place] % (Auto) 6.2 (2-11) % Eos % (Auto) 1.0 (0-4) % Baso % (Auto) 0.7 (0-2) % Lymph # (Auto) 2.2 (1.2-4.9) X10*3/uL [place] # (Auto) 0.5 (0.1-1.2) X10*3/uL Eos # (Auto) 0.1 (0.0-0.4) X10*3/uL Baso # (Auto) 0.1 (0.0-0.2) X10*3/uL Abs Immat Gran (auto) 0.02 (0.00-0.03) X10*3/uL Absolute Neuts (auto) 5.3 (2.0-8.3) x10*3/uL Absolute Nucleated RBC 0.000 (0.0-0.012) X10*3/uL Nucleated RBC % (auto) 0.0 (0.0-0.2) /100WBC ESR 26 H (0-20) MM/HR Sodium 141 (135-145) mmol/L Potassium 4.3 (3.3-5.1) mmol/L Chloride 105 (96-108) mmol/L Carbon Dioxide 28 (22-29) mmol/L Anion Gap 12 (12-20) BUN 23 H (9-16) mg/dL Creatinine 1.01 (0.5-1.4) mg/dL Estim Creat Clear Calc 56.0 Estimated GFR 53 Random Glucose 81 (60-115) mg/dL Calcium 9.5 (8.4-10.2) mg/dL Total Bilirubin 0.5 (0.0-1.0) mg/dL AST 21 (5-31) U/L ALT 17 (0-31) U/L Alkaline Phosphatase 35 L (39-117) U/L C-Reactive Protein 0.50 (< or = 0.50) mg/dL Total Protein 8.3 H (6.5-8.0) g/dL Albumin 4.8 (3.5-5.0) g/dL Tests considered The following testing was considered but not selected: Consider chest x-ray to evaluate for CHF with the patient has no chest pain, shortness of breath, cough or hypoxia. Discharge Plan Discharge Clinical Impression: Leg swelling Patient Disposition: Home, Self-Care Instructions: Cellulitis (ED) Additional Instructions: I recommend taking the cephalexin that was prescribed to you 4 times a day for 1 week. This is the same medication you were given in the ER in you should not have any reactions. Talk to your doctor about your diuretic, you are currently on spironolactone Follow up with your primary doctor, return for new or worsening symptoms Prescriptions: No Action dorzolamide-timolol 22.3-6.8 mg/mL drops 1 drp ophthalmic-Left BID Rx Instructions: left eye Lumigan 0.01 % drops 1 drp ophthalmic (eye) DAILY Rx Instructions: both eyes oxycodone 5 mg tablet 5 mg PO Q4H PRN (Reason: pain (scale score 7-10)) Qty: 24 0RF Rx Instructions: Partial Fill upon patient request. Take 1-2 tablets every 4-6 hours as needed for pain. docusate sodium 100 mg Capsule 100 mg PO BID loperamide [Anti-Diarrheal (loperamide)] 2 mg capsule 2 mg PO Q6H PRN (Reason: loose stool) Qty: 14 0RF cefuroxime axetil 250 mg tablet 250 mg PO BID Qty: 14 0RF nitrofurantoin macrocrystal 100 mg capsule 100 mg PO Q12H 5 Days Qty: 10 0RF Rx Instructions: must administer with a meal/food, stop the other antibiotic you were prescribed methimazole 5 mg tablet 5 mg PO DAILY fluticasone propionate 50 mcg/actuation spray,suspension 1 spray intranasal DAILY PRN (Reason: Allergy Symptoms) Entresto 24-26 mg tablet 1 tab PO BID Eliquis 5 mg tablet 5 mg PO BID spironolactone 25 mg tablet 25 mg PO DAILY nystatin 100,000 unit/gram powder 1 appl topical DAILY PRN (Reason: Itching) carvedilol 12.5 mg tablet 12.5 mg PO BID nitrofurantoin monohyd/m-cryst [Macrobid] 100 mg capsule 100 mg PO BID Qty: 20 0RF Rx Instructions: must administer with a meal/food torsemide 20 mg tablet 20 mg PO DAILY Print Language: Irish
[2025-04-27 00:33] VITALS: BP 128/66; PULSE 64; RESP 16; TEMP 36.6; O2SAT 96
== END 2025-04-27 00:34 | disposition home or self-care (01) ==
PROVIDERS: Physician Assistant Medical; Emergency Provider Student in an Organized Health Care Education/Training Program; PCP Nurse Practitioner Family
DX: R60.0 Localized edema (principal); I10 Essential (primary) hypertension; I48.91 Unspecified atrial fibrillation; Z79.01 Long term (current) use of anticoagulants
CPT/HCPCS: 36415; 80053; 85025; 85652; 86140; 96374; 99284; J1938